=== PATIENT | female | born 1955 | race Caucasian/White ===

== ENCOUNTER → 2017-08-19 09:24 | Outpatient (CLI) | payer MEDICARE, MEDICAID, SELFPAY ==
--- NOTE | 2017-08-19 09:32 | MM_ITS ---
MM Dig screening mamm BI w/CAD CAD Screening COMPARISON: Digital mammograms 08/06/2016 and 08/01/2015 INDICATION: There is a history of breast cancer patient maternal grandmother diagnosed after menopause. TECHNIQUE: Standard CC and MLO images were obtained. R2 CAD reviewed. FINDINGS: Prominent heterogenic fibroglandular densities are seen in central portions and subareolar regions of both breast. Again noted is a small well-defined benign-appearing nodular density just beneath the surface of the skin outer quadrant left breast. There are few benign-appearing calcifications in each breast. There is a mole marker left breast. There is no suspicious lesion and there are no suspicious microcalcifications. IMPRESSION: Moderate heterogenic breast density with no suspicious lesion seen BI-RADS Category: 2 Benign Finding(s) RECOMMENDED FOLLOW-UP: 1YR - 1 YEAR FOLLOW-UP (A letter has been sent to the patient regarding results of the study.)
== END ==
PROVIDERS: Family Provider Family Medicine; PCP Nurse Practitioner Family; Visit Provider Nurse Practitioner Family
DX: Z12.31 Encounter for screening mammogram for malignant neoplasm of breast (principal)
CPT/HCPCS: 77067

== ENCOUNTER → 2017-11-24 12:41 | Outpatient (CLI) | payer MEDICARE, MEDICAID, SELFPAY ==
--- NOTE | 2017-11-24 12:44 | CA_ITS ---
PROCEDURE: 2-D M-mode and color Doppler study INDICATIONS FOR THE TEST: Chest pain COPDX Heart Murmur Tobacco SmokingX Palpitations Fatigue Syncope EdemaX HypertensionXDiabetes Mellitus Rheumatic Fever SOB ZHENG Obesity HyperlipidemiaX Family History HD Additional History PATIENT INFORMATION HEIGHT: 59 WEIGHT:160 GENDER: Female B/P:120/70 2-D/M-MODE INTERPRETATION: 2-D MEASUREMENTS OBSERVED VALUES IN CMS Right Ventricular Dimension (RVDd) 2.4 Interventricular Septum (Thickness)(IVsd) 1.0 Left Ventricular Internal Dimensions(LVIDd) 3.0 Left Ventricular Posterior Wall (Thickness)(LVPWd) .9 Aortic Root 2.9 Aortic Cusp Separation 1.9 Left Atrial Dimensions (LAD) 2.9 2D 1. Left atrium is mildly enlarged, left ventricle is normal size, left ventricle wall thickness is upper limit of normal, there is preserved left ventricular systolic function, visually estimated ejection fraction 55% with no obvious regional wall motion abnormality. 2. The right atrium and right ventricle are normal size and contractility. 3. The aortic valve is minimally thickened and fibrosed. 4. The mitral and tricuspid valve are grossly normal. 5. The pulmonic valve is poorly visualized. 6. No significant pericardial effusion noted. DOPPLER INTERROGATION: Doppler interrogation of the aortic, mitral and tricuspid valvular presence of mild mitral and tricuspid regurgitation, tricuspid and jet velocity insufficient for calculation of the right ventricular systolic pressure, grade 1 diastolic dysfunction seen without tissue Doppler evidence of raised left atrial pressure. CONCLUSION: 1. Mildly enlarged left atrium, normal left ventricular size, mild concentric left ventricular hypertrophy, visually estimated ejection fraction 55% with no obvious regional wall motion abnormality, grade 1 diastolic dysfunction seen without tissue Doppler evidence of raised left atrial pressure. 2. Mild mitral and tricuspid regurgitation 3. No significant pericardial effusion noted.
== END ==
PROVIDERS: Family Provider Family Medicine; PCP Nurse Practitioner Family; Visit Provider Nurse Practitioner Family
DX: R60.1 Generalized edema (principal); R06.02 Shortness of breath
CPT/HCPCS: 93306

== ENCOUNTER → 2018-02-02 11:36 | Outpatient (CLI) | payer MEDICARE, MEDICAID, SELFPAY ==
--- NOTE | 2018-02-02 11:42 | XR_ITS ---
XR hip RT 2-3V w/pelvis HISTORY: ITS.REASON: RT HIP PAIN ORDERING PHYSICIAN: Sol Peralta PATIENT AGE: 62 years COMPARISON: None FINDINGS: No fracture or dislocation is evident. No significant degenerative change. No lytic or blastic change. Unremarkable soft tissues IMPRESSION: Negative hip
== END ==
PROVIDERS: PCP Nurse Practitioner Family; Visit Provider Nurse Practitioner Family
DX: M25.551 Pain in right hip (principal)
CPT/HCPCS: 73502

== ENCOUNTER 2018-04-04 14:43 | Observation (INO) ==
--- NOTE | 2018-04-04 15:06 | Emergency Department Note ---
ED Disposition Clinical Impression: Acute gastroenteritis Disposition: Still a Patient Condition on Discharge: Fair - Critical Care Critical Care Time: No Attestation: On 04/04/18, the high probability of a clinically significant, sudden or life threatening deterioration of the following system(s) required my full and direct attention, intervention and personal management. The time I documented below is in addition to time spent performing reported procedures but includes the following listed in this critical care notation. Medical Decision Making - Omer Inquiry Pt receiving controlled substance: No Vital Signs: 04/04/18 14:54 04/04/18 15:14 04/04/18 16:00 Temperature 99.1 F Temperature Source Oral Pulse Rate [Left Radial] 88 87 91 H Respiratory Rate 16 16 18 Blood Pressure [Right Arm] 126/74 110/53 L 117/56 L Blood Pressure Mean [Right Arm] 91 72 76 Blood Pressure Source [Right Arm] Automatic Cuff Automatic Cuff Automatic Cuff Blood Pressure Position [Right Arm] Sitting Sitting Sitting 02 Sat by Pulse Oximetry 98 94 L 95 Oxygen Delivery Method Room Air Room Air Room Air 04/04/18 17:00 04/04/18 18:00 04/04/18 19:48 Temperature Temperature Source Pulse Rate [Left Radial] 82 82 65 Respiratory Rate 18 16 16 Blood Pressure [Right Arm] 115/67 99/51 L 119/71 Blood Pressure Mean [Right Arm] 83 67 87 Blood Pressure Source [Right Arm] Automatic Cuff Automatic Cuff Automatic Cuff Blood Pressure Position [Right Arm] Sitting Sitting Sitting 02 Sat by Pulse Oximetry 96 96 100 Oxygen Delivery Method Room Air Room Air Room Air - Lab Data Lab Results 04/04/18 14:50: Urine Color Yellow, Urine Appearance Clear, Urine pH 6.0, Ur Specific [place] 1.010, Urine Protein Negative, Urine Glucose (UA) Negative, Urine Ketones Negative, Urine Blood Negative, Urine Nitrate Negative, Urine Bilirubin Negative, Urine Urobilinogen 0.2, Ur Leukocyte Esterase Negative, Urine WBC 5-10, Ur Squamous Epith Cells 10-20, Urine Bacteria 4+, Hyaline Casts 5-10 04/04/18 15:35: WBC 14.4 H, RBC 4.99, Hgb 15.4, Hct 43.8, MCV 87.8, MCH 30.8, MCHC 35.1, RDW 13.5, Plt Count 343, MPV 7.9, Neut % (Auto) 80.1 H, Lymph % (Auto) 15.2, [place] % (Auto) 4.1, Eos % (Auto) 0.2, Baso % (Auto) 0.4, Neut # (Auto) 11.5 H, Lymph # (Auto) 2.2, [place] # (Auto) 0.6, Eos # (Auto) 0.0, Baso # (Auto) 0.1 04/04/18 15:35: Sodium 136, Potassium 2.6 L*, Chloride 94 L, Carbon Dioxide 34 H , Anion Gap 10.6, BUN 27 H, Creatinine 2.14 H, Estimated Creat Clear 30, Estimated GFR 23 L, Est GFR ( Amer) 28 L, Glucose 142 H, Calcium 9.2, Total Bilirubin 0.9, AST 17, ALT 25, Alkaline Phosphatase 88, Troponin I < 0.02, Total Protein 7.4, Albumin 3.7, Globulin 3.7 H, Albumin/Globulin Ratio 1.0 L 04/04/18 15:35: Lipase 85 Result diagrams: 04/04/18 15:35 04/04/18 15:35 Orders (Tests/Meds): ED MEDICATIONS Generic Name Dose Route Start Last Admin Trade Name Freq PRN Reason Stop Dose Admin Acetaminophen 650 mg 04/04/18 20:22 Acetaminophen 325mg Tab PO 05/04/18 20:21 Q4HP PRN As Needed for Fever or Pain Cyclobenzaprine HCl 10 mg 04/04/18 20:30 Flexeril 10mg Tablet PO 05/04/18 20:29 Q8H [facility] Duloxetine HCl 30 mg 04/04/18 21:00 Cymbalta 30mg Capsule PO 05/04/18 20:59 BID ALFRED Gabapentin 300 mg 04/04/18 20:30 Neurontin 300mg Capsule PO 05/04/18 20:29 Q8H ALFRED Potassium Chloride/Sodium Chloride 1,000 mls @ 100 mls/hr 04/04/18 20:30 Kcl 20 Meq In 0.45% Nacl 1000mls IV 05/04/18 20:29 .Q10H ALFRED Non-Formulary Medication 40 mg 04/04/18 21:00 Fluoxetine Hcl [Fluoxetine Hcl] PO 05/04/18 20:59 BID ALFRED Non-Formulary Medication 20 mg 04/04/18 20:30 Omeprazole [Omeprazole 20mg Capsule] PO 05/04/18 20:29 ONCE ALFRED Non-Formulary Medication 60 mg 04/04/18 20:30 Raloxifene Hcl [Raloxifene Hcl] PO 05/04/18 20:29 ONCE ALFRED Non-Formulary Medication 20 mg 04/04/18 20:30 Simvastatin [Simvastatin] PO 05/04/18 20:29 QAM ALFRED Ondansetron HCl 4 mg 04/04/18 20:22 Zofran 4mg/2ml Vial IV 05/04/18 20:21 Q8HP PRN Nausea Ropinirole HCl 0.25 mg 04/04/18 21:00 Requip 0.25mg Tablet PO 05/04/18 20:59 TID ALFRED Sodium Chloride 10 ml 04/04/18 20:22 Saline Flush 10ml Syringe IV 05/04/18 20:21 NEEDED PRN Maintain IV Site Discontinued Medications Generic Name Dose Route Start Last Admin Trade Name Freq PRN Reason Stop Dose Admin Potassium Chloride/Water 100 mls @ 50 mls/hr 04/04/18 17:21 04/04/18 17:55 Potassium Chloride 20meq/100ml Ivpb IV 04/04/18 19:20 50 mls/hr ONCE ONE Administration Potassium Chloride/Water 20 meq 04/04/18 16:14 Potassium Chloride 20meq/100ml Ivpb IV 04/04/18 16:15 ONCE ONE ORDERS Category Date Time Status Diarrhea Panel, PCR Stat Lab 04/04/18 14:59 Ordered Urine Culture Stat Micro 04/04/18 14:50 Received - Radiology Data #1 Image(s): Chest Image Reviewed: Yes I have reviewed radiologist's interpretation IMPRESSION:...... 1. Nothing definite acute. No acute cardiopulmonary disease. 2. the 11 mm nodular density at the posterior medial right lung base is less apparent on today's CXR than it was on 2017 CXR.-Likely due to technique differences. However it appears stable if not perhaps very slightly longer on today's CT abdomen vs [address] abdomen. would suggest CT follow-up chest within 6 months,, further evaluate & better confirm stability of this most likely benign feature, especially if there is a history of smoking Dictated By: Henry Woodard Signed By: <Electronically signed by Henry Woodard in [place]> 04/04/18 1824 - CT Data CT Scan: Abdomen, Pelvis Time Received: 18:[address] Reviewed: Yes: I have viewed the radiologist's interpretation Findings Narrative: ...... IMPRESSION....... 1. A few noncalcified Gallstones noted at dependent gallbladder.. No gallbladder inflammation. No wall thickening. No biliary ductal dilatation evident 2.No acute findings abdomen pelvis otherwise evident. Appendix is been removed. No urinary tract calculi nor obstruction. 3. Subtle minimal diffuse fatty changes in liver. 4.. Small sliding hiatal hernia again noted. 5. Elongated linear area of density towards the medial posterior RLL. Present November 2015 with only minor progression, if any..... Favor Most likely benign feature either granuloma or scarring but would encourage a follow-up CT chest with contrast in 4- 6 months to survey remainder of chest and confirm stability.. Dictated By: Henry Woodard Signed By: <Electronically signed by Henry Woodard in OV> 04/04/183 - ECG Data Tracing #1 EKG interpreted by Pranay Cevallos MD: Rhythm: sinus Rate: 89 [place]: normal Ectopy: none Conduction: normal ST Segment Changes: Nonspecific T Wave Changes: none Q Waves: none - Physician Consults Physician Consulted: Osiris Time: 19:22 Reason -: Admission Comment/Response: Agrees to admit the patient to the hospital. We discussed the patient's clinical information, including history, exam, laboratory and radiology results and ED course. Per hospital procedure, I will write temporary bridge inpatient orders on the patient. Specific orders requested by the admitting physician: Continue IV fluids, half-normal saline with 20 mEq potass ium per liter. Anti-emetics. General Adult HPI - General Chief complaint: Abdominal Pain Stated complaint: Vomiting,diarrhea Time Seen by Provider: 04/04/18 15:05 Mode of Arrival: Ambulatory Limitations: No Limitations Description of Symptoms (Recalled from ER Triage Doc. by RN): to ed per pvt car with c/o vomiting, diarrhea, lower abd pain starting thursday. - History of Present Illness HPI narrative: 3-day history of lower abdominal pain, vomiting, diarrhea. Feels feverish, temperature not taken. Has chest pain, she thinks from vomiting. No blood in emesis or diarrhea. No recent travel or antibiotics. No exposures. - Related Data Home Medications Medication Instructions Recorded Confirmed cyclobenzaprine 10 mg tablet 10 mg PO Q8H 09/10/17 04/04/18 duloxetine 30 mg capsule,delayed 30 mg PO BID 09/10/17 04/04/18 release fluoxetine 40 mg capsule 40 mg PO BID 09/10/17 04/04/18 gabapentin 300 mg capsule 300 mg PO Q8H 09/10/17 04/04/18 hydrochlorothiazide 25 mg tablet 25 mg PO QAM 09/10/17 04/04/18 naproxen 500 mg tablet 500 mg PO Q12H 09/10/17 04/04/18 omeprazole 20 mg capsule,delayed 20 mg PO ONCE 09/10/17 04/04/18 release ropinirole 0.25 mg tablet 0.25 mg PO TID 09/10/17 04/04/18 simvastatin 20 mg tablet 20 mg PO QAM 09/10/17 04/04/18 tramadol 50 mg tablet 50 mg PO ONCE 09/10/17 04/04/18 Raloxifene HCl 60 mg PO ONCE 02/14/18 04/04/18 Allergies Allergy/AdvReac Type Severity Reaction Status Date / Time Penicillins [PENICILLINS] Allergy Unknown I-HIVES Verified 04/04/18 17:15 [facility] History I have reviewed the patient's past medical history: Yes Comment: Heart disease. Hypertension. Hypercholesterolemia. Restless Leg Syndrome. Sleep Apnea Comment: D&E--1972. Appy (open)--2003. Colon polyps removed (benign)--2003. 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 Cataract removal on both eyes--2014. Carpal Tunnel Repair (bilateral)--2016. Dx HSC, Dx LSC, Expl. Laparotomy, P/W, JUWAN, BSO, Extensive Adhesiolysis--2016 - Social History Smoking Status: Current every day smoker Tobacco Type: cigarettes Alcohol Intake: never - Psychiatric History Expresses thoughts of harming self/others: None Suicide Plan Description: No Plan Family Hx:: Cancer, Coronary Artery Disease ROS Obtained: Yes All systems reviewed & no additional complaints - Constitutional Constitutional: Reports chills, Reports fever(s) (Subjective) - Cardiovascular Cardiovascular: Reports chest pain (Sternal area) - Respiratory Respiratory: No dyspnea - Gastrointestinal Gastrointestingal: Reports: abdominal pain, diarrhea, nausea, vomiting - Genitourinary Female Genitourinary: Denies dysuria Physical Exam - General General appearance: alert, in no apparent distress - Head Head exam: atraumatic, normocephalic - Eye Eye exam: Present: normal appearance, PERRL, EOMI - ENT ENT exam: Present: mucous membranes dry - Neck Neck exam: Present: normal inspection, trachea midline - Chest Chest inspection: Present: normal inspection, symmetric chest wall rise - Respiratory Respiratory exam: Present: normal lung sounds bilaterally. Absent: respiratory distress - Cardiovascular Cardiovascular exam: Present: regular rate, normal rhythm, normal heart sounds - Abdominal Exam Abdominal exam: Present: soft, tenderness. Absent: distention Abdominal tenderness: Present: RLQ, LLQ, suprapubic - Extremities Exam Extremities exam: Present: normal inspection - Neurological Exam Neurological exam: Present: alert, oriented X3 - Psychiatric Psychiatric exam: Present: normal affect, normal mood - Skin Skin exam: Present: warm, dry
[2018-04-04 15:20] LABS: Microscopic, Urine URINE MICROSCOPIC (MICROSCOPIC)
[2018-04-04 15:25] LABS: Appearance,Urine CLEAR (Clear); Bilirubin,Urine Negative (Negative); Blood, Urine Negative (Negative); Color,Urine YELLOW (Yellow); Glucose,Urine (UA) Negative (Negative); Ketones,Urine Negative (Negative); Leukocyte Esterase,Urine Negative (Negative); Protein,Urine Negative (Negative); Urobilinogen,Urine 0.2 EU/dl (0.2)
[2018-04-04 15:35] LABS: Bacteria,Urine 4+ /lpf
[2018-04-04 16:00] LABS: Basophils # 0.1 K/mm3 (0-0.2); Basophils % 0.4 % (0.1-2.0); Eosinophils % 0.2 % (0.1-12.0); Hematocrit 43.8 % (37.0-47.0); Hemoglobin 15.4 g/dL (12.2-16.2); Lymphocytes # 2.2 K/mm3 (0.7-4.5); Lymphocytes % 15.2 % (10-50); Mean Corpuscular HGB Conc 35.1 g/dL (31.8-35.4); Mean Corpuscular Hemoglobin 30.8 pg (27.0-31.2); Mean Corpuscular Volume 87.8 fl (81-99); Mean Platelet Volume 7.9 fl (7.4-10.4); Monocytes # 0.6 K/mm3 (0.1-1.0); Monocytes % 4.1 % (1.7-9.3); Neutrophils # 11.5 K/mm3 (1.8-7.8); Neutrophils % 80.1 % (37.0-80.0); Platelet Count 343 K/mm3 (142-424); Red Blood Count 4.99 M/mm3 (4.20-5.40); Red Cell Distribution Width 13.5 % (11.5-17.5); White Blood Count 14.4 K/mm3 (4.8-10.8)
[2018-04-04 16:10] LABS: Alanine Aminotransferase 25 U/L (12-78); Albumin Level 3.7 gm/dL (3.4-5.0); Alkaline Phosphatase 88 U/L (46-116); Anion Gap 10.6 mEq/L (5-15); Aspartate Amino Transferase 17 U/L (15-37); Bilirubin,Total 0.9 mg/dL (0.2-1.0); Blood Urea Nitrogen 27 mg/dL (7-18); Calcium 9.2 mg/dL (8.5-10.1); Carbon Dioxide 34 mmol/L (21.0-32.0); Chloride 94 mmol/L (98-107); Globulin 3.7 gm/dl (1.3-3.2); Glucose 142 mg/dL (74-106); Sodium 136 mmol/L (136-145); Total Protein,Serum 7.4 gm/dL (6.4-8.2)
[2018-04-04 16:12] LABS: Potassium 2.6 mmoL/L (3.5-5.1)
[2018-04-05 06:13] LABS: Basophils # 0.1 K/mm3 (0-0.2); Basophils % 0.8 % (0.1-2.0); Eosinophils # 0.2 K/mm3 (0.0-0.4); Eosinophils % 1.7 % (0.1-12.0); Hematocrit 42.6 % (37.0-47.0); Lymphocytes # 3.6 K/mm3 (0.7-4.5); Lymphocytes % 38.2 % (10-50); Mean Corpuscular HGB Conc 32.4 g/dL (31.8-35.4); Mean Corpuscular Hemoglobin 28.9 pg (27.0-31.2); Mean Corpuscular Volume 89.2 fl (81-99); Mean Platelet Volume 8.1 fl (7.4-10.4); Monocytes # 0.5 K/mm3 (0.1-1.0); Monocytes % 5.5 % (1.7-9.3); Neutrophils # 5.1 K/mm3 (1.8-7.8); Neutrophils % 53.8 % (37.0-80.0); Platelet Count 275 K/mm3 (142-424); Red Blood Count 4.78 M/mm3 (4.20-5.40); Red Cell Distribution Width 13.6 % (11.5-17.5); White Blood Count 9.5 K/mm3 (4.8-10.8)
[2018-04-05 06:19] LABS: Anion Gap 9.8 mEq/L (5-15); Calcium 8.5 mg/dL (8.5-10.1)
[2018-04-05 06:34] LABS: Potassium 2.8 mmoL/L (3.5-5.1)
[2018-04-05 07:06] LABS: Hemoglobin 13.8 g/dL (12.2-16.2)
--- NOTE | 2018-04-05 07:09 | History & Physical Report ---
*Admission Date: 04/04/18 *Chief complaint: Vomiting and diarrhea *History of present illness: 62-year-old female with hypertension presented to the emergency department on the afternoon of April 04 with a little over 48-hour history of vomiting and diarrhea. Patient tells me on the morning of April 02 she awoke with vomiting and later developed diarrhea. She estimates she vomited about 5 times with his many episodes of diarrhea on Thursday. Symptoms persisted on Thursday and she vomited "every time she smelled food". Diarrhea continued as well. On Thursday morning she had her last episode of both vomiting and diarrhea. She had some crampy abdominal pain. She felt weak. She believes she was having fevers because she felt hot. She denies chills. Despite vomiting and diarrhea having ceased she presented to the emergency department on the afternoon of the . She was evaluated and found to have a leukocytosis along with hypokalemia. Decision was made to admit the patient for IV fluids and potassium replacement. This morning the patient is feeling better and feels hungry. She denies nausea this morning. [facility] History I have reviewed the patient's past medical history: Yes 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: Reports:: Hyperlipidemia, Hypertension Denies:: Cancer, Diabetes Mellitus Type 1, Diabetes Mellitus Type 2, MRSA Other 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: Reports: Cataracts Laterality Cases: Bilateral: Cataract Other Surgeries: Yes: Appendectomy, Hysterectomy-Total, Other (CARPEL TUNNEL) Amputation: No Fractures: No - *Social History Educational Level: Attended High School Smoking Status: Current every day smoker Tobacco Type: cigarettes Alcohol Intake: never Occupational Status: disabled Household Members: spouse - Psychiatric History Expresses thoughts of harming self/others: None Suicide Plan Description: No Plan *Family Hx:: Cancer, Coronary Artery Disease Review of Systems - Review of Systems Review of systems:: pertinent systems reviewed and negative unless documented below - Constitutional Reports fever(s), Denies body ache(s), Denies chills, Denies headache(s) - *Cardiovascular Denies chest pain, Denies chest pain at rest - *Respiratory Denies change in phlegm color, Denies chest congestion, Denies cough - *Gastrointestinal Reports bloating, Reports change in bowel habits, Reports cramping, Reports loose stools, Reports heartburn, Reports nausea, Denies difficulty swallowing, Denies feeling full early Meds Home Medications Medication Instructions Recorded Confirmed Type cyclobenzaprine 10 mg tablet 10 mg PO TID 09/10/17 04/04/18 History duloxetine 30 mg capsule,delayed 30 mg PO BID 09/10/17 04/04/18 History release fluoxetine 40 mg capsule 40 mg PO BID 09/10/17 04/04/18 History gabapentin 300 mg capsule 300 mg PO TID 09/10/17 04/04/18 History hydrochlorothiazide 25 mg tablet 25 mg PO DAILY 09/10/17 04/04/18 History naproxen 500 mg tablet 500 mg PO BID 09/10/17 04/04/18 History omeprazole 20 mg capsule,delayed 20 mg PO DAILY 09/10/17 04/04/18 History release ropinirole 0.25 mg tablet 0.25 mg PO TID 09/10/17 04/04/18 History simvastatin 20 mg tablet 20 mg PO HS 09/10/17 04/04/18 History tramadol 50 mg tablet 50 mg PO HS 09/10/17 04/04/18 History Raloxifene HCl 60 mg PO DAILY 02/14/18 04/04/18 History Lisinopril [Lisinopril 20mg Tab] 20 mg PO DAILY 04/04/18 04/04/18 History Allergies Allergy/AdvReac Type Severity Reaction Status Date / Time Penicillins [PENICILLINS] Allergy Unknown I-HIVES Verified 04/04/18 17:15 Exam Vital signs and Labs for Last 24 Hours: Temp Pulse Resp BP Pulse Ox 97.6 F 67 18 146/80 H 95 04/05/18 04:00 04/05/18 04:00 04/05/18 04:00 04/05/18 04:00 04/05/18 04:00 Laboratory Results - last 24 hr 04/04/18 14:50: Urine Color Yellow, Urine Appearance Clear, Urine pH 6.0, Ur Specific [place] 1.010, Urine Protein Negative, Urine Glucose (UA) Negative, Urine Ketones Negative, Urine Blood Negative, Urine Nitrate Negative, Urine Bilirubin Negative, Urine Urobilinogen 0.2, Ur Leukocyte Esterase Negative, Urine WBC 5-10, Ur Squamous Epith Cells 10-20, Urine Bacteria 4+, Hyaline Casts 5-10 04/04/18 15:35: WBC 14.4 H, RBC 4.99, Hgb 15.4, Hct 43.8, MCV 87.8, MCH 30.8, MCHC 35.1, RDW 13.5, Plt Count 343, MPV 7.9, Neut % (Auto) 80.1 H, Lymph % (Auto) 15.2, [place] % (Auto) 4.1, Eos % (Auto) 0.2, Baso % (Auto) 0.4, Neut # (Auto) 11.5 H, Lymph # (Auto) 2.2, [place] # (Auto) 0.6, Eos # (Auto) 0.0, Baso # (Auto) 0.1 04/04/18 15:35: Sodium 136, Potassium 2.6 L*, Chloride 94 L, Carbon Dioxide 34 H , Anion Gap 10.6, BUN 27 H, Creatinine 2.14 H, Estimated Creat Clear 30, Estimated GFR 23 L, Est GFR ( Amer) 28 L, Glucose 142 H, Calcium 9.2, Total Bilirubin 0.9, AST 17, ALT 25, Alkaline Phosphatase 88, Troponin I < 0.02, Total Protein 7.4, Albumin 3.7, Globulin 3.7 H, Albumin/Globulin Ratio 1.0 L 04/04/18 15:35: Lipase 85 04/05/18 05:15: WBC 9.5 D, RBC 4.78, Hct 42.6, MCV 89.2, MCH 28.9, MCHC 32.4, RDW 13.6, Plt Count 275, MPV 8.1, Neut % (Auto) 53.8, Lymph % (Auto) 38.2, [place] % (Auto) 5.5, Eos % (Auto) 1.7, Baso % (Auto) 0.8, Neut # (Auto) 5.1, Lymph # (Auto) 3.6, [place] # (Auto) 0.5, Eos # (Auto) 0.2, Baso # (Auto) 0.1 04/05/18 05:15: Sodium 139, Potassium 2.8 L*, Chloride 97 L, Carbon Dioxide 35 H , Anion Gap 9.8, BUN 21 H, Creatinine 1.46 H D, Estimated Creat Clear 45, Estimated GFR 36 L, Est GFR ( Amer) 44 L D, Glucose 106 D, Calcium 8.5 I & O for Last 24 hours: Intake & Output 1104/03/18 04/04/18 04/05/18 11:59 11:59 11:59 11:59 Intake Total 630 / 630 Output Total 300 / 300 Balance 330 / 330 Weight 159 lb 12.8 oz Narrative: Patient is awake and alert in no distress. She is oriented to person place and time. ENT exam is significant for tacky mucous membranes. Neck is without lymphadenopathy or carotid bruits. Lungs are clear to auscultation. Heart has a regular rate and rhythm. Abdomen is obese, soft, nontender with active bowel sounds. Extremities are warm to the touch. There is no mottling of the skin. Patient has active range of motion in the arms and legs. Assessment and Plan (1) Hypokalemia Current visit: Yes Status: Acute Category: Medical Code(s): E87.6 - Hypokalemia (2) Acute gastroenteritis Current visit: Yes Status: Resolved Category: Medical Code(s): K52.9 - Noninfective gastroenteritis and colitis, unspecified - Assessment and plan all Dx Assessment and Plan for all problems:: 1. Patient will be given a fluid bolus this morning followed by runs of potassium. Diet has been advanced to a liquid diet. If she tolerates diet throughout the day she will be discharged home later this afternoon. Should vomiting recur she will need to be n.p.o.
--- NOTE | 2018-04-05 07:46 | Pharmacy Consult Notes ---
[facility] Pharmacy VTE Monitoring - Patient Demographics Admission date: 04/04/18 Report Date: 04/05/18 Time: 07:46 Allergies/Adverse Reactions: Patient Allergies Penicillins [PENICILLINS] Allergy (Unknown, Verified 04/04/18 17:15) I-HIVES Height: 1.5 m Weight: 72.484 kg Patient Problems: Current Active Problems Hypokalemia (Acute) - VTE Risk Labs: VTE Related Lab Results Hgb 13.8 g/dL (12.2-16.2) D 04/05/18 05:15 Hct 42.6 % (37.0-47.0) 04/05/18 05:15 Plt Count 275 K/mm3 (142-424) 04/05/18 05:15 BUN 21 mg/dL (7-18) H 04/05/18 05:15 Creatinine 1.46 mg/dL (0.55-1.02) H D 04/05/18 05:15 Estimated Creat Clear 45 mL/min (50-200) 04/05/18 05:15 Was VTE Risk Assessment Performed: Yes VTE Score: 5 VTE Risk Level: Low Risk - Prophylaxis VTE Prophylaxis Ordered?: Yes Types of VTE Prophylaxis: TEDS Knee High Location of Applied Device: Bilateral Lower Extremeties - VTE Diagnosis Confirmed Treatment or plan recommended: Continue Current Treatment
--- NOTE | 2018-04-05 16:22 | Discharge Summary ---
General - General Admission date:: 04/04/18 HPI HPI: 62-year-old female with hypertension presented to the emergency department on the afternoon of April 04 with a little over 48-hour history of vomiting and diarrhea. Patient tells me on the morning of April 02 she awoke with vomiting and later developed diarrhea. She estimates she vomited about 5 times with his many episodes of diarrhea on Thursday. Symptoms persisted on Thursday and she vomited "every time she smelled food". Diarrhea continued as well. On Thursday morning she had her last episode of both vomiting and diarrhea. She had some crampy abdominal pain. She felt weak. She believes she was having fevers because she felt hot. She denies chills. Despite vomiting and diarrhea having ceased she presented to the emergency department on the afternoon of the . She was evaluated and found to have a leukocytosis along with hypokalemia. Decision was made to admit the patient for IV fluids and potassium replacement. This morning the patient is feeling better and feels hungry. She denies nausea this morning. Hospital Course Hospital Course: Patient admitted yesterday, 04/04/18 for gastroenteritis of unknown source. Throughout stay she was hydrated with IVF and treated for hypokalemia with potassium replacement via IV piggyback and in maintenance fluids. Per patient and nursing staff patient has had no nausea or vomiting and tolerated clear li quids today. Two bouts of diarrhea noted. Patient is wanting to go home and verbalizes follow up with me, Marilu Szymanski APRN on Thursday, April 07 at 10am. She will be discharged on home medications with the addition of zofran 4 mg ODT Q8hr PRN and KCL 40meq daily, I will recheck BMP at follow up appointment. Objective Vital signs: Temp Pulse Resp BP Pulse Ox 98.1 F 74 20 114/59 L 98 04/05/18 15:45 04/05/18 15:45 04/05/18 15:45 04/05/18 15:45 04/05/18 15:45 Narrative: Patient seated in bed resting comfortably with at bedside. A&OX4, lung salas clear, heart tones RRR without murmur, abd soft and nontender with normoactive BS present, skin turgor elastic with <2 sec cap refill. Results Labs on day of discharge: Labs from last 24 hours 04/05/18 04/05/18 04/05/18 08:56 05:15 05:15 WBC 9.5 D RBC 4.78 Hgb 13.8 D Hct 42.6 MCV 89.2 MCH 28.9 MCHC 32.4 RDW 13.6 Plt Count 275 MPV 8.1 Neut % (Auto) 53.8 Lymph % (Auto) 38.2 [place] % (Auto) 5.5 Eos % (Auto) 1.7 Baso % (Auto) 0.8 Neut # (Auto) 5.1 Lymph # (Auto) 3.6 [place] # (Auto) 0.5 Eos # (Auto) 0.2 Baso # (Auto) 0.1 Sodium 139 Potassium 2.8 L* Chloride 97 L Carbon Dioxide 35 H Anion Gap 9.8 BUN 21 H Creatinine 1.46 H D Estimated Creat Clear 45 Estimated GFR 36 L Est GFR ( Amer) 44 L D Glucose 106 D Calcium 8.5 Stl Aeromonas (PCR) Not detected Stl C. cayetanensis PCR Not detected Stool Rotavirus (PCR) Not detected Stl Adenov F 40/41 PCR Not detected Stool Astrovirus (PCR) Not detected Stool Campylobacter PCR Not detected Stl C.difficile Tox PCR Not detected Stool Cryptosporidium PCR Not detected Stl E.coli Shiga Tox PCR Not detected Stool E coli O157 PCR Not detected Stl Enterotoxigenic E PCR Not detected Stool EPEC (PCR) Not detected Stool EAEC (PCR) Not detected Stl E. histolytica PCR Not detected Stool Giardia Lamblia PCR Not detected Stool Salmonella PCR Not detected Stool Sapovirus (PCR) Not detected Stl P. shigelloides PCR Not detected Stl Shigella/EIEC PCR Not detected St Y.enterocolitica PCR Not detected Stool Vibrio (PCR) Not detected Stl Vibrio cholerae PCR Not detected Stl Norovirus GI/GII PCR Not detected Preliminary micro results at discharge 04/04/18 14:50 Urine Culture - Preliminary Urine,Clean Catch NO GROWTH AFTER 24 HOURS DS: Diagnosis - Discharge Diagnosis (1) Hypokalemia Status: Acute (2) Acute gastroenteritis Status: Resolved Discharge Plan - Patient Discharge Instructions ACTIVITY: Continue current activity Additional Instructions: clear liquid until tomorrow then BRAT as we discussed, no greasy, spicy or fried foods Patient Instructions: DI for Viral Gastroenteritis -- Adult, Hypokalemia - Follow up Plan Follow up with: Marilu Szymanski APRN [Nurse Practitioner] - 04/07/18 10:00 am () Disposition: Home, Self-Detention Medications: Home Medications Medication Instructions Recorded Confirmed Type cyclobenzaprine 10 mg tablet 10 mg PO HSP PRN 09/10/17 04/05/18 History fluoxetine 40 mg capsule 40 mg PO BID 09/10/17 04/04/18 History gabapentin 300 mg capsule 300 mg PO BIDP PRN 09/10/17 04/05/18 History naproxen 500 mg tablet 500 mg PO BIDP PRN 09/10/17 04/05/18 History omeprazole 20 mg capsule,delayed 20 mg PO DAILY 09/10/17 04/04/18 History release ropinirole 0.25 mg tablet 0.25 mg PO HS 09/10/17 04/05/18 History simvastatin 20 mg tablet 20 mg PO HS 09/10/17 04/04/18 History tramadol 50 mg tablet 50 - 100 mg PO HSP PRN 09/10/17 04/05/18 History Raloxifene HCl 60 mg PO DAILY 02/14/18 04/04/18 History Aspirin [Aspirin 81mg chewable 81 mg PO DAILY 04/05/18 04/05/18 History tab] Furosemide [Furosemide 40MG tAB] 40 mg PO BID 04/05/18 04/05/18 History Lisinopril/Hydrochlorothiazide 1 tab PO DAILY 04/05/18 04/05/18 History [Lisinopril-Hctz 20-25 mg Tab] Triamterene/Hydrochlorothiazid 1 each PO DAILY 04/05/18 04/05/18 History [Maxzide 37.5 mg-25 mg Tablet] Prescriptions/Medication Reconciliation: New Ondansetron [Zofran 4mg ODT] 4 mg PO Q8H PRN #20 tab.rapdis PRN Reason: Nausea Potassium Chloride 40 meq PO DAILY #10 tablet.er Continue ropinirole 0.25 mg tablet 0.25 mg PO HS gabapentin 300 mg capsule 300 mg PO BIDP PRN PRN Reason: NEUROPATHY cyclobenzaprine 10 mg tablet 10 mg PO HSP PRN PRN Reason: Muscle Spasm omeprazole 20 mg capsule,delayed release 20 mg PO DAILY tramadol 50 mg tablet 50 - 100 mg PO HSP PRN PRN Reason: PAIN naproxen 500 mg tablet 500 mg PO BIDP PRN PRN Reason: PAIN simvastatin 20 mg tablet 20 mg PO HS fluoxetine 40 mg capsule 40 mg PO BID Lisinopril/Hydrochlorothiazide [Lisinopril-Hctz 20-25 mg Tab] 1 tab PO DAILY Aspirin [Aspirin 81mg chewable tab] 81 mg PO DAILY Raloxifene HCl 60 mg PO DAILY Triamterene/Hydrochlorothiazid [Maxzide 37.5 mg-25 mg Tablet] 1 each PO DAILY Furosemide [Furosemide 40MG tAB] 40 mg PO BID
== END 2018-04-05 16:46 | disposition home or self-care (01) ==
LOC: ER 14:43 → ICU 14:43
PROVIDERS: ADMIT Internal Medicine Adolescent Medicine; ATTEND Family Medicine
CPT/HCPCS: 36415; 71020; 71046; 74176; 80048; 80053; 81001; 83690; 84484; 85025; 87086; 87507; 93005; 96365; 99285; G0378

== ENCOUNTER → 2018-08-12 13:32 | Outpatient (CLI) | payer MEDICARE, MEDICAID, SELFPAY ==
--- NOTE | 2018-08-12 | CT_ITS ---
CT abdomen w con CLINICAL INDICATION: Right upper quadrant pain with nausea and vomiting ITS.REASON: ABD PAIN VOMITING ORDERING PHYSICIAN: Marilu Szymanski PATIENT AGE: 63 years COMPARISON: 04/04/2019. 04/12/2016 TECHNIQUE: Axial images obtained with sagittal and coronal reformats. All CT scans at the facility use one or more dose reduction, viz: automated exposure control, ma/kV adjustment per patient size (including targeted exams where dose is matched to indication, i.e. head), or iterative reconstruction technique. PROCEDURE: Oral Contrast: None IV Contrast: 75 mL of Optiray 350. FINDINGS: In the right lung base there is a lobular soft tissue density which measures up to 2 cm in AP dimension and 1 cm transverse. Not significant change from the previous exam but has slightly increased in size compared to 04/12/2016. Continued follow-up recommended. There is mild thickening of the distal esophagus which may be seen with esophagitis The liver, spleen, adrenal glands and pancreas have an unremarkable appearance. No renal or ureteral calculi or hydronephrosis. No renal mass. There is increased density along the posterior aspect of the gallbladder consistent with cholelithiasis. Ultrasound may confirm. There are some small periportal lymph nodes measuring up to 1.5 x 1.5 cm not significantly changed. No intestinal obstruction or free air is evident. The pelvis is not examined on this exam. There are degenerative changes in the lumbar spine. No evidence of aortic aneurysm. 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 IMPRESSION: 1. Suspected cholelithiasis. Ultrasound may confirm. 2. 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 Lobular 2 cm soft tissue density in the right lower lobe not significant changed from the most recent exam. Continued follow-up recommended . 4. Other nonacute findings as described above
[2018-08-12 13:51] LABS: Blood Urea Nitrogen 17 mg/dL (7-18); Creatinine,Serum 1.15 mg/dL (0.55-1.02); Estimated Glomerular Filt Rate 47 ml/min (>60); GFR (African American) 57 ML/MIN (>60)
== END ==
PROVIDERS: Visit Provider Nurse Practitioner Family
DX: R10.9 Unspecified abdominal pain (principal); R11.10 Vomiting, unspecified; D72.829 Elevated white blood cell count, unspecified
CPT/HCPCS: 36415; 74160; 82565; 84520; Q9967

== ENCOUNTER → 2018-08-20 10:08 | Outpatient (CLI) | payer MEDICARE, MEDICAID, SELFPAY ==
--- NOTE | 2018-08-20 10:21 | MM_ITS ---
MM Dig screening mamm BI w/CAD CAD Screening COMPARISON: Digital mammograms with CAD 08/19/2017 and 08/06/2016 INDICATION: There is a history of breast cancer patient maternal grandmother diagnosed after menopause TECHNIQUE: Standard CC and MLO images were obtained. R2 CAD reviewed. FINDINGS: Prominent somewhat heterogenic fibroglandular densities are seen in the central portions and upper outer quadrants of both breasts. There is a mole marker left breast. There is a stable nodular density outer quadrant left breast. There is no suspicious lesion and there are no suspicious microcalcifications. IMPRESSION: Moderate heterogenic breast density with no suspicious lesion seen BI-RADS Category: 2 Benign Finding(s) RECOMMENDED FOLLOW-UP: 1YR - 1 YEAR FOLLOW-UP (A letter has been sent to the patient regarding results of the study.)
== END ==
PROVIDERS: PCP Nurse Practitioner Family; Referring Provider Nurse Practitioner Family; Visit Provider Nurse Practitioner Family
DX: Z12.31 Encounter for screening mammogram for malignant neoplasm of breast (principal)
CPT/HCPCS: 77067

== ENCOUNTER → 2018-09-15 13:04 | Outpatient (CLI) | payer MEDICARE, MEDICAID, SELFPAY ==
--- NOTE | 2018-09-15 13:07 | XR_ITS ---
XR DEXA axial skeleton HISTORY: ITS.REASON: osteopenia ORDERING PHYSICIAN: Ibrahima Talavera MD PATIENT AGE: 63 years COMPARISON: 03/09/2017 FINDINGS: The BMD measured at the Right femoral neck is 0.717 g/cm squared with a T score of -2.3. This is considered Osteopenic according to the World Health Organization criteria. Fracture risk is Moderate. Treatment is advised. L1 L4 density has a T score 0.4 and has increased by 2.5%. The hip density has decreased by 0.5% IMPRESSION: Osteopenia with moderate risk. Treatment is advised. Suggest follow-up exam August 2020
== END ==
PROVIDERS: PCP Nurse Practitioner Family; Visit Provider Obstetrics & Gynecology
DX: M85.89 Other specified disorders of bone density and structure, multiple sites (principal)
CPT/HCPCS: 77080

== ENCOUNTER → 2018-09-17 06:37 | Outpatient (CLI) | payer MEDICARE, MEDICAID, SELFPAY ==
--- NOTE | 2018-09-17 06:39 | NM_ITS ---
CARDIOLITE SPECT MYOCARDIAL PERFUSION LEXISCAN, REST AND STRESS: History: Hypertension, hyperlipidemia, tobacco use, family history, chest pain, shortness of breath, palpitations and fatigue Procedure: Patient received a 0.4 mg of intravenous Lexiscan, resting heart rate was 63 bpm and blood pressure 140/73, with Lexiscan maximum heart rate achieved was 78 bpm which is less than 85% of the maximum predicted heart rate and a blood pressure was 131/62. With Lexiscan patient complained of shortness of breath Electrocardiogram: The resting electrocardiogram showed sinus rhythm, with Lexiscan there is less than 1.[address] segment depression noted from the baseline EKG. The EKG portion of the Lexiscan Myoview is nondiagnostic. Cardiac stress and resting SPECT images: Cardiac stress and resting SPECT images were obtained using technetium 99 Myoview 30.6 mCi at stress and 10.3 mCi at rest, gated SPECT further analysis of segmental wall motion and calculation of the ejection fraction also done. Cardiac stress and rest SPECT images show uniform myocardial activity without segmental perfusion abnormality, computer derived ejection fraction is over 65% with no regional wall motion abnormality, right ventricle is normal size and contractility. Conclusion: 1. The EKG portion of the Lexiscan Myoview is nondiagnostic. 2. No scintigraphic evidence of reversible ischemia seen, computer derived ejection fraction is over 65% with no regional wall motion abnormality, right ventricle is normal size and contractility. 3. Normal Lexiscan Myoview study.
--- NOTE | 2018-09-17 06:39 | CA_ITS ---
PROCEDURE: 2-D M-mode and color Doppler study INDICATIONS FOR THE TEST: Chest pain COPD Heart Murmur Tobacco Smoking Palpitations Fatigue Syncope Edema+ Hypertension+Diabetes Mellitus Rheumatic Fever SOB+ZHENG+Obesity+Hyperlipidemia+ Family History HD Additional History cad PATIENT INFORMATION HEIGHT: 59 WEIGHT:157 GENDER: Female B/P:130/71 2-D/M-MODE INTERPRETATION: 2-D MEASUREMENTS OBSERVED VALUES IN CMS Right Ventricular Dimension (RVDd) 2.3 Interventricular Septum (Thickness)(IVsd) 1.4 Left Ventricular Internal Dimensions(LVIDd) 4.1 Left Ventricular Posterior Wall (Thickness)(LVPWd) 0.8 Aortic Root 2.2 Aortic Cusp Separation 1.9 Left Atrial Dimensions (LAD) 3.9 2D 1. Left atrium is mildly enlarged, left ventricle is normal size, mild concentric left ventricular hypertrophy, visually estimated ejection fraction 55% with no regional wall motion abnormality. 2. The right atrium and right ventricle are normal size and contractility. 3. The aortic valve is minimally thickened and fibrosed. 4. The mitral and tricuspid valve are grossly normal. 5. The pulmonic valve is poorly visualized. 6. No significant pericardial effusion noted. DOPPLER INTERROGATION: Doppler interrogation of the aortic, mitral and tricuspid valvular presence of mild mitral and tricuspid regurgitation, tricuspid regurgitation jet velocity is inadequate for calculation of the right ventricular systolic pressure, grade 1 diastolic dysfunction seen with tissue Doppler evidence of raised left atrial pressure. CONCLUSION: 1. Mildly enlarged left atrium, normal left ventricular size, mild concentric left ventricular hypertrophy, visually estimated ejection fraction 55% with no regional wall motion abnormality, grade 1 diastolic dysfunction seen with tissue Doppler evidence of raised left atrial pressure. 2. Mild mitral and tricuspid regurgitation 3. No significant pericardial effusion noted.
--- NOTE | 2018-09-17 09:27 | HMH.ITSHM ---
Current Home Medications as stated by this patient Yolanda Lockett or transportation services representative. []BREO OMEPRAZOLE ASPIRIN GABAPENTIN SIMVASTATIN PROMETHAZINE LISINOPRIL HCTZ CYCLOBENZAR METOPROLOL RALOXIFINE FLUOXETINE DULOXETINE FUROSEMIDE TRIAMT/HCTZ HYDROXZINE NAPRXEN
== END ==
PROVIDERS: PCP Nurse Practitioner Family; Visit Provider Urology
DX: E66.9 Obesity, unspecified (principal); E78.5 Hyperlipidemia, unspecified; I10 Essential (primary) hypertension; I25.10 Atherosclerotic heart disease of native coronary artery without angina pectoris; R06.00 Dyspnea, unspecified; R60.0 Localized edema
CPT/HCPCS: 78452; 93017; 93306; A9502; J2785

== ENCOUNTER → 2018-09-23 11:17 | Outpatient (CLI) | payer MEDICARE, MEDICAID, SELFPAY ==
[2018-09-23 13:09] LABS: Free T4 (Free Thyroxine) 1.15 ng/dl (0.76-1.46); Thyroid Stimulating Hormone 0.22 uIU/ml (0.358-3.740)
[2018-09-24 14:42] LABS: Thyroid Peroxidase Antibodies 17 IU/mL (0-34)
[2018-09-27 13:08] LABS: Thyroid Stimulating Immunoglob <0.10 IU/L (0.00-0.55)
== END ==
PROVIDERS: Visit Provider Otolaryngology
DX: E01.0 Iodine-deficiency related diffuse (endemic) goiter (principal); R13.10 Dysphagia, unspecified
CPT/HCPCS: 36415; 84439; 84443; 84445; 86376

== ENCOUNTER → 2018-09-30 07:52 | Outpatient (CLI) | payer MEDICARE, MEDICAID, SELFPAY ==
--- NOTE | 2018-09-30 08:30 | US_ITS ---
US thyroid HISTORY: Follow-up thyroid nodules ITS.REASON: enlarged ORDERING PHYSICIAN: Roberto Larios MD PATIENT AGE: 63 years Comparison: 11/11/1716 FINDINGS: The right lobe is 3.4 x 1.5 x 1.3 cm. A 4 mm hypoechoic nodule is present in the mid polar region unchanged. Small cyst is present in the mid polar region at 3 mm. 6 mm hypoechoic nodule lower pole. Unchanged. 6 mm isoechoic nodule lower pole unchanged Left lobe is 3.9 x 2 x 1.7 cm. 10 x 6 mm isoechoic nodule noted superiorly unchanged. 10 mm hypoechoic nodule upper pole unchanged. 8 mm hypoechoic nodule mid polar region unchanged. 7 mm hypoechoic nodule lower pole unchanged. There is a 13 mm isoechoic nodule in the lower pole unchanged. 8 mm isoechoic nodule lower pole with central cystic area unchanged IMPRESSION: No change multinodular goiter
--- NOTE | 2018-09-30 09:00 | FL_ITS ---
EXAM: Barium swallow/esophagram. INDICATION: ITS.REASON: dysphagia ORDERING PHYSICIAN: Roberto Larios MD PATIENT AGE: 63 years COMPARISON: None TECHNIQUE: In the upright position the patient was observed to swallow barium in both the AP and lateral view. The cervical esophagus was examined under fluoroscopy with images obtained. The patient was then placed prone in the right anterior oblique position and was observed to swallow barium with Valsalva technique . FLUOROSCOPY TIME: 38 seconds FINDINGS: There was no evidence of aspiration. There was normal peristalsis. No filling defects or mucosal abnormalities. No masses or strictures. There was a small sliding hiatal hernia IMPRESSION: Small sliding hiatal hernia otherwise negative barium swallow
== END ==
PROVIDERS: PCP Nurse Practitioner Family; Visit Provider Otolaryngology
DX: E01.0 Iodine-deficiency related diffuse (endemic) goiter; R13.10 Dysphagia, unspecified
CPT/HCPCS: 74220; 76536

== ENCOUNTER → 2018-12-07 08:43 | Outpatient (POV) | payer MEDICARE, MEDICAID, SELFPAY | PROVIDERS: Visit Provider Dermatology | DX: Z00.00 Encounter for general adult medical examination without abnormal findings (principal) ==

== ENCOUNTER → 2019-01-25 11:36 | Outpatient (CLI) | payer MEDICARE, MEDICAID, SELFPAY ==
--- NOTE | 2019-01-25 11:59 | XR_ITS ---
PROCEDURE: XR CHEST 2V CLINICAL HISTORY: SOB,EDEMA OF LOWER EXTREMITY COMPARISON: CXR CHEST(2 VIEWS-NOT PORTABLE) from 08/28/[address] [facility] [address] CHEST W/ CONTRAST from 01/10/2016 CXR CHEST(2 VIEWS-NOT PORTABLE) from 12/09/2016 CXR2V XR chest 2V from 04/04/2018 FINDINGS: The cardiomediastinal silhouette and pulmonary vascularity are within normal limits. The lungs are clear without infiltrates, suspicious nodules, or pleural effusions. No acute bony abnormalities. IMPRESSION: No acute findings. Dictated by: Ben Guerrero MD 01/25/2019 12:21 Signed by: <Electronically signed by Ben Guerrero MD in [facility]> 01/25/2019 12:21
[2019-01-25 12:27] LABS: Basophils # 0.1 K/mm3 (0-0.2); Basophils % 0.8 % (0.1-2.0); Eosinophils # 0.2 K/mm3 (0.0-0.4); Lymphocytes # 2.2 K/mm3 (0.7-4.5); Lymphocytes % 23.7 % (10-50); Mean Corpuscular HGB Conc 31.8 g/dL (31.8-35.4); Mean Corpuscular Hemoglobin 28.4 pg (27.0-31.2); Mean Corpuscular Volume 89.2 fl (81-99); Mean Platelet Volume 8.5 fl (7.4-10.4); Monocytes # 0.5 K/mm3 (0.1-1.0); Monocytes % 5.5 % (1.7-9.3); Neutrophils # 6.2 K/mm3 (1.8-7.8); Platelet Count 265 K/mm3 (142-424); Red Blood Count 4.94 M/mm3 (4.20-5.40); Red Cell Distribution Width 14.2 % (11.5-17.5); White Blood Count 9.1 K/mm3 (4.8-10.8)
[2019-01-25 14:03] LABS: Alanine Aminotransferase 36 U/L (12-78); Albumin Level 3.9 gm/dL (3.4-5.0); Albumin/Globulin Ratio 1.5 (1.1-1.8); Alkaline Phosphatase 89 U/L (46-116); Anion Gap 12.2 mEq/L (5-15); Aspartate Amino Transferase 21 U/L (15-37); Bilirubin,Total 0.8 mg/dL (0.2-1.0); Blood Urea Nitrogen 18 mg/dL (7-18); Calcium 9.2 mg/dL (8.5-10.1); Carbon Dioxide 31 mmol/L (21.0-32.0); Chloride 105 mmol/L (98-107); Creatinine,Serum 1.09 mg/dL (0.55-1.02); Estimated Glomerular Filt Rate 50 ml/min (>60); GFR (African American) 61 ML/MIN (>60); Globulin 2.6 gm/dl (1.3-3.2); Glucose 81 mg/dL (74-106); Potassium 4.2 mmoL/L (3.5-5.1); Sodium 144 mmol/L (136-145); Total Protein,Serum 6.5 gm/dL (6.4-8.2)
[2019-01-25 15:35] LABS: D-Dimer 499 ng/mL (0-400)
== END ==
PROVIDERS: PCP Nurse Practitioner Family; Visit Provider Nurse Practitioner Family
DX: R06.02 Shortness of breath (principal)
CPT/HCPCS: 36415; 71046; 80053; 83880; 85025; 85378

== ENCOUNTER → 2019-01-31 14:04 | Outpatient (CLI) | payer MEDICARE, MEDICAID, SELFPAY ==
[2019-01-31 14:36] LABS: Basophils # 0.1 K/mm3 (0-0.2); Eosinophils # 0.5 K/mm3 (0.0-0.4); Eosinophils % 4.7 % (0.1-12.0); Hematocrit 55.1 % (37.0-47.0); Hemoglobin 17.7 g/dL (12.2-16.2); Lymphocytes # 2.9 K/mm3 (0.7-4.5); Lymphocytes % 28.9 % (10-50); Mean Corpuscular Volume 87.2 fl (81-99); Mean Platelet Volume 8.2 fl (7.4-10.4); Monocytes # 0.6 K/mm3 (0.1-1.0); Neutrophils % 59.3 % (37.0-80.0); Platelet Count 353 K/mm3 (142-424); Red Blood Count 6.32 M/mm3 (4.20-5.40); White Blood Count 10.1 K/mm3 (4.8-10.8)
--- NOTE | 2019-01-31 14:41 | CT_ITS ---
PROCEDURE: CT HEAD/BRAIN WO CON CLINICAL INDICATION: SYNCOPE,DIZZINESS,NONITRACTRIBLE HEADACHE Headache, pain, hit back of head with dizziness and headache COMPARISON: HD CT HEAD W/O CONTRAST from 06/07/2015 TECHNIQUE: Axial images obtained with sagittal and coronal reformats. All CT scans at the facility use one or more dose reduction, viz: automated exposure control, ma/kV adjustment per patient size (including targeted exams where dose is matched to indication, i.e. head), or iterative reconstruction technique. FINDINGS: No midline shift, mass effect, intracranial hemorrhage, hydrocephalus, or extra-axial fluid collection is evident. The calvarium has an unremarkable appearance. No mastoid effusion. No sinus air-fluid level. IMPRESSION: No acute intracranial finding Dictated by: Ben Guerrero MD 01/31/2019 16:16 Electronically signed by Ben Guerrero MD in [facility] 01/31/2019 16:16
[2019-01-31 16:10] LABS: Alanine Aminotransferase 28 U/L (12-78); Albumin Level 4.2 gm/dL (3.4-5.0); Albumin/Globulin Ratio 1.4 (1.1-1.8); Alkaline Phosphatase 124 U/L (46-116); Anion Gap 12.1 mEq/L (5-15); Aspartate Amino Transferase 12 U/L (15-37); Bilirubin,Total 0.8 mg/dL (0.2-1.0); Blood Urea Nitrogen 7 mg/dL (7-18); Calcium 9.8 mg/dL (8.5-10.1); Carbon Dioxide 35 mmol/L (21.0-32.0); Chloride 102 mmol/L (98-107); Creatinine,Serum 1.22 mg/dL (0.55-1.02); Estimated Glomerular Filt Rate 44 ml/min (>60); GFR (African American) 54 ML/MIN (>60); Glucose 103 mg/dL (74-106); Potassium 4.1 mmoL/L (3.5-5.1); Sodium 145 mmol/L (136-145); Thyroid Stimulating Hormone 1.05 uIU/ml (0.358-3.740); Total Protein,Serum 7.2 gm/dL (6.4-8.2)
== END ==
PROVIDERS: Visit Provider Nurse Practitioner Family
DX: R55 Syncope and collapse (principal); R42 Dizziness and giddiness; R51 Headache; Z79.899 Other long term (current) drug therapy
CPT/HCPCS: 36415; 70450; 80053; 83735; 84443; 85025

== ENCOUNTER → 2019-04-08 10:30 | Outpatient (CLI) | payer MEDICARE, MEDICAID, SELFPAY ==
--- NOTE | 2019-04-08 10:31 | US_ITS ---
PROCEDURE: US THYROID CLINICAL INDICATION: goiter Follow-up goiter/nodules COMPARISON: THY US thyroid from 09/30/2018 FINDINGS: Right lobe: 4.2 x 1.5 x 1.1 cm. No change multiple small hypoechoic nodules the largest in the lower pole at 6 mm. Small area of calcification noted in the mid aspect of the right lobe with the may be a small nodule at 3 mm this also could be due to posterior acoustical shadowing. Left lobe: 4.6 x 2.1 x 1.8 cm. 6 mm hypoechoic nodule upper pole unchanged, 8 minutes by 9 mm hypoechoic nodule upper pole posteriorly unchanged, 5 mm x 6 mm hypoechoic nodule upper pole unchanged. 7 mm spongiform nodule lower pole unchanged. 12 mm solid-appearing hypoechoic nodule lower pole unchanged. 16 x 9 mm solid-appearing hypoechoic nodule lower pole unchanged. Mixed cystic and solid nodule lower pole at 14 mm unchanged Isthmus: Additional findings: IMPRESSION: No change multinodular goiter Dictated by: Ben Guerrero MD 04/08/2019 17:58 Electronically signed by Ben Guerrero MD in [facility] 04/08/2019 17:58
== END ==
PROVIDERS: PCP Nurse Practitioner Family; Visit Provider Otolaryngology
DX: E04.9 Nontoxic goiter, unspecified (principal); K44.9 Diaphragmatic hernia without obstruction or gangrene
CPT/HCPCS: 76536

== ENCOUNTER → 2019-09-19 12:45 | Outpatient (CLI) | payer MEDICARE, MEDICAID, SELFPAY ==
--- NOTE | 2019-09-19 12:52 | MM_ITS ---
PROCEDURE: MM DIG SCREENING MAMM BI W/CAD Digital Breast Tomosynthesis Included CLINICAL INDICATION: SCREENING There is a history of breast cancer patient's maternal grandmother. The patient is on estrogen cream. COMPARISON: [facility] DIG MAMM-SCREEN YANDY W/CAD from 08/06/2016 [facility] MM Dig screening mamm BI w/CAD from 08/19/2017 [facility] MM Dig screening mamm BI w/CAD from 08/20/2018 TECHNIQUE: Standard CC and MLO images and 3D Tomosynthesis was obtained. R2 CAD reviewed. FINDINGS: Moderate fibroglandular densities are seen in the central portions of both breasts. There is a mole marker left breast. There is a stable tiny benign-appearing nodular density just deep to the skin lateral to the nipple left breast. This could be a small sebaceous cyst. There are several small nodes in both axilla. There is no suspicious lesion and no suspicious microcalcifications. IMPRESSION: Moderate breast density with no suspicious lesions seen BI-RAD Category: 2 Benign Finding(s) FOLLOW-UP: 1YR 1 Year Follow-up (A letter has been sent to the patient regarding results of the study.) Dictated by: Dr. Obie Morton MD 09/20/2019 16:[address] Obie Morton MD in [facility] 09/20/2019 16:52
== END ==
PROVIDERS: PCP Nurse Practitioner Family; Visit Provider Nurse Practitioner Family
DX: Z12.31 Encounter for screening mammogram for malignant neoplasm of breast (principal)
CPT/HCPCS: 77063; 77067

== ENCOUNTER → 2019-10-06 14:34 | Outpatient (CLI) | payer MEDICARE, MEDICAID, SELFPAY ==
--- NOTE | 2019-10-06 14:34 | US_ITS ---
PROCEDURE: US THYROID CLINICAL INDICATION: dominant left thyroid COMPARISON: US THYROID from 04/08/2019 FINDINGS: Right lobe: 3.5 x 1.5 x 1.6 cm. There is heterogeneous echogenicity. There is a stable 3 and 4 mm cyst in the upper pole. There is heterogeneous echogenicity in the mid polar region with an 8 x 6 mm slightly hypoechoic nodule the lower polar region not significantly changed Left lobe: 4.3 x 2.2 x 2.4 cm with heterogeneous echogenicity and multiple hypoechoic nodules. There is a stable 6 by 9 mm nodule in the upper pole hypoechoic. There is an additional 15 x 7 mm mixed nodule in the mid polar region probably unchanged given difference in scanning technique. In the lower pole there is a 17 x 9 mm hypoechoic nodule unchanged. There is an additional complex cystic nodule in the lower pole at 15 mm unchanged Isthmus: Additional findings: IMPRESSION: No change multinodular goiter Dictated by: Ben uGerrero MD 10/06/2019 16:27 Electronically signed by Ben Guerrero MD in [facility] 10/06/2019 16:27
== END ==
PROVIDERS: PCP Nurse Practitioner Family; Visit Provider Otolaryngology
DX: E01.0 Iodine-deficiency related diffuse (endemic) goiter (principal)
CPT/HCPCS: 76536

== ENCOUNTER → 2019-10-06 15:17 | Outpatient (CLI) | payer MEDICARE, MEDICAID, SELFPAY ==
[2019-10-06 17:04] LABS: Free T4 (Free Thyroxine) 1.17 ng/dl (0.78-2.19)
[2019-10-06 17:20] LABS: Thyroid Stimulating Hormone 0.25 uIU/mL (0.465-4.68)
== END ==
PROVIDERS: Visit Provider Otolaryngology
DX: E01.0 Iodine-deficiency related diffuse (endemic) goiter (principal)
CPT/HCPCS: 36415; 76536; 84439; 84443

== ENCOUNTER → 2019-11-22 08:46 | Outpatient (CLI) | payer MEDICARE, MEDICAID, SELFPAY ==
--- NOTE | 2019-11-22 09:00 | FL_ITS ---
PROCEDURE: FL BARIUM SWALLOW CLINICAL INDICATION: dysphagia COMPARISON: No exams were available for comparison TECHNIQUE: In the upright position the patient was observed to swallow barium in both the AP and lateral view. The cervical esophagus was examined under fluoroscopy with images obtained. The patient was then placed prone in the right anterior oblique position and was observed to swallow barium with Valsalva technique . FLUOROSCOPY TIME: 47 seconds FINDINGS: There was no evidence of aspiration. There was normal peristalsis. No filling defects or mucosal abnormalities. No masses or strictures. No evidence of esophageal displacement. No hiatal hernia IMPRESSION: Negative barium swallow. Dictated by: Ben Guerrero MD 11/22/2019 15:46 Electronically signed by Ben Guerrero MD in [facility] 11/22/2019 15:46
--- NOTE | 2019-11-22 09:02 | US_ITS ---
PROCEDURE: US FNA THYROID CLINICAL INDICATION: L NODULE Dominant left thyroid nodule COMPARISON: US THYROID from 10/06/2019 TECHNIQUE: Following obtaining informed consent, using aseptic technique and local anesthesia with buffered lidocaine, fine-needle aspiration was performed of the nodule of interest, the dominant solid appearing left lower lobe nodule, using sonographic guidance. 3 passes were made into the nodule with a 21-gauge needle. Specimen was given to cytology. FINDINGS: Multinodular goiter CYTOLOGY: Negative for malignant cells, benign follicular nodule IMPRESSION: Status post ultrasound-guided FNA left thyroid nodule showing benign findings. The patient tolerated the procedure well without evidence of immediate complications and left the ultrasound suite in stable condition. Dictated by: Ben Guerrero MD 12/12/2019 08:38 Electronically signed by Ben Guerrero MD in [facility] 12/12/2019 08:38
== END ==
PROVIDERS: PCP Nurse Practitioner Family; Visit Provider Otolaryngology
DX: R13.10 Dysphagia, unspecified (principal); E04.0 Nontoxic diffuse goiter
CPT/HCPCS: 10005; 74220; 76942; 88173

== ENCOUNTER → 2020-01-02 07:35 | Outpatient (CLI) | payer MEDICARE, MEDICAID, SELFPAY ==
--- NOTE | 2020-01-02 07:55 | ECG_ITS ---
APPROVED REPORT Exam: Resting ECG HR:74 bpm ECG Measurements Heart Rate 74 AXES NE 128 P 30 QRSd 70 QRS 53 QT 380 T 53 QTc 421 <Conclusion> Normal sinus rhythm Normal ECG Electronically signed by : Suresh Lambert, 01/02/2020 17:05:08
[2020-01-02 08:17] LABS: Basophils # 0.1 K/mm3 (0-0.2); Basophils % 0.8 % (0.1-2.0); Eosinophils # 0.2 K/mm3 (0.0-0.4); Eosinophils % 2.2 % (0.1-12.0); Hematocrit 44.3 % (37.0-47.0); Hemoglobin 14.6 g/dL (12.2-16.2); Lymphocytes # 2.5 K/mm3 (0.7-4.5); Lymphocytes % 25.4 % (10-50); Mean Corpuscular HGB Conc 32.9 g/dL (31.8-35.4); Mean Corpuscular Hemoglobin 29.5 pg (27.0-31.2); Mean Corpuscular Volume 89.6 fl (81-99); Mean Platelet Volume 8.5 fl (7.4-10.4); Monocytes # 0.3 K/mm3 (0.1-1.0); Monocytes % 3.3 % (1.7-9.3); Neutrophils # 6.7 K/mm3 (1.8-7.8); Neutrophils % 68.4 % (37.0-80.0); Platelet Count 248 K/mm3 (142-424); Red Blood Count 4.94 M/mm3 (4.20-5.40); Red Cell Distribution Width 14.3 % (11.5-17.5); White Blood Count 9.8 K/mm3 (4.8-10.8)
[2020-01-02 09:04] LABS: Alanine Aminotransferase 21 U/L (12-78); Albumin Level 3.6 g/dl (3.5-5.0); Albumin/Globulin Ratio 1.4 (1.1-1.8); Alkaline Phosphatase 84 U/L (38-126); Anion Gap 10.5 mEq/L (5-15); Aspartate Amino Transferase 22 U/L (14-36); Bilirubin,Total 0.5 mg/dl (0.2-1.3); Blood Urea Nitrogen 13 mg/dl (7-17); Calcium 9.1 mg/dl (8.4-10.2); Carbon Dioxide 36 mmol/L (22.0-30.0); Chloride 97 mmol/L (98-107); Estimated Glomerular Filt Rate 63 ml/min (>60); GFR (African American) 76 ML/MIN (>60); Globulin 2.5 g/dL (1.3-3.2); Glucose 125 mg/dl (74-100); Potassium 3.5 mmoL/L (3.5-5.1); Sodium 140 mmol/L (136-145); Total Protein,Serum 6.1 g/dl (6.3-8.2)
[2020-01-02 09:48] LABS: Coronavirus 19 IgM Antibody Negative (Negative)
[2020-01-02 09:51] LABS: Coronavirus 19 IgG Antibody Positive (Negative)
== END ==
PROVIDERS: Visit Provider Otolaryngology
DX: Z01.818 Encounter for other preprocedural examination (principal); D49.7 Neoplasm of unspecified behavior of endocrine glands and other parts of nervous system
CPT/HCPCS: 36415; 80053; 85025; 86328; 93005

== ENCOUNTER 2020-01-03 11:37 | Observation (INO) | payer MEDICARE, MEDICAID, SELFPAY ==
[2019-12-30 10:51] VITALS: BMI 29.7
[2020-01-03] VITALS (25 sets, daily range): BP systolic 123–192; BP diastolic 64–98; PULSE 77–93; RESP 12–20; TEMP 36.4–36.6; O2SAT 90–99; BMI 37.3
[2020-01-03 06:31] LABS: Adenovirus,PCR Not Detected (NotDetected); Bordetella Pertussis Not Detected (NotDetected); Chlamydophila Pneumoniae, PCR Not Detected (NotDetected); Coronavirus 19, PCR Not Detected (NotDetected); Coronavirus 229E Not Detected (NotDetected); Coronavirus NL63 Not Detected (NotDetected); Coronavirus OC43 Not Detected (NotDetected); Coronovirus HKU1,PCR Not Detected (NotDetected); Human Metapneumovirus Not Detected (NotDetected); Influenza A, PCR Not Detected (NotDetected); Influenza AH1, 2009 Not Detected (NotDetected); Influenza AH1, PCR Not Detected (NotDetected); Influenza AH3,PCR Not Detected (NotDetected); Influenza B, PCR Not Detected (NotDetected); Mycoplasma Pneumoniae, PCR Not Detected (NotDetected); Parainfluenza 1, PCR Not Detected (NotDetected); Parainfluenza 2, PCR Not Detected (NotDetected); Parainfluenza 3, PCR Not Detected (NotDetected); Parainfluenza 4, PCR Not Detected (NotDetected); Respiratory Syncytial Virus Not Detected (NotDetected); Rhinovirus/Enterovirus Not Detected (NotDetected)
--- NOTE | 2020-01-03 07:05 | HMH.ANESCL ---
[facility] Anesthesia Checklist - Patient Identification Patient Identification: Arm Band - Structural Data Admitted From: Home Planned Operative Procedure/s: Thyroidectomy Consent for Planned Operative Procedure(s) Verified: Yes Verified Documents: Surgical Consent, History and Physical - NPO Status Verified Time NPO: 00:00 - Additional verifications Anesthesia Reactions: No Hx Blood Transfusions: No Blood Transfusion Reaction: No - Airway Assessment C-Spine Mobility Assessed: Yes (mp2) TMJ Mobility Assessed: Yes Dentition: Edentulous - Neurological Assessment Level of Consciousness: Awake, Alert - Anesthesia Plan Anesthesia Risk discussed: Yes Anesthesia Plan: Verified ASA Class: III Anesthesia Type: General [facility] History I have reviewed the patient's past medical history: Yes 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: Reports:: Chronic Obstructive Pulmonary Disease (COPD), Coronary Artery Disease, Gastroesophageal Reflux Disease(GERD), Hyperlipidemia, Hypertension Denies:: Cancer, Diabetes Mellitus Type 1, Diabetes Mellitus Type 2, Internal Pacemaker, MRSA, Seizures *Have you ever received a pneumonia vaccine?: No *Have you received a flu vaccine this season?: Yes Other 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: Reports: Cataracts. Denies: Blood Transfusion Reaction Anesthesia experience/problems:: nac Laterality Cases: Bilateral: Carpal Tunnel Release Other Surgeries: Yes: Appendectomy, Cardiac Catheterization, Colonoscopy, Hysterectomy-Total, Other. No: Pacemaker Amputation: No Fractures: No - *Social History Smoking Status: Current some day smoker Tobacco Type: cigarettes # Packs/Day (cigarettes): 1 #Yrs smoked (if former smoker): 30 Alcohol Intake: never Alcohol Intake Frequency:: other Substance Use Type: denies use *Occupational Status:: disabled Housing: house Household Members: spouse *Travel in the last 8 weeks: None Family Hx:: Cancer, Coronary Artery Disease
--- NOTE | 2020-01-03 10:23 | P.OP_ITS ---
Date of procedure: 01/03/20 Pre-op Diagnosis:: 1. Left goiter with multinodular thyroid and tracheal pressure displacement to the right with left lobe extending substernally Post-op Diagnosis:: same Procedure performed:: 1. Total left thyroid lobectomy including substernal portion, cervical approach 2. Autotransplantation left superior parathyroid gland Surgeon:: Roberto Larios MD RESIDENT CARE MANAGER RN:: Nilay Paniagua Anesthesia: GETA Estimated blood loss (mL): 20 Operative findings:: same Operative note:: With the patient under general anesthesia having been given 900 mg of clindamycin and 12 mg Decadron the neck was prepped with Betadineand draped. The patient had a very short neck and required taping up of her jaw and taping d own of her breasts in order to access the neck properly. A thyroid incision was marked out and skin and subcutaneous tissue and platysma were incised. The sternomastoid muscles were identified in each side and retracted and the strap muscles were identified on each side and divided. There was a multinodular mass involving the left lobe of the thyroid with displacement of the trachea to the contralateral right side. The left middle thyroid vein was identified and divided. The left superior vascular pedicle was mobilized and doubly ligated. The gland was then mobilized on the left side and the left recurrent laryngeal nerve was identified and tracked through to where it entered the cricothyroid membrane of the larynx and tested positive with the nim probe on several occasions. The left superior parathyroid gland was sitting on top of the left recurrent nerve and accordingly it was harvested and reimplanted in the left sternomastoid muscle after it was divided into five 2 mm segments. The sternomastoid muscle was repaired with 4-0 Vicryl. The dissection was continued and the portion of the gland that was in the inlet was mobilized and brought up into the neck on the left side. The patient had a rather small trachea which was significantly deviated to the contralateral side but when the gland was fully mobilized on the left side the trachea came back into the central posi tion. The left lobe was fully mobilized and the isthmus was mobilized and carried with the left lobe. The gland was transected along the medial aspect of the right lobe and oversewn with 2-0 Vicryl and submitted. The pathologist was not present on time and accordingly no frozen section was done. The neck was thoroughly irrigated all bleeding was stopped the strap muscles were repaired on each side with 2-0 Vicryl. Surgicel snow was placed in the prevertebral area on the left side where the left lobe that extended into the prevertebral area as well as the superior mediastinum. A 10 mm Enrique-Frank drain was placed and hooked to suction. The skin subcutaneous layer platysma were all closed using 2-0 Vicryl. And a Dermabond dressing was applied along with a Telfa Tegaderm dressing. The patient tolerated the procedure well and was sent to recovery in good general condition. Condition: stable Disposition: PACU Complications:: none
--- NOTE | 2020-01-03 10:36 | HMH.ANESI ---
[facility] Anesthesia Record Part I Intake, IV Amount: 1,500 Estimated blood loss (mL): 20 Urine output (mL): 0 Blood Pressure: 124/68 SaO2: 92 Pulse Rate: 80 Respiratory Rate: 12 Temperature: 97.5 F Patient is:: Drowsy, Oral/Nasal airway, Stable Stable to PACU at:: 10:30
--- NOTE | 2020-01-03 11:39 | PC.NURSE ---
Pt arrived to the floor via stretcher at [id number]
--- NOTE | 2020-01-03 11:40 | PC.NURSE ---
Clarified admission orders with Dr. Park nurse, Jeanna Ndiaye. Pt to be admitted to Dr. Larios instead of PCP
--- NOTE | 2020-01-03 12:42 | P.CONPHA_ITS ---
[facility] Pharmacy VTE Monitoring - Patient Demographics Admission date: 01/03/20 Report Date: 01/03/20 Time: 12:42 Allergies/Adverse Reactions: Patient Allergies Penicillins [PENICILLINS] Allergy (Unknown, Verified 12/08/19 14:51) I-HIVES Height: 1.5 m Weight: 83.716 kg - VTE Risk Was VTE Risk Assessment Performed: Yes VTE Score: 4 VTE Risk Level: Low Risk - Prophylaxis VTE Prophylaxis Ordered?: Yes Types of VTE Prophylaxis: TEDS Knee High Location of Applied Device: Bilateral Lower Extremeties - VTE Diagnosis Confirmed Treatment or plan recommended: Continue Current Treatment
--- NOTE | 2020-01-03 14:01 | HMH.ANESII ---
[facility] Anesthesia Record Part II Discharge Time: 11:30 Destination: Medical Surgical Department PACU nurse assessment reviewed?: Yes Patient Condition:: Good Anesthesia Complications:: None Swallowing reflex intact?: Yes Cyanosis?: No Blood Pressure: 142/64 Pulse Rate: 85 Temperature: 97.6 F Mental Status: Alert & Oriented Pain level:: 0 Nausea and/or vomitting:: None Intake, IV Amount: 0
--- NOTE | 2020-01-03 18:55 | PC.NURSE ---
new admit this shift. Had total thyroid lobectomy with autotransplantation left superior parathyroid gland. Dressing to neck has minimal amount of blood. This has not changed since PACU. Right neck MICHELLE drain to med/high wall cont suction with aprox 25mL sangenous drainage out this shift. Pt is able to ambulate without assistance. Tolerating a soft diet well. Plan is for MICHELLE tube to be discontinued tomorrow morning per Dr. Larios.
[2020-01-04] VITALS: BP 116/56; PULSE 84; RESP 16; TEMP 37.3; O2SAT 98
[2020-01-04 04:00] VITALS: BP 127/63; PULSE 86; RESP 15; TEMP 36.9; O2SAT 96
[2020-01-04 05:00] VITALS: BMI 34.3; BMI 36.9
--- NOTE | 2020-01-04 06:00 | PC.NURSE ---
A&OX3. WAS ABLE TO WEAN TO RA FROM 3LNC THIS SHIFT, PT TOLERATED THIS WELL. LUNGS NOTED CLEAR T/O AUSCULTATION. DRESSING NOTED TO RIGHT PORTION OF NECK WITH MINIMAL BLOODY DRAINAGE, UNCHANGED FROM PREVIOUS SHIFT. 25ML OF BLOODY DRAINAGE NOTED IN SUCTION CANISTER THIS SHIFT, PT WAS MAINTAINED ON CONTINUOUS MEDIUM LOW WALL SUCTION. NO COMPLAINTS STATED THIS SHIFT. PULSES +2, CAP REFILL < 3SEC. ABDOMEN NOTED SOFT AND NONTENDER WITH ACTIVE BOWEL SOUNDS. INDEPENDENT WITH CARE THIS SHIFT. VSS. WILL CONTINUE TO MONITOR.
[2020-01-04 08:00] VITALS: BP 118/76; PULSE 87; RESP 18; TEMP 36.5; O2SAT 99
--- NOTE | 2020-01-04 09:55 | HMH.DCSUM ---
General - General Admission date:: 01/03/20 Discharge date: 01/04/20 HPI HPI: left goiter with multinodular thyroid causing tracheal pressure and displacement to right. Left lobe extended substernally. Hospital Course Hospital Course: Total left thyroid lobectomy performed on 01/03/20 with autotransplantation of left superior parathyroid gland Objective Vital signs: Temp Pulse Resp BP Pulse Ox 97.7 F 87 18 118/76 99 01/04/20 08:00 01/04/20 08:00 01/04/20 08:00 01/04/20 08:00 01/04/20 08:00 - *Routine HEENT Exam Eye: Present: PERRL ENT: Present: mucous membranes moist Comments: tracheal displacement to right prior to surgery DS: Diagnosis - Discharge Diagnosis (1) Nodule of left lobe of thyroid gland Status: Acute (2) Goiter Status: Acute Discharge Plan - Patient Discharge Instructions ACTIVITY: Continue current activity DIET: advance to your usual diet - Follow up Plan Follow up with: Roberto Larios MD [Staff Physician] - 01/09/20 12:45 pm Disposition: Home, Self-[facility] Medications: Home Medications Medication Instructions Recorded Confirmed Type cyclobenzaprine 10 mg tablet 10 mg PO HSP PRN 09/10/17 01/03/20 History fluoxetine 40 mg capsule 40 mg PO BID 09/10/17 01/03/20 History gabapentin 300 mg capsule 300 mg PO BIDP PRN 09/10/17 01/03/20 History ropinirole 0.25 mg tablet 0.25 mg PO HS 09/10/17 01/03/20 History simvastatin 20 mg tablet 20 mg PO HS 09/10/17 01/03/20 History Furosemide [Furosemide 40MG tAB] 40 mg PO BID 04/05/18 01/03/20 History Triamterene/Hydrochlorothiazid 1 each PO DAILY 04/05/18 01/03/20 History [Maxzide 37.5 mg-25 mg Tablet] fluticasone furoate 100 1 inh INHALATION DAILY 08/23/18 01/03/20 History mcg-vilanterol 25 mcg/dose inhalation powder hydroxyzine HCl 25 mg tablet 25 mg PO QID PRN 08/23/18 01/03/20 History tiotropium bromide 1.25 2 puff INHALATION DAILY 08/23/18 01/03/20 History mcg/actuation mist for inhalation clopidogrel 75 mg tablet 75 mg PO DAILY 01/03/19 01/03/20 History Potassium Chloride 40 meq PO DAILY 01/25/19 01/03/20 History lisinopril 20 1 tab PO DAILY tab 11/07/19 01/03/20 History mg-hydrochlorothiazide 25 mg tablet metoprolol tartrate 25 mg tablet 25 mg PO BID tab 11/07/19 01/03/20 History omeprazole 40 mg capsule,delayed 40 mg PO DAILY cap 11/07/19 01/03/20 History release aspirin 81 mg chewable tablet 81 mg PO DAILY 12/01/19 01/03/20 History budesonide-formoterol HFA 160 2 puff INHALATION BID 12/01/19 01/03/20 History mcg-4.5 mcg/actuation aerosol inhaler fluticasone furoate 100 1 inh INHALATION DAILY 12/01/19 01/03/20 History mcg-vilanterol 25 mcg/dose inhalation powder nitroglycerin 0.4 mg sublingual 0.4 mg SUBLINGUAL Q5M PRN 12/01/19 01/03/20 History tablet raloxifene 60 mg tablet 60 mg PO ONCE #30 tab 12/08/19 01/03/20 Rx Naproxen [Naproxen 500mg tab] 500 mg PO BIDP PRN 01/04/20 01/04/20 History Prescriptions/Medication Reconciliation: No Action ropinirole 0.25 mg tablet 0.25 mg PO HS gabapentin 300 mg capsule 300 mg PO BIDP PRN PRN Reason: NEUROPATHY cyclobenzaprine 10 mg tablet 10 mg PO HSP PRN PRN Reason: Muscle Spasm simvastatin 20 mg tablet 20 mg PO HS fluticasone furoate 100 mcg-vilanterol 25 mcg/dose inhalation powder 1 inh INHALATION DAILY tiotropium bromide 1.25 mcg/actuation mist for inhalation 2 puff INHALATION DAILY hydroxyzine HCl 25 mg tablet 25 mg PO QID PRN PRN Reason: Allergic Reaction lisinopril 20 mg-hydrochlorothiazide 25 mg tablet 1 tab PO DAILY tab budesonide-formoterol HFA 160 mcg-4.5 mcg/actuation aerosol inhaler 2 puff INHALATION BID fluticasone furoate 100 mcg-vilanterol 25 mcg/dose inhalation powder 1 inh INHALATION DAILY nitroglycerin 0.4 mg sublingual tablet 0.4 mg SUBLINGUAL Q5M PRN PRN Reason: Chest Pain raloxifene 60 mg tablet 60 mg PO ONCE #30 tab fluoxetine 40 mg ca
== END 2020-01-04 10:50 | disposition home or self-care (01) ==
LOC: 2ND 11:37
PROVIDERS: Admitting Provider Otolaryngology; PCP Nurse Practitioner Family; Visit Provider Otolaryngology
PROC: (CPT 60271; principal; 2020-01-03 07:30)
DX: D49.7 Neoplasm of unspecified behavior of endocrine glands and other parts of nervous system (principal); Z72.0 Tobacco use; Z88.0 Allergy status to penicillin; E78.5 Hyperlipidemia, unspecified; I10 Essential (primary) hypertension; I25.10 Atherosclerotic heart disease of native coronary artery without angina pectoris; J44.9 Chronic obstructive pulmonary disease, unspecified; Z79.52 Long term (current) use of systemic steroids; Z79.899 Other long term (current) drug therapy; Z79.82 Long term (current) use of aspirin; E04.2 Nontoxic multinodular goiter
CPT/HCPCS: 60271; 60512; 87581; 87633; 87798; 88305; 88307; 88331; 96374; G0378; J2405; J2704

== ENCOUNTER → 2020-01-17 10:56 | Outpatient (CLI) | payer MEDICARE, MEDICAID, SELFPAY ==
--- NOTE | 2020-01-17 11:03 | FL_ITS ---
PROCEDURE: FL BARIUM SWALLOW CLINICAL INDICATION: dysphagia, patient had recent thyroid surgery, sensation of fullness within oropharynx while swallowing COMPARISON: No exams were available for comparison TECHNIQUE: In the upright position the patient was observed to swallow barium in both the AP and lateral view. The cervical esophagus was examined under fluoroscopy with images obtained. The patient was then placed prone in the right anterior oblique position and was observed to swallow barium with Valsalva technique . FLUOROSCOPY TIME: 2 minutes 6 second FINDINGS: The swallowing function was normal. There is flash laryngeal penetration without aspiration. Esophageal motility was normal. There is a small sliding hiatal hernia but there is no GE reflux seen during the study. Mild degenerate spurring of the lower cervical spine is seen which could possibly be a cause for mild symptoms of dysphagia to solid foods while swallowing. IMPRESSION: Flash laryngeal penetration, small to moderate size sliding hiatal hernia, no other abnormality noted Dictated by: Dr. Obie Morton MD 01/17/2020 13:29 Dr. Obie Morton MD in [place] 01/17/2020 13:29
[2020-01-17 11:31] LABS: MANUAL DIFFERENTIAL MANUAL DIFFERENTIAL (MANUAL DIFF)
[2020-01-17 11:45] LABS: Basophils # 0.1 K/mm3 (0-0.2); Basophils % 0.6 % (0.1-2.0); Eosinophils # 0.2 K/mm3 (0.0-0.4); Eosinophils % 1.3 % (0.1-12.0); Hematocrit 51.3 % (37.0-47.0); Lymphocytes # 3.7 K/mm3 (0.7-4.5); Lymphocytes % 19.8 % (10-50); Mean Corpuscular HGB Conc 33.2 g/dL (31.8-35.4); Mean Corpuscular Hemoglobin 29.4 pg (27.0-31.2); Mean Corpuscular Volume 88.8 fl (81-99); Mean Platelet Volume 8.1 fl (7.4-10.4); Monocytes % 5.2 % (1.7-9.3); Neutrophils # 13.5 K/mm3 (1.8-7.8); Neutrophils % 73.1 % (37.0-80.0); Platelet Count 411 K/mm3 (142-424); Red Blood Count 5.78 M/mm3 (4.20-5.40); Red Cell Distribution Width 14.2 % (11.5-17.5); White Blood Count 18.5 K/mm3 (4.8-10.8)
[2020-01-17 12:02] LABS: Alanine Aminotransferase 25 U/L (12-78); Albumin Level 4.4 g/dl (3.5-5.0); Albumin/Globulin Ratio 1.7 (1.1-1.8); Alkaline Phosphatase 91 U/L (38-126); Aspartate Amino Transferase 25 U/L (14-36); Bilirubin,Total 0.8 mg/dl (0.2-1.3); Blood Urea Nitrogen 18 mg/dl (7-17); Carbon Dioxide 35 mmol/L (22.0-30.0); Chloride 87 mmol/L (98-107); Estimated Glomerular Filt Rate 45 ml/min (>60); GFR (African American) 54 ML/MIN (>60); Globulin 2.6 g/dL (1.3-3.2); Glucose 133 mg/dl (74-100); Sodium 134 mmol/L (136-145)
[2020-01-17 12:03] LABS: Eosinophils % 1 % (0-3); Lymphocytes % 21 % (10-50); Monocytes % 2 % (2-9); Neutrophils % 76 % (42-76); Platelet Estimate Normal; RBC Morphology Normal; Total Cells Counted 100
[2020-01-17 12:19] LABS: Free T4 (Free Thyroxine) 2.57 ng/dl (0.78-2.19)
[2020-01-17 12:33] LABS: Thyroid Stimulating Hormone 0.16 uIU/mL (0.465-4.68)
[2020-01-18 14:52] LABS: Covid-19 Nasal PCR Sendout Lex NOT DETECTED
== END ==
PROVIDERS: PCP Nurse Practitioner Family; Visit Provider Otolaryngology
DX: R13.10 Dysphagia, unspecified (principal); R43.2 Parageusia; Z98.890 Other specified postprocedural states; D49.7 Neoplasm of unspecified behavior of endocrine glands and other parts of nervous system; Z20.828 Contact with and (suspected) exposure to other viral communicable diseases
CPT/HCPCS: 36415; 74220; 80053; 84439; 84443; 85007; 85014; 85018; 85048; 85049; U0004

== ENCOUNTER → 2020-02-17 10:41 | Outpatient (CLI) | payer MEDICARE, MEDICAID, SELFPAY ==
--- NOTE | 2020-02-17 10:46 | XR_ITS ---
PROCEDURE: XR CERVICAL SPINE 5V CLINICAL INDICATION: CERVICALGIA COMPARISON: No exams were available for comparison FINDINGS: Normal alignment. Degenerative disc disease C4-C5 C5-C6 C6-C7. Right-sided foraminal narrowing C4-C5 C5-C6. Left-sided foraminal narrowing C3-C4. No fracture or dislocation. No lytic or blastic change. Other findings:None. IMPRESSION: Cervical spondylosis as detailed above. Dictated by: Ben Guerrero MD 02/17/2020 16:15 Ben Guerrero MD in [place] 02/17/2020 16:15
== END ==
PROVIDERS: PCP Nurse Practitioner Family; Visit Provider Nurse Practitioner Family
DX: M54.2 Cervicalgia (principal)
CPT/HCPCS: 72050

== ENCOUNTER → 2020-03-03 08:21 | Outpatient (CLI) | payer MEDICARE, MEDICAID, SELFPAY ==
--- NOTE | 2020-03-03 | MR_ITS ---
PROCEDURE: MR CERVICAL SPINE WO CON MR myelogram image set included Referring Doctor: Sol Peralta Patient Age:64Y CLINICAL INDICATION: NECK PAIN WITH NO KNOWN TRAUMA Neck pain with radiculopathy/right arm pain numbness COMPARISON: MR [facility] ADMINISTRATOR/O MRI-C-SPINE W/O from 06/01/2015 DX XR CERVICAL SPINE 5V from 02/17/2020 TECHNIQUE: Standard multiplanar multiecho sequences are performed without contrast. 3-D MIP and myelographic images are also rendered and reviewed FINDINGS: The cranial cervical and junction appears stable within normal limits with only scant 2-3 mm cerebral tonsillar ectopy of which falls within spectrum of normal Nonspecific straightening of the C-spine most likely patient position but can be seen with muscle spasm. C1/C2 level unremarkable on available views C2/C3 disc intact. Unremarkable C3-C4: Mild bulging disc. Multilevel cervical spondylosis and degenerative disc changes are most evident at C4/5-C5/6 and to less degree C6/7 as discussed below. A features at these levels are superimposed upon a fairly generous caliber underlying osseous spinal canal. The cervical cord remains of volume and normal signal throughout C4-C5: Degenerative disc disease with broad-based disc osteophyte complex. Bilateral uncovertebral joint hypertrophy most pronounced to the right and slightly indenting thecal sac in these paracentral region were spurring encroaches upon upon the lateral recesses on right more so than left. Mild bilateral foraminal encroachment. Findings at this level similar and basically unchanged since prior 2016 MR study. Borderline central canal stenosis with spinal canal measuring just less than 10 mm level C5-C6: Degenerative disc disease. Small central disc protrusion. Bilateral uncovertebral joint hypertrophy with most prominent uncovertebral joint spurring left paracentral but also with spurring at the right foramen. These features features abut the anterior left aspect of the cervical cord and slightly encroaches upon the left lateral recess more so than right. . (Axial image 37).. . The left paracentral spurring is more apparent today's studies than previous exam-however this may in part be due to motion artifact on the previous study partially obscuring this feature on axial images previously The previously noted spurring encroaching upon the right foramen of yields moderate right foraminal encroachment sagittal image 7 and mild left foraminal encroachment. And requires correlation with right-sided symptoms Also note borderline spinal stenosis spinal canal measuring 10 mm at this level C6/7: Progression of the left uncovertebral joint spurring. This is more prominent today as seen on axial image 9 in yields generous impingement upon the left corner of thecal sac and left lateral recess along with mild encroachment at entry of left foramen C7/T1, T1/T2 and T2/T3 disc intact unremarkable The 3D MRI myelogram image set shows: C4/5: Diffuse indentation upon thecal sac C4/5, slightly more evident to the right C5/6 with diffuse indentation of thecal sac at C5/6 slightly more evident to the left a Cc 6/7 less evident, mild indentation upon thecal of more evident than left. Only subtle there is only subtle motion artifact on some of our image sequences today. IMPRESSION: . 1. Multilevel degenerative disc disease and cervical spondylosis most evident C4/5, C5/6,, and-C6/7. Disc/osteophyte features/uncovertebral joint hypertrophy detailed at each level above, and briefly summarized below. (Overall right foraminal encroachment most notable at C5/6 followed by C4/5): C4/5: Disc/osteophyte complex yield diffuse indentation upon thecal sac C4/5, m
== END ==
PROVIDERS: PCP Nurse Practitioner Family; Visit Provider Nurse Practitioner Family
DX: M47.812 Spondylosis without myelopathy or radiculopathy, cervical region (principal); R13.13 Dysphagia, pharyngeal phase
CPT/HCPCS: 72141; 76376

== ENCOUNTER → 2020-03-12 12:47 | Outpatient (CLI) | payer MEDICARE, MEDICAID, SELFPAY ==
[2020-03-12 13:35] VITALS: PULSE 77; PULSE 80
--- NOTE | 2020-03-12 13:51 | CT_ITS ---
PROCEDURE: CT ABDOMEN PELVIS WO CON CLINICAL INDICATION: RT FLANK PAIN COMPARISON: CT ABDW CT abdomen w con from 08/12/2018 TECHNIQUE: Axial images obtained with sagittal and coronal reformats. All CT scans at the facility use one or more dose reduction, viz: automated exposure control, ma/kV adjustment per patient size (including targeted exams where dose is matched to indication, i.e. head), or iterative reconstruction technique. FINDINGS: Lower thorax: There is minimal postinflammatory scarring lingula, there is a partially calcified granuloma right lower lobe posterior basilar segment. There is no pleural fluid. ABDOMEN: Liver: No masses or biliary dilatation. Gallbladder: Normal in size and containing multiple small calcified gallstones layering along the dependent wall near the neck of the gallbladder. Pancreas: No masses or peripancreatic fluid collections. Spleen: There are few scattered calcified granulomata. Adrenals: unremarkable Kidneys/ureters: The kidneys are normal in size and no calculi and there is no obstructive uropathy of either kidney. ABDOMEN & PELVIS: Stomach bowel: There is a small to moderate-sized sliding hiatal hernia. The stomach otherwise appears normal. The small bowel is unremarkable. Patient is post appendectomy. There is a moderately large amount stool in the cecum ascending and transverse colon. The descending and sigmoid colon and rectum appear normal. Peritoneum: No abnormal fluid collections. No obvious inflammatory changes. No free air. Lymph nodes: No enlarged lymph nodes apparent. Vasculature: Minimal scattered arteriosclerotic calcification of the abdominal aorta and proximal iliac arteries but there is no aneurysm Bones: No acute fracture, there are mild multilevel degenerate changes lower thoracic and lower lumbar spine. PELVIS: Reproductive: Post hysterectomy Bladder: Nondistended. No obvious stones or masses. Appendix: Unremarkable. No distention or periappendiceal phlegmonous change. IMPRESSION: Cholelithiasis, no definite renal or ureteral calculi and there is no obstructive uropathy of either kidney Dictated by: Dr. Obie Morton MD 03/12/2020 14:35 Dr. Obie Morton MD in [place] 03/12/2020 14:35
== END ==
PROVIDERS: PCP Nurse Practitioner Family; Visit Provider Nurse Practitioner Family
DX: R06.02 Shortness of breath (principal); R10.9 Unspecified abdominal pain
CPT/HCPCS: 74176; 94060; 94640

== ENCOUNTER → 2020-04-09 12:41 | Outpatient (CLI) | payer MEDICARE, MEDICAID, SELFPAY ==
[2020-04-09 13:44] LABS: Basophils # 0.1 K/mm3 (0-0.2); Basophils % 0.9 % (0.1-2.0); Eosinophils # 0.2 K/mm3 (0.0-0.4); Eosinophils % 2.4 % (0.1-12.0); Hematocrit 48.5 % (37.0-47.0); Hemoglobin 15.8 g/dL (12.2-16.2); Lymphocytes # 2.8 K/mm3 (0.7-4.5); Mean Corpuscular HGB Conc 32.6 g/dL (31.8-35.4); Mean Corpuscular Hemoglobin 29.8 pg (27.0-31.2); Mean Corpuscular Volume 91.3 fl (81-99); Mean Platelet Volume 8.7 fl (7.4-10.4); Monocytes # 0.4 K/mm3 (0.1-1.0); Monocytes % 4.5 % (1.7-9.3); Neutrophils # 6.4 K/mm3 (1.8-7.8); Neutrophils % 64.2 % (37.0-80.0); Platelet Count 329 K/mm3 (142-424); Red Blood Count 5.31 M/mm3 (4.20-5.40); White Blood Count 9.9 K/mm3 (4.8-10.8)
[2020-04-09 13:52] LABS: Alanine Aminotransferase 22 U/L (12-78); Albumin/Globulin Ratio 1.5 (1.1-1.8); Alkaline Phosphatase 92 U/L (38-126); Anion Gap 9.6 mEq/L (5-15); Aspartate Amino Transferase 29 U/L (14-36); Bilirubin,Total 0.5 mg/dl (0.2-1.3); Blood Urea Nitrogen 13 mg/dl (7-17); Calcium 9.9 mg/dl (8.4-10.2); Carbon Dioxide 36 mmol/L (22.0-30.0); Chloride 98 mmol/L (98-107); Estimated Glomerular Filt Rate 63 ml/min (>60); GFR (African American) 76 ML/MIN (>60); Globulin 2.6 g/dL (1.3-3.2); Glucose 112 mg/dl (74-100); Potassium 3.6 mmoL/L (3.5-5.1); Sodium 140 mmol/L (136-145); Total Protein,Serum 6.6 g/dl (6.3-8.2)
[2020-04-09 14:08] LABS: Free T4 (Free Thyroxine) 1.59 ng/dl (0.78-2.19)
[2020-04-09 14:22] LABS: Thyroid Stimulating Hormone < 0.02 uIU/mL (0.465-4.68)
[2020-04-09 16:25] LABS: Coronavirus 19 IgG Antibody Negative (Negative); Coronavirus 19 IgM Antibody Negative (Negative)
== END ==
PROVIDERS: Otolaryngology; Visit Provider Surgery
DX: K80.20 Calculus of gallbladder without cholecystitis without obstruction (principal); R06.00 Dyspnea, unspecified; Z01.818 Encounter for other preprocedural examination; E03.9 Hypothyroidism, unspecified
CPT/HCPCS: 36415; 80053; 84439; 84443; 85025; 86328

== ENCOUNTER 2020-04-13 07:44 | Day surgery (SDC) | payer MEDICARE, MEDICAID, SELFPAY ==
[2020-04-10 10:53] VITALS: BMI 30.2
[2020-04-13] VITALS (13 sets, daily range): BP systolic 110–148; BP diastolic 50–85; PULSE 73–82; RESP 13–18; TEMP 36.2–43; O2SAT 88–100
--- NOTE | 2020-04-13 08:33 | HMH.ANESCL ---
[facility] Anesthesia Checklist - Patient Identification Patient Identification: Arm Band, Verbal (Name & ) - Structural Data Admitted From: Home Planned Operative Procedure/s: Laparoscopic cholecystectomy Consent for Planned Operative Procedure(s) Verified: Yes Verified Documents: Surgical Consent, History and Physical, Cardiac Clearance (Low cardiac risk) - NPO Status Verified Time NPO: 20:30 - Chart Verification Results Verified: CBC, BMP (Also obtained PFT. Reviewed), ECG - Additional verifications Anesthesia Reactions: No Hx Blood Transfusions: No Blood Transfusion Reaction: No - Airway Assessment C-Spine Mobility Assessed: Yes (MP 2, TMD 3) TMJ Mobility Assessed: Yes Dentition: Edentulous - Neurological Assessment Level of Consciousness: Awake, Alert, Appropriate, Follows Commands Hx Seizures: No Numbness or tingling in extremities: No - Anesthesia Plan Anesthesia Risk discussed: Yes Anesthesia Plan: Verified ASA Class: III Anesthesia Type: General [facility] History I have reviewed the patient's past medical history: Yes 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: Reports:: Congestive Heart Failure, Chronic Obstructive Pulmonary Disease (COPD), Coronary Artery Disease, Gastroesophageal Reflux Disease(GERD), Hyperlipidemia, Hypertension, Peripheral Artery Disease Denies:: Cancer, Diabetes Mellitus Type 1, Diabetes Mellitus Type 2, Internal Pacemaker, MRSA, Seizures *Have you ever received a pneumonia vaccine?: Yes *Have you received a flu vaccine this season?: Yes Other 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: Reports: Cataracts, Hypothyroidism, Thyroid Disease. Denies: Blood Transfusion Reaction Comment:: RLS, Obesity, SB Anesthesia experience/problems:: None Laterality Cases: Bilateral: Carpal Tunnel Release Other Surgeries: Yes: Appendectomy, Cardiac Catheterization, Colonoscopy, Hysterectomy-Total, Thyroidectomy, Other. No: Pacemaker Amputation: No Fractures: No - *Social History Smoking Status: Current every day smoker Tobacco Type: cigarettes # Packs/Day (cigarettes): 1 #Yrs smoked (if former smoker): 30 Alcohol Intake: never Alcohol Intake Frequency:: other Substance Use Type: denies use *Occupational Status:: disabled Housing: house Household Members: spouse *Travel in the last 8 weeks: None Family Hx:: No significant family history
--- NOTE | 2020-04-13 10:14 | HMH.OPNOTE ---
Date of procedure: 04/13/20 Pre-op Diagnosis:: Symptomatic cholelithiasis Post-op Diagnosis:: Chronic calculus cholecystitis Procedure performed:: Laparoscopic cholecystectomy Surgeon:: Regulo Dahl MD SOCIAL MEDIA CONTENT SPECIALIST:: Sylvester Yeboah Anesthesia: GETA Estimated blood loss (mL): 15 Operative findings:: Significant pericholecystic fat stranding Gallbladder distention Infundibular thickening Dome down approach utilized secondary to above Operative note:: After informed consent was obtained, the patient was taken to the operating room and placed in the supine position. General anesthesia was induced and the abdomen was prepped and draped in a sterile fashion. After infiltration with local anesthetic an infraumbilical incision was made. A Veress needle was placed in position. The abdomen was insufflated. A 5 mm optical trocar was placed in position. Under direct visualization, a 12 mm trocar was placed in the subxiphoid position and 2 additional 5 mm trocars were placed in the right upper quadrant. The gallbladder was elevated up and over the liver margin. Gallbladder was very distended. Significant pericholecystic fat stranding noted. Dissection and and around the infundibular region revealed increased thickening. The decision was made to proceed with a dome down approach. A window was made between the liver and gallbladder at the infundibular margin. Harmonic daniel were utilized to separate the gallbladder from the liver margin. Endoloops (x2) were then placed in position to control the infundibulum. Harmonic daniel were then used to transect the gallbladder. The gallbladder was placed in a retrieval bag and removed through the subxiphoid trocar site. The right upper quadrant was thoroughly irrigated. No active bleeding or bile leak was noted. Fascia at the subxiphoid trocar site was reapproximated utilizing the NeoClose device. The remaining trocars were removed. All wounds were irrigated and skin was closed with 4-0 Monocryl in a subcuticular fashion. Steri-Strips were applied. The patient's anesthetic agents were reversed and extubation was completed prior to transfer to recovery in stable condition. Condition: stable Disposition: PACU Specimens:: Gallbladder Complications:: No immediate
--- NOTE | 2020-04-13 10:27 | P.PN_ITS ---
[facility] [place] Anesthesia Record Part I Intake, IV Amount: 1,000 Estimated blood loss (mL): 10 Urine output (mL): 0 Blood Products used (#): none Blood Pressure: 118/50 SaO2: 92 Pulse Rate: 74 Respiratory Rate: 18 Temperature: 97.4 F Patient is:: Drowsy, Mask O2, Stable Stable to PACU at:: 10:25
--- NOTE | 2020-04-13 14:44 | P.PN_ITS ---
[facility] Anesthesia Record Part II Discharge Time: 10:55 Destination: Surgical Day Care (OP Surgery) PACU nurse assessment reviewed?: Yes Patient Condition:: Good Anesthesia Complications:: None Swallowing reflex intact?: Yes Cyanosis?: No Blood Pressure: 130/70 Pulse Rate: 73 Temperature: 97.8 F Mental Status: Alert & Oriented Pain level:: 4 Nausea and/or vomitting:: None Intake, IV Amount: 50
== END 2020-04-13 11:56 | disposition home or self-care (01) ==
LOC: OR 07:46
PROVIDERS: PCP Nurse Practitioner Family; Visit Provider Surgery
PROC: 0FT44ZZ Resection of Gallbladder, Percutaneous Endoscopic Approach (ICD-10-PCS; CPT 47562; principal; 2020-04-13 09:30)
DX: K80.10 Calculus of gallbladder with chronic cholecystitis without obstruction (principal); J44.9 Chronic obstructive pulmonary disease, unspecified; K21.9 Gastro-esophageal reflux disease without esophagitis; I25.10 Atherosclerotic heart disease of native coronary artery without angina pectoris; E78.5 Hyperlipidemia, unspecified; I73.9 Peripheral vascular disease, unspecified; I11.0 Hypertensive heart disease with heart failure; I50.9 Heart failure, unspecified; E89.0 Postprocedural hypothyroidism; Z90.49 Acquired absence of other specified parts of digestive tract; Z72.0 Tobacco use; Z88.0 Allergy status to penicillin
CPT/HCPCS: 47562; 88304; 96374; J2405; J2710

== ENCOUNTER → 2020-09-26 12:22 | Outpatient (CLI) | payer MEDICARE, MEDICAID, SELFPAY ==
--- NOTE | 2020-09-26 12:22 | XR_ITS ---
PROCEDURE: XR DEXA AXIAL SKELETON CLINICAL HISTORY: osteoporosis COMPARISON: CR DEXAAX XR DEXA axial skeleton from 09/15/2018 FINDINGS: The right hip BMD is 0.703 with a T-score of -1.3. The left hip BMD is 0.657 with a T-score of -1.7. The lumbar spine BMD is 1.056 with a T-score of 0.1. Previously the lowest bone density was in the right femoral neck with a T-score -2.3. IMPRESSION: This patient is considered osteopenic according to the World Health Organization criteria. Bone density is between 10 and 25 percent below young normal. Fracture risk is moderate. Treatment is advised. Based on these results a follow-up exam is recommended in 2 year. Dictated by: Ben Guerrero MD 09/27/2020 05:30 Ben Guerrero MD in [place] 09/27/2020 05:30
--- NOTE | 2020-09-26 12:25 | MM_ITS ---
PROCEDURE INFORMATION: Exam: MG Screening 3D Mammography Exam date and time: 09/26/2020 12:25 PM Age: 65 years old Clinical indication: screening mammogram TECHNIQUE: Imaging protocol: Screening tomosynthesis and 2D mammography including computer-aided detection (CAD) when performed. COMPARISON: 1. MG MM DIG SCREENING MAMM BI W/CAD 09/19/2019 1:09 PM 2. MG SCBI MM Dig screening mamm BI w/CAD 08/20/2018 10:37 AM 3. MG SCBI MM Dig screening mamm BI w/CAD 08/19/2017 9:40 AM 4. MG DMSB DIG MAMM-SCREEN YADNY W/CAD 08/06/2016 9:17 AM FINDINGS: MAMMOGRAPHY: Breast composition: The breast tissue is heterogeneously dense, which may obscure small masses. Mass: Stable benign-appearing subcentimeter nodules are present in the left breast. No new or morphologically suspicious nodule has developed to suggest malignancy. Architectural distortion: No new or suspicious architectural distortion. Calcifications: No new or suspicious calcifications are present Asymmetric density: No new or suspicious asymmetric density is present Skin thickening: None. Axillary adenopathy: None. IMPRESSION: No mammographic evidence of malignancy. Recommend annual screening mammography unless otherwise clinically indicated. ASSESSMENT: BI-RADS category 2: Benign
== END ==
PROVIDERS: PCP Nurse Practitioner Family; Visit Provider Nurse Practitioner Family
DX: M81.0 Age-related osteoporosis without current pathological fracture (principal); Z12.31 Encounter for screening mammogram for malignant neoplasm of breast
CPT/HCPCS: 77063; 77067; 77080

== ENCOUNTER → 2021-02-26 09:18 | Outpatient (CLI) | payer MEDICARE, MEDICAID, SELFPAY ==
--- NOTE | 2021-02-26 | US_ITS ---
PROCEDURE: US KIDNEY CLINICAL INDICATION: COMPARISON: CT CT ABDOMEN PELVIS WO CON from 03/12/2020 FINDINGS: The right kidney is 9 x 4 x 4 cm. The left kidney is 9 x 5 4 cm. No hydronephrosis or renal mass or perinephric fluid. Bilateral renal blood flow noted. No significant cortical thinning. IMPRESSION: Unremarkable bilateral renal ultrasound Dictated by: Ben Guerrero MD 02/26/2021 18:12 Ben Guerrero MD in [place] 02/26/2021 18:12
--- NOTE | 2021-02-26 09:22 | US_ITS ---
PROCEDURE: US URINARY BLADDER CLINICAL INDICATION: CONTINUOUS LEAKAGE OF URINE, URINARY FREQUENCY COMPARISON: No exams were available for comparison FINDINGS: Urinary bladder has an unremarkable appearance. The full bladder volume is estimated at 42 mL. Bilateral ureteral jets are present. Only minimal postvoid urine noted at 1-2 mm. IMPRESSION: Low bladder full volume at 42 mL with no significant postvoid residual urine Dictated by: Ben Guerrero MD 02/26/2021 18:30 Ben Guerrero MD in [place] 02/26/2021 18:30
== END ==
PROVIDERS: PCP Nurse Practitioner Family; Visit Provider Family Medicine
DX: R35.0 Frequency of micturition (principal); N39.45 Continuous leakage
CPT/HCPCS: 76770; 76857

== ENCOUNTER → 2021-05-30 12:19 | Outpatient (CLI) | payer MEDICARE, MEDICAID, SELFPAY ==
--- NOTE | 2021-05-30 12:20 | CA_ITS ---
FINAL REPORT CLINICAL HISTORY: numbness /tingling of extremities,smoker,htn,hld,cad FINDINGS: An ultrasound of the carotid arteries was performed. Duplex Doppler evaluation with spectral analysis was performed. The peak systolic velocity of the right common carotid artery is 80 cm/s. The peak systolic velocity of the right internal carotid artery is 92 cm/s and end diastolic velocity 29 cm/s. A small amount of plaque is present. The right external carotid artery is patent. The right vertebral artery is patent with antegrade flow. The peak systolic velocity of the left common carotid artery is 73 cm/s. The peak systolic velocity of the left internal carotid artery is 101 cm/s and end diastolic velocity 32 cm/s. A small amount of plaque is present. The left external carotid artery is patent. The left vertebral artery is patent with antegrade flow. The ICAs are tortuous bilaterally. IMPRESSION: Less than 50% bilateral carotid stenoses. Bilateral patent vertebral arteries with antegrade flow. Reviewed, Interpreted and Dictated by Oswald Cat MD Transcribed by Ming Hatch Authenticated by Oswald Cat MD on 05/30/2021 03:53:59 PM [facility]
--- NOTE | 2021-05-30 12:55 | CA_ITS ---
APPROVED REPORT EXAM: Comprehensive 2D, Doppler, and color-flow Echocardiogram Drawing Kiln Operator: OMARI Bright, RVS Ht: 4 ft 11 in Wt: 159lbs BSA: 1.67 BP: 146/74 mmHg Indications: CAD, PAD, COPD, CLaudication, SOB, Fatigue, Smoker 2D Dimensions IVSd 0.95 cm LVEF (Visual) 62.60 % PWd 0.90 cm LA Volume 49.00 mL LVDd 4.04 cm LA Volume Index 29.30 mL/m2 (M/F) 16-34 LVDs 2.69 cm Aortic Root 2.34 cm Left Atrium 2.90 cm LVOT 1.75 cm (M/F) 1.5-2.5 M-Mode Dimensions RVDd 2.05 cm (0.9-2.6) LA Diam 3.84 cm (1.9-4.0) LVDd 4.46 cm (3.5-5.7) Ao Diam 2.97 cm (2.0-3.7) LVDs 2.55 cm (3.5-5.7) IVSd 1.14 cm (0.6-1.1) PWd 0.80 cm (0.6-1.1) EF (Teich) 74.10% EPSs 0.50 cm FS 42.80% EDV (Teich) 90.50 mL TAPSE 1.91 (<1.7) ESV (Teich) 23.40 mL LV Diastology E Decel Time 183.00 (160-240 msec) E/A Ratio 1.11 MED E' 8.50 (< 7 cm/sec) MED A' 8.10 cm/s E'/MED E' Ratio 9.34 (>14) LAT E' 8.10 (<10 cm/sec) LAT A' 9.60 cm/s E/LAT E' Ratio 9.80 (>14) Aortic Valve LVOT Max 86.00 (70-110 cm/s) LVOT VTI 20.88 cm AoV Peak Edgard. 103.00 (50-130 cm/s) AO Peak GR. 4.20 mmHg AO Mean GR. 2.10 (<5 mmHg) AO VTI 20.55 (18-25 cm) TEJA (VTI) 2.44 (2.5-4.5 cm2) Mitral Valve MV A Velocity 72.00 (40-130 cm/s) E/A Ratio 1.11 MV Decel. Time 183.00 (160-240 ms) MV Mean Gr. 1.20 (<2mmHg) Pulmonary Valve PV Peak Velocity 79.00 (50-150 cm/s) Tricuspid Valve TR P. Velocity 144.00 cm/s RAP Estimate 10.00 mmHg RVSP 18.30 mmHg Left Ventricle Left atrium is mildly enlarged, left ventricle is normal size, mild concentric left ventricular hypertrophy, visually estimated ejection fraction 55% with no regional wall motion abnormality, grade 1 diastolic dysfunction seen without tissue Doppler evidence of raise left atrial pressure. Right Ventricle Right atrium and right ventricle are normal size and contractility. Aortic Valve Aortic valve is minimally thickened and fibrosed, there is no aortic stenosis or aortic insufficiency. Mitral Valve Mitral valve grossly normal, there is trace mitral regurgitation. Tricuspid Valve Tricuspid valve grossly normal, there is trace tricuspid regurgitation, tricuspid regurgitation jet velocity is inadequate for calculation of the right ventricular systolic pressure. Pulmonic Valve Pulmonic valve is poorly visualized. Great Vessels Aortic root is normal size. Inferior vena cava is poorly visualized. Pericardium No significant pericardial effusion noted. Conclusion 1. Mildly l enlarged left atrium, normal left ventricular size, mild concentric left ventricular hypertrophy, visually estimated ejection fraction 55% with no regional wall motion abnormality, grade 1 diastolic dysfunction seen without tissue Doppler evidence of raise left atrial pressure. 2. Trace mitral and tricuspid regurgitation. 3. No significant pericardial effusion noted. 4. Inferior vena cava is poorly visualized. Electronically signed by : Julius Hines MD 05/30/2021 16:16:11
--- NOTE | 2021-05-30 12:55 | US_ITS ---
FINAL REPORT CLINICAL HISTORY: numbness /tingling of extremities, CAD, Smoker FINDINGS: ANKLE-BRACHIAL PRESSURE INDICES HISTORY: Pain FINDINGS: Pressure indices are as follows: RIGHT LOWER EXTREMITY: Ankle-brachial pressure index: 1.04 Toe brachial pressure index: 0.69 Comments: Normal LEFT LOWER EXTREMITY: Ankle-brachial pressure index: 1.01 Toe brachial pressure index: 0.71 Comments: Normal IMPRESSION: No evidence of significant obstructive peripheral vascular disease of the lower extremities Reviewed, Interpreted and Dictated by Oswald Cat MD Transcribed by Belia Springer Authenticated by Oswald Cat MD on 05/30/2021 03:54:[address] [facility]
== END ==
PROVIDERS: PCP Nurse Practitioner Family; Visit Provider Urology
DX: I10 Essential (primary) hypertension (principal); I73.9 Peripheral vascular disease, unspecified; K55.1 Chronic vascular disorders of intestine; R20.0 Anesthesia of skin; R20.2 Paresthesia of skin; Z72.0 Tobacco use; R06.00 Dyspnea, unspecified
CPT/HCPCS: 93306; 93880; 93923

== ENCOUNTER → 2021-10-22 15:22 | Outpatient (CLI) | payer MEDICARE, MEDICAID, SELFPAY ==
--- NOTE | 2021-10-22 15:28 | XR_ITS ---
FINAL REPORT CLINICAL HISTORY: LUMP OF SKIN,SWELLING OF CHEST WALL, right side COMPARISON: 01/25/2019 FINDINGS: Two views of the chest were obtained. The heart size and pulmonary vascularity are within normal limits. The mediastinum is normal. No acute pulmonary abnormality is identified. There is no pneumothorax. The bony thorax is intact. IMPRESSION: No active cardiopulmonary disease. Reviewed, Interpreted and Dictated by Cesar Dorsey III, MD Transcribed by Virginia Conde Authenticated by Cesar Dorsey III, MD on 10/22/2021 04:23:05 PM [facility]
[2021-10-22 16:51] LABS: Basophils # 0.4 K/mm3 (0-0.2); Basophils % 4.5 % (0.1-2.0); Eosinophils # 0.3 K/mm3 (0.0-0.4); Eosinophils % 3.6 % (0.1-12.0); Hematocrit 47.1 % (37.0-47.0); Hemoglobin 15.6 g/dL (12.2-16.2); Lymphocytes # 3.2 K/mm3 (0.7-4.5); Lymphocytes % 36.9 % (10-50); Mean Corpuscular HGB Conc 33.1 g/dL (31.8-35.4); Mean Corpuscular Hemoglobin 29.7 pg (27.0-31.2); Mean Corpuscular Volume 89.6 fl (81-99); Mean Platelet Volume 8.9 fl (7.4-10.4); Monocytes # 0.5 K/mm3 (0.1-1.0); Monocytes % 5.9 % (1.7-9.3); Neutrophils # 4.6 K/mm3 (1.8-7.8); Neutrophils % 53.5 % (37.0-80.0); Platelet Count 315 K/mm3 (142-424); Red Blood Count 5.26 M/mm3 (4.20-5.40); Red Cell Distribution Width 14.3 % (11.5-17.5); White Blood Count 8.6 K/mm3 (4.8-10.8)
[2021-10-22 17:06] LABS: Chloride 99 mmol/L (98-107); Sodium 139 mmol/L (136-145)
[2021-10-22 17:07] LABS: Potassium 3.3 mmoL/L (3.5-5.1)
[2021-10-22 17:09] LABS: Alanine Aminotransferase 23 U/L (12-78); Alkaline Phosphatase 77 U/L (38-126); Aspartate Amino Transferase 30 U/L (14-36); Bilirubin,Total 0.5 mg/dl (0.2-1.3); Blood Urea Nitrogen 13 mg/dl (7-17); Estimated Glomerular Filt Rate 71 ml/min (>60); GFR (African American) 86 ML/MIN (>60)
[2021-10-22 17:10] LABS: Albumin Level 4.2 g/dl (3.5-5.0); Albumin/Globulin Ratio 1.6 (1.1-1.8); Anion Gap 10.3 mEq/L (5-15); Calcium 9.4 mg/dl (8.4-10.2); Carbon Dioxide 33 mmol/L (22.0-30.0); Globulin 2.7 g/dL (1.3-3.2); Glucose 115 mg/dl (74-100); Total Protein,Serum 6.9 g/dl (6.3-8.2)
[2021-10-22 17:41] LABS: Thyroid Stimulating Hormone 2.07 uIU/mL (0.465-4.68)
== END ==
PROVIDERS: PCP Nurse Practitioner Family; Visit Provider Nurse Practitioner Family
DX: R22.2 Localized swelling, mass and lump, trunk (principal); Z79.899 Other long term (current) drug therapy
CPT/HCPCS: 36415; 71046; 80053; 84443; 85025

== ENCOUNTER → 2021-11-11 13:36 | Outpatient (CLI) | payer MEDICARE, MEDICAID, SELFPAY ==
--- NOTE | 2021-11-11 13:38 | US_ITS ---
FINAL REPORT CLINICAL HISTORY: LUMP OF SKIN, LOCALIZED SWELLING OF CHEST WALL FINDINGS: US CHEST Limited sonographic images were obtained of the soft tissues of the right chest 5 cm inferior to the clavicle. At the area of the palpable abnormality is a hyperechoic 1.5 cm nodule with an anechoic center. This appears to be centered in the subcutaneous tissues. IMPRESSION: Subcutaneous nodule at the area of interest. This could represent a complex cyst or possibly a partially cystic neoplasm. Reviewed, Interpreted and Dictated by Cesar Dorsey III, MD Transcribed by Ming Hatch Authenticated and [facility]
== END ==
PROVIDERS: PCP Nurse Practitioner Family; Visit Provider Nurse Practitioner Family
DX: R22.2 Localized swelling, mass and lump, trunk (principal)
CPT/HCPCS: 76604

== ENCOUNTER → 2021-11-12 09:04 | Outpatient (CLI) | payer MEDICARE, MEDICAID, SELFPAY ==
--- NOTE | 2021-11-12 09:08 | XR_ITS ---
FINAL REPORT CLINICAL HISTORY: eloy wrist pain FINDINGS: LEFT WRIST Three views demonstrate no acute fracture or dislocation. There is severe degenerative change at the 1st carpometacarpal joint. There is mild degenerative change elsewhere in the wrist. The soft tissues are unremarkable. IMPRESSION: Degenerative changes as above with no acute bony abnormality. Reviewed, Interpreted and Dictated by Cesar Dorsey III, MD Transcribed by Leti Smith Authenticated and [facility]
--- NOTE | 2021-11-12 09:08 | XR_ITS ---
FINAL REPORT CLINICAL HISTORY: eloy wrist pain FINDINGS: RIGHT WRIST Three views demonstrate no acute fracture or dislocation. There is severe degenerative change at the 1st carpometacarpal joint. There is mild degenerative change elsewhere in the wrist. The soft tissues are unremarkable. There is a probable loose body at the radial aspect of the 1st carpometacarpal joint. IMPRESSION: Degenerative changes as above with no acute bony abnormality. Reviewed, Interpreted and Dictated by Cesar Dorsey III, MD Transcribed by Leti Smith Authenticated and [facility]
== END ==
PROVIDERS: PCP Nurse Practitioner Family; Visit Provider Orthopaedic Surgery
DX: M25.532 Pain in left wrist (principal); M25.531 Pain in right wrist
CPT/HCPCS: 73110

== ENCOUNTER → 2021-11-18 09:16 | Outpatient (CLI) | payer MEDICARE, MEDICAID, SELFPAY ==
--- NOTE | 2021-11-18 09:20 | XR_ITS ---
FINAL REPORT CLINICAL HISTORY: pre op, copd COMPARISON: 10/22/2021 FINDINGS: 2 views of the chest were obtained . The heart is normal in size. The mediastinum is within normal limits. The lungs are clear. There is no pneumothorax. Osseous structures are unremarkable. IMPRESSION: No acute cardiopulmonary process. Reviewed, Interpreted and Dictated by Cesar Dorsey III, MD Transcribed by Suri Monreal Authenticated and [facility]
--- NOTE | 2021-11-18 09:51 | ECG_ITS ---
APPROVED REPORT Exam: Resting ECG HR:74 bpm ECG Measurements Heart Rate 74 AXES [place] 149 P 22 QRSd 81 QRS 44 QT 362 T 49 QTc 390 Conclusion SINUS RHYTHM NORMAL ECG UNCONFIRMED REPORT Electronically signed by : Sylvester Newell MD 11/18/2021 21:43:19
[2021-11-18 10:54] LABS: Basophils # 0.2 K/mm3 (0-0.2); Basophils % 2.3 % (0.1-2.0); Eosinophils # 0.3 K/mm3 (0.0-0.4); Eosinophils % 2.9 % (0.1-12.0); Hematocrit 48.1 % (37.0-47.0); Lymphocytes # 2.3 K/mm3 (0.7-4.5); Lymphocytes % 23.3 % (10-50); Mean Corpuscular HGB Conc 31.1 g/dL (31.8-35.4); Mean Corpuscular Hemoglobin 29.2 pg (27.0-31.2); Mean Corpuscular Volume 93.9 fl (81-99); Mean Platelet Volume 9.2 fl (7.4-10.4); Monocytes # 0.6 K/mm3 (0.1-1.0); Monocytes % 5.9 % (1.7-9.3); Neutrophils # 6.6 K/mm3 (1.8-7.8); Neutrophils % 65.6 % (37.0-80.0); Platelet Count 341 K/mm3 (142-424); Red Blood Count 5.12 M/mm3 (4.20-5.40); Red Cell Distribution Width 14.3 % (11.5-17.5); White Blood Count 10.1 K/mm3 (4.8-10.8)
[2021-11-18 11:24] LABS: Chloride 99 mmol/L (98-107)
[2021-11-18 11:25] LABS: Sodium 139 mmol/L (136-145)
[2021-11-18 11:27] LABS: Alanine Aminotransferase 23 U/L (12-78); Alkaline Phosphatase 82 U/L (38-126); Aspartate Amino Transferase 28 U/L (14-36); Bilirubin,Total 0.5 mg/dl (0.2-1.3); Blood Urea Nitrogen 17 mg/dl (7-17); Estimated Glomerular Filt Rate 71 ml/min (>60); GFR (African American) 86 ML/MIN (>60)
[2021-11-18 11:28] LABS: Albumin/Globulin Ratio 1.7 (1.1-1.8); Calcium 9.9 mg/dl (8.4-10.2); Carbon Dioxide 33 mmol/L (22.0-30.0); Globulin 2.4 g/dL (1.3-3.2); Glucose 85 mg/dl (74-100); Total Protein,Serum 6.4 g/dl (6.3-8.2)
== END ==
PROVIDERS: PCP Orthopaedic Surgery; Visit Provider Nurse Practitioner Family
DX: G56.03 Carpal tunnel syndrome, bilateral upper limbs (principal); R20.2 Paresthesia of skin
CPT/HCPCS: 36415; 71046; 80053; 85025; 93005

== ENCOUNTER → 2021-11-20 13:19 | Outpatient (CLI) | payer MEDICARE, MEDICAID, SELFPAY | PROVIDERS: PCP Nurse Practitioner Family; Visit Provider Orthopaedic Surgery | DX: G56.03 Carpal tunnel syndrome, bilateral upper limbs (principal); Z01.812 Encounter for preprocedural laboratory examination; Z20.822 Contact with and (suspected) exposure to COVID-19 | CPT/HCPCS: C9803; U0003; U0005 ==

== ENCOUNTER 2021-11-22 08:41 | Day surgery (SDC) | payer MEDICARE, MEDICAID, SELFPAY ==
[2021-11-18 13:41] VITALS: BMI 32.3
[2021-11-22 10:29] VITALS: BP 160/44; PULSE 44; RESP 18; TEMP 36.9; O2SAT 99
[2021-11-22 13:12] VITALS: BP 101/53; PULSE 39; RESP 16; TEMP 36.2; O2SAT 95
--- NOTE | 2021-11-22 13:12 | PC.NURSE ---
anesthesia aware of BP
[2021-11-22 13:27] VITALS: BP 109/60; PULSE 38; RESP 16; O2SAT 96
[2021-11-22 13:42] VITALS: BP 132/61; PULSE 73; RESP 16; O2SAT 96
[2021-11-22 13:52] VITALS: BP 123/48; PULSE 61; RESP 16; O2SAT 95
--- NOTE | 2021-11-22 15:47 | HMH.OPNOTE ---
Date of procedure: 11/22/21 Pre-op Diagnosis:: Recurrent carpal tunnel syndrome, right wrist Post-op Diagnosis:: Same Procedure performed:: Revision open carpal tunnel release, right wrist Surgeon:: Mike Chou MD DEVELOPMENT CHEMIST:: Other (Shahbaz Aldana) Anesthesia: MAC, regional (Supraclavicular nerve block) Estimated blood loss (mL): 2 Clinical Note:: Patient is a 66-year-old female with recurrent right carpal tunnel syndrome with long-standing symptoms. EMG/NCV results confirmed moderate right carpal tunnel syndrome with chronic neuropathic changes. She previously had bilateral carpal tunnel release surgery at an outside facility in 2016. Her symptoms on the right side are gradually worsening, and patient failed to respond adequately to conservative management. Therefore, the revision carpal tunnel release surgery on the right side is necessary to relieve symptoms, preserve the remaining fibers of the median nerve, improve function, and decrease the pain, paresthesias and weakness and to prevent permanent nerve damage. Please refer to my office note for full details. Operative findings:: The intraoperative findings showed a lot of scarring from the previous surgery. The median nerve was seen to be very tightly compressed and hyperemic over the proximal carpal tunnel. Some adhesions and synovitis noted in the carpal tunnel. The flexor retinaculum was noted to be thick and tight proximally. There were no space-occupying lesions within the carpal tunnel. Operative note:: On the day of the surgery the patient was met in the preoperative area. Patient was positively identified, and the operative site was marked and initialed by me. A physical examination was performed, and the chart was updated. I again discussed the procedure, risks and benefits and alternatives with the patient. The complications discussed include but are not limited to- bleeding, injury to nerves, blood vessels and tendons, infection, wound dehiscence, incomplete relief/continued pain, persistent numbness, palmar hypersensitivity, pillar pain, DVT/PE, complex regional pain syndrome (CRPS), worsening of nerve damage, failure of the condition to improve, incomplete return of function, bowstringing of tendons, weakness of general maintenance mechanic strength, recurrence, failure of the surgery to accomplish the desired goals, decreased use of the hand, loss of use of the arm, loss of the hand or arm, loss of life. Likely need for further surgery in the future has been discussed. I have told her that I will be making a separate and longer incision crossing the wrist crease at an angle and have indicated to the patient where the proposed incision would be made and discussed the possibility of extending the incision if needed to accomplish an effective release. We have discussed how the goal of surgery is to protect the fibers which have remained healthy and hopefully reverse the symptoms of the fibers which are compromised but still recoverable. We have explained that fibers that are permanently damaged will not recover. Patient asked appropriate questions, and all have been answered by me. Patient understood the risks, agreed to proceed with surgery, and no guarantees or assurances were given or implied. The patient was then brought to the operating room and placed supine on the operating table. The right upper extremity was placed over a side table. All the bony prominences were well-padded. The patient had a MAC anesthesia and supraclavicular nerve block administered by the still operator batch or continuous. A well-padded tourniquet cuff was placed over the upper arm. The right upper extremity was prepped and draped in the usual sterile fashion. A preprocedure timeout was performed as per hospital policy. The Peters's landmarks and previous skin incision was marked on the skin with a marker pen. I then marked the proposed new incision more ulnar to the previous scar and extending into the forearm crossing the distal wrist crease at an angle. The
== END 2021-11-22 13:52 | disposition home or self-care (01) ==
LOC: OR 08:42
PROVIDERS: PCP Nurse Practitioner Family; Visit Provider Orthopaedic Surgery
PROC: (CPT 64721; principal; 2021-11-22 10:30)
DX: G56.01 Carpal tunnel syndrome, right upper limb (principal); Z79.899 Other long term (current) drug therapy
CPT/HCPCS: 64721; 96374; J2405

== ENCOUNTER → 2021-12-25 11:28 | Outpatient (CLI) | payer MEDICARE, MEDICAID, SELFPAY ==
--- NOTE | 2021-12-25 11:34 | XR_ITS ---
FINAL REPORT CLINICAL HISTORY: SOB; copd COMPARISON: November 18, 2021 FINDINGS: Two views of the chest were obtained. The heart size and pulmonary vascularity are within normal limits. The mediastinum is normal. Worsening interstitial opacities may represent interstitial edema. There is no pneumothorax. The bony thorax is intact. IMPRESSION: Worsening interstitial opacities may represent interstitial edema. Reviewed, Interpreted and Dictated by Cesar Dorsey III, MD Transcribed by Ming Hatch Authenticated and [facility]
[2021-12-25 11:54] LABS: Basophils # 0.2 K/mm3 (0-0.2); Basophils % 1.9 % (0.1-2.0); Eosinophils # 0.3 K/mm3 (0.0-0.4); Eosinophils % 2.7 % (0.1-12.0); Hematocrit 41.1 % (37.0-47.0); Hemoglobin 13.2 g/dL (12.2-16.2); Lymphocytes # 2.5 K/mm3 (0.7-4.5); Lymphocytes % 21.5 % (10-50); Mean Corpuscular HGB Conc 32.2 g/dL (31.8-35.4); Mean Corpuscular Hemoglobin 29.7 pg (27.0-31.2); Mean Corpuscular Volume 92.2 fl (81-99); Mean Platelet Volume 9.7 fl (7.4-10.4); Monocytes # 0.8 K/mm3 (0.1-1.0); Neutrophils # 7.8 K/mm3 (1.8-7.8); Neutrophils % 66.9 % (37.0-80.0); Platelet Count 281 K/mm3 (142-424); Red Blood Count 4.46 M/mm3 (4.20-5.40); Red Cell Distribution Width 14.6 % (11.5-17.5); White Blood Count 11.6 K/mm3 (4.8-10.8)
[2021-12-25 12:50] LABS: Chloride 102 mmol/L (98-107); Potassium 4.1 mmoL/L (3.5-5.1); Sodium 141 mmol/L (136-145)
[2021-12-25 12:52] LABS: Blood Urea Nitrogen 14 mg/dl (7-17); Estimated Glomerular Filt Rate 62 ml/min (>60); GFR (African American) 75 ML/MIN (>60)
[2021-12-25 12:53] LABS: Alanine Aminotransferase 56 U/L (12-78); Albumin Level 4.1 g/dl (3.5-5.0); Albumin/Globulin Ratio 1.6 (1.1-1.8); Alkaline Phosphatase 111 U/L (38-126); Anion Gap 12.1 mEq/L (5-15); Aspartate Amino Transferase 38 U/L (14-36); Bilirubin,Total 1.4 mg/dl (0.2-1.3); Calcium 9.6 mg/dl (8.4-10.2); Carbon Dioxide 31 mmol/L (22.0-30.0); Globulin 2.5 g/dL (1.3-3.2); Glucose 91 mg/dl (74-100); Total Protein,Serum 6.6 g/dl (6.3-8.2)
[2021-12-25 13:02] LABS: NT Pro Brain Natriuretic Pep. 952 pg/mL (0-125)
== END ==
PROVIDERS: PCP Nurse Practitioner Family; Visit Provider Nurse Practitioner Family
DX: R06.02 Shortness of breath (principal); R60.0 Localized edema
CPT/HCPCS: 36415; 71046; 80053; 83880; 85025

== ENCOUNTER → 2022-01-02 09:37 | Outpatient (CLI) | payer MEDICARE, SELFPAY ==
[2022-01-02 11:24] LABS: Chloride 100 mmol/L (98-107)
[2022-01-02 11:25] LABS: Potassium 4.2 mmoL/L (3.5-5.1); Sodium 138 mmol/L (136-145)
[2022-01-02 11:28] LABS: Anion Gap 7.2 mEq/L (5-15); Blood Urea Nitrogen 16 mg/dl (7-17); Calcium 9.6 mg/dl (8.4-10.2); Carbon Dioxide 35 mmol/L (22.0-30.0); Estimated Glomerular Filt Rate 62 ml/min (>60); GFR (African American) 75 ML/MIN (>60); Glucose 137 mg/dl (74-100)
== END ==
PROVIDERS: PCP Nurse Practitioner Family; Visit Provider Nurse Practitioner Family
DX: I10 Essential (primary) hypertension (principal); I50.33 Acute on chronic diastolic (congestive) heart failure; I73.9 Peripheral vascular disease, unspecified; K55.1 Chronic vascular disorders of intestine; R06.00 Dyspnea, unspecified; R07.9 Chest pain, unspecified; R20.0 Anesthesia of skin; R20.2 Paresthesia of skin; R60.0 Localized edema; Z72.0 Tobacco use; E66.9 Obesity, unspecified; E78.2 Mixed hyperlipidemia; R06.02 Shortness of breath; Z01.818 Encounter for other preprocedural examination
CPT/HCPCS: 36415; 80048; C9803; U0003; U0005

== ENCOUNTER 2022-01-03 14:12 | Inpatient (IN) | payer MEDICARE, SELFPAY ==
[2022-01-03] VITALS (20 sets, daily range): BP systolic 114–180; BP diastolic 49–102; PULSE 43–95; RESP 16–18; TEMP 36.5–36.8; O2SAT 90–100; BMI 32.7; BMI 32.6
--- NOTE | 2022-01-03 07:19 | IR_ITS ---
APPROVED REPORT Patient Location: Outpatient Experimental Machinist: SHEILA [place] RT (R) PROCEDURES Right heart catheterization Left heart catheterization Left ventriculogram Selective coronary angiogram Drug-eluting stent deployment to the ostial proximal mid and distal dominant right coronary contiguous manner INDICATION New onset congestive heart failure, Pulmonary hypertension, Coronary artery disease Informed consent was obtained prior to the procedure. COMPLICATIONS None Estimated Blood Loss: Less than 10 mls TECHNIQUE One percent lidocaine was used to anesthetize the right anterior aspect of the right wrist. The right radial artery was accessed via the Seldinger technique and a 6 Syriac hydrophilic sheath was placed in the right radial artery. Following this one percent lidocaine was used to anesthetize the right anterior aspect of the right neck. The right internal jugular vein was accessed via the Seldinger technique and a 7 Syriac sheath was placed in the right internal jugular vein. Following this an arterial cocktail was administered using 5000U heparin, 2.5 mg verapamil, 1mg Lidocaine and 800mcg nitroglycerin into the right radial sheath. A papa catheter was used to perform left heart catheterization left ventriculogram and selective coronary angiography while a [place] catheter was used to perform right heart catheterization. Saturations were obtained in the pulmonary artery and right atrium. At the end of the diagnostic angiogram therapeutic heparin was administered giving a therapeutic ACT and the guide catheter was placed in the right coronary artery followed by a Choice PT extra-support wire. 3.5 x 38 mm resolute Otoniel stent was deployed in the distal portion extending back to the midportion at 24 bonnie. An additional 3.5 x 26 mm resolute Hensley stent was placed proximal to this extending back into the ostium but still overlapping the first stent deployed at 24 bonnie. Excellent angiograph results were obtained with WILLIAM-3 flow being present before and after the procedure. At the end the procedure the apparatus was removed the sheath was removed and hemostasis was achieved and TR banding patient was transferred to the postop already in stable condition for IJ sheath removal ANGIOGRAPHIC RESULTS The left main artery Normal The left anterior descending artery Is proximally normal and then has a mid vessel 30% concentric stenosis. This gives rise to a large ramus intermedius which is widely patent with minimal atheromatous plaque nothing greater than 10%. The circumflex artery Circumflex artery is nondominant with mild 10% luminal irregularities The right coronary artery Large dominant vessel with proximal to mid vessel 30 to 40% stenosis mid vessel 30% stenosis with a concentric 70% stenosis. The HYMAN ventriculogram reveals Hyperdynamic 75% The left ventricular end-diastolic pressure 50 mmHg Right atrial pressure 40 mmHg Pulmonary artery pressure 80/50 mmHg Pulmonary occlusion pressure 45 mmHg Right atrial saturation 64% Pulmonary saturation 68% Aortic saturation 96% Hemoglobin Cardiac output 4.2 L/min IMPRESSION Severe single-vessel coronary disease with successful stenting reducing the stenosis to 0% Severe pulmonary hypertension likely stemming from hypertensive heart disease and severe diastolic dysfunction based on equalization of pressures and severely elevated LVEDP Hyperdynamic ventricle PLAN 1. Dual antiplatelet therapy 2. LDL less than 55 to be achieved with high intensity statin 3. I suspect most of patient's symptoms stem from the severe pulmonary hypertension with severe diastolic dysfunction. Diuresis and better contr
[2022-01-03 10:42] LABS: CATHL Activated Clotting Time 393 SEC (74-125); CATHL Arterial O2 SAT 68.3 % (90-100)
[2022-01-03 10:43] LABS: CATHL Venous O2 SAT 64.5 % (75-80)
--- NOTE | 2022-01-03 13:39 | HMH.PHACLD ---
Yolanda Fatimatit has received discharge medication counseling on the following medications: ASPIRIN PLAVIX SIMVASTATIN LISINOPRIL METOPROLOL PATIENT IS ALREADY TAKING ALL NECESSARY MEDICATIONS. HAD NO QUESTIONS AT THIS TIME. -NATALIE HAYWOOD, ANNID
[2022-01-03 14:08] LABS: Microscopic, Urine URINE MICROSCOPIC (MICROSCOPIC)
[2022-01-03 14:13] LABS: Appearance,Urine CLEAR (Clear); Basophils # 0.1 K/mm3 (0-0.2); Basophils % 1.5 % (0.1-2.0); Bilirubin,Urine Negative (Negative); Blood, Urine Negative (Negative); Color,Urine YELLOW (Yellow); Eosinophils # 0.3 K/mm3 (0.0-0.4); Eosinophils % 3.5 % (0.1-12.0); Glucose,Urine (UA) Negative (Negative); Hemoglobin 12.7 g/dL (12.2-16.2); Ketones,Urine Negative (Negative); Leukocyte Esterase,Urine Negative (Negative); Lymphocytes # 3.1 K/mm3 (0.7-4.5); Lymphocytes % 34.6 % (10-50); Mean Corpuscular Hemoglobin 28.9 pg (27.0-31.2); Mean Corpuscular Volume 93.3 fl (81-99); Monocytes # 0.5 K/mm3 (0.1-1.0); Monocytes % 6.1 % (1.7-9.3); Neutrophils # 4.9 K/mm3 (1.8-7.8); Neutrophils % 54.3 % (37.0-80.0); Nitrate,Urine Negative (Negative); Platelet Count 265 K/mm3 (142-424); Protein,Urine Negative (Negative); Red Cell Distribution Width 14.6 % (11.5-17.5); Specific Gravity, Urine <= 1.005 (1.005-1.030); Urobilinogen,Urine 0.2 EU/dl (0.2)
[2022-01-03 14:18] LABS: Chloride 102 mmol/L (98-107); Potassium 3.7 mmoL/L (3.5-5.1); Sodium 138 mmol/L (136-145)
[2022-01-03 14:20] LABS: Alanine Aminotransferase 26 U/L (12-78); Anion Gap 5.7 mEq/L (5-15); Aspartate Amino Transferase 23 U/L (14-36); Blood Urea Nitrogen 14 mg/dl (7-17); Carbon Dioxide 34 mmol/L (22.0-30.0); Creatinine Clearance Estimated 62 mL/min (50-200); Estimated Glomerular Filt Rate 62 ml/min (>60); GFR (African American) 75 ML/MIN (>60)
--- NOTE | 2022-01-03 14:20 | P.CONPHA_ITS ---
[facility] VTE Monitoring - Patient Demographics Admission date: 01/03/22 Report Date: 01/03/22 Time: 14:20 Allergies/Adverse Reactions: Patient Allergies Penicillins [PENICILLINS] Allergy (Unknown, Verified 01/01/22 14:23) I-HIVES Height: 1.5 m Weight: 73.482 kg - VTE Risk Labs: VTE Related Lab Results Hgb 12.7 g/dL (12.2-16.2) 01/03/22 13:55 Hct 41.0 % (37.0-47.0) 01/03/22 13:55 Plt Count 265 K/mm3 (142-424) 01/03/22 13:55 - Prophylaxis VTE Prophylaxis Ordered?: Yes Types of VTE Prophylaxis: TEDS Knee High Location of Applied Device: Bilateral Lower Extremeties
[2022-01-03 14:21] LABS: Albumin Level 3.9 g/dl (3.5-5.0); Albumin/Globulin Ratio 1.6 (1.1-1.8); Alkaline Phosphatase 107 U/L (38-126); Bilirubin,Total 1.3 mg/dl (0.2-1.3); Calcium 8.9 mg/dl (8.4-10.2); Globulin 2.5 g/dL (1.3-3.2); Glucose 121 mg/dl (74-100); Total Protein,Serum 6.4 g/dl (6.3-8.2)
--- NOTE | 2022-01-03 14:31 | HMH.PHAINT ---
MEDICATION RECONCILIATION COMPLETED ON PATIENT USING EXTERNAL FILL HISTORY FROM PHARMACY AND LIST FROM CARDIOLOGY OFFICE. -ANNI FERNANDOD
[2022-01-03 15:10] LABS: WBC,Urine Occasional #/hpf (0-3)
[2022-01-03 15:11] LABS: Bacteria,Urine Trace /lpf
--- NOTE | 2022-01-03 18:30 | HMH.HP ---
*Admission Date: 01/03/22 *Chief complaint: pulmonary HTN, s/p heart cath, CAD *History of present illness: Ms. Lockett is a 66-year-old patient with significant past medical history of tobacco use, hypertension, peripheral artery disease, hyperlipidemia, COPD, and angina pectoris. Has been having chest discomfort with exertion. Saw cardiology earlier this week. Scheduled for heart cath today. Taken to the Imaging Science Professor where clinically significant stenosis in the RCA was treated with 1 RICHA. During cath, significant concern for pulmonary hypertension and volume overload were noted. Cardiology consulted medicine for admission to [facility] overnight and monitor closely after heart cath. Patient was seen after clinic today. She is hemodynamically stable. Diuresing well with good response to Lasix. Has put out over 2-1/2 L of urine since her heart cath. Stable on room air with saturations in the mid to high 90s. No significant chest pain at this time. Cath findings today: ANGIOGRAPHIC RESULTS The left main artery Normal The left anterior descending artery Is proximally normal and then has a mid vessel 30% concentric stenosis. This gives rise to a large ramus intermedius which is widely patent with minimal atheromatous plaque nothing greater than 10%. The circumflex artery Circumflex artery is nondominant with mild 10% luminal irregularities The right coronary artery Large dominant vessel with proximal to mid vessel 30 to 40% stenosis mid vessel 30% stenosis with a concentric 70% stenosis. The HYMAN ventriculogram reveals Hyperdynamic 75% The left ventricular end-diastolic pressure 50 mmHg Right atrial pressure 40 mmHg Pulmonary artery pressure 80/50 mmHg Pulmonary occlusion pressure 45 mmHg Right atrial saturation 64% Pulmonary saturation 68% Aortic saturation 96% Hemoglobin Cardiac output 4.2 L/min IMPRESSION Severe single-vessel coronary disease with successful stenting reducing the stenosis to 0% Severe pulmonary hypertension likely stemming from hypertensive heart disease and severe diastolic dysfunction based on equalization of pressures and severely elevated LVEDP Hyperdynamic ventricle. [facility] History I have reviewed the patient's past medical history: Yes 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: Reports:: Congestive Heart Failure, Chronic Obstructive Pulmonary Disease (COPD), Coronary Artery Disease, Gastroesophageal Reflux Disease(GERD), Hyperlipidemia, Hypertension, Peripheral Artery Disease Denies:: Cancer, Diabetes Mellitus Type 1, Diabetes Mellitus Type 2, Internal Pacemaker, MRSA, Seizures *Have you ever received a pneumonia vaccine?: Yes *Have you received a flu vaccine this season?: Yes Other 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: Reports: Arthritis, Cataracts, Hypothyroidism, Thyroid Disease. Denies: Blood Transfusion Reaction Laterality Cases: Bilateral: Carpal Tunnel Release Other Surgeries: Yes: No Previous Surgery, Appendectomy, Cardiac Catheterization, Cholecystectomy, Colonoscopy, Hysterectomy-Total, Thyroidectomy, Other. No: Pacemaker Amputation: No Fractures: No - *Social History Last grade of school completed: 11th or 12th Smoking Status: Light tobacco smoker Tobacco Type: cigarettes # Packs/Day (cigarettes): 1 #Yrs smoked (if former smoker): 30 Alcohol Intake: never Alcohol Intake Frequency:: other Substance Use Type: denies use *Occupational Status:: retired Housing: house Household Members: spouse, children *Travel in the last 8 weeks: None Family Hx:: Cancer Review of Systems - Review of Systems Review of systems:: pertinent systems reviewed and negative unless documented below (14 point review of systems performed, pertinent positives and negatives as per HPI) Meds Home Medications Medication Instructions Recorded Confirmed Type cyclobenzaprine 10 mg tablet 10 mg PO HSP PRN 09/10/17 01/03/22 History fluoxetine 40 mg capsule 40 mg PO DAILY 09/10/17 01/03/22 History simvastatin 20 mg tablet 20 mg PO HS 09/10/17 01/03/22 History tiotropium bromide 1.25
--- NOTE | 2022-01-03 19:36 | PC.NURSE ---
SINCE PT CAME TO FLOOR, VSS, PT HAS BEEN PLEASANT AND RESTING, ADEQUATE CLEAR YELLOW UO. DSG TO R WRIST CDI, DSG TO R JI WITH SOME DRAINAGE. ALEXANDR ROUNDED ON PT AND ORDERED A BMP AT 2200. PT HAS NO QUESTIONS OR CONCERNS AT THIS TIME. CP PERSONAL ITEMS W/I REACH.
[2022-01-03 22:26] LABS: Blood Urea Nitrogen 17 mg/dl (7-17); Chloride 94 mmol/L (98-107); Creatinine Clearance Estimated 62 mL/min (50-200); Estimated Glomerular Filt Rate 55 ml/min (>60); GFR (African American) 67 ML/MIN (>60); Glucose 129 mg/dl (74-100); Potassium 3.7 mmoL/L (3.5-5.1); Sodium 140 mmol/L (136-145)
[2022-01-03 22:33] LABS: Anion Gap 11.7 mEq/L (5-15); Carbon Dioxide 38 mmol/L (22.0-30.0)
[2022-01-04] VITALS (13 sets, daily range): BP systolic 122–173; BP diastolic 50–107; PULSE 37–140; RESP 17–21; TEMP 36.7–37.1; O2SAT 92–96; BMI 31.1
--- NOTE | 2022-01-04 04:02 | ECG_ITS ---
APPROVED REPORT Exam: Resting ECG HR:134 bpm ECG Measurements Heart Rate 134 AXES QRSd 94 QRS 57 QT 252 T 0 QTc 331 Conclusion ATRIAL FIBRILLATION WITH RAPID VENTRICULAR RESPONSE NONSPECIFIC ST & T-WAVE ABNORMALITY ABNORMAL RHYTHM ECG UNCONFIRMED REPORT Electronically signed by : Sylvester Newell MD 01/04/2022 08:11:54
--- NOTE | 2022-01-04 04:25 | PC.NURSE ---
GLOVE TURNER CALLED RN AT 0350 AND STATED THAT PT'S HEART RATE WAS IN THE 120-130'S. THIS RN CHECKED ON PATIENT AT THAT TIME. PT DID NOT C/O CHEST PAIN OR SHORTNESS OF AIR. PT WAS NOT SYMPTOMATIC AT THAT TIME VITALS WERE BP 144/89, HR 135, O2 SAT 95% ON ROOM AIR. RT OBTAINED A STAT EKG WHICH RESULTED A-FIB WITH RVR. MD. SIDHU WAS NOTIFIED AT 0404 OF PATIENT'S VITAL SIGNS, HR, AND EKG READING, NEW ORDER TO START DILTIAZEM 10mg RECEIVED AT THIS TIME, REPEATED AND VERIFIED, MD ALSO MADE AWARE PT ONLY ON PLAVIX AND ASPIRIN, AND NO HISTORY OF ATRIAL FIB NOTED IN CHART. PT MOVED TO STEP DOWN IN ROOM 218, REPORT WAS GIVEN TO DASHA LYNCH IN WHICH DILT DRIP WAS STARTED AT THIS TIME.
--- NOTE | 2022-01-04 04:38 | PC.NURSE ---
admitted pt to step down room 218 (from room 207) for afib with rvr, HR 130-140's; dilt drip started at 10mg/hr per order by MD Mccord
--- NOTE | 2022-01-04 04:43 | PC.NURSE ---
upon reviewing pt's chart noticed pt is on asa and plavix but nothing for vte prophylaxis, will place TEDs on pt at this time and alert day rn to follow up with team to see if any additional medications need to be ordered for vte
--- NOTE | 2022-01-04 05:30 | PC.NURSE ---
increased pt's dilt drip to 15mg/hr as HR has stayed 130's since start of drip
[2022-01-04 07:20] LABS: Chloride 97 mmol/L (98-107); Potassium 3.1 mmoL/L (3.5-5.1); Sodium 139 mmol/L (136-145)
[2022-01-04 07:22] LABS: Alanine Aminotransferase 28 U/L (12-78); Aspartate Amino Transferase 31 U/L (14-36); Blood Urea Nitrogen 17 mg/dl (7-17); Creatinine Clearance Estimated 60 mL/min (50-200); Estimated Glomerular Filt Rate 55 ml/min (>60); GFR (African American) 67 ML/MIN (>60)
[2022-01-04 07:23] LABS: Albumin Level 4.6 g/dl (3.5-5.0); Albumin/Globulin Ratio 1.4 (1.1-1.8); Alkaline Phosphatase 146 U/L (38-126); Anion Gap 9.1 mEq/L (5-15); Calcium 9.8 mg/dl (8.4-10.2); Carbon Dioxide 36 mmol/L (22.0-30.0); Globulin 3.3 g/dL (1.3-3.2); Glucose 141 mg/dl (74-100); Total Protein,Serum 7.9 g/dl (6.3-8.2)
[2022-01-04 07:31] LABS: Basophils # 0.2 K/mm3 (0-0.2); Basophils % 1.8 % (0.1-2.0); Eosinophils # 0.4 K/mm3 (0.0-0.4); Eosinophils % 2.9 % (0.1-12.0); Hematocrit 52.9 % (37.0-47.0); Lymphocytes % 16.3 % (10-50); Mean Corpuscular HGB Conc 31.5 g/dL (31.8-35.4); Mean Corpuscular Hemoglobin 28.9 pg (27.0-31.2); Mean Corpuscular Volume 91.7 fl (81-99); Mean Platelet Volume 9.1 fl (7.4-10.4); Monocytes # 0.8 K/mm3 (0.1-1.0); Monocytes % 6.8 % (1.7-9.3); Neutrophils # 8.9 K/mm3 (1.8-7.8); Neutrophils % 72.3 % (37.0-80.0); Platelet Count 344 K/mm3 (142-424); Red Blood Count 5.77 M/mm3 (4.20-5.40); Red Cell Distribution Width 14.7 % (11.5-17.5); White Blood Count 12.4 K/mm3 (4.8-10.8)
--- NOTE | 2022-01-04 08:26 | HMH.ACPN2 ---
Internal Medicine - PN: Subj *Date: 01/04/22 *Time: 08:26 Interval history: Ms. Lockett developed atrial fibrillation overnight. Cardiology was contacted and patient was started on a diltiazem drip. Heart rate on rounds this morning between 90 and 110. Has no complaints. Denies any chest discomfort, tightness, pain. No shortness of breath. Has had significant response to diuresis and is -4 L yesterday and -2 L already today. Labs reviewed showing stable kidney function. Patient has no complaints. Of note, did not get her metoprolol dose last night, this may have led to development of A. fib. She however reports that she is not aware of a history of A. fib with her. Exam Vital signs and Labs for Last 24 Hours: Temp Pulse Resp BP Pulse Ox 98.0 F 104 H 20 173/78 H 92 L 01/04/22 08:00 01/04/22 08:00 01/04/22 08:00 01/04/22 08:00 01/04/22 08:00 Laboratory Results - last 24 hr 01/03/22 10:09: Activated Clotting Time 393 H*, ABG O2 Sat (Measured) 68.3 L, POC VBG O2 Sat (Jhony) 64.5 L 01/03/22 13:55: Urine Color Yellow, Urine Appearance Clear, Urine pH 7.0, Ur Specific Claxton <= 1.005, Urine Protein Negative, Urine Glucose (UA) Negative, Urine Ketones Negative, Urine Blood Negative, Urine Nitrate Negative, Urine Bilirubin Negative, Urine Urobilinogen 0.2, Ur Leukocyte Esterase Negative, Urine RBC None, Urine WBC Occasional, Ur Squamous Epith Cells 5-10, Urine Bacteria Trace 01/03/22 13:55: WBC 9.0, RBC 4.40, Hgb 12.7, Hct 41.0, MCV 93.3, MCH 28.9, MCHC 31.0 L, RDW 14.6, Plt Count 265, MPV 9.0, Neut % (Auto) 54.3, Lymph % (Auto) 34.6, Bibb % (Auto) 6.1, Eos % (Auto) 3.5, Baso % (Auto) 1.5, Neut # (Auto) 4.9, Lymph # (Auto) 3.1, Bibb # (Auto) 0.5, Eos # (Auto) 0.3, Baso # (Auto) 0.1 01/03/22 13:55: Sodium 138, Potassium 3.7, Chloride 102, Carbon Dioxide 34 H, Anion Gap 5.7, BUN 14, Creatinine 0.90, Estimated Creat Clear 62, Estimated GFR 62, Est GFR ( Amer) 75, Glucose 121 H, Calcium 8.9, Total Bilirubin 1.3, AST 23, ALT 26, Alkaline Phosphatase 107, Total Protein 6.4, Albumin 3.9, Globulin 2.5, Albumin/Globulin Ratio 1.6 01/03/22 22:06: Sodium 140, Potassium 3.7, Chloride 94 L, Carbon Dioxide 38 H, Anion Gap 11.7, BUN 17, Creatinine 1.00, Estimated Creat Clear 62, Estimated GFR 55 L, Est GFR ( Amer) 67, Glucose 129 H, Calcium 9.0 01/04/22 06:10: WBC 12.4 H D, RBC 5.77 H D, Hct 52.9 H, MCV 91.7, MCH 28.9, MCHC 31.5 L, RDW 14.7, Plt Count 344 D, MPV 9.1, Neut % (Auto) 72.3, Lymph % (Auto) 16.3, Bibb % (Auto) 6.8, Eos % (Auto) 2.9, Baso % (Auto) 1.8, Neut # (Auto) 8.9 H, Lymph # (Auto) 2.0, Bibb # (Auto) 0.8, Eos # (Auto) 0.4, Baso # (Auto) 0.2 01/04/22 06:10: Sodium 139, Potassium 3.1 L, Chloride 97 L, Carbon Dioxide 36 H, Anion Gap 9.1, BUN 17, Creatinine 1.00, Estimated Creat Clear 60, Estimated GFR 55 L, Est GFR ( Amer) 67, Glucose 141 H, Calcium 9.8, Total Bilirubin 1.0, AST 31 D, ALT 28, Alkaline Phosphatase 146 H, Total Protein 7.9, Albumin 4.6 D, Globulin 3.3 H, Albumin/Globulin Ratio 1.4 I & O for Last 24 hours: Intake & Output 01/01/22 01/02/22 01/03/22 01/04/22 23:59 23:59 23:59 23:59 Intake Total 740 / 740 360 / 360 Output Total 5000 / 5000 1800 / 1800 Balance -4260 / -4260 -1440 / -1440 Weight 73.482 kg 70.08 kg Narrative: - Constitutional no acute distress, chronically ill appearing, disheveled - *Routine HEENT Exam Head: Present: normocephalic Eye: Present: EOMI, PERRL ENT: Present: mucous membranes moist - *Routine Neck Exam Present: supple. Absent: lymphadenopathy; Bandage overlying right IJ clean dry intact - *Routine Respiratory Exam Present: CTA bilaterally - *Routine Cardiovascular Exam Present: Irregularly irregular - *Routine Abdominal Exam Present: soft, normoactive bowel sounds. Absent: tenderness - *Routine Genitalia Exam Dobbs catheter in place - *Routine Extremities Exam Absent: cyanosis, clubbing, edema - *Routine Skin Exam Present: warm. Abs
[2022-01-04 09:20] LABS: Hemoglobin 16.7 g/dL (12.2-16.2)
--- NOTE | 2022-01-04 10:47 | PC.NURSE ---
This RN asked Dr. Mace if he wanted any additional vte for pt and he stated not at this time.
--- NOTE | 2022-01-04 10:53 | PC.NURSE ---
Cardizem gtt currently turned down to 10 ml/hr.
--- NOTE | 2022-01-04 11:26 | ECG_ITS ---
APPROVED REPORT Exam: Resting ECG HR:48 bpm ECG Measurements Heart Rate 48 AXES QRSd 106 QRS 22 QT 444 T 61 QTc 410 Conclusion SUPRAVENTRICULAR BRADYCARDIA ABNORMAL RHYTHM ECG INTERPRETATION BASED ON A DEFAULT AGE OF 40 YEARS UNCONFIRMED REPORT Electronically signed by : Sylvester Newell MD 01/06/2022 14:31:04
[2022-01-04 16:30] LABS: Anion Gap 12.2 mEq/L (5-15); Blood Urea Nitrogen 25 mg/dl (7-17); Calcium 10.3 mg/dl (8.4-10.2); Carbon Dioxide 34 mmol/L (22.0-30.0); Chloride 95 mmol/L (98-107); Creatinine Clearance Estimated 37 mL/min (50-200); Estimated Glomerular Filt Rate 32 ml/min (>60); GFR (African American) 39 ML/MIN (>60); Glucose 148 mg/dl (74-100); Potassium 4.2 mmoL/L (3.5-5.1); Sodium 137 mmol/L (136-145)
--- NOTE | 2022-01-04 18:58 | PC.NURSE ---
Dr. Mace aware of hr in high 30's low 40's and is ok with hr if pt is asymptomatic at this time, in which she is.
--- NOTE | 2022-01-04 21:00 | PC.NURSE ---
spoke with MD Mace, pt's HR still in 40's instructed to hold ordered metoprolol for now, if pt's HR jumps back up through the night as did last awake overnight monitor instructed RN to give 5mg IV metoprolol first and then if HR doesn't come down with that give the 25mg night dose of metoprolol holding at this time
[2022-01-05] VITALS (7 sets, daily range): BP systolic 135–162; BP diastolic 74–86; PULSE 50–56; RESP 13–18; TEMP 36.5–36.9; O2SAT 90–98; BMI 31.1
[2022-01-05 07:24] LABS: Basophils # 0.2 K/mm3 (0-0.2); Basophils % 1.5 % (0.1-2.0); Eosinophils # 0.4 K/mm3 (0.0-0.4); Hematocrit 50.3 % (37.0-47.0); Lymphocytes # 2.5 K/mm3 (0.7-4.5); Lymphocytes % 18.6 % (10-50); Mean Corpuscular HGB Conc 31.8 g/dL (31.8-35.4); Mean Corpuscular Hemoglobin 29.2 pg (27.0-31.2); Mean Corpuscular Volume 91.6 fl (81-99); Mean Platelet Volume 8.5 fl (7.4-10.4); Monocytes # 0.9 K/mm3 (0.1-1.0); Monocytes % 6.7 % (1.7-9.3); Neutrophils # 9.5 K/mm3 (1.8-7.8); Neutrophils % 70.2 % (37.0-80.0); Platelet Count 350 K/mm3 (142-424); Red Blood Count 5.49 M/mm3 (4.20-5.40); White Blood Count 13.5 K/mm3 (4.8-10.8)
[2022-01-05 07:26] LABS: Chloride 96 mmol/L (98-107); Potassium 4.4 mmoL/L (3.5-5.1); Sodium 136 mmol/L (136-145)
[2022-01-05 07:29] LABS: Alanine Aminotransferase 21 U/L (12-78); Albumin Level 4.2 g/dl (3.5-5.0); Albumin/Globulin Ratio 1.4 (1.1-1.8); Alkaline Phosphatase 118 U/L (38-126); Anion Gap 9.4 mEq/L (5-15); Aspartate Amino Transferase 25 U/L (14-36); Bilirubin,Total 1.1 mg/dl (0.2-1.3); Blood Urea Nitrogen 34 mg/dl (7-17); Calcium 10.8 mg/dl (8.4-10.2); Carbon Dioxide 35 mmol/L (22.0-30.0); Creatinine Clearance Estimated 43 mL/min (50-200); Estimated Glomerular Filt Rate 37 ml/min (>60); GFR (African American) 45 ML/MIN (>60); Glucose 141 mg/dl (74-100); Magnesium 1.9 mg/dl (1.6-2.3); Total Protein,Serum 7.2 g/dl (6.3-8.2)
--- NOTE | 2022-01-05 09:12 | ECG_ITS ---
APPROVED REPORT Exam: Resting ECG HR:58 bpm ECG Measurements Heart Rate 58 AXES NH 168 P 49 QRSd 82 QRS 55 QT 436 T 50 QTc 433 Conclusion SINUS BRADYCARDIA BORDERLINE ECG UNCONFIRMED REPORT Electronically signed by : Sylvester Newell MD 01/06/2022 14:31:11
--- NOTE | 2022-01-05 09:54 | HMH.DCSUM ---
General - General Admission date:: 01/03/22 Discharge date: 01/05/22 HPI HPI: Ms. Lockett is a 66-year-old patient with significant past medical history of tobacco use, hypertension, peripheral artery disease, hyperlipidemia, COPD, and angina pectoris. Has been having chest discomfort with exertion. Saw cardiology earlier this week. Scheduled for heart cath today. Taken to the Facility Supervisor where clinically significant stenosis in the RCA was treated with 1 RICHA. During cath, significant concern for pulmonary hypertension and volume overload were noted. Cardiology consulted medicine for admission to [facility] overnight and monitor closely after heart cath. Patient was seen after clinic today. She is hemodynamically stable. Diuresing well with good response to Lasix. Has put out over 2-1/2 L of urine since her heart cath. Stable on room air with saturations in the mid to high 90s. No significant chest pain at this time. Cath findings today: ANGIOGRAPHIC RESULTS The left main artery Normal The left anterior descending artery Is proximally normal and then has a mid vessel 30% concentric stenosis. This gives rise to a large ramus intermedius which is widely patent with minimal atheromatous plaque nothing greater than 10%. The circumflex artery Circumflex artery is nondominant with mild 10% luminal irregularities The right coronary artery Large dominant vessel with proximal to mid vessel 30 to 40% stenosis mid vessel 30% stenosis with a concentric 70% stenosis. The HYMAN ventriculogram reveals Hyperdynamic 75% The left ventricular end-diastolic pressure 50 mmHg Right atrial pressure 40 mmHg Pulmonary artery pressure 80/50 mmHg Pulmonary occlusion pressure 45 mmHg Right atrial saturation 64% Pulmonary saturation 68% Aortic saturation 96% Hemoglobin Cardiac output 4.2 L/min IMPRESSION Severe single-vessel coronary disease with successful stenting reducing the stenosis to 0% Severe pulmonary hypertension likely stemming from hypertensive heart disease and severe diastolic dysfunction based on equalization of pressures and severely elevated LVEDP Hyperdynamic ventricle. Hospital Course Hospital Course: 66-year-old female, status post heart cath, 1 drug-eluting stent placed in the RCA. Elevated right ventricular pressures noted on right heart cath for pulmonary hypertension. Patient significantly volume overloaded. Admitted for diuresis. Responded well, with significant urine output. Stable breathing no chest discomfort during hospitalization. Unfortunately developed some A. fib with RVR necessitating a diltiazem drip. Resumed her home metoprolol which led to asymptomatic sinus bradycardia. Dose was adjusted and patient is remained hemodynamically stable for the past 24 to 36 hours. Heart rate this morning in the low 60s on rounds. Discussed adjustments to medications with patient. She remains stable, is on room air, tolerating p.o. intake, asymptomatic from a cardiac standpoint, she is medically stable for discharge home with close follow-up with cardiology. Problems addressed as follows during hospitalization: CAD Pulmonary hypertension A. fib -Resumed home metoprolol. Given response with bradycardia, decrease dose to 12 and half milligrams. We will continue this in the outpatient setting and make further adjustments as she follows up. Counseled that if she feels any tachycardia, to take an extra dose of the 12-1/2 mg metoprolol. - Continue goal-directed therapy with DAPT, statin, beta-dajuan, and JOHN inhibitor. - holding on NOAC in setting of no further a. fib and concern of needing triple therapy. Re-evaluate as outpatient. -Cardiology consulted, appreciate their recommendations -- Cardiology cath report: suspect most of patient's symptoms stem from the severe pulmonary hypertension with severe diastolic dysfunction. Diuresis and better control of hypertension is required. Recommend seeing patient once weekly for the next severa
--- NOTE | 2022-01-06 15:07 | CARE MANAGER ---
Left message for post-discharge phone interview, awaiting return call.
== END 2022-01-05 10:37 | disposition home or self-care (01) | DRG 246 ==
LOC: 2ND 14:13
PROVIDERS: Admitting Provider Internal Medicine; PCP Nurse Practitioner Family; Visit Provider Internal Medicine Adolescent Medicine
DX: I50.33 Acute on chronic diastolic (congestive) heart failure; I25.119 Atherosclerotic heart disease of native coronary artery with unspecified angina pectoris; I73.9 Peripheral vascular disease, unspecified; M19.90 Unspecified osteoarthritis, unspecified site; E03.9 Hypothyroidism, unspecified; F17.210 Nicotine dependence, cigarettes, uncomplicated; I27.20 Pulmonary hypertension, unspecified; I48.91 Unspecified atrial fibrillation; Z71.6 Tobacco abuse counseling; I11.0 Hypertensive heart disease with heart failure; E87.6 Hypokalemia; G62.9 Polyneuropathy, unspecified; R00.1 Bradycardia, unspecified; E66.9 Obesity, unspecified; Z68.31 Body mass index [BMI] 31.0-31.9, adult; E78.2 Mixed hyperlipidemia; G47.33 Obstructive sleep apnea (adult) (pediatric); J44.9 Chronic obstructive pulmonary disease, unspecified
CPT/HCPCS: 93460; C9600; 36415; 80048; 80053; 81001; 82810; 83735; 85025; 85347; 92928; 93005; 94640; 99152; 99153; C1725; C1769; C1876; C1894; C9803; J1644; Q9967; U0003; U0005

== ENCOUNTER 2022-01-14 09:19 | Outpatient (RCR) | payer MEDICARE, MEDICAID, SELFPAY | END 2022-03-21 10:00 | disposition home or self-care (01) | LOC: PT 09:19 | PROVIDERS: Visit Provider Internal Medicine | DX: I25.10 Atherosclerotic heart disease of native coronary artery without angina pectoris (principal); Z95.5 Presence of coronary angioplasty implant and graft | CPT/HCPCS: 93798 ==

== ENCOUNTER → 2022-01-16 10:41 | Outpatient (CLI) | payer MEDICARE, SELFPAY ==
[2022-01-16 10:49] LABS: Microscopic, Urine URINE MICROSCOPIC (MICROSCOPIC)
[2022-01-16 11:22] LABS: Appearance,Urine TURBID (Clear); Basophils # 0.2 K/mm3 (0-0.2); Basophils % 1.9 % (0.1-2.0); Bilirubin,Urine Negative (Negative); Blood, Urine TRACE-I (Negative); Color,Urine YELLOW (Yellow); Eosinophils # 0.3 K/mm3 (0.0-0.4); Eosinophils % 2.5 % (0.1-12.0); Glucose,Urine (UA) Negative (Negative); Hemoglobin 15.5 g/dL (12.2-16.2); Ketones,Urine Negative (Negative); Leukocyte Esterase,Urine 2+ (Negative); Lymphocytes # 2.5 K/mm3 (0.7-4.5); Lymphocytes % 25.5 % (10-50); Mean Corpuscular HGB Conc 30.4 g/dL (31.8-35.4); Mean Corpuscular Hemoglobin 28.5 pg (27.0-31.2); Mean Corpuscular Volume 93.7 fl (81-99); Mean Platelet Volume 8.8 fl (7.4-10.4); Monocytes # 0.5 K/mm3 (0.1-1.0); Monocytes % 5.1 % (1.7-9.3); Neutrophils # 6.4 K/mm3 (1.8-7.8); Nitrate,Urine POSITIVE (Negative); Platelet Count 337 K/mm3 (142-424); Protein,Urine Negative (Negative); Red Blood Count 5.44 M/mm3 (4.20-5.40); Red Cell Distribution Width 14.3 % (11.5-17.5); Specific Gravity, Urine 1.015 (1.005-1.030); White Blood Count 9.8 K/mm3 (4.8-10.8)
[2022-01-16 11:34] LABS: Alanine Aminotransferase 28 U/L (12-78); Albumin/Globulin Ratio 1.5 (1.1-1.8); Alkaline Phosphatase 107 U/L (38-126); Aspartate Amino Transferase 30 U/L (14-36); Bilirubin,Total 0.6 mg/dl (0.2-1.3); Blood Urea Nitrogen 20 mg/dl (7-17); Calcium 9.8 mg/dl (8.4-10.2); Carbon Dioxide 33 mmol/L (22.0-30.0); Chloride 97 mmol/L (98-107); Estimated Glomerular Filt Rate 45 ml/min (>60); GFR (African American) 54 ML/MIN (>60); Globulin 2.6 g/dL (1.3-3.2); Glucose 211 mg/dl (74-100); Sodium 136 mmol/L (136-145); Total Protein,Serum 6.6 g/dl (6.3-8.2)
[2022-01-16 11:36] LABS: Bacteria,Urine 4+ /lpf
[2022-01-16 11:37] LABS: Mucus,Urine 1+ /lpf; WBC,Urine TNTC #/hpf (0-3)
[2022-01-16 11:38] LABS: White Blood Cell Casts,Urine Occasional #/lpf (0)
[2022-01-16 12:26] LABS: Erythrocyte Sedimentation Rate 8 mm/hr (0-30)
== END ==
PROVIDERS: PCP Nurse Practitioner Family; Visit Provider Orthopaedic Surgery
DX: Z01.818 Encounter for other preprocedural examination (principal); G56.01 Carpal tunnel syndrome, right upper limb; W19.XXXA Unspecified fall, initial encounter; R82.90 Unspecified abnormal findings in urine
CPT/HCPCS: 36415; 80053; 81001; 85025; 85651; 87086; 87088; 87186

== ENCOUNTER → 2022-01-17 12:12 | Outpatient (CLI) | payer MEDICARE, SELFPAY ==
--- NOTE | 2022-01-17 12:24 | ECG_ITS ---
APPROVED REPORT Exam: Resting ECG HR:53 bpm ECG Measurements Heart Rate 53 AXES MT 160 P 57 QRSd 81 QRS 63 QT 408 T 35 QTc 392 Conclusion SINUS BRADYCARDIA LOW QRS VOLTAGE IN PRECORDIAL LEADS [QRS DEFLECTION < 1.0 mV IN CHEST LEADS] BORDERLINE ECG UNCONFIRMED REPORT Electronically signed by : Sylvester Newell MD 01/18/2022 08:00:12
--- NOTE | 2022-01-17 12:29 | XR_ITS ---
FINAL REPORT TECHNIQUE: Chest PA & Lateral CLINICAL HISTORY: pre op, HTN, SMOKER COMPARISON: December 25, 2021 FINDINGS: Two views of the chest were performed. The heart size is normal. The mediastinum is within normal limits. There is no acute cardiopulmonary process. There are no pleural effusions. There is no pneumothorax. The bony thorax appears intact. IMPRESSION: No acute cardiopulmonary process. Reviewed, Interpreted and Dictated by Oswald Cat MD Transcribed by Uzma Darling Authenticated and [facility]
== END ==
PROVIDERS: PCP Nurse Practitioner Family; Visit Provider Orthopaedic Surgery
DX: Z01.818 Encounter for other preprocedural examination (principal); Z20.822 Contact with and (suspected) exposure to COVID-19; G56.02 Carpal tunnel syndrome, left upper limb
CPT/HCPCS: 71046; 93005; C9803; U0003; U0005

== ENCOUNTER 2022-01-20 09:15 | Day surgery (SDC) | payer MEDICARE, MEDICAID, SELFPAY ==
[2022-01-16 12:54] VITALS: BMI 32.1
[2022-01-20 09:47] VITALS: BP 106/52; PULSE 54; RESP 18; TEMP 36.6; O2SAT 93
--- NOTE | 2022-01-20 12:17 | P.PN_ITS ---
PFSH PFS 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 (Updated 01/16/22 @ 13:07 by Lurdes Ndiaye, RN) Arthritis CAD (coronary artery disease) Carpal tunnel syndrome Cataracts, bilateral Cholecystectomy planned COPD (chronic obstructive pulmonary disease) History of gastroesophageal reflux (GERD) Hyperlipidemia Hypertension Hypothyroid Kidney stone Mesenteric artery stenosis PAD (peripheral artery disease) Pre-op evaluation Sleep apnea Tobacco abuse Urinary tract infection 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 (Updated 01/16/22 @ 13:05 by Lurdes Ndiaye, RN) H/O right heart catheterization H/O thyroidectomy History of appendectomy History of esophagogastroduodenoscopy (EGD) History of hysterectomy Family History (Updated 01/16/22 @ 13:08 by Lurdes Ndiaye, RN) Other Family history of acute congestive heart failure Family history of cancer Family history of hypertension Family history of myocardial infarction Social History (Updated 01/16/22 @ 13:09 by Lurdes Ndiaye, DASHA) Smoking Status: Former smoker pack-years: 30 second hand exposure: Yes alcohol intake: never substance use type: denies use current occupational status: retired household members: spouse and children housing: house current occupational exposures/hazards: No caffeine: Yes [facility] Anesthesia Checklist Patient Identification Patient Identification: Arm Band and Verbal (Name & ) Structural Data Admitted From: Home Planned Operative Procedure/s: Left Carpal Tunnel Repair NPO Status Verified Time NPO: 00:00 Additional verifications Anesthesia Reactions: No Hx Blood Transfusions: No Blood Transfusion Reaction: No Cephalosporin Allergy: No Airway Assessment C-Spine Mobility Assessed: Yes TMJ Mobility Assessed: Yes Dentition: Edentulous Neurological Assessment Level of Consciousness: Awake, Alert and Appropriate Anesthesia Plan Anesthesia Type: MAC
[2022-01-20 13:20] VITALS: BP 95/58; PULSE 60; RESP 18; TEMP 36.2; O2SAT 91
[2022-01-20 13:30] VITALS: BP 95/70; PULSE 62; RESP 18; O2SAT 95
[2022-01-20 13:40] VITALS: BP 100/72; PULSE 61; RESP 18; O2SAT 90
--- NOTE | 2022-01-20 13:44 | EXP.OP.NOTE ---
Date of procedure: 01/20/22 Pre-op Diagnosis:: Recurrent carpal tunnel syndrome, left wrist Post-op Diagnosis:: Same Procedure performed:: Revision carpal tunnel release, left wrist Surgeon:: Mike Chou MD Fishing Lure Assembler(s):: Arcelia Avila PA-C EXECUTIVE VP:: Other (Shahbaz Aldana) Anesthesia: MAC and local (15 cc of 0.2% Marcaine with epinephrine used) Estimated blood loss (mL): 2 Clinical Note:: Patient is a 66-year-old female with recurrent left carpal tunnel syndrome with long-standing symptoms. She previously had bilateral carpal tunnel release surgery at an outside facility in 2016. Her recent EMG/NCV results confirmed moderate bilateral carpal tunnel syndrome. Patient had successful revision carpal tunnel release on the right side about 8 weeks ago. Her symptoms on the left side are gradually worsening, and patient failed to respond adequately to conservative management. Therefore, the revision carpal tunnel release surgery on the left side is necessary to relieve symptoms, preserve the remaining fibers of the median nerve, improve function, and decrease the pain, paresthesias and weakness and to prevent permanent nerve damage.? Please refer to my office note for full details. Operative findings:: The intraoperative findings showed a lot of scarring from the previous surgery.? The median nerve was seen to be very tightly compressed and hyperemic over the proximal carpal tunnel.? Some adhesions and synovitis noted in the carpal tunnel.? The flexor retinaculum was noted to be thick and tight proximally as well as distally. There were no space-occupying lesions within the carpal tunnel. Operative note:: On the day of the surgery the patient and her son were met in the preoperative area. Patient was positively identified, and the operative site was marked and initialed by me. A physical examination was performed, and the chart was updated. I have again discussed the procedure, risks and benefits and alternatives with the patient. The complications discussed include but are not limited to- bleeding, injury to nerves, blood vessels and tendons, infection, wound dehiscence, incomplete relief/continued pain, persistent numbness, palmar hypersensitivity, pillar pain, DVT/PE, complex regional pain syndrome (CRPS), worsening of nerve damage, failure of the condition to improve, incomplete return of function, bowstringing of tendons, weakness of charge hand strength, recurrence, failure of the surgery to accomplish the desired goals, decreased use of the hand, loss of use of the arm, loss of the hand or arm, loss of life. Likely need for further surgery in the future has been discussed. I have told her that I will be making a separate and longer incision crossing the wrist crease at an angle and have indicated to the patient where the proposed incision would be made and discussed the possibility of extending the incision if needed to accomplish an effective release. We have discussed how the goal of surgery is to protect the fibers which have remained healthy and hopefully reverse the symptoms of the fibers which are compromised but still recoverable. I have explained that fibers that are permanently damaged will not recover. Having had similar surgery on the right side few weeks ago she is aware of the surgery and expected postoperative course and recovery. Patient asked appropriate questions, and all have been answered by me. Patient understood the risks, agreed to proceed with surgery, and no guarantees or assurances were given or implied. The patient was then brought to the operating room and placed supine on the operating table. The left upper extremity was placed over a side table. All the bony prominences were well-padded.? The patient had a MAC anesthesia administered by the principal automation engineer.? The left upper extremity was prepped and draped in the usual sterile fashion. A preprocedure timeout was performed as per hospital policy. The Peters's landmarks and previous skin incision
[2022-01-20 13:50] VITALS: BP 124/66; PULSE 62; RESP 18; O2SAT 91
[2022-01-20 14:10] VITALS: BP 109/60; PULSE 61; RESP 18; TEMP 36.2; O2SAT 95
== END 2022-01-20 14:10 | disposition home or self-care (01) ==
PROVIDERS: PCP Nurse Practitioner Family; Visit Provider Orthopaedic Surgery
PROC: (CPT 64721; principal; 2022-01-20 14:00)
DX: G56.02 Carpal tunnel syndrome, left upper limb (principal); Z79.899 Other long term (current) drug therapy
CPT/HCPCS: 64721; 96374; J2405

== ENCOUNTER 2022-03-01 19:03 | Emergency (ER) | payer MEDICARE, MEDICAID, SELFPAY ==
[2022-03-01] VITALS (7 sets, daily range): BP systolic 99–138; BP diastolic 50–81; PULSE 68–76; RESP 17–18; TEMP 36.5–36.6; O2SAT 94–99; BMI 28.8
--- NOTE | 2022-03-01 20:47 | HMH.EDGENADL ---
Discharge Plan Disposition Patient Disposition: Home, Self-Care Condition: Good Prescriptions Prescriptions: New ondansetron HCl 4 mg tablet 4 mg PO Q8H PRN (Reason: nausea and vomiting) 3 Days Qty: 12 0RF No Action cyclobenzaprine 10 mg tablet 10 mg PO HSP PRN (Reason: Muscle Spasm) fluoxetine 40 mg capsule 40 mg PO DAILY Spiriva Respimat 1.25 mcg/actuation mist 2 puff IH DAILY duloxetine 30 mg capsule,delayed release(DR/EC) 30 mg PO DAILY clopidogrel 75 mg tablet 75 mg PO DAILY aspirin [Jordin Chewable Aspirin] 81 mg tablet,chewable 81 mg PO DAILY nitroglycerin 0.4 mg tablet, sublingual 0.4 mg SL Q5MINP PRN (Reason: Chest Pain) Rx Instructions: do not exceed 3 doses per episode potassium chloride 10 mEq tablet,ER particles/crystals 10 meq PO DAILY levothyroxine 100 MCG tablet 100 mcg PO DAILY calcium carbonate-vitamin D3 500 MG tablet 500 mg PO BID amlodipine 5 MG tablet 5 mg PO DAILY Hold Instructions: pending outpatient follow-up oxybutynin chloride 10 MG tablet extended release 24 hr 10 mg PO DAILY omeprazole 40 MG capsule,delayed release(DR/EC) 40 mg PO DAILY ropinirole 0.25 MG tablet 0.25 mg PO HS gabapentin 300 MG capsule 300 mg PO BID furosemide 40 mg tablet 40 mg PO DAILY atorvastatin 40 MG tablet 40 mg PO HS lisinopril 20 MG tablet 40 mg PO DAILY spironolactone 25 MG tablet 50 mg PO BID metoprolol tartrate 25 MG tablet 12.5 mg PO BID hydrocodone-acetaminophen 5-325 mg Tablet 1 tab PO Q6 PRN (Reason: moderate to severe pain) Qty: 12 0RF Referrals Follow up/Referrals: Sol Peralta APRN [Primary Care Provider] - See instructions Clinical Impressions Clinical Impression: Mild nausea and vomiting, Abdominal cramping Instructions Patient Instructions: Acute Abdominal Pain Discharge ED Provider: Rebeka England General Adult HPI General Chief complaint: Weakness Stated complaint: weak, dizzy, vomitting Time Seen by Provider: 03/01/22 20:48 Mode of Arrival: Ambulatory Source of Information: Patient Limitations: No Limitations Description of Symptoms (Recalled from ER Triage Doc. by RN): Vomiting for 2 weeks. Reports that she last vomited a couple hours ago. She denies taking any medication other than finishing an antibiotic last week for a staph infection in her hand. She is afebrile. Denies any fevers at home but states, I feel warm. Also reports having diarrhea intermittently for a week or more. History of Present Illness HPI narrative: 67yo F w/cc of vomiting for two weeks a/w abdominal cramping, intermittent nonbloody diarrhea that has now resolved, generalized weakness, lightheadedness and malaise. No fever at home, denies chest pain, dyspnea, hemoptysis, productive cough, blood in stool, dysuria, hematuria, back pain, fall/injury. Has recently had a course of abx for carpal tunnel surgical site infection. Onset (ago): week(s) Radiation: abdomen and periumbilical Quality: other (Cramping) Consistency: intermittent Associated symptoms: nausea/vomiting Related Data Home Medications Medication Instructions Recorded Confirmed cyclobenzaprine 10 mg tablet 10 mg PO HSP PRN Muscle Spasm 09/10/17 02/19/22 fluoxetine 40 mg capsule 40 mg PO DAILY MOOD 09/10/17 02/19/22 tiotropium bromide 1.25 2 puff inhalation DAILY Breathing 08/23/18 02/19/22 mcg/actuation mist for inhalation problems (Spiriva Respimat) clopidogrel 75 mg tablet 75 mg PO DAILY PLATELET INHIBITOR 01/03/19 02/19/22 aspirin 81 mg chewable tablet 81 mg PO DAILY Heart disease 12/01/19 02/19/22 (Jordin Chewable Low Dose Aspirin) nitroglycerin 0.4 mg sublingual 0.4 mg sublingual Q5MINP PRN Chest 12/01/19 02/19/22 tablet Pain duloxetine 30 mg capsule,delayed 30 mg PO DAILY mood 01/17/20 02/19/22 release calcium carbonate 500 mg-vitamin 500 mg PO BID Supplement
--- NOTE | 2022-03-01 20:56 | ECG_ITS ---
APPROVED REPORT Exam: Resting ECG HR:75 bpm ECG Measurements Heart Rate 75 AXES PA 163 P 74 QRSd 78 QRS 60 QT 371 T 65 QTc 400 Conclusion SINUS RHYTHM NORMAL ECG UNCONFIRMED REPORT Electronically signed by : Sylvester Newell MD 03/03/2022 18:01:49
[2022-03-01 21:05] LABS: Microscopic, Urine URINE MICROSCOPIC (MICROSCOPIC)
[2022-03-01 21:10] LABS: Appearance,Urine CLEAR (Clear); Bilirubin,Urine Negative (Negative); Blood, Urine Negative (Negative); Color,Urine YELLOW (Yellow); Glucose,Urine (UA) Negative (Negative); Ketones,Urine TRACE (Negative); Leukocyte Esterase,Urine Negative (Negative); Nitrate,Urine Negative (Negative); Protein,Urine Negative (Negative); Specific Gravity, Urine 1.015 (1.005-1.030); Urobilinogen,Urine 0.2 EU/dl (0.2)
[2022-03-01 21:14] LABS: WBC,Urine Occasional #/hpf (0-3)
[2022-03-01 21:16] LABS: Basophils # 0.1 K/mm3 (0-0.2); Basophils % 0.8 % (0.1-2.0); Eosinophils % 0.3 % (0.1-12.0); Hematocrit 47.4 % (37.0-47.0); Hemoglobin 15.5 g/dL (12.2-16.2); Lymphocytes # 1.2 K/mm3 (0.7-4.5); Lymphocytes % 8.3 % (10-50); Mean Corpuscular HGB Conc 32.7 g/dL (31.8-35.4); Mean Corpuscular Volume 88.7 fl (81-99); Mean Platelet Volume 8.9 fl (7.4-10.4); Monocytes # 0.5 K/mm3 (0.1-1.0); Monocytes % 3.4 % (1.7-9.3); Neutrophils # 12.6 K/mm3 (1.8-7.8); Neutrophils % 87.2 % (37.0-80.0); Platelet Count 364 K/mm3 (142-424); Red Blood Count 5.34 M/mm3 (4.20-5.40); Red Cell Distribution Width 14.5 % (11.5-17.5); White Blood Count 14.5 K/mm3 (4.8-10.8)
[2022-03-01 21:23] LABS: Alanine Aminotransferase 33 U/L (12-78); Albumin Level 4.2 g/dl (3.5-5.0); Albumin/Globulin Ratio 1.5 (1.1-1.8); Alkaline Phosphatase 111 U/L (38-126); Anion Gap 15.1 mEq/L (5-15); Aspartate Amino Transferase 36 U/L (14-36); Bilirubin,Total 0.7 mg/dl (0.2-1.3); Blood Urea Nitrogen 26 mg/dl (7-17); Calcium 9.5 mg/dl (8.4-10.2); Carbon Dioxide 32 mmol/L (22.0-30.0); Chloride 94 mmol/L (98-107); Creatinine Clearance Estimated 37 mL/min (50-200); Estimated Glomerular Filt Rate 35 ml/min (>60); GFR (African American) 42 ML/MIN (>60); Globulin 2.8 g/dL (1.3-3.2); Glucose 156 mg/dl (74-100); Lactic Acid 1.3 mmol/L (0.7-2.1); Lipase 16 U/L (23-300); MANUAL DIFFERENTIAL MANUAL DIFFERENTIAL (MANUAL DIFF); Potassium 5.1 mmoL/L (3.5-5.1); Sodium 136 mmol/L (136-145)
[2022-03-01 21:35] LABS: Troponin I < 0.01 ng/ml (0.00-0.034)
[2022-03-01 21:49] LABS: Lymphocytes % 13 % (10-50); Monocytes % 3 % (2-9); Neutrophils % 84 % (42-76); Total Cells Counted 100
[2022-03-01 21:50] LABS: Platelet Estimate Normal; RBC Morphology Normal
[2022-03-01 23:21] LABS: Coronavirus 19, PCR Not Detected (NotDetected); Influenza A, PCR Not Detected (NotDetected); Influenza B, PCR Not Detected (NotDetected)
[2022-03-02 00:25] LABS: Troponin I < 0.01 ng/ml (0.00-0.034)
== END 2022-03-01 23:28 | disposition home or self-care (01) ==
PROVIDERS: Emergency Provider Emergency Medicine; PCP Nurse Practitioner Family
DX: N39.0 Urinary tract infection, site not specified (principal); K52.9 Noninfective gastroenteritis and colitis, unspecified; R07.9 Chest pain, unspecified; M62.838 Other muscle spasm; D72.829 Elevated white blood cell count, unspecified; R53.81 Other malaise; Z20.822 Contact with and (suspected) exposure to COVID-19; I10 Essential (primary) hypertension; I25.10 Atherosclerotic heart disease of native coronary artery without angina pectoris; I77.1 Stricture of artery; I73.9 Peripheral vascular disease, unspecified; K21.9 Gastro-esophageal reflux disease without esophagitis; E78.5 Hyperlipidemia, unspecified; E89.0 Postprocedural hypothyroidism; G47.30 Sleep apnea, unspecified; K86.1 Other chronic pancreatitis; H26.9 Unspecified cataract; J44.9 Chronic obstructive pulmonary disease, unspecified; F17.210 Nicotine dependence, cigarettes, uncomplicated; Z79.02 Long term (current) use of antithrombotics/antiplatelets; Z79.82 Long term (current) use of aspirin; Z79.899 Other long term (current) drug therapy; Z88.0 Allergy status to penicillin; Z82.49 Family history of ischemic heart disease and other diseases of the circulatory system; Z80.9 Family history of malignant neoplasm, unspecified
CPT/HCPCS: 80053; 81001; 83605; 83690; 84484; 85007; 85025; 93005; 99284; C9803; U0003; U0005

== ENCOUNTER 2022-04-29 14:32 | Emergency (ER) | payer MEDICARE, MEDICAID, SELFPAY ==
[2022-04-29] VITALS (7 sets, daily range): BP systolic 102–146; BP diastolic 50–78; PULSE 52–62; RESP 18–20; TEMP 36.8–37; O2SAT 96–99; BMI 31.1
--- NOTE | 2022-04-29 14:32 | ECG_ITS ---
APPROVED REPORT Exam: Resting ECG HR:53 bpm ECG Measurements Heart Rate 53 AXES CA 166 P 69 QRSd 80 QRS 65 QT 433 T 58 QTc 416 Conclusion SINUS BRADYCARDIA LOW QRS VOLTAGE IN PRECORDIAL LEADS [QRS DEFLECTION < 1.0 mV IN CHEST LEADS] BORDERLINE ECG UNCONFIRMED REPORT Electronically signed by : Sylvester Newell MD 04/30/2022 21:55:00
--- NOTE | 2022-04-29 14:47 | XR_ITS ---
FINAL REPORT CLINICAL HISTORY: chest pain COMPARISON: 01/17/2022 FINDINGS: SINGLE-VIEW CHEST The heart size is normal. The mediastinum is normal. The lungs are clear. There is no pneumothorax. IMPRESSION: No acute cardiopulmonary process. Reviewed, Interpreted and Dictated by Cesar Dorsey III, MD Transcribed by Virginia Conde Authenticated and [facility]
[2022-04-29 14:58] LABS: Chloride 100 mmol/L (98-107); Sodium 135 mmol/L (136-145)
[2022-04-29 14:59] LABS: Basophils # 0.2 K/mm3 (0-0.2); Eosinophils # 0.4 K/mm3 (0.0-0.4); Eosinophils % 4.3 % (0.1-12.0); Hematocrit 47.5 % (37.0-47.0); Hemoglobin 15.5 g/dL (12.2-16.2); Lymphocytes % 31.5 % (10-50); Mean Corpuscular HGB Conc 32.7 g/dL (31.8-35.4); Mean Corpuscular Hemoglobin 29.6 pg (27.0-31.2); Mean Corpuscular Volume 90.7 fl (81-99); Mean Platelet Volume 9.1 fl (7.4-10.4); Monocytes # 0.6 K/mm3 (0.1-1.0); Monocytes % 6.1 % (1.7-9.3); Neutrophils # 5.3 K/mm3 (1.8-7.8); Neutrophils % 56.2 % (37.0-80.0); Platelet Count 346 K/mm3 (142-424); Potassium 4.1 mmoL/L (3.5-5.1); Red Blood Count 5.23 M/mm3 (4.20-5.40); Red Cell Distribution Width 14.9 % (11.5-17.5); White Blood Count 9.4 K/mm3 (4.8-10.8)
[2022-04-29 15:01] LABS: Alanine Aminotransferase 23 U/L (12-78); Albumin Level 4.2 g/dl (3.5-5.0); Albumin/Globulin Ratio 1.6 (1.1-1.8); Alkaline Phosphatase 117 U/L (38-126); Anion Gap 7.1 mEq/L (5-15); Aspartate Amino Transferase 27 U/L (14-36); Bilirubin,Total 0.7 mg/dl (0.2-1.3); Blood Urea Nitrogen 20 mg/dl (7-17); Carbon Dioxide 32 mmol/L (22.0-30.0); Creatinine Clearance Estimated 49 mL/min (50-200); Estimated Glomerular Filt Rate 45 ml/min (>60); GFR (African American) 54 ML/MIN (>60); Globulin 2.7 g/dL (1.3-3.2); Total Protein,Serum 6.9 g/dl (6.3-8.2)
[2022-04-29 15:02] LABS: Calcium 9.4 mg/dl (8.4-10.2); Glucose 122 mg/dl (74-100)
[2022-04-29 15:16] LABS: Troponin I < 0.01 ng/ml (0.00-0.034)
--- NOTE | 2022-04-29 15:53 | HMH.EDGENADL ---
Discharge Plan Disposition Patient Disposition: Home, Self-Care Condition: Good Prescriptions Prescriptions: No Action cyclobenzaprine 10 mg tablet 10 mg PO HSP PRN (Reason: Muscle Spasm) fluoxetine 40 mg capsule 40 mg PO DAILY Spiriva Respimat 1.25 mcg/actuation mist 2 puff IH DAILY duloxetine 30 mg capsule,delayed release(DR/EC) 30 mg PO DAILY clopidogrel 75 mg tablet 75 mg PO DAILY aspirin [Jordin Chewable Aspirin] 81 mg tablet,chewable 81 mg PO DAILY nitroglycerin 0.4 mg tablet, sublingual 0.4 mg SL Q5MINP PRN (Reason: Chest Pain) Rx Instructions: do not exceed 3 doses per episode potassium chloride 10 mEq tablet,ER particles/crystals 10 meq PO DAILY levothyroxine 100 MCG tablet 100 mcg PO DAILY calcium carbonate-vitamin D3 500 MG tablet 500 mg PO BID amlodipine 5 MG tablet 5 mg PO DAILY Hold Instructions: pending outpatient follow-up oxybutynin chloride 10 MG tablet extended release 24 hr 10 mg PO DAILY omeprazole 40 MG capsule,delayed release(DR/EC) 40 mg PO DAILY ropinirole 0.25 MG tablet 0.25 mg PO HS gabapentin 300 MG capsule 300 mg PO BID furosemide 40 mg tablet 40 mg PO DAILY atorvastatin 40 MG tablet 40 mg PO HS lisinopril 20 MG tablet 40 mg PO DAILY spironolactone 25 MG tablet 50 mg PO BID metoprolol tartrate 25 MG tablet 12.5 mg PO BID hydrocodone-acetaminophen 5-325 mg Tablet 1 tab PO Q6 PRN (Reason: moderate to severe pain) Qty: 12 0RF ondansetron HCl 4 mg tablet 4 mg PO Q8H PRN (Reason: nausea and vomiting) 3 Days Qty: 12 0RF Referrals Follow up/Referrals: Sol Peralta APRN [Primary Care Provider] - See instructions Activity Restrictions/Add. Instructions Additional Instructions/Restrictions: Please follow-up with your primary care physician within the next 1 to 2 days. Please continue to take your PPI as prescribed to help with your acid reflux. Please take Mylanta or Maalox for any acute flares and return to the emergency department if symptoms do not improve. Please practice good food hygiene including eating 3 hours before bedtime, no snacking in bed, avoiding any known triggers such as spicy foods or dairy or any other known triggers. Clinical Impressions Clinical Impression: Peptic ulcer disease Instructions Patient Instructions: HASEEB for Peptic Ulcer Print Language Print Language: Yi Discharge ED Provider: Kassidy Mansfield General Adult HPI General Chief complaint: Chest Pain Stated complaint: chest pain Time Seen by Provider: 04/29/22 14:40 Mode of Arrival: Ambulatory Source of Information: Patient Limitations: No Limitations Description of Symptoms (Recalled from ER Triage Doc. by RN): pt to ed c/o mis sternal chest pain that is stationary. pt reports she strated having pain x3 days ago. pt denies soa. History of Present Illness HPI narrative: Miss Lockett is a 67 yo female w/ PMH for CAD, HTN, HLD, PAD, toabacco abuse and GERD presenting to the ED for mid sternal chest pain, non radiating. Not associated w/ N/V or diaphoresis. Patient reports symptom onset 3d prior. She denies any cough, dyspnea, fevers or other infectious sx. No recent trauam to chest. Reports hx of GERD but is on PPI. Reports symptoms exacerbated by food intake and lying down. MD complaint: Mid sternal chest pain Onset (ago): day(s) Location: chest Radiation: non-radiation Severity: mild Severity scale (1-10): 5 Quality: burning Consistency: intermittent Relieving factors: none Exacerbating factors: eating Associated symptoms: denies other symptoms Treatments prior to arrival: none Related Data Home Medications Medication Instructions Recorded Confirmed cyclobenzaprine 10 mg tablet 10 mg PO HSP PRN Muscle Spasm 09/10/17 02/19/22 fluoxetine 40 mg capsule 40 mg PO DAILY MOOD 09/10/17 02/19/22 tiotropium bromide 1.25 2 puff inhalation DAILY B
== END 2022-04-29 16:55 | disposition home or self-care (01) ==
PROVIDERS: Emergency Provider Student in an Organized Health Care Education/Training Program; PCP Nurse Practitioner Family
DX: R07.2 Precordial pain (principal); R11.2 Nausea with vomiting, unspecified; M62.838 Other muscle spasm; I10 Essential (primary) hypertension; I25.10 Atherosclerotic heart disease of native coronary artery without angina pectoris; I73.9 Peripheral vascular disease, unspecified; K21.9 Gastro-esophageal reflux disease without esophagitis; E78.5 Hyperlipidemia, unspecified; E03.9 Hypothyroidism, unspecified; K55.059 Acute (reversible) ischemia of intestine, part and extent unspecified; G47.30 Sleep apnea, unspecified; M19.90 Unspecified osteoarthritis, unspecified site; H26.9 Unspecified cataract; J44.9 Chronic obstructive pulmonary disease, unspecified; F17.200 Nicotine dependence, unspecified, uncomplicated; Z79.02 Long term (current) use of antithrombotics/antiplatelets; Z79.82 Long term (current) use of aspirin; Z79.899 Other long term (current) drug therapy; Z88.0 Allergy status to penicillin; Z82.49 Family history of ischemic heart disease and other diseases of the circulatory system; Z80.9 Family history of malignant neoplasm, unspecified; Z87.440 Personal history of urinary (tract) infections; Z87.442 Personal history of urinary calculi
CPT/HCPCS: 71045; 80053; 84484; 85025; 93005; 99284

== ENCOUNTER → 2022-05-12 08:51 | Outpatient (CLI) | payer MEDICARE, MEDICAID, SELFPAY ==
--- NOTE | 2022-05-12 08:53 | MM_ITS ---
PROCEDURE INFORMATION: Exam: MG Bilateral Screening 3D Mammography Exam date and time: 05/12/2022 9:05 AM Age: 67 years old Clinical indication: Screening examination. Her maternal grandmother had breast cancer. TECHNIQUE: Imaging protocol: Bilateral Screening tomosynthesis and 2D mammography including computer-aided detection (CAD) when performed. COMPARISON: 1. MG MM DIG SCREENING MAMM BI W/CAD 09/26/2020 12:58 PM 2. MG MM DIG SCREENING MAMM BI W/CAD 09/19/2019 1:09 PM 3. MG SCBI MM Dig screening mamm BI w/CAD 08/20/2018 10:37 AM 4. MG SCBI MM Dig screening mamm BI w/CAD 08/19/2017 9:40 AM FINDINGS: MAMMOGRAPHY: Breast composition: The breasts are heterogeneously dense, which may obscure small masses. Mass: No suspicious mass. Architectural distortion: None. Calcifications: No suspicious calcifications. Asymmetric density: No developing asymmetry. Skin thickening: None. Axillary adenopathy: None. IMPRESSION: No mammographic evidence of malignancy. Annual screening is recommended unless otherwise clinically indicated. ASSESSMENT: BI-RADS Category 1: Negative
--- NOTE | 2022-05-12 08:54 | XR_ITS ---
FINAL REPORT TECHNIQUE: Bone densitometry calculations of the lumbar spine and hip were obtained. CLINICAL HISTORY: . post menopausal COMPARISON: September 26, 2020 FINDINGS: DEXA BONE DENSITY AXIAL SKELETON Using L1-4, the bone mineral density of the spine is 1.100 g/cm2, corresponding to T-score of 0.5. Previously measured 1.056 g/cm2, corresponding to T-score of 0.1. In of these values are likely falsely elevated secondary to hypertrophic change. Using the left hip, the bone mineral density of the femoral neck is 0.654 g/cm2, corresponding to a T-score of -1.8. Previously measured 0.657 g/cm2, corresponding to T-score of -1.7. NOTE: T-score: Standard deviation compared with peak bone mass of young adult mean. *Following the recommendations of the International Society of Bone densitometry, classification of hip BMD is based on the lower of two T-scores; total hip or femoral neck. IMPRESSION: Diminished bone mineral density of the lumbar spine and left hip consistent with osteopenia, similar to the prior. FRAX is not reported because: Treated for osteoporosis. Reviewed, Interpreted and Dictated by Cesar Dorsey III, MD Transcribed by Deisy Bray Authenticated and [facility]
== END ==
PROVIDERS: PCP Nurse Practitioner Family; Visit Provider Nurse Practitioner Family
DX: Z12.31 Encounter for screening mammogram for malignant neoplasm of breast (principal); Z78.0 Asymptomatic menopausal state
CPT/HCPCS: 77063; 77067; 77080

== ENCOUNTER → 2022-06-11 12:22 | Outpatient (CLI) | payer MEDICARE, MEDICAID, SELFPAY ==
[2022-06-11 12:35] LABS: Adenovirus F 40/41, stool Not Detected (NotDetected); Astrovirus Not Detected (NotDetected); Campylobacter Not Detected (NotDetected); Clostridium Difficile A/B, PCR Not Detected (NotDetected); Cryptosporidium Not Detected (NotDetected); Cyclospora Cayetanesis Not Detected (NotDetected); Entamoeba histolytica Not Detected (NotDetected); Enteroaggregative E coli Not Detected (NotDetected); Enteropathogenic E coli Not Detected (NotDetected); Enterotoxigenic E coli Not Detected (NotDetected); Giardia lamblia Not Detected (NotDetected); Norovirus Not Detected (NotDetected); Plesimonas Shigalloides, PCR Not Detected (NotDetected); Rotavirus A Not Detected (NotDetected); Salmonella, PCR Not Detected (NotDetected); Sapovirus Not Detected (NotDetected); Shiga-like toxin E coli Not Detected (NotDetected); Shigella Enterovasive E coli Not Detected (NotDetected); Vibrio Cholerae Not Detected (NotDetected); Vibrio, PCR Not Detected (NotDetected); Yersinia Entercolitica, PCR Not Detected (NotDetected)
[2022-06-11 12:49] LABS: Basophils # 0.2 K/mm3 (0-0.2); Basophils % 1.6 % (0.1-2.0); Eosinophils # 0.4 K/mm3 (0.0-0.4); Eosinophils % 3.9 % (0.1-12.0); Hematocrit 48.3 % (37.0-47.0); Hemoglobin 15.6 g/dL (12.2-16.2); Lymphocytes % 28.7 % (10-50); Mean Corpuscular HGB Conc 32.2 g/dL (31.8-35.4); Mean Corpuscular Hemoglobin 29.4 pg (27.0-31.2); Mean Corpuscular Volume 91.2 fl (81-99); Mean Platelet Volume 9.1 fl (7.4-10.4); Monocytes # 0.6 K/mm3 (0.1-1.0); Monocytes % 5.7 % (1.7-9.3); Neutrophils # 6.3 K/mm3 (1.8-7.8); Neutrophils % 60.1 % (37.0-80.0); Platelet Count 327 K/mm3 (142-424); Red Blood Count 5.29 M/mm3 (4.20-5.40); Red Cell Distribution Width 13.6 % (11.5-17.5); White Blood Count 10.4 K/mm3 (4.8-10.8)
[2022-06-11 14:14] LABS: Alanine Aminotransferase 29 U/L (12-78); Albumin Level 4.4 g/dl (3.5-5.0); Albumin/Globulin Ratio 1.8 (1.1-1.8); Alkaline Phosphatase 102 U/L (38-126); Amylase 31 U/L (30-110); Anion Gap 11.3 mEq/L (5-15); Aspartate Amino Transferase 31 U/L (14-36); Bilirubin,Total 0.7 mg/dl (0.2-1.3); Blood Urea Nitrogen 29 mg/dl (7-17); Calcium 9.2 mg/dl (8.4-10.2); Carbon Dioxide 31 mmol/L (22.0-30.0); Chloride 99 mmol/L (98-107); Estimated Glomerular Filt Rate 41 ml/min (>60); GFR (African American) 49 ML/MIN (>60); Globulin 2.5 g/dL (1.3-3.2); Glucose 78 mg/dl (74-100); Lipase 36 U/L (23-300); Potassium 5.3 mmoL/L (3.5-5.1); Sodium 136 mmol/L (136-145); Total Protein,Serum 6.9 g/dl (6.3-8.2)
== END ==
PROVIDERS: PCP Nurse Practitioner Family; Visit Provider Nurse Practitioner Family
DX: R10.30 Lower abdominal pain, unspecified (principal); R19.7 Diarrhea, unspecified
CPT/HCPCS: 36415; 80053; 82150; 83690; 85025; 87506

== ENCOUNTER → 2022-06-20 09:01 | Outpatient (CLI) | payer MEDICARE, MEDICAID, SELFPAY ==
--- NOTE | 2022-06-20 09:05 | CT_ITS ---
FINAL REPORT TECHNIQUE: Axial CT images of the abdomen and pelvis were obtained after the administration of intravenous and oral contrast. Coronal reformatted images were also obtained.This study was performed with techniques to keep radiation doses as low as reasonably achievable (ALARA). Individualized dose reduction techniques using automated exposure control or adjustment of mA and/or kV according to the patient's size were employed. CLINICAL HISTORY: LOWER ABD PAIN,DIARRHEA COMPARISON: 03/12/2020 FINDINGS: Abdomen: There is a nodular density in the right lower lobe which is similar since 2020 and is probably associated with a dilated obstructed bronchus. There is a small hiatal hernia. There is a subtle enhancing lesion of the anterolateral liver dome on image 20 measuring 10 mm and is nonspecific. There are postoperative changes from cholecystectomy. Remaining solid abdominal organs are unremarkable. No bowel obstruction is present. There is no free air. No fluid collection is seen. There is no adenopathy. Pelvis: Pelvic bowel loops are unremarkable. The patient is status post hysterectomy. There is a mildly distended bladder. There is no free fluid. No pelvic mass is seen. IMPRESSION: 1. No acute findings. 2. Stable right lower lobe nodule. 3. Small nonspecific enhancing lesion of the liver dome. Consider CT follow-up in 6 months with contrast. Reviewed, Interpreted and Dictated by Hunter Samson MD Transcribed by Deisy Bray Authenticated and [facility]
== END ==
LOC: RAD 09:01
PROVIDERS: PCP Nurse Practitioner Family; Visit Provider Nurse Practitioner Family
DX: R10.30 Lower abdominal pain, unspecified (principal); R19.7 Diarrhea, unspecified
CPT/HCPCS: 74177; Q9967

== ENCOUNTER 2022-06-21 16:57 | Emergency (ER) | payer MEDICARE, MEDICAID, SELFPAY ==
[2022-06-21 16:58] VITALS: BP 144/73; PULSE 71; RESP 18; TEMP 36.6; O2SAT 98; BMI 30.4
[2022-06-21 17:31] LABS: Chloride 97 mmol/L (98-107); Potassium 5.5 mmoL/L (3.5-5.1); Sodium 138 mmol/L (136-145)
[2022-06-21 17:34] LABS: Alanine Aminotransferase 43 U/L (12-78); Albumin Level 4.8 g/dl (3.5-5.0); Albumin/Globulin Ratio 1.5 (1.1-1.8); Alkaline Phosphatase 111 U/L (38-126); Aspartate Amino Transferase 42 U/L (14-36); Bilirubin,Total 0.9 mg/dl (0.2-1.3); Blood Urea Nitrogen 25 mg/dl (7-17); Calcium 9.2 mg/dl (8.4-10.2); Carbon Dioxide 32 mmol/L (22.0-30.0); Creatinine Clearance Estimated 41 mL/min (50-200); Estimated Glomerular Filt Rate 37 ml/min (>60); GFR (African American) 45 ML/MIN (>60); Globulin 3.2 g/dL (1.3-3.2); Glucose 143 mg/dl (74-100)
[2022-06-21 17:36] LABS: Basophils # 0.2 K/mm3 (0-0.2); Basophils % 0.9 % (0.1-2.0); Eosinophils # 0.4 K/mm3 (0.0-0.4); Eosinophils % 2.6 % (0.1-12.0); Hematocrit 51.2 % (37.0-47.0); Hemoglobin 16.9 g/dL (12.2-16.2); Lymphocytes # 1.7 K/mm3 (0.7-4.5); Lymphocytes % 9.9 % (10-50); Mean Corpuscular HGB Conc 32.9 g/dL (31.8-35.4); Mean Corpuscular Hemoglobin 29.5 pg (27.0-31.2); Mean Corpuscular Volume 89.7 fl (81-99); Monocytes # 0.5 K/mm3 (0.1-1.0); Monocytes % 3.1 % (1.7-9.3); Neutrophils # 14.2 K/mm3 (1.8-7.8); Neutrophils % 83.5 % (37.0-80.0); Platelet Count 353 K/mm3 (142-424); Red Blood Count 5.71 M/mm3 (4.20-5.40); Red Cell Distribution Width 13.5 % (11.5-17.5)
[2022-06-21 17:37] LABS: Anion Gap 14.5 mEq/L (5-15)
[2022-06-21 17:39] LABS: MANUAL DIFFERENTIAL MANUAL DIFFERENTIAL (MANUAL DIFF)
[2022-06-21 18:00] VITALS: BP 127/70; PULSE 74; RESP 20; O2SAT 95
[2022-06-21 18:10] LABS: Eosinophils % 1 % (0-3); Lymphocytes % 11 % (10-50); Neutrophils % 88 % (42-76); Total Cells Counted 100
[2022-06-21 18:13] LABS: Platelet Estimate Normal; Stomatocytes 1+
--- NOTE | 2022-06-21 18:27 | PC.NURSE ---
DR BIRD AT BEDSIDE
--- NOTE | 2022-06-21 18:27 | HMH.EDNVD ---
Discharge Plan Disposition Patient Disposition: Home, Self-Care Condition: Fair Prescriptions Prescriptions: New ondansetron 8 mg Tablet,Disintegrating 8 mg PO QID PRN (Reason: Nausea And Vomiting) Qty: 16 0RF No Action cyclobenzaprine 10 mg tablet 10 mg PO HSP PRN (Reason: Muscle Spasm) fluoxetine 40 mg capsule 40 mg PO DAILY Spiriva Respimat 1.25 mcg/actuation mist 2 puff IH DAILY duloxetine 30 mg capsule,delayed release(DR/EC) 30 mg PO DAILY clopidogrel 75 mg tablet 75 mg PO DAILY aspirin [Jordin Chewable Aspirin] 81 mg tablet,chewable 81 mg PO DAILY nitroglycerin 0.4 mg tablet, sublingual 0.4 mg SL Q5MINP PRN (Reason: Chest Pain) Rx Instructions: do not exceed 3 doses per episode potassium chloride 10 mEq tablet,ER particles/crystals 10 meq PO DAILY levothyroxine 100 MCG tablet 100 mcg PO DAILY calcium carbonate-vitamin D3 500 MG tablet 500 mg PO BID amlodipine 5 MG tablet 5 mg PO DAILY Hold Instructions: pending outpatient follow-up oxybutynin chloride 10 MG tablet extended release 24 hr 10 mg PO DAILY omeprazole 40 MG capsule,delayed release(DR/EC) 40 mg PO DAILY ropinirole 0.25 MG tablet 0.25 mg PO HS gabapentin 300 MG capsule 300 mg PO BID furosemide 40 mg tablet 40 mg PO DAILY atorvastatin 40 MG tablet 40 mg PO HS lisinopril 20 MG tablet 40 mg PO DAILY spironolactone 25 MG tablet 50 mg PO BID metoprolol tartrate 25 MG tablet 12.5 mg PO BID hydrocodone-acetaminophen 5-325 mg Tablet 1 tab PO Q6 PRN (Reason: moderate to severe pain) Qty: 12 0RF ondansetron HCl 4 mg tablet 4 mg PO Q8H PRN (Reason: nausea and vomiting) 3 Days Qty: 12 0RF Referrals Follow up/Referrals: Sol Peralta APRN [Primary Care Provider] - See instructions Activity Restrictions/Add. Instructions Additional Instructions/Restrictions: Stick with a clear liquid diet for the first day or 2. Slowly advance your diet when you are tolerating liquids well. Return to the emergency department immediately if you feel worse in any way. Follow-up with your primary care doctor if you are not better in about 3 days. Clinical Impressions Clinical Impression: Gastroenteritis Instructions Patient Instructions: DI for Diarrhea and Traveler's Diarrhea -- Adult, Nausea and Vomiting-Adult Discharge ED Provider: Jaylen Marin Nausea/Vomiting/Diarrhea HPI General Chief complaint: Nausea/Vomiting/Diarrhea Stated complaint: V&D back pain Time Seen by Provider: 06/21/22 18:27 Mode of Arrival: Ambulatory Limitations: No Limitations Description of Symptoms (Recalled from ER Triage Doc. by RN): PT REPORTS VOMITING AND DIARRHEA SINCE LAST WEEK. REPORTS BROWN EMESIS. DENIES BLOOD IN STOOL. History of Present Illness HPI Narrative: The patient presents to the emergency department complaining of approximately a 1 week history of nausea vomiting and diarrhea. She denies any blood in the vomit or stools. She was seen in this emergency department recently and had a CT of the abdomen performed for the same symptoms. The CT did not show any acute abnormalities. MD complaint: nausea and vomiting Related Data Home Medications Medication Instructions Recorded Confirmed cyclobenzaprine 10 mg tablet 10 mg PO HSP PRN Muscle Spasm 09/10/17 02/19/22 fluoxetine 40 mg capsule 40 mg PO DAILY MOOD 09/10/17 02/19/22 tiotropium bromide 1.25 2 puff inhalation DAILY Breathing 08/23/18 02/19/22 mcg/actuation mist for inhalation problems (Spiriva Respimat) clopidogrel 75 mg tablet 75 mg PO DAILY PLATELET INHIBITOR 01/03/19 02/19/22 aspirin 81 mg chewable tablet 81 mg PO DAILY Heart disease 12/01/19 02/19/22 (Jordin Chewable Low Dose Aspirin) nitroglycerin 0.4 mg sublingual 0.4 mg sublingual Q5MINP PRN Chest 12/01/19 02/19/22 tablet Pain duloxetine 30 mg capsule,delayed 30 mg PO DAILY mood
[2022-06-21 19:21] VITALS: BP 130/72; PULSE 74; RESP 18; TEMP 36.6; O2SAT 99
== END 2022-06-21 19:23 | disposition home or self-care (01) ==
PROVIDERS: Emergency Provider Emergency Medicine; PCP Nurse Practitioner Family
DX: K52.9 Noninfective gastroenteritis and colitis, unspecified (principal); M19.90 Unspecified osteoarthritis, unspecified site; I25.10 Atherosclerotic heart disease of native coronary artery without angina pectoris; J44.9 Chronic obstructive pulmonary disease, unspecified; I10 Essential (primary) hypertension; E78.5 Hyperlipidemia, unspecified; E03.9 Hypothyroidism, unspecified; Z87.442 Personal history of urinary calculi; Z87.440 Personal history of urinary (tract) infections; I73.9 Peripheral vascular disease, unspecified; Z87.891 Personal history of nicotine dependence; Z98.61 Coronary angioplasty status; Z90.710 Acquired absence of both cervix and uterus; Z90.49 Acquired absence of other specified parts of digestive tract; Z82.49 Family history of ischemic heart disease and other diseases of the circulatory system; Z83.3 Family history of diabetes mellitus
CPT/HCPCS: 80053; 85007; 85025; 96361; 96374; 99284; 99285; J2405

== ENCOUNTER 2022-09-20 11:39 | Observation (INO) | payer MEDICARE, MEDICAID, SELFPAY ==
[2022-09-20] VITALS (22 sets, daily range): BP systolic 75–138; BP diastolic 41–79; PULSE 45–82; RESP 13–18; TEMP 36.6–36.7; O2SAT 93–99; BMI 30.2; BMI 31.1
--- NOTE | 2022-09-20 11:39 | ECG_ITS ---
APPROVED REPORT Exam: Resting ECG HR:51 bpm ECG Measurements Heart Rate 51 AXES AZ 138 P 33 QRSd 91 QRS 61 QT 424 T 66 QTc 401 Conclusion SINUS BRADYCARDIA BORDERLINE ECG UNCONFIRMED REPORT Electronically signed by : Sylvester Newell MD 09/22/2022 20:16:17
--- NOTE | 2022-09-20 11:40 | XR_ITS ---
PROCEDURE INFORMATION: Exam: XR Chest Exam date and time: 09/20/2022 12:18 PM Age: 67 years old Clinical indication: Pain; Chest pressure; Additional info: Chest pain TECHNIQUE: Imaging protocol: Radiologic exam of the chest. Views: 1 view. COMPARISON: CR XR CHEST PORTABLE 04/29/2022 3:05 PM FINDINGS: Lungs: Unremarkable. No consolidation. Pleural spaces: Unremarkable. No pleural effusion. No pneumothorax. Heart/Mediastinum: Unremarkable. No cardiomegaly. Bones/joints: Unremarkable. IMPRESSION: No acute findings.
[2022-09-20 11:51] LABS: Basophils # 0.1 K/mm3 (0-0.2); Basophils % 0.8 % (0.1-2.0); Eosinophils # 0.5 K/mm3 (0.0-0.4); Eosinophils % 4.7 % (0.1-12.0); Hematocrit 46.7 % (37.0-47.0); Hemoglobin 14.9 g/dL (12.2-16.2); Lymphocytes # 2.4 K/mm3 (0.7-4.5); Lymphocytes % 22.8 % (10-50); Mean Corpuscular HGB Conc 31.8 g/dL (31.8-35.4); Mean Corpuscular Hemoglobin 29.6 pg (27.0-31.2); Mean Corpuscular Volume 93.1 fl (81-99); Mean Platelet Volume 8.8 fl (7.4-10.4); Monocytes # 0.7 K/mm3 (0.1-1.0); Monocytes % 6.2 % (1.7-9.3); Neutrophils % 65.4 % (37.0-80.0); Platelet Count 310 K/mm3 (142-424); Red Blood Count 5.02 M/mm3 (4.20-5.40); Red Cell Distribution Width 14.8 % (11.5-17.5); White Blood Count 10.7 K/mm3 (4.8-10.8)
[2022-09-20 11:55] LABS: Chloride 94 mmol/L (98-107); Potassium 4.7 mmoL/L (3.5-5.1); Sodium 136 mmol/L (136-145)
[2022-09-20 11:59] LABS: Anion Gap 19.7 mEq/L (5-15); Blood Urea Nitrogen 33 mg/dl (7-17); Calcium 9.2 mg/dl (8.4-10.2); Carbon Dioxide 27 mmol/L (22.0-30.0); Creatinine Clearance Estimated 34 mL/min (50-200); Estimated Glomerular Filt Rate 30 ml/min (>60); GFR (African American) 36 ML/MIN (>60); Glucose 197 mg/dl (74-100)
--- NOTE | 2022-09-20 12:03 | PC.NURSE ---
rounded on pt
--- NOTE | 2022-09-20 12:09 | HMH.EDGENADL ---
Discharge Plan Disposition Patient Disposition: Admitted As Inpatient Condition: Serious Chief Complaint: Chest Pain Clinical Impressions Clinical Impression: Chest pain with high risk for cardiac etiology Discharge ED Provider: Delgado Sears General Adult HPI General Chief complaint: Chest Pain Stated complaint: chest pain Time Seen by Provider: 09/20/22 12:00 Mode of Arrival: Ambulatory Source of Information: Patient Limitations: No Limitations Description of Symptoms (Recalled from ER Triage Doc. by RN): pt c/o chest pain ongoing for a couple of weeks. pt reports that since this morning the pain has gotten worse. pain located in middle of chest and does not radiate. pt did take 1 nitro pill before arrival with some relief. History of Present Illness HPI narrative: Patient has a past medical history of coronary artery disease status post stenting, COPD, multiple other comorbidities who presents to the emergency department for evaluation of chest pain. Patient has had waxing and waning chest pain over the last 3 months, recent episode was acute, occurring earlier this morning, substernal, nonmodifiable, does not radiate, moderate to severe in intensity. There is no associated cough, no abdominal pain, no worse shortness of breath than normal. Patient continues to smoke cigarettes daily. Related Data Home Medications Medication Instructions Recorded Confirmed cyclobenzaprine 10 mg tablet 10 mg PO HSP PRN Muscle Spasm 09/10/17 09/20/22 fluoxetine 40 mg capsule 40 mg PO DAILY MOOD 09/10/17 09/20/22 tiotropium bromide 1.25 2 puff inhalation DAILY COPD 08/23/18 09/20/22 mcg/actuation mist for inhalation (Spiriva Respimat) clopidogrel 75 mg tablet 75 mg PO DAILY CAD 01/03/19 09/20/22 aspirin 81 mg chewable tablet 81 mg PO DAILY Heart disease 12/01/19 09/20/22 (Jordin Chewable Low Dose Aspirin) nitroglycerin 0.4 mg sublingual 0.4 mg sublingual Q5MINP PRN Chest 12/01/19 09/20/22 tablet Pain duloxetine 30 mg capsule,delayed 30 mg PO DAILY mood 01/17/20 09/20/22 release calcium carbonate 500 mg-vitamin 500 mg PO BID Supplement 04/10/20 09/20/22 D3 5 mcg (200 unit) tablet levothyroxine 100 mcg tablet 100 mcg PO DAILYDM HYPOTHYROIDISM 04/10/20 09/20/22 potassium chloride 10 mEq 10 meq PO DAILY Supplement 11/12/21 09/20/22 tablet,extended release(part/cryst) gabapentin 300 mg capsule 300 mg PO BIDP PRN NERVE PAIN 01/03/22 09/20/22 omeprazole 40 mg capsule,delayed 40 mg PO DAILY Reflux/Acid reflux 01/03/22 09/20/22 release oxybutynin chloride 10 mg 10 mg PO DAILY OVERACTIVE BLADDER 01/03/22 09/20/22 tablet,extended release 24 hr ropinirole 0.25 mg tablet 0.25 mg PO HS Restless leg 01/03/22 09/20/22 atorvastatin 40 mg tablet 40 mg PO HS Cholesterol 01/16/22 09/20/22 furosemide 40 mg tablet 40 mg PO DAILY Fluid 01/16/22 09/20/22 metoprolol tartrate 25 mg tablet 12.5 mg PO BID High blood pressure 01/16/22 09/20/22 spironolactone 25 mg tablet 50 mg PO BID Fluid 01/16/22 09/20/22 amlodipine 5 mg tablet 5 mg PO DAILY High blood pressure 09/20/22 09/20/22 lisinopril 40 mg tablet 40 mg PO DAILY High blood pressure 09/20/22 09/20/22 Allergies Allergy/AdvReac Type Severity Reaction Status Date / Time Penicillins [PENICILLINS] Allergy Unknown I-HIVES Verified 08/27/22 10:24 [facility] Disclaimer: The information contained in this section may have been updated after the patient was seen, as this information can be updated by other users. 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 Arthritis CAD (coronary artery disease) Carpal tunnel syndrome Cataracts, bilateral Cholecystectomy planned COPD (chronic obstructive pulmonary disease) History of gastroesophageal reflux (GERD) Hyperlipidemia Hyperlipidemia Hypertension Hypertension Hypothyroid Kidney stone Mesenteric artery stenosis PAD (peripheral artery disease) Pre-op evaluation Sleep apnea Tobacco abuse Urinary tract infe
[2022-09-20 12:20] LABS: Troponin I < 0.01 ng/ml (0.00-0.034)
--- NOTE | 2022-09-20 12:50 | PC.NURSE ---
rounded on pt no complaints at this time, so at [facility]
--- NOTE | 2022-09-20 13:37 | PC.NURSE ---
covid swab sent to lab
[2022-09-20 13:46] LABS: Activated Partial Thrombo Time 28.9 seconds (22.8-30.6); INR 0.99 (0.9-1.1); Prothrombin Time 10.7 seconds (10.1-12.5)
--- NOTE | 2022-09-20 13:47 | PC.NURSE ---
rounded on pt no complaints at this time, Did cut off identification bracelet due to pt saying it was to tight pt is being admitted and will have new bracelet replaced once arriving to her room on jude siegel @ [facility]
[2022-09-20 13:53] LABS: Coronavirus 19, PCR Not Detected (NotDetected); Influenza A, PCR Not Detected (NotDetected); Influenza B, PCR Not Detected (NotDetected)
--- NOTE | 2022-09-20 13:54 | P.CONPHA_ITS ---
[facility] Heparin Dosing Demographic Data Admission date:: 09/20/22 Date: 09/20/22 Time: 13:54 Allergies Allergy/AdvReac Type Severity Reaction Status Date / Time Penicillins [PENICILLINS] Allergy Unknown I-HIVES Verified 08/27/22 10:24 Height: 1.5 m Weight: 68.039 kg Indication Medication therapy:: Heparin Current Indications:: ACS (LOW DOSE PROTOCOL) Current Active Problems (Updated 09/20/22 @ 16:54 by Patrick Mace MD) Hypothyroid (Chronic) Chest pain with high risk for cardiac etiology (Acute) Tobacco abuse (Chronic) Obesity (BMI 30.0-34.9) (Chronic) HLD (hyperlipidemia) (Chronic) CAD (coronary artery disease) (Chronic) Tobacco abuse (Chronic) Hypertension (Chronic) CVA?: No Bleeding problem?: No Kidney disease?: No NE?: Yes Additional History:: HYPERLIPIDEMIA, CAD, PAD, HYPERTENSION, TOBACCO ABUSE Desired PTT range:: 50-75 seconds Labs Anticoagulation Lab Results:: 09/20/22 11:42 Hgb 14.9 Hct 46.7 Plt Count 310 Monitoring Dose Monitor 1: Date: 09/20/22 Time: 11:42 PTT Result:: 28.9 SECONDS Infusion Rate:: START HEPARIN DRIP RATE AT 800 UNITS/HOUR = 16 ML/HOUR AND BOLUS IV HEPARIN 4000 UNITS ONCE. Dose Monitor 2: Date: 09/20/22 Time: 20:00 PTT Result:: 65.8 SECONDS Infusion Rate:: CONTINUE CURRENT HEPARIN DRIP RATE OF 800 UNITS/HOUR = 16 ML/HOUR Dose Monitor 3: Date: 09/21/22 Time: 02:00 PTT Result:: 53.7 SECONDS Infusion Rate:: CONTINUE CURRENT HEPARIN DRIP RATE OF 800 UNITS/HOUR = 16 ML/HOUR Dose Monitor 4: Date: 09/21/22 Time: 08:00 PTT Result:: 56.7 SECONDS Infusion Rate:: CONTINUE CURRENT HEPARIN DRIP RATE OF 800 UNITS/HOUR = 16 ML/HOUR Core Measures Is INR > or = 2 at discharge?: No Most Recent Labs:: Laboratory Results - last 24 hr 09/20/22 11:42: WBC 10.7, RBC 5.02, Hgb 14.9, Hct 46.7, MCV 93.1, MCH 29.6, MCHC 31.8, RDW 14.8, Plt Count 310, MPV 8.8, Neut % (Auto) 65.4, Lymph % (Auto) 22.8, [place] % (Auto) 6.2, Eos % (Auto) 4.7, Baso % (Auto) 0.8, Neut # (Auto) 7.0, Lymph # (Auto) 2.4, [place] # (Auto) 0.7, Eos # (Auto) 0.5 H, Baso # (Auto) 0.1 09/20/22 11:42: Sodium 136, Potassium 4.7, Chloride 94 L, Carbon Dioxide 27, Anion Gap 19.7 H, BUN 33 H, Creatinine 1.70 H, Estimated Creat Clear 34, Estimated GFR 30 L, Est GFR ( Amer) 36 L, Glucose 197 H, Calcium 9.2, Troponin I < 0.01 09/20/22 11:42: PT 10.7, INR 0.99, APTT 28.9 If INR was < than 2.0 why was therapy stopped?: PATIENT WENT TO [facility], WAS STENTED, ON BRILINTA NOW. Were Heparin and Warfarin started on the same day?: No If not, why?: PATIENT WENT TO [facility], WAS STENTED, ON BRILINTA NOW.
--- NOTE | 2022-09-20 14:03 | PC.NURSE ---
Renu Lentz speaking to hospitalist for admission
--- NOTE | 2022-09-20 15:16 | PC.NURSE ---
report called to Adalberto on second floor
[2022-09-20 15:19] LABS: Troponin I < 0.01 ng/ml (0.00-0.034)
--- NOTE | 2022-09-20 15:37 | PC.NURSE ---
patient arrived by stretcher from ED
--- NOTE | 2022-09-20 16:28 | EXP.HP ---
History of Present Illness *Admission Date: 09/20/22 *Reason for visit:: chest pain *History of present illness: Ms. Lockett is a 67-year-old female who presented to the ER because of ongoing chest pain for the past few weeks. She reports that it would come on with exertion and get better with rest. She came to the ER today however because of worsening pain since this morning. Located in the middle of her chest, no radiation. Took 1 nitro pill before coming to the ER with some relief. She has a history significant for CAD status post stenting x1 to RCA last year, COPD, obesity, hypertension, hypothyroidism. Given the substernal nature of her pain with no radiation and worse with exertion, work-up was performed in the ER. Labs positive for ALEXA with elevation of creatinine 1.7. Initial troponin less than 0.01. EKG obtained with no ischemic changes or ST elevations. Patient bradycardic since arrival. Blood pressures remain soft. ER discussed case with cardiology, they recommended admission for observation and ACS rule out given risk factors and character of pain. Medicine consulted for admission On arrival to the floor, patient is feeling somewhat better. Currently on a heparin drip. Blood pressure improving, has not been started on nitro drip yet however. On room air. No nausea or vomiting. [facility] Disclaimer: The information contained in this section may have been updated after the patient was seen, as this information can be updated by other users. 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 (Updated 09/20/22 @ 16:54 by Patrick Mace MD) Arthritis CAD (coronary artery disease) Carpal tunnel syndrome Cataracts, bilateral Cholecystectomy planned COPD (chronic obstructive pulmonary disease) History of gastroesophageal reflux (GERD) Hyperlipidemia Hyperlipidemia Hypertension Hypertension Hypothyroid Kidney stone Mesenteric artery stenosis PAD (peripheral artery disease) Pre-op evaluation Sleep apnea Tobacco abuse Urinary tract infection 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 H/O right heart catheterization H/O thyroidectomy History of appendectomy History of esophagogastroduodenoscopy (EGD) History of hysterectomy Family History Family history of acute congestive heart failure Family history of cancer Family history of hypertension Family history of myocardial infarction Social History Smoking Status: Current every day smoker tobacco type: cigarettes packs per day: 1 second hand exposure: Yes alcohol intake: never substance use type: denies use current occupational status: retired Travel in the last 8 weeks: None household members: spouse and children housing: house current occupational exposures/hazards: No caffeine: Yes Review of Systems Review of Systems Review of systems (narrative): 14 point review of systems performed, pertinent positives and negatives as per HPI Meds Home Medications and Allergies Home Medications Medication Instructions Recorded Confirmed Type cyclobenzaprine 10 mg tablet 10 mg PO HSP PRN Muscle Spasm 09/10/17 09/20/22 History fluoxetine 40 mg capsule 40 mg PO DAILY MOOD 09/10/17 09/20/22 History tiotropium bromide 1.25 2 puff inhalation DAILY COPD 08/23/18 09/20/22 History mcg/actuation mist for inhalation (Spiriva Respimat) clopidogrel 75 mg tablet 75 mg PO DAILY CAD 01/03/19 09/20/22 History aspirin 81 mg chewable tablet 81 mg PO DAILY Heart disease 12/01/19 09/20/22 History (Jordin Chewable Low Dose Aspirin) nitroglycerin 0.4 mg sublingual 0.4 mg sublingual Q5MINP PRN Chest 12/01/19 09/20/22 History tablet Pain duloxetine 30 mg capsule,delayed 30 mg PO DAILY mood 01/17/20 09/20/22 History release calcium carbonate 500 mg-vitamin 500 mg PO BID Supplement 04/10/20 09/20/22 History D3 5 mcg (200 unit) tablet levothyroxine 100 mcg tab
[2022-09-20 18:51] LABS: Troponin I < 0.01 ng/ml (0.00-0.034)
[2022-09-20 20:32] LABS: Anion Gap 15.3 mEq/L (5-15); Blood Urea Nitrogen 30 mg/dl (7-17); Calcium 8.5 mg/dl (8.4-10.2); Carbon Dioxide 27 mmol/L (22.0-30.0); Chloride 98 mmol/L (98-107); Creatinine Clearance Estimated 37 mL/min (50-200); Estimated Glomerular Filt Rate 32 ml/min (>60); GFR (African American) 39 ML/MIN (>60); Glucose 103 mg/dl (74-100); Potassium 4.3 mmoL/L (3.5-5.1); Sodium 136 mmol/L (136-145)
[2022-09-20 20:34] LABS: PTT Heparin (inpatient only) 65.8 Seconds (23.6-34.0)
--- NOTE | 2022-09-20 21:00 | PC.NURSE ---
SPOKE WITH FLORESITA FROM [facility] FOR PT'S APPT RESULT. NO CHANGE TO HEPARIN GTT RATE AT THIS TIME.
[2022-09-21] VITALS (25 sets, daily range): BP systolic 86–181; BP diastolic 41–84; PULSE 50–97; RESP 13–22; TEMP 36.2–36.8; O2SAT 93–99; BMI 30.8
[2022-09-21 02:33] LABS: PTT Heparin (inpatient only) 53.7 Seconds (23.6-34.0)
--- NOTE | 2022-09-21 02:48 | PC.NURSE ---
SPOKE WITH FLORESITA FROM [facility]. STATED KEEP HEPARIN GTT AT SAME RATE NEXT APTT @ 0800.
--- NOTE | 2022-09-21 04:34 | PC.NURSE ---
NO ACUTE CHANGES THIS SHIFT. PT HAS RESTED WELL. LUNG SOUNDS CLEAR. NO C/O CHEST PAIN OR SOB THIS SHIFT. AMBULATING WITH STANDBY ASSIST TO THE BATHROOM. VSS. HEPARIN GTT REMAINS IN PLACE AND IS INFUSING AT 800 UNITS/HR. NEXT APTT IS AT 0800.
[2022-09-21 08:56] LABS: Chloride 100 mmol/L (98-107); Potassium 4.4 mmoL/L (3.5-5.1); Sodium 134 mmol/L (136-145)
[2022-09-21 08:58] LABS: Blood Urea Nitrogen 25 mg/dl (7-17); Creatinine Clearance Estimated 39 mL/min (50-200); Estimated Glomerular Filt Rate 34 ml/min (>60); GFR (African American) 42 ML/MIN (>60)
[2022-09-21 08:59] LABS: Alanine Aminotransferase 37 U/L (12-78); Albumin Level 3.9 g/dl (3.5-5.0); Albumin/Globulin Ratio 1.4 (1.1-1.8); Alkaline Phosphatase 106 U/L (38-126); Anion Gap 8.4 mEq/L (5-15); Aspartate Amino Transferase 37 U/L (14-36); Bilirubin,Total 1.1 mg/dl (0.2-1.3); Carbon Dioxide 30 mmol/L (22.0-30.0); Cholesterol 99 mg/dl (140-200); Globulin 2.7 g/dL (1.3-3.2); Glucose 123 mg/dl (74-100); Magnesium 1.9 mg/dl (1.6-2.3); Total Protein,Serum 6.6 g/dl (6.3-8.2); Triglycerides 122 mg/dl (30-150); VLDL Cholesterol 24 mg/dL (0-40)
[2022-09-21 09:00] LABS: Chol/HDL Ratio 2.2 (1-3.5); HDL Cholesterol 45 mg/dl (40-60)
[2022-09-21 09:05] LABS: Basophils # 0.1 K/mm3 (0-0.2); Basophils % 0.7 % (0.1-2.0); Eosinophils # 0.4 K/mm3 (0.0-0.4); Eosinophils % 5.1 % (0.1-12.0); Hematocrit 44.4 % (37.0-47.0); Hemoglobin 14.5 g/dL (12.2-16.2); Lymphocytes # 1.8 K/mm3 (0.7-4.5); Mean Corpuscular HGB Conc 32.6 g/dL (31.8-35.4); Mean Corpuscular Hemoglobin 29.4 pg (27.0-31.2); Mean Corpuscular Volume 90.2 fl (81-99); Mean Platelet Volume 10.2 fl (7.4-10.4); Monocytes # 0.5 K/mm3 (0.1-1.0); Neutrophils # 5.5 K/mm3 (1.8-7.8); Neutrophils % 66.2 % (37.0-80.0); Platelet Count 276 K/mm3 (142-424); Red Blood Count 4.92 M/mm3 (4.20-5.40); Red Cell Distribution Width 14.8 % (11.5-17.5); White Blood Count 8.4 K/mm3 (4.8-10.8)
[2022-09-21 09:11] LABS: Direct LDL Cholesterol 33.94 mg/dL (100-129)
[2022-09-21 09:23] LABS: PTT Heparin (inpatient only) 56.7 Seconds (23.6-34.0)
[2022-09-21 09:30] LABS: Thyroid Stimulating Hormone 2.78 uIU/mL (0.465-4.68)
--- NOTE | 2022-09-21 09:33 | PC.NURSE ---
[address] Hernandez, [facility] team paged and notified about heart cath to be completed at 1300 [id number] Mitchell Thomas returned call 09 Ekaterina Swanson returned call 09 Edil Goncalves returned call
--- NOTE | 2022-09-21 10:25 | HMH.PHAINT1 ---
Pharmacy Intervention Comments: MEDICATION RECONCILIATION COMPLETE USING LIST FROM MOST RECENT CARDIOLOGY OFFICE VISIT AND EXTERNAL PHARMACY FILL HISTORY.
--- NOTE | 2022-09-21 12:46 | IR_ITS ---
APPROVED REPORT Patient Location: Inpatient Printing Screen Assembler: SHEILA Salas RT (R) PROCEDURES Left heart catheterization with left ventricular pressure assessment Status post occipital PCI to ostial RCA in-stent restenosis with 3.5 x 15 mm stent insertion, postdilated to 3.7 mm Right radial artery cannulation Conscious sedation INDICATION Unstable angina, History of coronary disease, History of 2 drug-eluting stent insertion in the right coronary artery, Informed consent was obtained prior to the procedure. COMPLICATIONS None Estimated Blood Loss: Less than 10 ML TECHNIQUE One percent lidocaine used to anesthetize the right anterior aspect of the wrist. The right radial artery was accessed via the Seldinger technique. A 6 Palestinian sheath was placed in the right radial artery. 150 mg magnesium sulfate, 200 mcg of nitroglycerin, 1mg Lidocaine and 3000 U Heparin were given through the arterial sheath. The papa catheter was also used to perform left heart catheterization, left ventricular pressure assessment and selective coronary angiogram. Patient was found to have significant in-stent restenosis of still proximal right coronary artery. 70% in-stent stenosis. Heparin was given as per standard protocol. Run-through wire was advanced 84 the wire was in distal PDA. In-stent restenosis was treated with 3.5 x 12 mm noncompliant balloon angioplasty. 3.5 x 15 mm drug-eluting stent was advanced and positioned into the lesion and deployed with nominal pressure. It was postdilated with 3.5 x 12 mm noncompliant balloon angioplasty with 3.7 mm. Angiogram reviewed showed well-expanded stent. There was no dissection or perforation. WILLIAM-3 flow in distal vessel. At the end of the procedure the sheath was removed good hemostasis was achieved using Traclet band, patient was transferred to the postop holding area in stable condition. ANGIOGRAPHIC RESULTS The left main artery Patent The left anterior descending artery Mild luminal irregularity The circumflex artery Mild luminal irregularity. The right coronary artery Patient has stent to ostium of RCA to mid RCA. Mid RCA stent is mild in-stent restenosis ostial RCA stent has 70% in-stent restenosis. The left ventricular end-diastolic pressure 13 mmHg IMPRESSION 70% in-stent restenosis of the ostial RCA stent. Status post occipital PCI to ostial RCA in-stent restenosis with 3.5 x 15 mm stent insertion, postdilated to 3.7 mm Other vessels are patent. PLAN 1. Routine post cath care 2. Aspirin, Brilinta, statin and beta-dajuan. 3. Advised to quit smoking. 4. Cardiac rehab. 5. Strict sugar, cholesterol and blood pressure control 6. Recommend lifestyle and diet modification Electronically signed by : Asia Hernandez, 09/21/2022 14:21:10
--- NOTE | 2022-09-21 13:00 | PC.NURSE ---
pt to hemodialysis lab technician
[2022-09-21 14:37] LABS: CATHL Activated Clotting Time 318 SEC (74-125)
--- NOTE | 2022-09-21 14:51 | EXP.ACUTE.PN ---
Subjective *Date: 09/21/22 *Time: 13:42 Interval history: Patient is chest pain-free this morning. Blood pressure controlled. No nausea or vomiting. No shortness of breath. N.p.o. awaiting cardiology eval Medical Exam Vital signs and Labs for Last 24 Hours: Vital Signs Temp Pulse Pulse Resp BP BP Pulse Ox 09/21/22 14:21 65 20 132/70 96 09/21/22 14:15 65 20 128/67 97 09/21/22 14:15 66 20 126/83 96 09/21/22 12:00 60 09/21/22 12:00 58 L 16 98/51 L 97 09/21/22 10:00 62 16 126/52 L 98 09/21/22 08:00 58 L 16 115/41 L 98 09/21/22 12:00 98.3 F 09/21/22 08:00 59 L 09/21/22 07:58 98.3 F 09/21/22 06:00 57 L 16 112/41 L 96 09/21/22 04:00 50 L 09/21/22 04:00 98.0 F 50 L 16 86/60 L 93 L 09/21/22 03:09 96 09/21/22 02:00 50 L 16 140/69 99 09/21/22 00:00 50 L 09/21/22 00:00 97.8 F 52 L 16 106/54 L 97 09/20/22 20:00 50 L 09/20/22 22:06 82 16 106/54 L 97 09/20/22 20:00 99 09/20/22 20:00 97.8 F 51 L 16 138/54 L 99 09/20/22 16:00 51 L 18 103/54 L 98 09/20/22 16:00 52 L 09/20/22 15:42 98.0 F 51 L 16 114/45 L Intake and Output 09/20/22 09/21/22 09/21/22 23:59 07:59 15:59 Intake Total 273.4 / 273.4 Output Total 0 / 0 0 / 0 Balance 273.4 / 273.4 0 / 0 Intake: Intake, Oral Amount 240 / 240 Infusion Intake 33.4 / 33.4 Heparin Sodium,Porcine/D5w 500 33.4 / 33.4 ml @ 800 UNITS/HR 16 mls/hr IV .Q25H [facility] Rx#:[id number] Output: Output, Urine Amount 0 / 0 0 / 0 Other: Number of Unmeasured Voids 1 1 Number of Bowel Movements 1 1 Weight 69.4 kg Patient Weight 09/21/22 23:59 Weight 69.4 kg Laboratory Results - last 24 hr 09/20/22 14:41: Troponin I < 0.01 09/20/22 17:50: Troponin I < 0.01 09/20/22 20:10: APTT 65.8 H* 09/20/22 20:10: Sodium 136, Potassium 4.3, Chloride 98, Carbon Dioxide 27, Anion Gap 15.3 H, BUN 30 H, Creatinine 1.60 H, Estimated Creat Clear 37, Estimated GFR 32 L, Est GFR ( Amer) 39 L, Glucose 103 H D, Calcium 8.5 09/21/22 02:08: APTT 53.7 H* 09/21/22 07:25: WBC 8.4, RBC 4.92, Hgb 14.5, Hct 44.4, MCV 90.2, MCH 29.4, MCHC 32.6, RDW 14.8, Plt Count 276, MPV 10.2, Neut % (Auto) 66.2, Lymph % (Auto) 22.0, [place] % (Auto) 6.0, Eos % (Auto) 5.1, Baso % (Auto) 0.7, Neut # (Auto) 5.5, Lymph # (Auto) 1.8, [place] # (Auto) 0.5, Eos # (Auto) 0.4, Baso # (Auto) 0.1 09/21/22 07:25: Sodium 134 L, Potassium 4.4, Chloride 100, Carbon Dioxide 30, Anion Gap 8.4, BUN 25 H, Creatinine 1.50 H, Estimated Creat Clear 39, Estimated GFR 34 L, Est GFR ( Amer) 42 L, Glucose 123 H, Calcium 9.0, Magnesium 1.9, Total Bilirubin 1.1, AST 37 H, ALT 37, Alkaline Phosphatase 106, Total Protein 6.6, Albumin 3.9, Globulin 2.7, Albumin/Globulin Ratio 1.4, Triglycerides 122, Cholesterol 99 L, LDL Cholesterol Direct 33.94 L, VLDL Cholesterol 24, HDL Cholesterol 45, Cholesterol/HDL Ratio 2.2, TSH 2.78 09/21/22 07:25: Hemoglobin A1c 6.0 09/21/22 09:04: APTT 56.7 H* 09/21/22 13:43: Activated Clotting Time 318 H* I & O for Labs for Last 24 Hours: Intake & Output 09/18/22 09/19/22 09/20/22 09/21/22 23:59 23:59 23:59 23:59 Intake Total 273.4 / 273.4 Output Total 0 / 0 0 / 0 Balance 273.4 / 273.4 0 / 0 Weight 70.023 kg 69.4 kg Constitutional: Present no acute distress, obese and chronically ill appearing Head: Present atraumatic and normocephalic ENT: Present normal exam Comment:: Hirsutism Neck: Present normal inspection Respiratory: Present normal respiratory effort; Absent accessory muscle use, rhonchi, wheezes or crackles Cardiac: Present Reg Rate and Rhythm Comment:: No chest wall tenderness GI: Present normal bowel sounds; Absent tenderness Extremities: Present normal inspection and full ROM Skin: Present intact; Absent erythema Neuro: Present Grossly Intact, alert, awake, oriented x 3 and move
--- NOTE | 2022-09-21 18:20 | PC.NURSE ---
pt has done well since cath. vss, lungs cta, pt reports no pain at this time. radial band still in place on rt wrist. pt has been instructed multiple times not to use the rt hand, air has been put back in due to bleeding at cath site. around 8ml of air currently left in band. cb and personal items within reach no concerns at this time.
[2022-09-22] VITALS: BP 133/67; PULSE 70; RESP 15; TEMP 36.6
[2022-09-22 02:00] VITALS: BP 123/66; PULSE 72; RESP 14; O2SAT 99
[2022-09-22 04:00] VITALS: BP 106/67; PULSE 70; PULSE 73; RESP 14; TEMP 36.7; O2SAT 96; BMI 30.7
[2022-09-22 06:00] VITALS: BP 118/74; PULSE 78; RESP 19; O2SAT 99
[2022-09-22 06:53] LABS: Basophils # 0.1 K/mm3 (0-0.2); Basophils % 0.7 % (0.1-2.0); Eosinophils # 0.5 K/mm3 (0.0-0.4); Eosinophils % 5.1 % (0.1-12.0); Hematocrit 46.5 % (37.0-47.0); Lymphocytes % 19.5 % (10-50); Mean Corpuscular HGB Conc 32.2 g/dL (31.8-35.4); Mean Corpuscular Hemoglobin 29.2 pg (27.0-31.2); Mean Corpuscular Volume 90.6 fl (81-99); Mean Platelet Volume 8.8 fl (7.4-10.4); Monocytes # 0.6 K/mm3 (0.1-1.0); Monocytes % 5.7 % (1.7-9.3); Platelet Count 256 K/mm3 (142-424); Red Blood Count 5.14 M/mm3 (4.20-5.40); Red Cell Distribution Width 14.7 % (11.5-17.5); White Blood Count 10.1 K/mm3 (4.8-10.8)
[2022-09-22 07:06] LABS: Alanine Aminotransferase 38 U/L (12-78); Albumin Level 4.1 g/dl (3.5-5.0); Albumin/Globulin Ratio 1.4 (1.1-1.8); Alkaline Phosphatase 104 U/L (38-126); Anion Gap 16.4 mEq/L (5-15); Aspartate Amino Transferase 44 U/L (14-36); Blood Urea Nitrogen 22 mg/dl (7-17); Calcium 9.1 mg/dl (8.4-10.2); Carbon Dioxide 25 mmol/L (22.0-30.0); Chloride 98 mmol/L (98-107); Creatinine Clearance Estimated 48 mL/min (50-200); Estimated Glomerular Filt Rate 45 ml/min (>60); GFR (African American) 54 ML/MIN (>60); Globulin 2.9 g/dL (1.3-3.2); Glucose 114 mg/dl (74-100); Magnesium 1.9 mg/dl (1.6-2.3); Potassium 4.4 mmoL/L (3.5-5.1); Sodium 135 mmol/L (136-145)
[2022-09-22 07:50] VITALS: TEMP 37.2
[2022-09-22 08:00] VITALS: BP 106/54; PULSE 85; RESP 18; O2SAT 97
--- NOTE | 2022-09-22 09:07 | EXP.DC.SUM ---
General Admission date:: 09/20/22 Discharge date: 09/22/22 HPI HPI HPI: Ms. Lockett is a 67-year-old female who presented to the ER because of ongoing chest pain for the past few weeks. She reports that it would come on with exertion and get better with rest. She came to the ER today however because of worsening pain since this morning. Located in the middle of her chest, no radiation. Took 1 nitro pill before coming to the ER with some relief. She has a history significant for CAD status post stenting x1 to RCA last year, COPD, obesity, hypertension, hypothyroidism. Given the substernal nature of her pain with no radiation and worse with exertion, work-up was performed in the ER. Labs positive for ALEXA with elevation of creatinine 1.7. Initial troponin less than 0.01. EKG obtained with no ischemic changes or ST elevations. Patient bradycardic since arrival. Blood pressures remain soft. ER discussed case with cardiology, they recommended admission for observation and ACS rule out given risk factors and character of pain. Medicine consulted for admission On arrival to the floor, patient is feeling somewhat better. Currently on a heparin drip. Blood pressure improving, has not been started on nitro drip yet however. On room air. No nausea or vomiting. Hospital Course Hospital Course Hospital Course: The patient was admitted to the telemetry unit with cardiology consultation. She underwent a left heart cath on September 21 which identified RCA stenosis and drug-eluting stent was deployed. Her admitting P2Y12 inhibitor therapy was transitioned to Brilinta and she was maintained on a CT-guided directed therapy for NSTEMI. Her labs and inflammatory markers were trended and identified a normal CBC and a reduction in her creatinine. Discharge medication recommendations were made including reducing her outpatient JOHN inhibitor and aldosterone antagonist therapy. She was started on low-dose SGLT2 inhibitor therapy to assist with cardiac disease. She identified improvement and inquired about discharge home. She reports that her and her son are at home with her. She plans to follow-up with her PCP and hearing therapist as scheduled. She was counseled on complete tobacco cessation use and understands that if she will quit smoking it will improve her health. I spent 35 minutes in [id number] time with the patient and nursing staff concerning the discharge process. We discussed the admitting diagnoses and hospital course. We discussed identified improvement and the patient's desire to be discharged. We reviewed inpatient studies and imaging. The patient voiced understanding on the importance of follow-up with her primary care provider and hearing therapist. The patient plans to be compliant with the medication regimen prescribed and follow-up appointments. She understands the importance of tobacco cessation. She understands that she can return to the emergency department with any sudden changes or concerns. Exam Data for Last 24 hours Vital signs and Labs for Last 24 Hours: Temp Pulse Resp BP Pulse Ox 98.9 F 85 18 106/54 L 97 09/22/22 07:50 09/22/22 08:00 09/22/22 08:00 09/22/22 08:00 09/22/22 08:00 Laboratory Results - last 24 hr 09/21/22 07:25: WBC 8.4, RBC 4.92, Hgb 14.5, Hct 44.4, MCV 90.2, MCH 29.4, MCHC 32.6, RDW 14.8, Plt Count 276, MPV 10.2, Neut % (Auto) 66.2, Lymph % (Auto) 22.0, [place] % (Auto) 6.0, Eos % (Auto) 5.1, Baso % (Auto) 0.7, Neut # (Auto) 5.5, Lymph # (Auto) 1.8, [place] # (Auto) 0.5, Eos # (Auto) 0.4, Baso # (Auto) 0.1 09/21/22 07:25: Sodium 134 L, Potassium 4.4, Chloride 100, Carbon Dioxide 30, Anion Gap 8.4, BUN 25 H, Creatinine 1.50 H, Estimated Creat Clear 39, Estimated GFR 34 L, Est GFR ( Amer) 42 L, Glucose 123 H, Calcium 9.0, Magnesium 1.9, Total Bilirubin 1.1, AST 37 H, ALT 37, Alkaline Phosphatase 106, Total Protein 6.6, Albumin 3.9, Globulin 2.7, Albumin/Globulin Ratio 1.4, Triglycerides 122, Cholest
--- NOTE | 2022-09-22 09:22 | EXP.CARD.CON ---
History of Present Illness History of Present Illness Consult date: 09/22/22 Requesting physician: Patrick Mace Consult reason: chest pain Chief complaint: chest pain History of present illness: This is a 67-year-old white female who presented to the emergency department complaints of chest pain. The patient states that she was having substernal pressure that was occurring with exertion and getting better with rest. She states that it been going on for few weeks prior to admission but increased in severity the morning of her admission. The patient states that it did not radiate. She took a nitroglycerin before coming to the emergency department with minimal relief. She had a negative troponin but was having persistent symptoms and was placed on a heparin drip and nitroglycerin drip. The patient underwent left cardiac catheterization and had stenting to the right coronary artery for in-stent restenosis. This morning she denies any chest pain or pressure. She denies any shortness of breath or edema. She denies any fever, chills, nausea, vomiting, diarrhea, PND or orthopnea. [facility] Disclaimer: The information contained in this section may have been updated after the patient was seen, as this information can be updated by other users. 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 (Updated 09/22/22 @ 09:30 by Tala Pena APRN) Arthritis CAD (coronary artery disease) Carpal tunnel syndrome Cataracts, bilateral Cholecystectomy planned COPD (chronic obstructive pulmonary disease) History of gastroesophageal reflux (GERD) Hyperlipidemia Hyperlipidemia Hyperlipidemia Hypertension Hypertension Hypothyroid Kidney stone Mesenteric artery stenosis PAD (peripheral artery disease) Pre-op evaluation Sleep apnea Tobacco abuse Urinary tract infection 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 H/O right heart catheterization H/O thyroidectomy History of appendectomy History of esophagogastroduodenoscopy (EGD) History of hysterectomy Family History Family history of acute congestive heart failure Family history of cancer Family history of hypertension Family history of myocardial infarction Social History Smoking Status: Current every day smoker tobacco type: cigarettes packs per day: 1 second hand exposure: Yes alcohol intake: never substance use type: denies use current occupational status: retired Travel in the last 8 weeks: None household members: spouse and children housing: house current occupational exposures/hazards: No caffeine: Yes Review of Systems Review of Systems Review of systems:: pertinent systems reviewed and negative unless documented below Constitutional Constitutional: Reports system reviewed and no additional complaints, except as documented Eyes Eyes: Reports system reviewed and no additional complaints, except as documented ENT Ears, Nose, Mouth, and Throat: Reports system reviewed and no additional complaints, except as documented *Cardiovascular Cardiovascular: Reports system reviewed and no additional complaints, except as documented, Reports as per HPI, Reports chest pain, Reports chest pain at rest, Reports chest pain with activity, Reports dyspnea and Reports dyspnea on exertion *Respiratory Respiratory: Reports system reviewed and no additional complaints, except as documented, Reports dyspnea and Reports dyspnea on exertion *Gastrointestinal Gastrointestinal: Reports system reviewed and no additional complaints, except as documented *Musculoskeletal Musculoskeletal: Reports system reviewed and no additional complaints, except as documented Integumentary/Breasts Skin/Breast: Reports system reviewed and no additional complaints, except as documented *Neurologic Neurologic: Reports system reviewed and no additional complaints, except as documented Psychiatric Psychiatric: Reports system re
--- NOTE | 2022-09-22 10:36 | P.CONPHA_ITS ---
[facility] [employer] Discharge Med Machine Stoppage Frequency Checker: Yolanda Lockett has received discharge medication counseling on the following medications: ASPIRIN BRILINTA (NEW) LISINOPRIL ATORVASTATIN METOPROLOL Patient verbalized understanding and had no questions at this time. -Jerry Orozco, FabricioD
--- NOTE | 2022-09-24 13:56 | CARE MANAGER ---
Contacted patient related to hospital discharge. She states she feels better, but she has been vomiting since discharge. She states it has improved today and will go to PCP sooner than scheduled. Patient verbalized understanding. She picked up her new medications and is aware of cardiology appointment as well. DASHA Grimm
== END 2022-09-22 11:15 | disposition home or self-care (01) ==
LOC: ER 11:46 → 2ND 13:56
PROVIDERS: Internal Medicine Interventional Cardiology; Admitting Provider Internal Medicine Adolescent Medicine; Emergency Provider Emergency Medicine; PCP Nurse Practitioner Family; Visit Provider Internal Medicine Adolescent Medicine
DX: R07.9 Chest pain, unspecified (principal); F17.210 Nicotine dependence, cigarettes, uncomplicated; E03.9 Hypothyroidism, unspecified; Z79.899 Other long term (current) drug therapy; I25.110 Atherosclerotic heart disease of native coronary artery with unstable angina pectoris; T82.855A Stenosis of coronary artery stent, initial encounter; Z95.5 Presence of coronary angioplasty implant and graft; I10 Essential (primary) hypertension; E78.5 Hyperlipidemia, unspecified; Z82.49 Family history of ischemic heart disease and other diseases of the circulatory system; J44.9 Chronic obstructive pulmonary disease, unspecified; Z20.822 Contact with and (suspected) exposure to COVID-19
CPT/HCPCS: G0378; 36415; 71045; 80048; 80053; 80061; 83036; 83735; 84443; 84484; 85025; 85347; 85610; 85730; 92928; 93005; 93458; 99152; 99153; 99291; C1725; C1769; C1874; C9600; C9803; J1644; Q9967; U0003; U0005

== ENCOUNTER → 2022-12-18 11:14 | Outpatient (CLI) | payer MEDICARE, MEDICAID, SELFPAY ==
[2022-12-18 11:47] LABS: Chloride 98 mmol/L (98-107); Sodium 139 mmol/L (136-145)
[2022-12-18 11:49] LABS: Alanine Aminotransferase 27 U/L (12-78); Alkaline Phosphatase 141 U/L (38-126); Aspartate Amino Transferase 30 U/L (14-36); Bilirubin,Total 0.9 mg/dl (0.2-1.3); Blood Urea Nitrogen 18 mg/dl (7-17); Estimated Glomerular Filt Rate 32 ml/min (>60); GFR (African American) 39 ML/MIN (>60)
[2022-12-18 11:50] LABS: Albumin Level 4.4 g/dl (3.5-5.0); Albumin/Globulin Ratio 1.5 (1.1-1.8); Calcium 9.9 mg/dl (8.4-10.2); Carbon Dioxide 33 mmol/L (22.0-30.0); Glucose 99 mg/dl (74-100); Total Protein,Serum 7.4 g/dl (6.3-8.2)
== END ==
PROVIDERS: PCP Nurse Practitioner Family; Visit Provider Nurse Practitioner Family
DX: M54.50 Low back pain, unspecified (principal); K76.9 Liver disease, unspecified
CPT/HCPCS: 36415; 80053

== ENCOUNTER → 2023-01-05 08:43 | Outpatient (CLI) | payer MEDICARE, MEDICAID, SELFPAY ==
--- NOTE | 2023-01-05 08:54 | MR_ITS ---
FINAL REPORT CLINICAL HISTORY: LIVER LESION. ABNORMAL CT SCAN. VOMITING AND DIARRHEA COMPARISON: Prior CT with contrast dated 06/20/2022 FINDINGS: Multiplanar MR imaging of the abdomen was performed without and with contrast. The small abnormal density seen in the anterior liver dome on the prior CT of May 2022 is not visualized on this exam. This may represent a MICHAEL, or transient hepatic attenuation difference. No focal liver abnormality is identified. A small hiatal hernia is present. There is no evidence of biliary ductal dilatation. The gallbladder has been surgically resected. No other mass or adenopathy is identified. No abnormal fluid collection is seen. No abnormal contrast enhancement is seen on the postcontrast images. IMPRESSION: The contrast-enhancing mass in the anterior dome of the liver seen on the prior CT of May 2022 is not visualized to this exam. This may represent a MICHAEL, or transient hepatic attenuation difference. A small hiatal hernia is present. Reviewed, Interpreted and Dictated by Cesar Dorsey III, MD Transcribed by Ericka Cooper Authenticated and [facility]
== END ==
PROVIDERS: PCP Nurse Practitioner Family; Visit Provider Nurse Practitioner Family
DX: K76.9 Liver disease, unspecified (principal)
CPT/HCPCS: 74183; A9576

== ENCOUNTER → 2023-01-06 15:10 | Outpatient (CLI) | payer MEDICARE, MEDICAID, SELFPAY ==
--- NOTE | 2023-01-06 15:16 | US_ITS ---
PROCEDURE INFORMATION: Exam: US Right Breast, Complete Exam date and time: 01/06/2023 3:27 PM Age: 67 years old Clinical indication: PT hit breast. bruising over the palp area; upper outer quad of RT breast TECHNIQUE: Imaging protocol: Complete ultrasound of all four quadrants of the right breast and the retroareolar regions, including ultrasound of the axilla when performed. COMPARISON: MG MM DIG SCREENING MAMM BI W/CAD 05/12/2022 9:05 AM FINDINGS: Breast: Sonographic images of the right 12 o'clock axis 2 cm from the nipple where the patient reports a palpable area and subtending visible bruising on the skin (as per the technologist) demonstrates increased echogenicity of the subcutaneous fat measuring 2.4 x 1.4 cm. A more hypoechoic central region within the area of increased echogenicity measures 0.3 cm in greatest dimension. The findings are most compatible with a post traumatic hematoma/benign fat necrosis. Incidental 0.6 cm lipoma in the 5 o'clock periareolar region. No other solid or cystic masses are noted in the right breast. No axillary adenopathy. IMPRESSION: Palpable abnormality subtending visible bruising on the skin corresponds to an underlying posttraumatic hematoma /benign fat necrosis. A six-month follow-up targeted right breast ultrasound may be obtained to ensure resolution of the findings ASSESSMENT: BI-RADS Category 3: Probably benign
== END ==
LOC: RAD 15:11
PROVIDERS: PCP Nurse Practitioner Family; Visit Provider Nurse Practitioner Family
DX: N63.11 Unspecified lump in the right breast, upper outer quadrant (principal)
CPT/HCPCS: 76641

== ENCOUNTER 2023-01-31 16:38 | Emergency (ER) | payer MEDICARE, MEDICAID, SELFPAY ==
[2023-01-31] VITALS (11 sets, daily range): BP systolic 108–153; BP diastolic 45–87; PULSE 61–83; RESP 14–20; TEMP 36.6–36.8; O2SAT 95–99; BMI 29.0
--- NOTE | 2023-01-31 17:09 | ECG_ITS ---
APPROVED REPORT Exam: Resting ECG HR:82 bpm ECG Measurements Heart Rate 82 AXES NJ 161 P 68 QRSd 84 QRS 46 QT 358 T 31 QTc 396 Conclusion SINUS RHYTHM NONSPECIFIC ST & T-WAVE ABNORMALITY BORDERLINE ECG UNCONFIRMED REPORT Electronically signed by : Sylvester Newell MD 02/01/2023 20:25:09
--- NOTE | 2023-01-31 17:09 | XR_ITS ---
PROCEDURE INFORMATION: Exam: XR Chest Exam date and time: 01/31/2023 5:10 PM Age: 67 years old Clinical indication: Dyspnea TECHNIQUE: Imaging protocol: Radiologic exam of the chest. Views: 1 view. COMPARISON: CR XR CHEST PORTABLE 09/20/2022 12:18 PM FINDINGS: Lungs: Unremarkable. No consolidation. Pleural spaces: Unremarkable. No pleural effusion. No pneumothorax. Heart/Mediastinum: Unremarkable. No cardiomegaly. Bones/joints: Unremarkable. IMPRESSION: No acute findings.
--- NOTE | 2023-01-31 17:11 | HMH.EDGENADL ---
Discharge Plan Disposition Patient Disposition: Home, Self-Care Prescriptions Prescriptions: No Action cyclobenzaprine 10 mg tablet 10 mg PO HSP PRN (Reason: Muscle Spasm) fluoxetine 40 mg capsule 40 mg PO DAILY duloxetine 30 mg capsule,delayed release(DR/EC) 30 mg PO DAILY Brilinta 90 mg tablet 90 mg PO BID Qty: 60 11RF spironolactone 25 mg tablet 25 mg PO DAILY Qty: 90 3RF furosemide 40 mg tablet 40 mg PO DAILY Qty: 90 3RF Jardiance 10 mg tablet 10 mg PO DAILY Qty: 90 3RF atorvastatin 40 mg tablet 40 mg PO HS Qty: 90 3RF aspirin [Jordin Chewable Aspirin] 81 mg tablet,chewable 81 mg PO DAILY Qty: 90 3RF lisinopril 20 mg tablet 20 mg PO DAILY Qty: 90 3RF metoprolol tartrate 25 mg tablet 12.5 mg PO BID Qty: 90 3RF nitroglycerin 0.4 mg tablet, sublingual 0.4 mg SL Q5MINP PRN (Reason: Chest Pain) Rx Instructions: do not exceed 3 doses per episode potassium chloride 10 mEq tablet,ER particles/crystals 10 meq PO DAILY levothyroxine 100 MCG tablet 100 mcg PO DAILYDM calcium carbonate-vitamin D3 500 MG tablet 500 mg PO BID oxybutynin chloride 10 MG tablet extended release 24 hr 10 mg PO DAILY omeprazole 40 MG capsule,delayed release(DR/EC) 40 mg PO DAILY ropinirole 0.25 MG tablet 0.25 mg PO HS gabapentin 300 MG capsule 300 mg PO BIDP PRN (Reason: NERVE PAIN) Spiriva Respimat 2.5 mcg/actuation mist 2 puff INHALATION DAILY Referrals Follow up/Referrals: Sol Peralta APRN [Primary Care Provider] - See instructions Activity Restrictions/Add. Instructions Additional Instructions/Restrictions: Keep your appoint with Dr. Mccord in 2 days and return with any worsening symptoms. Clinical Impressions Clinical Impression: Atypical chest pain Discharge ED Provider: Linnea Carey General Adult HPI General Chief complaint: Chest Pain Stated complaint: chest pain Time Seen by Provider: 01/31/23 17:02 Mode of Arrival: Ambulatory Source of Information: Patient Limitations: No Limitations Description of Symptoms (Recalled from ER Triage Doc. by RN): Patient reports chest pain that started approx 30 minutes ago. Denies any radiation or nausea. States she did take one nitro before arrival and it eased the pain. History of Present Illness HPI narrative: Patient is a 67-year-old female with a history of coronary disease and COPD presents today with chest pain that is since resolved. States this started about 1 hour prior to arrival lasted for about 20 minutes she took a sublingual nitroglycerin did not immediately take away her pain and over the span of 20 minutes it began to slowly resolved. She is currently asymptomatic. There is no exertional component to this no diaphoresis no radiation no dyspnea. She has had a cough that is been going on for the last 3 months that she states is different than normal but no fevers or chills or increasing wheezing. She believes her last left heart cath was 6 months ago and she has not had a stress test since that time and she has a follow-up appoint with Dr. Mccord in 2 days. Related Data Home Medications Medication Instructions Recorded Confirmed cyclobenzaprine 10 mg tablet 10 mg PO HSP PRN Muscle Spasm 09/10/17 10/30/22 fluoxetine 40 mg capsule 40 mg PO DAILY MOOD 09/10/17 10/30/22 nitroglycerin 0.4 mg sublingual 0.4 mg sublingual Q5MINP PRN Chest 12/01/19 10/30/22 tablet Pain duloxetine 30 mg capsule,delayed 30 mg PO DAILY mood 01/17/20 10/30/22 release calcium carbonate 500 mg-vitamin 500 mg PO BID Supplement 04/10/20 10/30/22 D3 5 mcg (200 unit) tablet levothyroxine 100 mcg tablet 100 mcg PO DAILYDM HYPOTHYROIDISM 04/10/20 10/30/22 potassium chloride 10 mEq 10 meq PO DAILY Supplement 11/12/21 10/30/22 tablet,extended release(part/cryst) gabapentin 300 mg capsule 300 mg PO BIDP PRN NERVE PAIN 01/03/22 10/30/22 omeprazole 40 mg capsule,delay
[2023-01-31 17:17] LABS: Basophils # 0.1 K/mm3 (0-0.2); Basophils % 0.7 % (0.1-2.0); Eosinophils # 0.4 K/mm3 (0.0-0.4); Eosinophils % 3.7 % (0.1-12.0); Hematocrit 49.2 % (37.0-47.0); Hemoglobin 15.5 g/dL (12.2-16.2); Lymphocytes % 27.8 % (10-50); Mean Corpuscular HGB Conc 31.5 g/dL (31.8-35.4); Mean Corpuscular Hemoglobin 28.6 pg (27.0-31.2); Mean Corpuscular Volume 90.8 fl (81-99); Mean Platelet Volume 9.2 fl (7.4-10.4); Monocytes # 0.6 K/mm3 (0.1-1.0); Monocytes % 5.8 % (1.7-9.3); Neutrophils # 6.7 K/mm3 (1.8-7.8); Neutrophils % 61.9 % (37.0-80.0); Platelet Count 334 K/mm3 (142-424); Red Blood Count 5.42 M/mm3 (4.20-5.40); Red Cell Distribution Width 13.8 % (11.5-17.5); White Blood Count 10.8 K/mm3 (4.8-10.8)
[2023-01-31 17:23] LABS: Alanine Aminotransferase 28 U/L (12-78); Albumin Level 4.3 g/dl (3.5-5.0); Albumin/Globulin Ratio 1.3 (1.1-1.8); Alkaline Phosphatase 131 U/L (38-126); Anion Gap 14.8 mEq/L (5-15); Aspartate Amino Transferase 32 U/L (14-36); Bilirubin,Total 0.4 mg/dl (0.2-1.3); Blood Urea Nitrogen 22 mg/dl (7-17); Calcium 9.2 mg/dl (8.4-10.2); Carbon Dioxide 27 mmol/L (22.0-30.0); Chloride 102 mmol/L (98-107); Creatinine Clearance Estimated 36 mL/min (50-200); Estimated Glomerular Filt Rate 34 ml/min (>60); GFR (African American) 42 ML/MIN (>60); Globulin 3.3 g/dL (1.3-3.2); Glucose 99 mg/dl (74-100); Potassium 3.8 mmoL/L (3.5-5.1); Sodium 140 mmol/L (136-145); Total Protein,Serum 7.6 g/dl (6.3-8.2)
[2023-01-31 17:35] LABS: Troponin I < 0.01 ng/ml (0.00-0.034)
--- NOTE | 2023-01-31 18:13 | PC.NURSE ---
Rounded on pt. No needs voiced. Call light within reach.
[2023-01-31 20:22] LABS: Troponin I < 0.01 ng/ml (0.00-0.034)
== END 2023-01-31 21:09 | disposition home or self-care (01) ==
PROVIDERS: Emergency Provider Student in an Organized Health Care Education/Training Program; PCP Nurse Practitioner Family
DX: R07.89 Other chest pain (principal); I25.10 Atherosclerotic heart disease of native coronary artery without angina pectoris; J44.9 Chronic obstructive pulmonary disease, unspecified; E78.5 Hyperlipidemia, unspecified; I10 Essential (primary) hypertension; E03.9 Hypothyroidism, unspecified; I73.9 Peripheral vascular disease, unspecified; G47.30 Sleep apnea, unspecified; F17.210 Nicotine dependence, cigarettes, uncomplicated
CPT/HCPCS: 71045; 80053; 84484; 85025; 93005; 99285

== ENCOUNTER → 2023-02-02 10:23 | Outpatient (CLI) | payer MEDICARE, MEDICAID, SELFPAY | LOC: RT 10:25 | PROVIDERS: PCP Nurse Practitioner Family; Visit Provider Nurse Practitioner Family | DX: R42 Dizziness and giddiness (principal); I25.10 Atherosclerotic heart disease of native coronary artery without angina pectoris; I10 Essential (primary) hypertension | CPT/HCPCS: 93225 ==

== ENCOUNTER → 2023-02-11 13:31 | Outpatient (CLI) | payer MEDICARE, MEDICAID, SELFPAY ==
[2023-02-10 18:13] LABS: Basophils # 0.1 K/mm3 (0-0.2); Basophils % 0.6 % (0.1-2.0); Eosinophils # 0.3 K/mm3 (0.0-0.4); Hematocrit 52.4 % (37.0-47.0); Hemoglobin 16.1 g/dL (12.2-16.2); Lymphocytes # 2.3 K/mm3 (0.7-4.5); Mean Corpuscular HGB Conc 30.7 g/dL (31.8-35.4); Mean Corpuscular Volume 91.1 fl (81-99); Monocytes # 0.7 K/mm3 (0.1-1.0); Monocytes % 6.1 % (1.7-9.3); Neutrophils # 7.6 K/mm3 (1.8-7.8); Neutrophils % 69.3 % (37.0-80.0); Platelet Count 373 K/mm3 (142-424); Red Blood Count 5.75 M/mm3 (4.20-5.40); White Blood Count 10.9 K/mm3 (4.8-10.8)
[2023-02-10 19:05] LABS: Alanine Aminotransferase 30 U/L (12-78); Albumin Level 4.5 g/dl (3.5-5.0); Albumin/Globulin Ratio 1.6 (1.1-1.8); Alkaline Phosphatase 146 U/L (38-126); Anion Gap 18.2 mEq/L (5-15); Aspartate Amino Transferase 32 U/L (14-36); Bilirubin,Total 0.9 mg/dl (0.2-1.3); Blood Urea Nitrogen 19 mg/dl (7-17); Carbon Dioxide 31 mmol/L (22.0-30.0); Chloride 99 mmol/L (98-107); Estimated Glomerular Filt Rate 32 ml/min (>60); GFR (African American) 39 ML/MIN (>60); Globulin 2.9 g/dL (1.3-3.2); Glucose 88 mg/dl (74-100); Lipase 31 U/L (23-300); Potassium 5.2 mmoL/L (3.5-5.1); Sodium 143 mmol/L (136-145); Total Protein,Serum 7.4 g/dl (6.3-8.2)
[2023-02-10 19:23] LABS: Amylase < 30 U/L (30-110)
== END ==
PROVIDERS: PCP Nurse Practitioner Family; Visit Provider Nurse Practitioner Family
DX: R63.4 Abnormal weight loss (principal); R11.2 Nausea with vomiting, unspecified; R19.7 Diarrhea, unspecified
CPT/HCPCS: 80053; 82150; 83690; 85025

== ENCOUNTER → 2023-02-24 16:01 | Outpatient (CLI) | payer MEDICARE, MEDICAID, SELFPAY ==
[2023-02-24 18:00] LABS: Basophils # 0.1 K/mm3 (0-0.2); Basophils % 0.3 % (0.1-2.0); Eosinophils # 0.1 K/mm3 (0.0-0.4); Eosinophils % 0.5 % (0.1-12.0); Hemoglobin 17.1 g/dL (12.2-16.2); Lymphocytes # 1.6 K/mm3 (0.7-4.5); Lymphocytes % 9.6 % (10-50); Mean Corpuscular HGB Conc 31.1 g/dL (31.8-35.4); Mean Corpuscular Hemoglobin 28.7 pg (27.0-31.2); Mean Corpuscular Volume 92.3 fl (81-99); Mean Platelet Volume 9.6 fl (7.4-10.4); Monocytes # 0.9 K/mm3 (0.1-1.0); Monocytes % 5.2 % (1.7-9.3); Neutrophils # 14.3 K/mm3 (1.8-7.8); Neutrophils % 84.3 % (37.0-80.0); Platelet Count 367 K/mm3 (142-424); Red Blood Count 5.96 M/mm3 (4.20-5.40); Red Cell Distribution Width 14.1 % (11.5-17.5)
[2023-02-24 18:05] LABS: MANUAL DIFFERENTIAL MANUAL DIFFERENTIAL (MANUAL DIFF)
[2023-02-24 18:14] LABS: Alanine Aminotransferase 41 U/L (12-78); Albumin Level 4.8 g/dl (3.5-5.0); Albumin/Globulin Ratio 1.7 (1.1-1.8); Alkaline Phosphatase 125 U/L (38-126); Anion Gap 17.5 mEq/L (5-15); Aspartate Amino Transferase 42 U/L (14-36); Bilirubin,Total 1.1 mg/dl (0.2-1.3); Blood Urea Nitrogen 32 mg/dl (7-17); Carbon Dioxide 30 mmol/L (22.0-30.0); Chloride 94 mmol/L (98-107); Estimated Glomerular Filt Rate 23 ml/min (>60); GFR (African American) 28 ML/MIN (>60); Globulin 2.9 g/dL (1.3-3.2); Glucose 132 mg/dl (74-100); Potassium 5.5 mmoL/L (3.5-5.1); Sodium 136 mmol/L (136-145); Total Protein,Serum 7.7 g/dl (6.3-8.2)
[2023-02-24 18:44] LABS: Lymphocytes % 9 % (10-50); Monocytes % 4 % (2-9); Neutrophils % 87 % (42-76); Platelet Estimate Normal; RBC Morphology Normal; Total Cells Counted 100
[2023-02-24 18:47] LABS: Thyroid Stimulating Hormone 3.33 uIU/mL (0.465-4.68)
[2023-02-26 16:30] LABS: H. pylori Breath Test Negative (Negative)
== END ==
PROVIDERS: PCP Nurse Practitioner Family; Visit Provider Nurse Practitioner Family
DX: R11.2 Nausea with vomiting, unspecified (principal); R42 Dizziness and giddiness; R63.4 Abnormal weight loss; E78.5 Hyperlipidemia, unspecified; R81 Glycosuria; Z79.899 Other long term (current) drug therapy
CPT/HCPCS: 36415; 80053; 83013; 84443; 85007; 85025; 87086

== ENCOUNTER 2023-02-25 08:45 | Observation (INO) | payer MEDICARE, MEDICAID, SELFPAY ==
[2023-02-25] VITALS (8 sets, daily range): BP systolic 94–119; BP diastolic 58–81; PULSE 64–72; RESP 16–20; TEMP 36.5–36.9; O2SAT 64–99; BMI 27.8; BMI 28.5
--- NOTE | 2023-02-25 08:59 | XR_ITS ---
FINAL REPORT CLINICAL HISTORY: weakness, shortness of breath COMPARISON: 01/31/2023 FINDINGS: A single portable view of the chest was obtained. The heart size and pulmonary vascularity are within normal limits. The mediastinum is within normal limits. No acute pulmonary abnormality is identified. The bony thorax is intact. IMPRESSION: No active cardiopulmonary disease. Reviewed, Interpreted and Dictated by Cesar Dorsey III, MD Transcribed by Leti Smith Authenticated and [facility]
--- NOTE | 2023-02-25 09:02 | HMH.EDGENADL ---
Discharge Plan Disposition Patient Disposition: Admitted Condition: Good Clinical Impressions Clinical Impression: ALEXA (acute kidney injury), Chronic vomiting, Dehydration Discharge ED Provider: Kerry Molina General Adult HPI General Chief complaint: Shortness of Breath/Dyspnea Stated complaint: vomiting,dizzy,wants to sleep all the time Time Seen by Provider: 02/25/23 08:59 History of Present Illness HPI narrative: This patient is a 67-year-old female with a history of hypertension, hyperlipidemia, CAD, PAD, mesenteric artery stenosis, CKD 3, hypothyroidism, and osteoporosis presenting to the emergency department for evaluation with concern for several months of nausea, vomiting, poor appetite, lightheadedness, and fatigue. She states that this has been progressively worsening over this time. She states that she had labs drawn by her primary care provider yesterday for assessment, and they told her to come in today because her labs were abnormal. On medical record review, she was evaluated yesterday for the symptoms. She had previously been evaluated in January and was given Flagyl to treat diarrhea. Yesterday, labs were drawn that demonstrated leukocytosis, ALEXA with a creatinine of 2.1, and mild hyperkalemia. Patient also had a mildly elevated anion gap. She denies any chest pain, abdominal pain, back pain, or other concerns. She denies any changes in bowel movements or urine output. She denies any fevers, chills, cough, congestion, rashes, or swelling. She states that she feels very lightheaded and has near syncope almost daily. No headaches, vision changes, true dizziness/vertigo, numbness, tingling, or unilateral weakness. Related Data Home Medications Medication Instructions Recorded Confirmed cyclobenzaprine 10 mg tablet 10 mg PO HSP PRN Muscle Spasm 09/10/17 02/25/23 fluoxetine 40 mg capsule 40 mg PO DAILY Mood 09/10/17 02/25/23 nitroglycerin 0.4 mg sublingual 0.4 mg sublingual Q5MINP PRN Chest 12/01/19 02/25/23 tablet Pain duloxetine 30 mg capsule,delayed 30 mg PO DAILY mood 01/17/20 02/25/23 release calcium carbonate 500 mg-vitamin 500 mg PO BID Supplement 04/10/20 02/25/23 D3 5 mcg (200 unit) tablet levothyroxine 100 mcg tablet 100 mcg PO DAILYDM HYPOTHYROIDISM 04/10/20 02/25/23 potassium chloride 10 mEq 10 meq PO DAILY Supplement 11/12/21 02/25/23 tablet,extended release(part/cryst) omeprazole 40 mg capsule,delayed 40 mg PO DAILY Acid Reflux 01/03/22 02/25/23 release oxybutynin chloride 10 mg 10 mg PO DAILY Overactive Bladder 01/03/22 02/25/23 tablet,extended release 24 hr tiotropium bromide 2.5 2 puff inhalation DAILY COPD 09/21/22 02/25/23 mcg/actuation mist for inhalation (Spiriva Respimat) amlodipine 5 mg tablet 5 mg PO DAILY High Blood Pressure 02/10/23 02/25/23 empagliflozin 10 mg tablet 10 mg PO DAILY Heart Failure 02/25/23 02/25/23 (Jardiance) metoprolol tartrate 25 mg tablet 25 mg PO BID High blood pressure 02/25/23 02/25/23 ondansetron 4 mg disintegrating 4 mg PO Q8HP PRN nausea and 02/25/23 02/25/23 tablet vomiting promethazine 25 mg tablet 25 mg PO Q6HP PRN nausea and 02/25/23 02/25/23 vomiting ranolazine 500 mg tablet,extended 500 mg PO BID Angina 02/25/23 02/25/23 release,12 hr ropinirole 0.25 mg tablet 0.25 mg PO HS Restless Leg(S) 02/25/23 02/25/23 ticagrelor 90 mg tablet (Brilinta) 90 mg PO BID Platelet Inhibitor 02/25/23 02/25/23 Previous Rx's Medication Instructions Recorded aspirin 81 mg chewable tablet 81 mg PO DAILY Heart disease #90 09/29/22 (Jordin Chewable Low Dose Aspirin) tabs atorvastatin 40 mg tablet 40 mg PO HS Cholesterol #90 tabs 09/29/22 furosemide 40 mg tablet 40 mg PO DAILY Fluid #90 tabs 09/29/22 lisinopril 20 mg tablet 20 mg PO DAILY High blood pressure 09/29/22 #90 tabs spironolactone 25 mg tablet 25 mg PO DAILY Fluid #90 tabs 09/29/22 Allergies Allergy/AdvReac Type Severity Reaction Status Date / Time Penicillins [PENICILLI
--- NOTE | 2023-02-25 09:10 | ECG_ITS ---
APPROVED REPORT Exam: Resting ECG HR:67 bpm ECG Measurements Heart Rate 67 AXES DE 174 P 64 QRSd 80 QRS 30 QT 393 T 52 QTc 408 Conclusion SINUS RHYTHM LOW QRS VOLTAGE IN PRECORDIAL LEADS [QRS DEFLECTION < 1.0 mV IN CHEST LEADS] BORDERLINE ECG UNCONFIRMED REPORT Electronically signed by : Sylvester Newell MD 02/26/2023 07:32:12
[2023-02-25 09:13] LABS: Basophils # 0.1 K/mm3 (0-0.2); Basophils % 0.7 % (0.1-2.0); Eosinophils # 0.2 K/mm3 (0.0-0.4); Eosinophils % 1.5 % (0.1-12.0); Hematocrit 53.1 % (37.0-47.0); Hemoglobin 17.1 g/dL (12.2-16.2); Lymphocytes # 2.8 K/mm3 (0.7-4.5); Lymphocytes % 17.8 % (10-50); Mean Corpuscular HGB Conc 32.1 g/dL (31.8-35.4); Mean Corpuscular Hemoglobin 28.9 pg (27.0-31.2); Mean Corpuscular Volume 90.1 fl (81-99); Mean Platelet Volume 9.7 fl (7.4-10.4); Monocytes % 6.4 % (1.7-9.3); Neutrophils # 11.7 K/mm3 (1.8-7.8); Neutrophils % 73.7 % (37.0-80.0); Platelet Count 401 K/mm3 (142-424); Red Cell Distribution Width 14.1 % (11.5-17.5); White Blood Count 15.8 K/mm3 (4.8-10.8)
[2023-02-25 09:20] LABS: MANUAL DIFFERENTIAL MANUAL DIFFERENTIAL (MANUAL DIFF); Magnesium 2.2 mg/dl (1.6-2.3)
[2023-02-25 09:21] LABS: Alanine Aminotransferase 42 U/L (12-78); Albumin Level 4.5 g/dl (3.5-5.0); Albumin/Globulin Ratio 1.4 (1.1-1.8); Alkaline Phosphatase 119 U/L (38-126); Anion Gap 15.5 mEq/L (5-15); Aspartate Amino Transferase 44 U/L (14-36); Bilirubin,Total 1.3 mg/dl (0.2-1.3); Blood Urea Nitrogen 36 mg/dl (7-17); Calcium 9.4 mg/dl (8.4-10.2); Carbon Dioxide 31 mmol/L (22.0-30.0); Chloride 94 mmol/L (98-107); Creatinine Clearance Estimated 24 mL/min (50-200); Estimated Glomerular Filt Rate 22 ml/min (>60); GFR (African American) 27 ML/MIN (>60); Globulin 3.2 g/dL (1.3-3.2); Glucose 173 mg/dl (74-100); Lipase 38 U/L (23-300); Potassium 4.5 mmoL/L (3.5-5.1); Sodium 136 mmol/L (136-145); Total Protein,Serum 7.7 g/dl (6.3-8.2)
[2023-02-25 09:34] LABS: Eosinophils % 2 % (0-3); Lymphocytes % 17 % (10-50); Monocytes % 3 % (2-9); Neutrophils % 78 % (42-76); Platelet Estimate Normal; RBC Morphology Normal; Total Cells Counted 100
[2023-02-25 09:39] LABS: T4 (Thyroxine) 9.7 ug/dl (5.53-11.0)
[2023-02-25 09:40] LABS: NT Pro Brain Natriuretic Pep. 358 pg/mL (0-125)
--- NOTE | 2023-02-25 09:50 | PC.NURSE ---
pt ambulated to restroom and back to room with standby assist no other needs at this time,call light at bs
[2023-02-25 09:52] LABS: Thyroid Stimulating Hormone 2.67 uIU/mL (0.465-4.68)
[2023-02-25 09:59] LABS: Lactic Acid 2.3 mmol/L (0.7-2.1)
[2023-02-25 10:02] LABS: Microscopic, Urine URINE MICROSCOPIC (MICROSCOPIC)
[2023-02-25 10:06] LABS: Appearance,Urine CLEAR (Clear); Bilirubin,Urine Negative (Negative); Blood, Urine Negative (Negative); Color,Urine YELLOW (Yellow); Glucose,Urine (UA) 3+ (Negative); Ketones,Urine Negative (Negative); Leukocyte Esterase,Urine Negative (Negative); Nitrate,Urine Negative (Negative); PH,Urine 5.5 (5.0-8.5); Protein,Urine Negative (Negative); Urobilinogen,Urine 0.2 EU/dl (0.2)
--- NOTE | 2023-02-25 10:22 | PC.NURSE ---
notified care management of admission
--- NOTE | 2023-02-25 10:35 | HMH.PHAINT1 ---
Pharmacy Intervention Comments: MEDICATION RECONCILIATION COMPLETED ON PATIENT USING EXTERNAL FILL HISTORY FROM PHARMACY AND LIST FROM CARDIOLOGY OFFICE. -NATALIE HAYWOOD, ANNID
--- NOTE | 2023-02-25 10:53 | EXP.HP ---
History of Present Illness *Admission Date: 02/25/23 *Reason for visit:: abnormal labs, Nausea and vomiting *History of present illness: Ms. Lockett is a 67-year-old female with history of hypertension, hyperlipidemia, CAD, PAD, CKD 3, tobacco use disorder. She presents with persistent nausea and vomiting over the past several weeks to months and development of ALEXA. Was found to have abnormal labs at her PCPs office yesterday, sent to the ER for further evaluation today due to worsening kidney function. Reports having progressive worsening of fatigue and poor appetite over the past several weeks to month. Denies any fever, chest pain, diarrhea. Shortness of breath is at baseline with her COPD. Was previously seen by her PCP in January and given Flagyl for diarrhea with improvement. On interview today states that she has a bowel movement every 2 to 3 days. Labs were obtained yesterday showing leukocytosis, ALEXA, and mild hyperkalemia. On evaluation in the ER today, creatinine worse with stable leukocytosis. ER consulted medicine for admission and further management of ALEXA and nausea and vomiting. On arrival to the floor, patient denies headaches, vision changes, dizziness, unilateral neurologic symptoms. Denies any blood in her vomit or stool. Complains of hard bowel movements. Stomach feels somewhat better when she has a bowel movement. Pain occurs after eating and improves after vomiting. Vomits after most meals. Review of chart shows weight loss of atleast 5kg in 5 months [facility] Disclaimer: The information contained in this section may have been updated after the patient was seen, as this information can be updated by other users. 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 Arthritis CAD (coronary artery disease) Carpal tunnel syndrome Cataracts, bilateral Cholecystectomy planned COPD (chronic obstructive pulmonary disease) Dizziness Goiter History of gastroesophageal reflux (GERD) Hyperlipidemia Hypertension Hypokalemia Hypothyroid Kidney stone Mesenteric artery stenosis Mesenteric artery stenosis Muscle spasm Nodule of left lobe of thyroid gland Osteopenia PAD (peripheral artery disease) Pre-op evaluation Sleep apnea Tobacco abuse Urinary tract infection 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 H/O right heart catheterization H/O thyroidectomy History of appendectomy History of esophagogastroduodenoscopy (EGD) History of hysterectomy Family History Family history of acute congestive heart failure Family history of cancer Family history of hypertension Family history of myocardial infarction Social History Smoking Status: Current every day smoker tobacco type: cigarettes packs per day: 1 second hand exposure: Yes alcohol intake: never substance use type: denies use current occupational status: retired Travel in the last 8 weeks: None household members: spouse and children housing: house current occupational exposures/hazards: No caffeine: Yes Review of Systems Review of Systems Review of systems (narrative): 14 point review of systems performed, pertinent positives and negatives as per [facility] Meds Home Medications and Allergies Home Medications Medication Instructions Recorded Confirmed Type cyclobenzaprine 10 mg tablet 10 mg PO HSP PRN Muscle Spasm 09/10/17 02/25/23 History fluoxetine 40 mg capsule 40 mg PO DAILY Mood 09/10/17 02/25/23 History nitroglycerin 0.4 mg sublingual 0.4 mg sublingual Q5MINP PRN Chest 12/01/19 02/25/23 History tablet Pain duloxetine 30 mg capsule,delayed 30 mg PO DAILY mood 01/17/20 02/25/23 History release calcium carbonate 500 mg-vitamin 500 mg PO BID Supplement 04/10/20 02/25/23 History D3 5 mcg (200 unit) tablet levothyroxine 100 mcg tablet 100 mcg PO DAILYDM HYPOTHYROIDISM 04/10/20 02/25/23
--- NOTE | 2023-02-25 11:15 | PC.NURSE ---
Checked on pt sleeping in bed,call light at bs
--- NOTE | 2023-02-25 11:17 | PC.NURSE ---
report called to jamie on second floor
--- NOTE | 2023-02-25 11:32 | PC.NURSE ---
arrived by w/c from ED
[2023-02-25 12:39] LABS: Hemoglobin A1C 6.2 % (4.0-6.0)
[2023-02-25 13:47] LABS: Reflex Lactic Add Lactic Reflex
[2023-02-25 14:27] LABS: Lactic Acid Follow Up (RFLX 1) 1.6 mmol/L (0.7-2.1)
[2023-02-25 17:27] LABS: Chloride 98 mmol/L (98-107); Potassium 4.1 mmoL/L (3.5-5.1); Sodium 135 mmol/L (136-145)
[2023-02-25 17:30] LABS: Anion Gap 9.1 mEq/L (5-15); Blood Urea Nitrogen 35 mg/dl (7-17); Calcium 8.5 mg/dl (8.4-10.2); Carbon Dioxide 32 mmol/L (22.0-30.0); Creatinine Clearance Estimated 28 mL/min (50-200); Estimated Glomerular Filt Rate 26 ml/min (>60); GFR (African American) 32 ML/MIN (>60); Glucose 80 mg/dl (74-100)
[2023-02-25 17:45] LABS: Basophils # 0.1 K/mm3 (0-0.2); Basophils % 0.6 % (0.1-2.0); Eosinophils # 0.3 K/mm3 (0.0-0.4); Eosinophils % 2.6 % (0.1-12.0); Hematocrit 45.7 % (37.0-47.0); Lymphocytes % 26.6 % (10-50); Mean Corpuscular HGB Conc 31.5 g/dL (31.8-35.4); Mean Corpuscular Hemoglobin 28.5 pg (27.0-31.2); Mean Corpuscular Volume 90.4 fl (81-99); Mean Platelet Volume 9.6 fl (7.4-10.4); Monocytes % 8.8 % (1.7-9.3); Neutrophils % 61.5 % (37.0-80.0); Platelet Count 313 K/mm3 (142-424); Red Blood Count 5.06 M/mm3 (4.20-5.40); Red Cell Distribution Width 14.2 % (11.5-17.5); White Blood Count 11.3 K/mm3 (4.8-10.8)
[2023-02-25 17:54] LABS: Hemoglobin 14.4 g/dL (12.2-16.2)
--- NOTE | 2023-02-25 18:40 | PC.NURSE ---
pt a&o x4, lungs cta, no skin issues noted. pt has had no c/o n/v since arriving to floor. pt ref miralax. advised pt to take esther and wants pt to have bm prior to dc. pts at bs, no needs or concerns at this time
[2023-02-26 04:00] VITALS: BP 104/53; PULSE 59; RESP 16; TEMP 36.6; O2SAT 98; BMI 28.7
--- NOTE | 2023-02-26 05:11 | PC.NURSE ---
Patient has rested through the night. Did get up and have a BM last night. Has not complained of N/V though the night. No issues noted by patient
[2023-02-26 06:07] LABS: Basophils # 0.1 K/mm3 (0-0.2); Basophils % 0.7 % (0.1-2.0); Eosinophils # 0.3 K/mm3 (0.0-0.4); Eosinophils % 3.4 % (0.1-12.0); Hematocrit 47.5 % (37.0-47.0); Lymphocytes % 20.5 % (10-50); Mean Corpuscular HGB Conc 31.5 g/dL (31.8-35.4); Mean Corpuscular Hemoglobin 28.6 pg (27.0-31.2); Mean Corpuscular Volume 90.9 fl (81-99); Mean Platelet Volume 9.5 fl (7.4-10.4); Monocytes # 0.8 K/mm3 (0.1-1.0); Monocytes % 7.8 % (1.7-9.3); Neutrophils # 6.6 K/mm3 (1.8-7.8); Neutrophils % 67.7 % (37.0-80.0); Platelet Count 301 K/mm3 (142-424); Red Blood Count 5.23 M/mm3 (4.20-5.40); Red Cell Distribution Width 14.2 % (11.5-17.5); White Blood Count 9.8 K/mm3 (4.8-10.8)
[2023-02-26 06:13] VITALS: O2SAT 98
[2023-02-26 06:29] LABS: Chloride 99 mmol/L (98-107)
[2023-02-26 06:30] LABS: Potassium 4.8 mmoL/L (3.5-5.1); Sodium 134 mmol/L (136-145)
[2023-02-26 06:32] LABS: Alanine Aminotransferase 28 U/L (12-78); Aspartate Amino Transferase 29 U/L (14-36); Blood Urea Nitrogen 26 mg/dl (7-17); Creatinine Clearance Estimated 32 mL/min (50-200); Estimated Glomerular Filt Rate 30 ml/min (>60); GFR (African American) 36 ML/MIN (>60)
[2023-02-26 06:33] LABS: Albumin Level 3.4 g/dl (3.5-5.0); Albumin/Globulin Ratio 1.4 (1.1-1.8); Alkaline Phosphatase 97 U/L (38-126); Anion Gap 9.8 mEq/L (5-15); Bilirubin,Total 1.2 mg/dl (0.2-1.3); Calcium 8.6 mg/dl (8.4-10.2); Carbon Dioxide 30 mmol/L (22.0-30.0); Globulin 2.5 g/dL (1.3-3.2); Glucose 105 mg/dl (74-100); Magnesium 2.1 mg/dl (1.6-2.3); Total Protein,Serum 5.9 g/dl (6.3-8.2)
--- NOTE | 2023-02-26 07:12 | EXP.DC.SUM ---
General Admission date:: 02/25/23 Discharge date: 02/26/23 HPI HPI HPI: Ms. Lockett is a 67-year-old female with history of hypertension, hyperlipidemia, CAD, PAD, CKD 3, tobacco use disorder. She presents with persistent nausea and vomiting over the past several weeks to months and development of ALEXA. Was found to have abnormal labs at her PCPs office yesterday, sent to the ER for further evaluation today due to worsening kidney function. Reports having progressive worsening of fatigue and poor appetite over the past several weeks to month. Denies any fever, chest pain, diarrhea. Shortness of breath is at baseline with her COPD. Was previously seen by her PCP in January and given Flagyl for diarrhea with improvement. On interview today states that she has a bowel movement every 2 to 3 days. Labs were obtained yesterday showing leukocytosis, ALEXA, and mild hyperkalemia. On evaluation in the ER today, creatinine worse with stable leukocytosis. ER consulted medicine for admission and further management of ALEXA and nausea and vomiting. On arrival to the floor, patient denies headaches, vision changes, dizziness, unilateral neurologic symptoms. Denies any blood in her vomit or stool. Complains of hard bowel movements. Stomach feels somewhat better when she has a bowel movement. Pain occurs after eating and improves after vomiting. Vomits after most meals. Review of chart shows weight loss of atleast 5kg in 5 months Hospital Course Hospital Course Hospital Course: 67-year-old female who presented with persistent nausea and vomiting to the ER. Concern for abnormal labs at her PCPs yesterday. On arrival, noted to have worsening ALEXA. ER consulted medicine for admission for serial labs, further eval of nausea and vomiting, and treatment of ALEXA. Medicine agreed to admit for further management. Reviewed patient's previous imaging of her abdomen including MRI and CT over the past 10 months that show previously stented mesenteric artery. Appears to have appropriate blood flow on CTA of the abdomen from May. MRI showing hiatal hernia. No overt abnormality in the abdomen. Patient is afebrile and hemodynamically stable. Improvement in kidney function over duration of admission. Tolerating p.o. intake. Stable to discharge home. Problems addressed as follows: ALEXA -Creatinine noted to be 2.2 with BUN of 36 on admission. Improved by following morning. Creatinine 1.7 and BUN 26. Baseline 1.5. Continue oral hydration. Patient has been tolerating good p.o. intake. Resume diuretics tomorrow, decrease lisinopril by half and stop amlodipine given soft blood pressure. Follow-up with PCP within a week for repeat labs. Chronic nausea and vomiting Constipation -Patient has bowel movements every 2 to 3 days. Significant stool burden on previous abdominal imaging. Started on bowel regimen, had 2 bowel movements during admission. Patient has done well eating with tolerating 75% of her trays with no nausea or vomiting. Initiated on pantoprazole 40 mg twice daily. We will continue pantoprazole 40 mg daily at discharge. Given concern for hiatal hernia and recurrent nausea and vomiting, will refer to GI as an outpatient for further evaluation including consideration for EGD. Recommend continuing bowel regimen for goal 1-2 soft stools daily. Hypertension CAD -Currently hypotensive during admission. Given ALEXA, and decreasing lisinopril to 10 mg daily. Continue metoprolol 25 mg twice daily. Will hold amlodipine at this time. Resume diuretics tomorrow. Continue aspirin and Brilinta per home regimen. Tobacco use disorder: Nicotine patch as needed COPD: Continue home med with Spiriva Continue home levothyroxine 100 mcg daily for hypothyroid Stable for discharge home. Follow-up with GI as an outpatient for further evaluation of hiatal hernia and persistent nausea and vomiting. Exam Data for Last 24 hours Vital signs and Labs for Last 24 Hours:
[2023-02-26 07:20] VITALS: BP 122/67; PULSE 74; RESP 16; TEMP 36.5; O2SAT 99
--- NOTE | 2023-02-27 13:19 | SW/DCPLANNER ---
I spoke w/ this patient today regarding hospital discharge. Patient stated that she is feeling much better and was able to brain picker all discharge medications. Patient did not have any further needs/questions at this time.
== END 2023-02-26 10:01 | disposition home or self-care (01) ==
LOC: ER 10:21 → 2ND 10:35
PROVIDERS: Admitting Provider Internal Medicine Adolescent Medicine; Emergency Provider Emergency Medicine; PCP Nurse Practitioner Family; Visit Provider Internal Medicine Adolescent Medicine
DX: N17.9 Acute kidney failure, unspecified (principal); R11.10 Vomiting, unspecified; N18.30 Chronic kidney disease, stage 3 unspecified; R63.4 Abnormal weight loss; E78.2 Mixed hyperlipidemia; E03.9 Hypothyroidism, unspecified; F17.210 Nicotine dependence, cigarettes, uncomplicated; I25.10 Atherosclerotic heart disease of native coronary artery without angina pectoris; I73.9 Peripheral vascular disease, unspecified; K55.1 Chronic vascular disorders of intestine; I12.9 Hypertensive chronic kidney disease with stage 1 through stage 4 chronic kidney disease, or unspecified chronic kidney disease; Z79.899 Other long term (current) drug therapy; R06.9 Unspecified abnormalities of breathing
CPT/HCPCS: 36415; 71045; 80048; 80053; 81001; 83036; 83605; 83690; 83735; 83880; 84436; 84443; 85007; 85025; 93005; 94640; 99285; G0378; J2405

== ENCOUNTER → 2023-03-03 13:22 | Outpatient (CLI) | payer MEDICARE, MEDICAID, SELFPAY ==
[2023-03-03 12:34] LABS: Basophils # 0.1 K/mm3 (0-0.2); Basophils % 0.7 % (0.1-2.0); Eosinophils # 0.5 K/mm3 (0.0-0.4); Eosinophils % 4.5 % (0.1-12.0); Hematocrit 49.1 % (37.0-47.0); Hemoglobin 16.6 g/dL (12.2-16.2); Lymphocytes # 1.3 K/mm3 (0.7-4.5); Lymphocytes % 12.8 % (10-50); Mean Corpuscular HGB Conc 33.7 g/dL (31.8-35.4); Mean Corpuscular Hemoglobin 30.7 pg (27.0-31.2); Mean Corpuscular Volume 91.1 fl (81-99); Mean Platelet Volume 9.2 fl (7.4-10.4); Monocytes # 0.7 K/mm3 (0.1-1.0); Monocytes % 6.3 % (1.7-9.3); Neutrophils # 7.8 K/mm3 (1.8-7.8); Neutrophils % 75.7 % (37.0-80.0); Platelet Count 317 K/mm3 (142-424); Red Blood Count 5.39 M/mm3 (4.20-5.40); White Blood Count 10.3 K/mm3 (4.8-10.8)
[2023-03-03 13:40] LABS: Alanine Aminotransferase 25 U/L (12-78); Albumin Level 4.4 g/dl (3.5-5.0); Albumin/Globulin Ratio 1.6 (1.1-1.8); Alkaline Phosphatase 108 U/L (38-126); Anion Gap 13.4 mEq/L (5-15); Aspartate Amino Transferase 25 U/L (14-36); Bilirubin,Total 1.2 mg/dl (0.2-1.3); Blood Urea Nitrogen 26 mg/dl (7-17); Calcium 9.6 mg/dl (8.4-10.2); Carbon Dioxide 32 mmol/L (22.0-30.0); Chloride 94 mmol/L (98-107); Estimated Glomerular Filt Rate 26 ml/min (>60); GFR (African American) 32 ML/MIN (>60); Globulin 2.7 g/dL (1.3-3.2); Glucose 108 mg/dl (74-100); Potassium 5.4 mmoL/L (3.5-5.1); Sodium 134 mmol/L (136-145); Total Protein,Serum 7.1 g/dl (6.3-8.2)
[2023-03-03 14:10] LABS: Thyroid Stimulating Hormone 2.07 uIU/mL (0.465-4.68)
== END ==
PROVIDERS: PCP Nurse Practitioner Family; Visit Provider Nurse Practitioner Family
DX: E03.9 Hypothyroidism, unspecified (principal); R42 Dizziness and giddiness; N18.30 Chronic kidney disease, stage 3 unspecified
CPT/HCPCS: 80053; 84443; 85025

== ENCOUNTER → 2023-03-19 10:07 | Outpatient (CLI) | payer MEDICARE, MEDICAID, SELFPAY ==
--- NOTE | 2023-03-19 10:07 | MR_ITS ---
FINAL REPORT CLINICAL HISTORY: Dizziness with syncope episodes. COMPARISON: None FINDINGS: Multiplanar MR imaging of the brain was performed without contrast. There is no evidence of intracranial hemorrhage or mass. The ventricular size is normal. There are multiple small foci of increased T2 weighted signal in the white matter, that may represent mild chronic ischemic/gliotic microvascular disease, demyelination, or vasculitis. There is no evidence of shift of the midline structures. No abnormal extra-axial fluid collection is identified. The posterior fossa and brainstem have an unremarkable appearance. No area of abnormal restricted diffusion is identified. Normal major vessel vascular flow voids are seen. IMPRESSION: Multiple foci of increased white matter signal as described, mild chronic ischemic microvascular change versus demyelination or vasculitis. Reviewed, Interpreted and Dictated by Cesar Dorsey III, MD Transcribed by Ericka Cooper Authenticated and [facility]
== END ==
LOC: RAD 10:07
PROVIDERS: PCP Nurse Practitioner Family; Visit Provider Nurse Practitioner Family
DX: R11.0 Nausea (principal); R42 Dizziness and giddiness
CPT/HCPCS: 70551

== ENCOUNTER → 2023-03-23 16:59 | Outpatient (CLI) | payer MEDICARE, MEDICAID, SELFPAY ==
[2023-03-23 18:11] LABS: Alanine Aminotransferase 27 U/L (12-78); Albumin Level 4.7 g/dl (3.5-5.0); Albumin/Globulin Ratio 1.6 (1.1-1.8); Alkaline Phosphatase 120 U/L (38-126); Anion Gap 20.7 mEq/L (5-15); Aspartate Amino Transferase 30 U/L (14-36); Bilirubin,Total 0.7 mg/dl (0.2-1.3); Blood Urea Nitrogen 38 mg/dl (7-17); Calcium 9.8 mg/dl (8.4-10.2); Carbon Dioxide 28 mmol/L (22.0-30.0); Chloride 93 mmol/L (98-107); Estimated Glomerular Filt Rate 23 ml/min (>60); GFR (African American) 28 ML/MIN (>60); Glucose 105 mg/dl (74-100); Potassium 5.7 mmoL/L (3.5-5.1); Sodium 136 mmol/L (136-145); Total Protein,Serum 7.7 g/dl (6.3-8.2)
[2023-03-23 18:59] LABS: Vitamin B12 453 pg/mL (239-931)
== END ==
PROVIDERS: PCP Nurse Practitioner Family; Visit Provider Nurse Practitioner Family
DX: R42 Dizziness and giddiness (principal); N18.30 Chronic kidney disease, stage 3 unspecified
CPT/HCPCS: 80053; 82607

== ENCOUNTER → 2023-04-06 13:49 | Outpatient (CLI) | payer MEDICARE, MEDICAID, SELFPAY ==
--- NOTE | 2023-04-06 13:52 | XR_ITS ---
FINAL REPORT CLINICAL HISTORY: Right hip pain post fall FINDINGS: RIGHT FEMUR 2 views of the right femur were obtained. There is no acute fracture or dislocation. Visualized joint spaces are normally aligned. Soft tissues are unremarkable. IMPRESSION: No acute bony abnormality. Reviewed, Interpreted and Dictated by Oswald Cat MD Transcribed by Suri Monreal Authenticated and [facility]
--- NOTE | 2023-04-06 13:52 | XR_ITS ---
FINAL REPORT CLINICAL HISTORY: injury from fall FINDINGS: RIGHT HIP Two views of the right hip demonstrate no acute fracture or dislocation. The joint spaces appear normal. The visualized bony structures are well aligned. No soft tissue abnormality is seen. IMPRESSION: No acute bony abnormality. Reviewed, Interpreted and Dictated by Oswald Cat MD Transcribed by Suri Monreal Authenticated and [facility]
[2023-04-06 17:19] LABS: Chloride 106 mmol/L (98-107); Sodium 139 mmol/L (136-145)
[2023-04-06 17:20] LABS: Potassium 4.9 mmoL/L (3.5-5.1)
[2023-04-06 17:22] LABS: Alanine Aminotransferase 22 U/L (12-78); Albumin Level 4.1 g/dl (3.5-5.0); Albumin/Globulin Ratio 1.7 (1.1-1.8); Alkaline Phosphatase 97 U/L (38-126); Anion Gap 11.9 mEq/L (5-15); Aspartate Amino Transferase 25 U/L (14-36); Bilirubin,Total 0.6 mg/dl (0.2-1.3); Blood Urea Nitrogen 15 mg/dl (7-17); Calcium 8.9 mg/dl (8.4-10.2); Carbon Dioxide 26 mmol/L (22.0-30.0); Estimated Glomerular Filt Rate 41 ml/min (>60); GFR (African American) 49 ML/MIN (>60); Globulin 2.4 g/dL (1.3-3.2); Glucose 104 mg/dl (74-100); Total Protein,Serum 6.5 g/dl (6.3-8.2)
== END ==
PROVIDERS: PCP Nurse Practitioner Family; Visit Provider Nurse Practitioner Family
DX: M25.551 Pain in right hip (principal); M89.8X5 Other specified disorders of bone, thigh; N18.30 Chronic kidney disease, stage 3 unspecified
CPT/HCPCS: 73502; 73552; 80053

== ENCOUNTER 2023-04-15 11:37 | Emergency (ER) | payer MEDICARE, MEDICAID, SELFPAY ==
[2023-04-15 11:36] VITALS: BP 137/55; PULSE 68; RESP 21; TEMP 36.8; O2SAT 98; BMI 27.8
--- NOTE | 2023-04-15 11:37 | ECG_ITS ---
APPROVED REPORT Exam: Resting ECG HR:68 bpm ECG Measurements Heart Rate 68 AXES PA 166 P 74 QRSd 79 QRS 71 QT 391 T 71 QTc 408 Conclusion SINUS RHYTHM LOW QRS VOLTAGE IN PRECORDIAL LEADS [QRS DEFLECTION < 1.0 mV IN CHEST LEADS] SEPTAL MYOCARDIAL INFARCTION , PROBABLY OLD [40+ ms Q WAVE IN V1/V2] ABNORMAL ECG UNCONFIRMED REPORT Electronically signed by : Sylvester Newell MD 04/15/2023 17:10:08
--- NOTE | 2023-04-15 11:44 | XR_ITS ---
FINAL REPORT CLINICAL HISTORY: chest pain/cough/soa COMPARISON: 02/25/2023 FINDINGS: Two views of the chest were obtained. The heart size and pulmonary vascularity are within normal limits. The mediastinum is normal. No acute pulmonary abnormality is identified. There is no pneumothorax. The bony thorax is intact. IMPRESSION: No active cardiopulmonary disease. Reviewed, Interpreted and Dictated by Cesar Dorsey III, MD Transcribed by Virginia Conde Authenticated and [facility]
--- NOTE | 2023-04-15 11:47 | HMH.EDGENADL ---
Discharge Plan Disposition Patient Disposition: Still a Patient Condition: Good Prescriptions Prescriptions: New prednisone 50 mg tablet 50 mg PO DAILY 5 Days Qty: 5 0RF Rx Instructions: Please begin 1 day after ED visit albuterol sulfate 90 mcg/actuation HFA aerosol inhaler 4 inh inhalation Q4H PRN (Reason: shortness of breath or wheezing) Qty: 8.5 0RF Rx Instructions: 4 puffs every 4 hours for 48 hours then as needed for shortness of breath or wheezing following No Action cyclobenzaprine 10 mg tablet 10 mg PO HSP PRN (Reason: Muscle Spasm) fluoxetine 40 mg capsule 40 mg PO DAILY duloxetine 30 mg capsule,delayed release(DR/EC) 30 mg PO DAILY aspirin [Jordin Chewable Aspirin] 81 mg tablet,chewable 81 mg PO DAILY Qty: 90 3RF potassium chloride 10 mEq tablet,ER particles/crystals 10 meq PO DAILY nitroglycerin 0.4 mg tablet, sublingual 0.4 mg SL Q5MINP PRN (Reason: Chest Pain) Rx Instructions: do not exceed 3 doses per episode atorvastatin 40 mg tablet 40 mg PO HS Qty: 90 3RF Brilinta 90 mg tablet 90 mg PO BID Qty: 180 3RF lisinopril 20 mg tablet 10 mg PO DAILY 90 Days Qty: 45 3RF Hold Instructions: Home Medication placed on hold at Doctor's office metoprolol tartrate 25 mg tablet 25 mg PO BID Qty: 180 3RF spironolactone 25 mg tablet 25 mg PO DAILY Qty: 90 3RF Farxiga 5 mg tablet 5 mg PO DAILY Qty: 30 2RF levothyroxine 100 MCG tablet 100 mcg PO DAILYDM calcium carbonate-vitamin D3 500 MG tablet 500 mg PO BID ranolazine 500 mg tablet extended release 12 hr 500 mg PO BID ropinirole 0.25 mg Tablet 0.25 mg PO HS Rx Instructions: administer 1-3 hours before bedtime pantoprazole 40 mg Tablet,Delayed Release (Dr/Ec) 40 mg PO HS 30 Days Qty: 30 0RF polyethylene glycol 3350 [Miralax] 17 gram Powder In Packet 17 g PO DAILYP PRN30 Days Qty: 0 0RF oxybutynin chloride 10 MG tablet extended release 24 hr 10 mg PO DAILY Spiriva Respimat 2.5 mcg/actuation mist 2 puff INHALATION DAILY Referrals Follow up/Referrals: Sol Peralta APRN [Primary Care Provider] - See instructions Activity Restrictions/Add. Instructions Additional Instructions/Restrictions: You were evaluated in the emergency department today. Please follow-up closely with your primary care provider. Take Tylenol and ibuprofen at home as needed for pain and fever. Hydrate is much as possible. Return to the emergency department for new or worsening symptoms. Clinical Impressions Clinical Impression: Chest pain, COVID-19, Acute exacerbation of chronic obstructive pulmonary disease Instructions Patient Instructions: DI for Atypical Chest Pain, DI for COVID-19 (Suspected or Confirmed ) Discharge ED Provider: Kerry Molina General Adult HPI <Kerry Molnia DO - Last Filed: 04/15/23 15:05> General Chief complaint: Chest Pain Stated complaint: chest pain Time Seen by Provider: 04/15/23 11:40 History of Present Illness HPI narrative: This patient is a 67-year-old female with a history of CAD, PAD, mesenteric artery stenosis, hypertension, hyperlipidemia, hypothyroidism, and CKD with history of recurrent angina presented to the emergency department for evaluation with concern for chest pain. She states that she was sitting on the couch playing on her phone when she developed a substernal burning/pins and needle sensation. She states that this started approximate 20 minutes ago. She also notes that she has had a dry cough over the last day or so. She denies any fevers, chills, shortness of breath, abdominal pain, nausea, vomiting, changes in bowel movements, rashes, swelling, or other concerns. She notes that she has been taking her medications at home as prescribed. On medical record review, she has seen cardiology clinic for evaluation of chest pain in January and prescribed Ranexa for angina. Martha
[2023-04-15 11:49] VITALS: PULSE 68
[2023-04-15 11:49] LABS: Influenza A, PCR Not Detected (NotDetected); Influenza B, PCR Not Detected (NotDetected)
[2023-04-15 11:56] LABS: Basophils # 0.1 K/mm3 (0-0.2); Basophils % 0.8 % (0.1-2.0); Eosinophils # 0.3 K/mm3 (0.0-0.4); Eosinophils % 3.3 % (0.1-12.0); Hemoglobin 15.3 g/dL (12.2-16.2); Lymphocytes # 2.1 K/mm3 (0.7-4.5); Lymphocytes % 24.9 % (10-50); Mean Corpuscular HGB Conc 31.8 g/dL (31.8-35.4); Mean Corpuscular Hemoglobin 30.6 pg (27.0-31.2); Mean Corpuscular Volume 96.3 fl (81-99); Mean Platelet Volume 8.5 fl (7.4-10.4); Monocytes # 0.7 K/mm3 (0.1-1.0); Monocytes % 8.9 % (1.7-9.3); Neutrophils # 5.2 K/mm3 (1.8-7.8); Platelet Count 334 K/mm3 (142-424); Red Blood Count 4.98 M/mm3 (4.20-5.40); White Blood Count 8.3 K/mm3 (4.8-10.8)
[2023-04-15 12:01] LABS: Chloride 105 mmol/L (98-107); Potassium 4.6 mmoL/L (3.5-5.1); Sodium 138 mmol/L (136-145)
[2023-04-15 12:03] LABS: Alanine Aminotransferase 26 U/L (12-78); Aspartate Amino Transferase 32 U/L (14-36); Blood Urea Nitrogen 15 mg/dl (7-17); Creatinine Clearance Estimated 40 mL/min (50-200); Estimated Glomerular Filt Rate 41 ml/min (>60); GFR (African American) 49 ML/MIN (>60)
[2023-04-15 12:04] LABS: Albumin Level 4.5 g/dl (3.5-5.0); Albumin/Globulin Ratio 1.5 (1.1-1.8); Alkaline Phosphatase 112 U/L (38-126); Anion Gap 10.6 mEq/L (5-15); Bilirubin,Total 0.7 mg/dl (0.2-1.3); Calcium 9.1 mg/dl (8.4-10.2); Carbon Dioxide 27 mmol/L (22.0-30.0); Glucose 116 mg/dl (74-100); Total Protein,Serum 7.5 g/dl (6.3-8.2)
[2023-04-15 12:20] LABS: Troponin I < 0.01 ng/ml (0.00-0.034)
[2023-04-15 12:31] VITALS: BP 117/66; PULSE 62; RESP 18; O2SAT 98
[2023-04-15 13:00] VITALS: BP 116/66; PULSE 67; RESP 14; O2SAT 98
[2023-04-15 13:21] LABS: Coronavirus 19, PCR Detected (NotDetected)
[2023-04-15 14:36] VITALS: BP 144/71; PULSE 60; RESP 17; TEMP 36.6; O2SAT 98
[2023-04-15 15:03] LABS: Troponin I < 0.01 ng/ml (0.00-0.034)
== END 2023-04-15 15:22 | disposition still patient (30) ==
PROVIDERS: Emergency Provider Emergency Medicine; PCP Nurse Practitioner Family
DX: U07.1 COVID-19 (principal); R07.9 Chest pain, unspecified; I25.10 Atherosclerotic heart disease of native coronary artery without angina pectoris; I10 Essential (primary) hypertension; F17.210 Nicotine dependence, cigarettes, uncomplicated
CPT/HCPCS: 71046; 80053; 84484; 85025; 87636; 93005; 99285

== ENCOUNTER → 2023-05-06 10:23 | Outpatient (CLI) | payer MEDICARE, MEDICAID, SELFPAY | PROVIDERS: PCP Nurse Practitioner Family; Visit Provider Nurse Practitioner Family | DX: R23.3 Spontaneous ecchymoses (principal) ==

== ENCOUNTER → 2023-05-06 13:53 | Outpatient (CLI) | payer MEDICARE, MEDICAID, SELFPAY ==
--- NOTE | 2023-05-06 14:06 | XR_ITS ---
FINAL REPORT CLINICAL HISTORY: Right foot pain COMPARISON: None FINDINGS: RIGHT FOOT 3 views of the right foot were obtained. There is no acute fracture or dislocation. Visualized joint spaces are normally aligned. There is a small plantar spur. Soft tissues are unremarkable. IMPRESSION: No acute bony abnormality. Reviewed, Interpreted and Dictated by Oswald Cat MD Transcribed by Leti Smith Authenticated and [facility]
--- NOTE | 2023-05-06 14:06 | XR_ITS ---
FINAL REPORT CLINICAL HISTORY: Left foot pain COMPARISON: None FINDINGS: LEFT FOOT Three views of the left foot demonstrate no acute fracture or dislocation. The visualized joint spaces are normally aligned. There is a small plantar spur. The soft tissues are unremarkable. IMPRESSION: No acute bony abnormality. Reviewed, Interpreted and Dictated by Oswald Cat MD Transcribed by Leti Smith Authenticated and [facility]
[2023-05-06 17:19] LABS: Basophils # 0.1 K/mm3 (0-0.2); Basophils % 0.7 % (0.1-2.0); Eosinophils # 0.3 K/mm3 (0.0-0.4); Eosinophils % 3.2 % (0.1-12.0); Hematocrit 49.8 % (37.0-47.0); Hemoglobin 16.3 g/dL (12.2-16.2); Lymphocytes # 2.5 K/mm3 (0.7-4.5); Lymphocytes % 27.8 % (10-50); Mean Corpuscular HGB Conc 32.7 g/dL (31.8-35.4); Mean Corpuscular Hemoglobin 31.1 pg (27.0-31.2); Mean Corpuscular Volume 94.9 fl (81-99); Mean Platelet Volume 10.4 fl (7.4-10.4); Monocytes # 0.6 K/mm3 (0.1-1.0); Monocytes % 6.3 % (1.7-9.3); Neutrophils # 5.7 K/mm3 (1.8-7.8); Platelet Count 338 K/mm3 (142-424); Red Blood Count 5.24 M/mm3 (4.20-5.40); Red Cell Distribution Width 14.7 % (11.5-17.5); White Blood Count 9.1 K/mm3 (4.8-10.8)
[2023-05-06 18:11] LABS: Alanine Aminotransferase 20 U/L (12-78); Albumin Level 4.5 g/dl (3.5-5.0); Albumin/Globulin Ratio 1.7 (1.1-1.8); Alkaline Phosphatase 104 U/L (38-126); Anion Gap 14.6 mEq/L (5-15); Aspartate Amino Transferase 23 U/L (14-36); Bilirubin,Total 0.6 mg/dl (0.2-1.3); Blood Urea Nitrogen 33 mg/dl (7-17); Calcium 9.1 mg/dl (8.4-10.2); Carbon Dioxide 25 mmol/L (22.0-30.0); Chloride 101 mmol/L (98-107); Estimated Glomerular Filt Rate 40 ml/min (>60); GFR (African American) 49 ML/MIN (>60); Globulin 2.6 g/dL (1.3-3.2); Glucose 127 mg/dl (74-100); Potassium 4.6 mmoL/L (3.5-5.1); Sodium 136 mmol/L (136-145); Total Protein,Serum 7.1 g/dl (6.3-8.2)
== END ==
LOC: RAD 13:54
PROVIDERS: PCP Nurse Practitioner Family; Visit Provider Nurse Practitioner Family
DX: M79.671 Pain in right foot (principal); M79.672 Pain in left foot; R23.3 Spontaneous ecchymoses; N18.30 Chronic kidney disease, stage 3 unspecified
CPT/HCPCS: 73630; 80053; 85025

== ENCOUNTER → 2023-05-12 14:14 | Outpatient (CLI) | payer MEDICARE, MEDICAID, SELFPAY | LOC: RT 14:14 | PROVIDERS: PCP Nurse Practitioner Family; Visit Provider Nurse Practitioner Family | DX: I73.9 Peripheral vascular disease, unspecified (principal); M79.604 Pain in right leg; M79.605 Pain in left leg; M79.671 Pain in right foot; M79.672 Pain in left foot | CPT/HCPCS: 93923 ==

== ENCOUNTER 2023-05-29 16:56 | Outpatient (CLI) | payer MEDICARE, MEDICAID, SELFPAY ==
[2023-05-29 15:23] LABS: Basophils # 0.1 K/mm3 (0-0.2); Basophils % 0.7 % (0.1-2.0); Eosinophils # 0.3 K/mm3 (0.0-0.4); Eosinophils % 3.2 % (0.1-12.0); Hemoglobin 15.8 g/dL (12.2-16.2); Lymphocytes # 2.4 K/mm3 (0.7-4.5); Mean Corpuscular HGB Conc 32.3 g/dL (31.8-35.4); Mean Corpuscular Hemoglobin 30.7 pg (27.0-31.2); Mean Corpuscular Volume 95.1 fl (81-99); Mean Platelet Volume 10.2 fl (7.4-10.4); Monocytes # 0.7 K/mm3 (0.1-1.0); Monocytes % 6.3 % (1.7-9.3); Neutrophils % 66.7 % (37.0-80.0); Platelet Count 280 K/mm3 (142-424); Red Blood Count 5.15 M/mm3 (4.20-5.40); Red Cell Distribution Width 14.4 % (11.5-17.5); White Blood Count 10.4 K/mm3 (4.8-10.8)
[2023-05-29 15:40] LABS: Chloride 106 mmol/L (98-107)
[2023-05-29 15:41] LABS: Sodium 140 mmol/L (136-145)
[2023-05-29 15:43] LABS: Alanine Aminotransferase 26 U/L (12-78); Alkaline Phosphatase 111 U/L (38-126); Aspartate Amino Transferase 26 U/L (14-36); Bilirubin,Total 0.9 mg/dl (0.2-1.3); Blood Urea Nitrogen 16 mg/dl (7-17); Estimated Glomerular Filt Rate 44 ml/min (>60); GFR (African American) 54 ML/MIN (>60)
[2023-05-29 15:44] LABS: Albumin Level 4.1 g/dl (3.5-5.0); Albumin/Globulin Ratio 1.8 (1.1-1.8); Calcium 8.9 mg/dl (8.4-10.2); Globulin 2.3 g/dL (1.3-3.2); Glucose 85 mg/dl (74-100); Total Protein,Serum 6.4 g/dl (6.3-8.2)
[2023-05-29 18:36] LABS: Carbon Dioxide 26 mmol/L (22.0-30.0)
== END 2023-05-29 23:59 ==
LOC: LAB.DROPOF 16:57
PROVIDERS: PCP Nurse Practitioner Family; Visit Provider Nurse Practitioner Family
DX: R11.0 Nausea (principal); R11.2 Nausea with vomiting, unspecified; R19.7 Diarrhea, unspecified
CPT/HCPCS: 80053; 85025

== ENCOUNTER 2023-06-22 12:42 | Outpatient (CLI) | payer MEDICARE, MEDICAID, SELFPAY ==
[2023-06-22 13:16] LABS: Alanine Aminotransferase 23 U/L (12-78); Albumin Level 4.6 g/dl (3.5-5.0); Albumin/Globulin Ratio 1.9 (1.1-1.8); Alkaline Phosphatase 111 U/L (38-126); Anion Gap 16.9 mEq/L (5-15); Aspartate Amino Transferase 28 U/L (14-36); Bilirubin,Total 0.8 mg/dl (0.2-1.3); Blood Urea Nitrogen 20 mg/dl (7-17); Carbon Dioxide 30 mmol/L (22.0-30.0); Chloride 97 mmol/L (98-107); Estimated Glomerular Filt Rate 34 ml/min (>60); GFR (African American) 42 ML/MIN (>60); Globulin 2.4 g/dL (1.3-3.2); Glucose 88 mg/dl (74-100); Potassium 4.9 mmoL/L (3.5-5.1); Sodium 139 mmol/L (136-145)
[2023-06-22 14:02] LABS: Vitamin B12 302 pg/mL (239-931)
== END 2023-06-22 23:59 ==
LOC: LAB.DROPOF 12:44
PROVIDERS: PCP Nurse Practitioner Family; Visit Provider Nurse Practitioner Family
DX: I10 Essential (primary) hypertension; N18.30 Chronic kidney disease, stage 3 unspecified; D50.8 Other iron deficiency anemias; D64.89 Other specified anemias
CPT/HCPCS: 80053; 82607; 82728

== ENCOUNTER 2023-07-20 14:01 | Outpatient (CLI) | payer MEDICARE, MEDICAID, SELFPAY ==
[2023-07-20 14:30] LABS: Basophils % 0.4 % (0.1-2.0); Eosinophils # 0.3 K/mm3 (0.0-0.4); Eosinophils % 3.5 % (0.1-12.0); Hematocrit 53.9 % (37.0-47.0); Lymphocytes # 2.2 K/mm3 (0.7-4.5); Lymphocytes % 23.3 % (10-50); Mean Corpuscular HGB Conc 31.5 g/dL (31.8-35.4); Mean Corpuscular Hemoglobin 29.7 pg (27.0-31.2); Mean Corpuscular Volume 94.2 fl (81-99); Monocytes # 0.7 K/mm3 (0.1-1.0); Neutrophils # 6.1 K/mm3 (1.8-7.8); Neutrophils % 65.7 % (37.0-80.0); Platelet Count 328 K/mm3 (142-424); Red Blood Count 5.72 M/mm3 (4.20-5.40); Red Cell Distribution Width 14.5 % (11.5-17.5); White Blood Count 9.3 K/mm3 (4.8-10.8)
[2023-07-20 14:57] LABS: Alanine Aminotransferase 31 U/L (12-78); Albumin Level 4.3 g/dl (3.5-5.0); Albumin/Globulin Ratio 1.7 (1.1-1.8); Alkaline Phosphatase 124 U/L (38-126); Anion Gap 12.7 mEq/L (5-15); Aspartate Amino Transferase 31 U/L (14-36); Bilirubin,Total 1.3 mg/dl (0.2-1.3); Blood Urea Nitrogen 17 mg/dl (7-17); Calcium 9.7 mg/dl (8.4-10.2); Carbon Dioxide 31 mmol/L (22.0-30.0); Chloride 100 mmol/L (98-107); Estimated Glomerular Filt Rate 37 ml/min (>60); GFR (African American) 45 ML/MIN (>60); Globulin 2.5 g/dL (1.3-3.2); Glucose 102 mg/dl (74-100); Potassium 4.7 mmoL/L (3.5-5.1); Sodium 139 mmol/L (136-145); Total Protein,Serum 6.8 g/dl (6.3-8.2)
[2023-07-20 15:18] LABS: 25-OH Vitamin D, Total 55.6 ng/mL (30-100)
[2023-07-20 15:27] LABS: Thyroid Stimulating Hormone 3.07 uIU/mL (0.465-4.68)
[2023-07-20 15:41] LABS: Free T4 (Free Thyroxine) 0.99 ng/dl (0.78-2.19)
[2023-07-20 15:46] LABS: Vitamin B12 871 pg/mL (239-931)
[2023-07-20 16:43] LABS: Ferritin 13.8 ng/ml (11.1-264)
== END 2023-07-20 23:59 ==
LOC: LAB.DROPOF 14:01
PROVIDERS: PCP Nurse Practitioner Family; Visit Provider Nurse Practitioner Family
DX: E03.8 Other specified hypothyroidism (principal); D64.9 Anemia, unspecified; D50.9 Iron deficiency anemia, unspecified; E78.5 Hyperlipidemia, unspecified; N18.30 Chronic kidney disease, stage 3 unspecified; M85.89 Other specified disorders of bone density and structure, multiple sites
CPT/HCPCS: 80053; 82306; 82607; 82728; 84439; 84443; 85025

== ENCOUNTER 2023-08-04 08:02 | Day surgery (SDC) | payer MEDICARE, MEDICAID, SELFPAY ==
[2023-08-03 10:29] VITALS: BMI 27.0
[2023-08-04 08:56] VITALS: BP 133/80; PULSE 54; RESP 20; TEMP 36.8; O2SAT 97
[2023-08-04 10:29] VITALS: BP 133/80; PULSE 54; RESP 20; TEMP 36.6; O2SAT 97
[2023-08-04] MEDS: TROPICAMIDE 1% OPTH SOLN 2ML OP (14:18)
[2023-08-04] MEDS: TETRACAINE 0.5% OPTH SOL 15ML OP (14:18)
[2023-08-04] MEDS: APRACLONIDINE 0.5% OPHTH SOLN 5ML OP (14:18)
[2023-08-04] MEDS: PHENYLEPHRINE 2.5% OPHTH SOLN 2ML 0.0500000000000000028 ML OP (14:19)
--- NOTE | 2023-09-07 08:56 | PC.NURSE ---
On 09/03/23 patient refused HST.
== END 2023-08-04 10:30 | disposition home or self-care (01) ==
PROVIDERS: PCP Nurse Practitioner Family; Visit Provider Ophthalmology
PROC: (CPT 66821; principal; 2023-08-04 10:00)
DX: H26.491 Other secondary cataract, right eye (principal)
CPT/HCPCS: 66821

== ENCOUNTER 2023-10-29 10:39 | Outpatient (CLI) | payer MEDICARE, MEDICAID, SELFPAY ==
--- NOTE | 2023-10-29 10:39 | NM_ITS ---
APPROVED REPORT Exam: Nuclear Stress Test Indication: cp..soa..dizziness..fatigue Patient Location: Outpatient Stress Tech: Doris HENAO Tech:SHEILA Heredia RT(R)(N) Ht: 4 ft 11 in Wt: 136 lbs Bra Size: c HR: 49 bpm BP: 143/62 mmHg BSA: 1.57 m2 TID: 1.35 BMI: 27.4 History: cp..soa..dizziness..fatigue Procedure: Patient received 0.4 mg of intravenous Lexiscan, resting heart rate 49 bpm, resting blood pressure 143/62 mmHg, with Lexiscan maximum heart rate achieved was 74 bpm which is 85 % of the maximum predicted heart rate and blood pressure was 163/77 mmHg. With Lexiscan, patient denied any complaint of chest pain. Cardiac Stress and Resting SPECT Images: Cardiac Stress and Resting SPECT images were obtained using technetium 99m Myoview 32.9 mCi stress and 10.57 mCi at rest. Resting and stress imaging in supine and prone positions demonstrate no evidence of fixed or reversible perfusion defects. There is increase in transient ischemic dilatation ratio (TID 1.35), suggestive of possible multivessel disease or balanced ischemia. Gated imaging demonstrates normal global and regional LV systolic function. LVEF is calculated at 66%. Conclusion: No evidence of fixed or reversible perfusion defects. Increase in transient ischemic dilatation ratio (TID 1.35), suggestive of possible multivessel disease or balanced ischemia. Gated imaging demonstrates normal global and regional LV systolic function. LVEF is calculated at 66%. In the setting of In the setting of transient ischemic dilatation with normal LV systolic function, further evaluation with noninvasive testing (i.e. CCTA) is suggested prior to proceeding with invasive coronary angiography, if clinically appropriate. Electronically signed by : Nicole Morin MD 11/01/2023 01:17:19
--- NOTE | 2023-10-29 11:25 | CA_ITS ---
APPROVED REPORT EXAM: Comprehensive 2D, Doppler, and color-flow Echocardiogram Dry Cell Tester: OMARI Bright, RVS Ht: 4 ft 11 in Wt: 141lbs BSA: 1.59 BP: 140/59 mmHg Indications: Dyspnea, COPD, CAD, PAD, Dizziness, GERD, SB, PHTN, CP, Edema 2D Dimensions Left Atrium 3.51 cm LA Volume 63.80 mL LA Volume Index 39.10 mL/m2 (M/F) 16-34 GL Strain -21.4 % M-Mode Dimensions RVDd 1.81 cm (0.9-2.6) LA Diam 4.05 cm (1.9-4.0) LVDd 4.28 cm (3.5-5.7) LVDs 2.71 cm (3.5-5.7) IVSd 0.94 cm (0.6-1.1) PWd 0.74 cm (0.6-1.1) EF (Teich) 71.20% EPSs 0.37 cm FS 40.40% EDV (Teich) 94.90 mL TAPSE 1.97 (<1.7) ESV (Teich) 27.30 mL LV Diastology E Decel Time 197 (160-240 msec) E/A Ratio 2.77 MED A' 9.20 cm/s LAT A' 5.10 cm/s Aortic Valve TEJA Index 1.07 cm2/m2 AoV Peak Edgard. 99.0 (50-130 cm/s) AO Peak GR. 3.90 mmHg AO Mean GR. 2.00 (<5 mmHg) AO VTI 26.7 (18-25 cm) TEJA (VTI) 1.75 (2.5-4.5 cm2) Mitral Valve MV A Velocity 33.0 (40-130 cm/s) E/A Ratio 2.77 Pulmonary Valve PV Peak Velocity 81.0 (50-150 cm/s) Tricuspid Valve TR P. Velocity 206.00 cm/s Left Ventricle The left ventricle is normal size. The left ventricular systolic function is normal. The left ventricular ejection fraction is within the normal range. There is increased LV wall thickness. There is normal LV segmental wall motion. Grade 3 diastolic dysfunction is present. LVEF is 55%. Right Ventricle The right ventricle is normal size. The right ventricular systolic function is normal. Atria Left atrium is moderately dilated. Right atrium is mildly dilated. There is no Doppler evidence of interatrial shunt. Aortic Valve The aortic valve is mildly thickened. There is no aortic valvular stenosis. Trace aortic regurgitation. Mitral Valve The mitral valve leaflets are mildly thickened. Mild mitral regurgitation. Tricuspid Valve The tricuspid valve leaflets are thin and pliable. Trace tricuspid regurgitation. There is insufficient TR jet to estimate RVSP. Pulmonic Valve The pulmonary valve is normal in structure. Trace pulmonic regurgitation. Great Vessels The aortic root is normal in size. The ascending aorta is normal in size. IVC is normal in size and collapses >50% with inspiration. Pericardium There is no pericardial effusion. Other Information Study Quality: Fair Conclusion Normal biventricular systolic function. Grade 3 diastolic dysfunction. Biatrial dilation. Mild MR. Electronically signed by : Nicole Morin MD 11/01/2023 23:13:47
--- NOTE | 2023-10-29 13:04 | CA_ITS ---
APPROVED REPORT Exam: Pharmacologic Technologist: Doris Garcia, Ht: 4 ft 11 in Wt: 141 lbs BSA: 1.59 m2 HR: 47 bpm BP: 143/62 mmHg Rhythm: NSR 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 Medications: Lisinopril,,,,, Levothyroxine,,,,, Aspirin,,,,, Metoprolol,,,,, Pantoprazole,,,,, Atorvastatin,,,,, Ropinirole,,,,, Farxiga,,,,, Albuterol,,,,, DulOXETINE,,,,, BRILINTA,,,,, Fluoxetine,,,,, Stress Test Details Test: LEXISCAN Reason for pharmacologic stress test: physical limitation. Reversal agent Aminophyline 100.0 mg, given intravenously for nausea. HR Resting HR: 49 bpm Max Heart Rate (APMHR): 150 bpm Max HR Achieved: 74 bpm Target HR (85% APMHR): 128 bpm % of APMHR: 49 Recovery HR: 53 bpm BP Resting BP: 143.0/62.0 mmHg Max BP: 163.0/77.0 mmHg Recovery BP: 137.0/57.0 mmHg ECG Resting ECG: Ssinus bradycardia, low voltage QRS Stress ECG: No significant ST changes Arrhythmia: None Clinical Exercise duration: 04:00 min Highest Stage Achieved: Exercise capacity: 1.0 METs Stress ECG Conclusion Stress 1min: SOA 2-4min: N/V Recovery 1min: Aminophylline 100mg slow IV given. 2min: Feels better 3min: nausea gone 5min: sxs resolved Symptoms: SOA, nausea/vomiting. No CP. Arrhythmias/Ectopy: None ST-T Changes: No significant ST changes. Conclusion: Unremarkable Lexiscan stress. Myoview images are reported separately. Test Summary REST . . . . . . . Resting REST 02:48 . . 49 . 143/ 62 . . Stage 1 01:00 . . 57 . . . . Stage 2 01:00 . . 61 . . . . Stage 3 01:00 . . 61 . . . . Stage 4 01:00 . . 43 . . . Stop exercise at 04:00 RECOVERY 01:00 . . 60 . 163/ 77 . . RECOVERY 02:00 . . 70 . 163/ 77 . . RECOVERY 03:00 . . 62 . 163/ 77 . . RECOVERY 04:00 . . 60 . 163/ 77 . . RECOVERY 05:00 . . 55 . 137/ 57 . . RECOVERY 05:35 . . 53 . 137/ 57 . . Electronically signed by : Nicole Morin MD 11/01/2023 01:13:56
[2023-10-29] MEDS: ISOTOPE MYOVIEW (PER STUDY) 1 DOSE IV (13:06)
[2023-10-29] MEDS: REGADENOSON 0.4MG/5ML SYRINGE 0.400000000000000022 MG IV (13:06)
[2023-10-29] MEDS: SODIUM CHLORIDE 0.9% 10ML SYR (RAD ONLY) 10 ML IV ×2 (13:06)
== END 2023-10-29 23:59 | disposition home or self-care (01) ==
LOC: RAD 10:39
PROVIDERS: PCP Nurse Practitioner Family; Visit Provider Internal Medicine
DX: R07.9 Chest pain, unspecified (principal); R42 Dizziness and giddiness; E78.2 Mixed hyperlipidemia; I27.20 Pulmonary hypertension, unspecified; I73.9 Peripheral vascular disease, unspecified; I25.10 Atherosclerotic heart disease of native coronary artery without angina pectoris; I10 Essential (primary) hypertension; Z72.0 Tobacco use; R53.83 Other fatigue; R06.02 Shortness of breath; R06.00 Dyspnea, unspecified; R06.01 Orthopnea
CPT/HCPCS: 78452; 93017; 93018; 93306; A9502; J2785

== ENCOUNTER 2023-11-24 08:26 | Day surgery (SDC) | payer MEDICARE, MEDICAID, SELFPAY ==
[2023-11-24] VITALS (14 sets, daily range): BP systolic 101–150; BP diastolic 50–110; PULSE 50–63; RESP 16–18; TEMP 36.9; O2SAT 91–98; BMI 28.0
--- NOTE | 2023-11-24 07:09 | IR_ITS ---
APPROVED REPORT Patient Location: Outpatient Childcare Worker: SHEILA Castillo RT (R) PROCEDURES Selective coronary angiogram INDICATION Known coronary artery disease, Angina pectoris, Abnormal Myoview Informed consent was obtained prior to the procedure. COMPLICATIONS NONE Estimated Blood Loss: LESS THAN 10 ML TECHNIQUE One percent lidocaine used to anesthetize the right anterior aspect of the wrist. The right radial artery was accessed via the Seldinger technique. A 6 Niuean sheath was placed in the right radial artery. 2.5 mg of Verapamil, 800 mcg of nitroglycerin, 1mg Lidocaine and 5000 U Heparin were given through the arterial sheath. The papa catheter was also used to perform left heart catheterization, left ventriculogram and selective coronary angiogram. At the end of the procedure the sheath was removed good hemostasis was achieved using Traclet band, patient was transferred to the postop holding area in stable condition. ANGIOGRAPHIC RESULTS The left main artery Normal The left anterior descending artery Has proximal 20% stenosis with a mid vessel 30 to 40% stenosis. The LAD is small and does not reach the apex The circumflex artery Is nondominant with mild mid vessel 20% luminal irregularities The right coronary artery Large dominant with a stent in the ostial segment which extends throughout into the mid segment. There is 40 to 50% concentric ostial stenosis with mid vessel 30% concentric stenoses The HYMAN ventriculogram reveals Not performed The left ventricular end-diastolic pressure Not measured IMPRESSION Coronary artery disease as described above none of which can explain her resting symptoms PLAN 1. Continue medical management 2. Evaluation of noncardiac angina while continuing with current antianginal medications 3. Risk factor modification Electronically signed by : Eulalio Mccord MD 11/24/2023 11:21:53
[2023-11-24 09:07] LABS: Basophils # 0.1 K/mm3 (0-0.2); Basophils % 1.1 % (0.1-2.0); Eosinophils # 0.4 K/mm3 (0.0-0.4); Eosinophils % 4.1 % (0.1-12.0); Hematocrit 46.8 % (37.0-47.0); Lymphocytes # 1.6 K/mm3 (0.7-4.5); Lymphocytes % 17.6 % (10-50); Mean Corpuscular HGB Conc 36.4 g/dL (31.8-35.4); Mean Corpuscular Hemoglobin 34.6 pg (27.0-31.2); Monocytes # 0.5 K/mm3 (0.1-1.0); Monocytes % 5.9 % (1.7-9.3); Neutrophils # 6.5 K/mm3 (1.8-7.8); Neutrophils % 71.4 % (37.0-80.0); Platelet Count 197 K/mm3 (142-424); Red Blood Count 4.92 M/mm3 (4.20-5.40); Red Cell Distribution Width 14.6 % (11.5-17.5); White Blood Count 9.1 K/mm3 (4.8-10.8)
[2023-11-24 09:13] LABS: Chloride 108 mmol/L (98-107)
[2023-11-24 09:14] LABS: Potassium 4.1 mmoL/L (3.5-5.1); Sodium 140 mmol/L (136-145)
[2023-11-24 09:17] LABS: Anion Gap 9.1 mEq/L (5-15); Blood Urea Nitrogen 17 mg/dl (7-17); Calcium 9.8 mg/dl (8.4-10.2); Carbon Dioxide 27 mmol/L (22.0-30.0); Creatinine Clearance Estimated 37 mL/min (50-200); Estimated Glomerular Filt Rate 37 ml/min (>60); GFR (African American) 45 ML/MIN (>60); Glucose 105 mg/dl (74-100)
[2023-11-24] MEDS: HEPARIN 1,000 UNITS/500ML NS (CATH LAB) 3000 UNIT IV (10:52)
[2023-11-24] MEDS: 0.9 % SODIUM CHLORIDE 500 ML 25 ML IV (10:53)
[2023-11-24] MEDS: VERAPAMIL 2.5MG/ML 2ML VIAL 2.5 MG IV (10:53)
[2023-11-24] MEDS: diphenhydrAMINE 50MG/ML VIAL 50 MG IV (10:53)
[2023-11-24] MEDS: HEPARIN 1,000 UNITS/ML 10ML VIAL (CATH LAB) 10000 UNIT IV (10:53)
[2023-11-24] MEDS: LIDOCAINE 1% 10ML MDV 20 ML IJ (10:53)
[2023-11-24] MEDS: NITROGLYCERIN 800MCG/8ML SYR (CATH LAB) 800 MCG IA (10:53)
[2023-11-24] MEDS: MIDAZOLAM HCL 1MG/1ML 5ML VIAL 1 MG IV (11:18)
[2023-11-24] MEDS: FENTANYL 100MCG/2ML VIAL 50 MCG IV (11:18)
[2023-11-24] MEDS: IOPAMIDOL-370 (76%);100ML BOTTLE 50 ML IV (13:13)
== END 2023-11-24 14:48 | disposition home or self-care (01) ==
PROVIDERS: PCP Nurse Practitioner Family; Visit Provider Internal Medicine
DX: R93.1 Abnormal findings on diagnostic imaging of heart and coronary circulation (principal); I25.118 Atherosclerotic heart disease of native coronary artery with other forms of angina pectoris; J44.9 Chronic obstructive pulmonary disease, unspecified; Z79.899 Other long term (current) drug therapy; I10 Essential (primary) hypertension; E78.5 Hyperlipidemia, unspecified; F17.210 Nicotine dependence, cigarettes, uncomplicated; I27.20 Pulmonary hypertension, unspecified
CPT/HCPCS: 80048; 85025; 93454; 99152; C1725; C1769; J1644; J2250; J3010; Q9967

== ENCOUNTER 2023-12-16 15:22 | Outpatient (CLI) | payer MEDICARE, SELFPAY ==
[2023-12-16 11:46] LABS: Basophils # 0.1 K/mm3 (0-0.2); Basophils % 0.9 % (0.1-2.0); Eosinophils # 0.4 K/mm3 (0.0-0.4); Eosinophils % 4.3 % (0.1-12.0); Hematocrit 50.8 % (37.0-47.0); Hemoglobin 16.5 g/dL (12.2-16.2); Lymphocytes # 2.2 K/mm3 (0.7-4.5); Lymphocytes % 24.7 % (10-50); Mean Corpuscular HGB Conc 32.5 g/dL (31.8-35.4); Mean Corpuscular Hemoglobin 30.9 pg (27.0-31.2); Mean Corpuscular Volume 95.1 fl (81-99); Mean Platelet Volume 9.4 fl (7.4-10.4); Monocytes # 0.6 K/mm3 (0.1-1.0); Monocytes % 6.9 % (1.7-9.3); Neutrophils # 5.6 K/mm3 (1.8-7.8); Neutrophils % 63.3 % (37.0-80.0); Platelet Count 245 K/mm3 (142-424); Red Blood Count 5.34 M/mm3 (4.20-5.40); Red Cell Distribution Width 14.1 % (11.5-17.5); White Blood Count 8.8 K/mm3 (4.8-10.8)
[2023-12-16 12:37] LABS: Alanine Aminotransferase 32 U/L (12-78); Albumin Level 3.9 g/dl (3.5-5.0); Albumin/Globulin Ratio 1.6 (1.1-1.8); Alkaline Phosphatase 93 U/L (38-126); Anion Gap 12.5 mEq/L (5-15); Aspartate Amino Transferase 27 U/L (14-36); Bilirubin,Total 0.7 mg/dl (0.2-1.3); Blood Urea Nitrogen 20 mg/dl (7-17); Calcium 9.9 mg/dl (8.4-10.2); Carbon Dioxide 27 mmol/L (22.0-30.0); Chloride 106 mmol/L (98-107); Chol/HDL Ratio 1.8 (1-3.5); Cholesterol 102 mg/dl (140-200); Estimated Glomerular Filt Rate 44 ml/min (>60); GFR (African American) 54 ML/MIN (>60); Globulin 2.4 g/dL (1.3-3.2); Glucose 85 mg/dl (74-100); HDL Cholesterol 57 mg/dl (40-60); Magnesium 2.1 mg/dl (1.6-2.3); Potassium 4.5 mmoL/L (3.5-5.1); Sodium 141 mmol/L (136-145); Total Protein,Serum 6.3 g/dl (6.3-8.2); Triglycerides 128 mg/dl (30-150); VLDL Cholesterol 26 mg/dL (0-40)
[2023-12-16 12:50] LABS: C-Reactive Protein 2.4 mg/L (0-4)
[2023-12-16 12:59] LABS: Direct LDL Cholesterol < 30.00 mg/dL (100-129); Troponin I < 0.01 ng/ml (0.00-0.034)
== END 2023-12-16 23:59 | disposition home or self-care (01) ==
LOC: LAB.DROPOF 15:23
PROVIDERS: PCP Nurse Practitioner Family; Visit Provider Nurse Practitioner Family
DX: R55 Syncope and collapse (principal); E03.9 Hypothyroidism, unspecified; E78.5 Hyperlipidemia, unspecified; E78.2 Mixed hyperlipidemia
CPT/HCPCS: 80050; 80053; 80061; 83735; 84443; 84484; 85025; 86140

== ENCOUNTER 2023-12-25 07:16 | Outpatient (CLI) | payer MEDICARE, SELFPAY ==
--- NOTE | 2023-12-25 07:20 | CT_ITS ---
FINAL REPORT TECHNIQUE: Axial CT images were performed through the head. Coronal reformatted images were submitted. This study was performed with techniques to keep radiation doses as low as reasonably achievable (ALARA). Individualized dose reduction techniques using automated exposure control or adjustment of mA and/or kV according to the patient's size were employed. CLINICAL HISTORY: Syncope episode COMPARISON: 01/31/2019 FINDINGS: The ventricles are normal in size. There is no evidence of hemorrhage. There is no mass or edema identified. There is no abnormal extra-axial fluid seen. The sinuses are well aerated. IMPRESSION: No acute intracranial process. Reviewed, Interpreted and Dictated by Oswald Cat MD Transcribed by Virginia Conde Authenticated and . [facility]
== END 2023-12-25 23:59 | disposition home or self-care (01) ==
LOC: RAD 07:17
PROVIDERS: PCP Nurse Practitioner Family; Visit Provider Nurse Practitioner Family
DX: R55 Syncope and collapse (principal); R42 Dizziness and giddiness
CPT/HCPCS: 70450

== ENCOUNTER 2024-01-13 15:06 | Outpatient (CLI) | payer MEDICARE, SELFPAY ==
--- NOTE | 2024-01-13 15:11 | XR_ITS ---
FINAL REPORT CLINICAL HISTORY: fall FINDINGS: Right hip Two views were obtained. There is no acute fracture or dislocation. The joint spaces appear normal. No soft tissue abnormality is identified. IMPRESSION: No acute process. Reviewed, Interpreted and Dictated by Oswald Cat MD Transcribed by Virginia Conde Authenticated and [facility]
--- NOTE | 2024-01-13 15:11 | XR_ITS ---
FINAL REPORT CLINICAL HISTORY: fall FINDINGS: Left hip Three views were obtained. There is no acute fracture or dislocation. The joint spaces appear normal. No soft tissue abnormality is identified. IMPRESSION: No acute process. Reviewed, Interpreted and Dictated by Oswald Cat MD Transcribed by Virginia Conde Authenticated and [facility]
--- NOTE | 2024-01-13 15:11 | XR_ITS ---
FINAL REPORT CLINICAL HISTORY: fall, mid back pain FINDINGS: THORACIC SPINE Two views demonstrate no acute fracture. The disc spaces are well preserved. There is mild anterior osteophyte formation in the mid and lower thoracic spine. There is no malalignment. IMPRESSION: Degenerative changes as above. Reviewed, Interpreted and Dictated by Oswald Cat MD Transcribed by Virginia Conde Authenticated and [facility]
--- NOTE | 2024-01-13 15:11 | XR_ITS ---
FINAL REPORT TECHNIQUE: Chest PA & Lateral CLINICAL HISTORY: fall, right rib pain COMPARISON: 04/15/2023 FINDINGS: 2 views of the chest were performed. The heart size is normal. The mediastinum is within normal limits. There is no acute cardiopulmonary process. There are no pleural effusions. There is no pneumothorax. The bony thorax appears intact. IMPRESSION: No acute cardiopulmonary process. Reviewed, Interpreted and Dictated by Oswald Cat MD Transcribed by Ericka Cooper Authenticated and [facility]
--- NOTE | 2024-01-13 15:11 | XR_ITS ---
FINAL REPORT CLINICAL HISTORY: fall, right rib pain with contusion FINDINGS: Right ribs Three views were obtained. There is no acute fracture or dislocation. No soft tissue abnormality is identified. IMPRESSION: No acute process. Reviewed, Interpreted and Dictated by Oswald Cat MD Transcribed by Virginia Conde Authenticated and [facility]
--- NOTE | 2024-01-13 15:11 | XR_ITS ---
FINAL REPORT CLINICAL HISTORY: fall, contusion FINDINGS: TWO-VIEW ABDOMEN There is a nonspecific, nonobstructive bowel gas pattern. No bowel dilation is identified. No abnormal calcification is seen. There is no free air. Surgical clips are seen in the right upper quadrant. IMPRESSION: No acute process. Reviewed, Interpreted and Dictated by Oswald Cat MD Transcribed by Virginia Conde Authenticated and [facility]
--- NOTE | 2024-01-13 15:11 | XR_ITS ---
FINAL REPORT CLINICAL HISTORY: fall COMPARISON: None FINDINGS: SACRUM COCCYX 3 views demonstrate no acute fracture or dislocation. The sacral arches are intact. The sacroiliac joints are unremarkable. There is extensive disc space narrowing at L4-5. Facet sclerosis is noted in the lower lumbar spine. No soft tissue abnormality is seen. IMPRESSION: No acute process. Reviewed, Interpreted and Dictated by Oswald Cat MD Transcribed by Leti Smith Authenticated and [facility]
--- NOTE | 2024-01-13 15:11 | XR_ITS ---
FINAL REPORT CLINICAL HISTORY: fall, low back pain FINDINGS: LUMBAR SPINE Three views demonstrate no acute fracture. There are advanced hypertrophic changes of degenerative disc disease at T11-12, T12-L1, L1-2 and L4-5. There is minimal spondylolisthesis of L5 on S1, probably degenerative. Moderate facet sclerosis is seen in the lower lumbar spine. IMPRESSION: Multilevel degenerative changes as above. Reviewed, Interpreted and Dictated by Oswald Cat MD Transcribed by Virginia Conde Authenticated and [facility]
== END 2024-01-13 23:59 | disposition home or self-care (01) ==
LOC: RAD 15:08
PROVIDERS: PCP Nurse Practitioner Family; Visit Provider Nurse Practitioner Family
DX: R10.9 Unspecified abdominal pain (principal); R07.81 Pleurodynia; W19.XXXA Unspecified fall, initial encounter; T14.8XXA Other injury of unspecified body region, initial encounter; M25.551 Pain in right hip; M54.50 Low back pain, unspecified; M54.9 Dorsalgia, unspecified; M25.552 Pain in left hip; M53.3 Sacrococcygeal disorders, not elsewhere classified
CPT/HCPCS: 71046; 71100; 72070; 72100; 72220; 73502; 74019

== ENCOUNTER 2024-01-26 14:17 | Outpatient (CLI) | payer MEDICARE, SELFPAY ==
[2024-01-26 14:46] LABS: Alanine Aminotransferase 45 U/L (12-78); Albumin/Globulin Ratio 1.5 (1.1-1.8); Alkaline Phosphatase 97 U/L (38-126); Anion Gap 10.6 mEq/L (5-15); Aspartate Amino Transferase 41 U/L (14-36); Bilirubin,Total 0.8 mg/dl (0.2-1.3); Blood Urea Nitrogen 18 mg/dl (7-17); Calcium 9.5 mg/dl (8.4-10.2); Carbon Dioxide 27 mmol/L (22.0-30.0); Chloride 107 mmol/L (98-107); Chol/HDL Ratio 1.8 (1-3.5); Cholesterol 106 mg/dl (140-200); Estimated Glomerular Filt Rate 62 ml/min (>60); GFR (African American) 75 ML/MIN (>60); Globulin 2.7 g/dL (1.3-3.2); Glucose 102 mg/dl (74-100); HDL Cholesterol 58 mg/dl (40-60); Potassium 4.6 mmoL/L (3.5-5.1); Sodium 140 mmol/L (136-145); Total Protein,Serum 6.7 g/dl (6.3-8.2); Triglycerides 204 mg/dl (30-150); VLDL Cholesterol 41 mg/dL (0-40)
[2024-01-26 14:59] LABS: Direct LDL Cholesterol < 30.00 mg/dL (100-129)
== END 2024-01-26 23:59 | disposition home or self-care (01) ==
LOC: LAB.DROPOF 01-27 14:19
PROVIDERS: PCP Nurse Practitioner Family; Visit Provider Nurse Practitioner Family
DX: E78.2 Mixed hyperlipidemia (principal); E78.5 Hyperlipidemia, unspecified
CPT/HCPCS: 80053; 80061

== ENCOUNTER 2024-02-16 14:04 | Outpatient (CLI) | payer MEDICARE, SELFPAY ==
[2024-02-16 13:33] LABS: Albumin Level 4.3 g/dl (3.5-5.0); Chloride 107 mmol/L (98-107); Potassium 5.1 mmoL/L (3.5-5.1); Sodium 140 mmol/L (136-145)
[2024-02-16 13:35] LABS: Blood Urea Nitrogen 14 mg/dl (7-17); Estimated Glomerular Filt Rate 44 ml/min (>60); GFR (African American) 54 ML/MIN (>60)
[2024-02-16 13:36] LABS: Alanine Aminotransferase 36 U/L (12-78); Albumin/Globulin Ratio 1.8 (1.1-1.8); Alkaline Phosphatase 98 U/L (38-126); Anion Gap 12.1 mEq/L (5-15); Aspartate Amino Transferase 36 U/L (14-36); Bilirubin,Total 1.2 mg/dl (0.2-1.3); Calcium 9.9 mg/dl (8.4-10.2); Carbon Dioxide 26 mmol/L (22.0-30.0); Chol/HDL Ratio 1.7 (1-3.5); Cholesterol 122 mg/dl (140-200); Globulin 2.4 g/dL (1.3-3.2); Glucose 101 mg/dl (74-100); HDL Cholesterol 70 mg/dl (40-60); Total Protein,Serum 6.7 g/dl (6.3-8.2); Triglycerides 111 mg/dl (30-150); VLDL Cholesterol 22 mg/dL (0-40)
[2024-02-16 13:47] LABS: Direct LDL Cholesterol < 30.00 mg/dL (100-129)
[2024-02-16 14:09] LABS: Thyroid Stimulating Hormone 2.75 uIU/mL (0.465-4.68)
[2024-02-16 15:23] LABS: Hemoglobin A1C 5.8 % (4.0-6.0)
== END 2024-02-16 23:59 | disposition home or self-care (01) ==
LOC: LAB.DROPOF 14:05
PROVIDERS: PCP Nurse Practitioner Family; Visit Provider Nurse Practitioner Family
DX: E78.2 Mixed hyperlipidemia (principal); Z13.1 Encounter for screening for diabetes mellitus; N18.32 Chronic kidney disease, stage 3b; E03.9 Hypothyroidism, unspecified
CPT/HCPCS: 80053; 80061; 83036; 84443

== ENCOUNTER 2024-03-24 13:54 | Outpatient (CLI) | payer MEDICARE, SELFPAY ==
--- NOTE | 2024-03-24 13:55 | CT_ITS ---
FINAL REPORT CLINICAL HISTORY: smoker .5 ppd x 38 years COMPARISON: 06/20/2022 FINDINGS: CTDI vol (mGy): 2.90 DLP: 87.[address] images of the chest were obtained using the low-dose protocol for screening. There is no evidence of mediastinal or hilar mass or adenopathy. No axillary mass or adenopathy is identified. On the lung window images, again seen is a branching, nodular opacity in the medial right lower lobe measuring 18 mm. This is best seen series 3, image 46 and was present on prior exam from 06/20/[address] This has a similar appearance and likely represents a mucus filled, focal dilated bronchus. There are several small nodules in the right middle lobe and right lower lobe. Right middle lobe nodule is seen measuring 5 mm on series 3, image 42 and is unchanged. Other smaller nodules are also stable. Limited imaging of the upper abdomen demonstrates postoperative change of cholecystectomy. IMPRESSION: Right lung nodules, stable from prior exam Lung RADS category 2. Recommend 12 month followup low-dose CT for further evaluation. Reviewed, Interpreted and Dictated by Cesar Dorsey III, MD Transcribed by Suri Monreal Authenticated and [facility]
[2024-03-24] MEDS: ALBUTEROL 0.083% 2.5 MG/3 ML NEB IH (15:56)
== END 2024-03-24 23:59 | disposition home or self-care (01) ==
LOC: RAD 13:55
PROVIDERS: PCP Nurse Practitioner Family; Visit Provider Internal Medicine Pulmonary Disease
DX: R06.09 Other forms of dyspnea (principal); F17.210 Nicotine dependence, cigarettes, uncomplicated
CPT/HCPCS: 71271; 94060; 94618; 94726; 94729; J7613

== ENCOUNTER 2024-06-01 09:40 | Outpatient (CLI) | payer MEDICARE, SELFPAY ==
[2024-06-01 11:26] LABS: Basophils # 0.1 K/mm3 (0-0.2); Basophils % 0.7 % (0.1-2.0); Eosinophils # 0.1 K/mm3 (0.0-0.4); Hematocrit 52.2 % (37.0-47.0); Hemoglobin 17.3 g/dL (12.2-16.2); Lymphocytes # 2.1 K/mm3 (0.7-4.5); Lymphocytes % 21.1 % (10-50); Mean Corpuscular HGB Conc 33.1 g/dL (31.8-35.4); Mean Corpuscular Hemoglobin 30.6 pg (27.0-31.2); Mean Corpuscular Volume 92.2 fl (81-99); Mean Platelet Volume 12.1 fl (7.4-10.4); Monocytes # 0.7 K/mm3 (0.1-1.0); Monocytes % 7.3 % (1.7-9.3); Neutrophils # 6.9 K/mm3 (1.8-7.8); Neutrophils % 69.5 % (37.0-80.0); Platelet Count 230 K/mm3 (142-424); Red Blood Count 5.66 M/mm3 (4.20-5.40); Red Cell Distribution Width 13.4 % (11.5-17.5); White Blood Count 9.9 K/mm3 (4.8-10.8)
[2024-06-01 12:08] LABS: Alanine Aminotransferase 45 U/L (12-78); Albumin Level 4.2 g/dl (3.5-5.0); Albumin/Globulin Ratio 2.1 (1.1-1.8); Alkaline Phosphatase 86 U/L (38-126); Anion Gap 14.5 mEq/L (5-15); Aspartate Amino Transferase 51 U/L (14-36); Bilirubin,Total 1.5 mg/dl (0.2-1.3); Blood Urea Nitrogen 21 mg/dl (7-17); Calcium 9.7 mg/dl (8.4-10.2); Carbon Dioxide 25 mmol/L (22.0-30.0); Chloride 104 mmol/L (98-107); Estimated Glomerular Filt Rate 55 ml/min (>60); GFR (African American) 66 ML/MIN (>60); Glucose 112 mg/dl (74-100); Potassium 4.5 mmoL/L (3.5-5.1); Sodium 139 mmol/L (136-145); Total Protein,Serum 6.2 g/dl (6.3-8.2)
== END 2024-06-01 23:59 | disposition home or self-care (01) ==
LOC: LAB.DROPOF 06-02 09:20
PROVIDERS: PCP Nurse Practitioner Family; Visit Provider Nurse Practitioner Family
DX: R11.2 Nausea with vomiting, unspecified (principal); R19.7 Diarrhea, unspecified
CPT/HCPCS: 80053; 85025

== ENCOUNTER 2024-06-08 12:39 | Outpatient (CLI) | payer MEDICARE, SELFPAY ==
[2024-06-08 12:45] LABS: Microscopic, Urine URINE MICROSCOPIC (MICROSCOPIC)
[2024-06-08 14:27] LABS: Appearance,Urine CLEAR (Clear); Bilirubin,Urine Negative (Negative); Blood, Urine TRACE-I (Negative); Color,Urine YELLOW (Yellow); Glucose,Urine (UA) 3+ (Negative); Ketones,Urine Negative (Negative); Leukocyte Esterase,Urine Negative (Negative); Nitrate,Urine POSITIVE (Negative); Protein,Urine Negative (Negative); Specific Gravity, Urine 1.025 (1.005-1.030); Urobilinogen,Urine 0.2 EU/dl (0.2)
[2024-06-08 14:40] LABS: Bacteria,Urine 3+ /lpf; RBC,Urine Occasional #/hpf (0-3)
== END 2024-06-08 23:59 | disposition home or self-care (01) ==
LOC: LAB 12:40
PROVIDERS: PCP Nurse Practitioner Family; Visit Provider Nurse Practitioner Family
DX: R11.2 Nausea with vomiting, unspecified (principal); R19.7 Diarrhea, unspecified
CPT/HCPCS: 81001; 87086; 87088

== ENCOUNTER 2024-06-14 10:49 | Outpatient (CLI) | payer MEDICARE, MEDICAID, SELFPAY ==
--- NOTE | 2024-06-14 10:56 | XR_ITS ---
FINAL REPORT CLINICAL HISTORY: constipation, vomiting, lower abd pain COMPARISON: 01/13/2024 FINDINGS: Two views of the abdomen demonstrate a moderate amount of stool throughout the colon. There are no abnormal calcifications. There are moderate hypertrophic changes in the lower lumbar spine. IMPRESSION: Moderate stool burden. Reviewed, Interpreted and Dictated by Oswald Cat MD Transcribed by Leti Smith Authenticated and [facility]
[2024-06-14 12:27] LABS: Creatinine,Urine Random 180 mg/dL (Not Estab.)
[2024-06-14 12:32] LABS: Microalbumin/Creatinine Ratio 6.5
== END 2024-06-14 23:59 | disposition home or self-care (01) ==
LOC: LAB 10:51
PROVIDERS: PCP Nurse Practitioner Family; Visit Provider Nurse Practitioner Family
DX: R10.30 Lower abdominal pain, unspecified (principal); I10 Essential (primary) hypertension; K59.00 Constipation, unspecified; R11.10 Vomiting, unspecified
CPT/HCPCS: 74019; 82043; 82570

== ENCOUNTER 2024-06-15 12:45 | Outpatient (CLI) | payer MEDICARE, MEDICAID, SELFPAY ==
--- NOTE | 2024-06-15 12:46 | MR_ITS ---
FINAL REPORT CLINICAL HISTORY: Dizziness, syncopal episodes passes out COMPARISON: None FINDINGS: Multi planar MR imaging was obtained through the brain without contrast. The midline structures appear intact. There is no evidence of Chiari malformation. On T2 and flair axial images the brain parenchyma demonstrates minimal signal foci in the deep white matter, age-appropriate and likely mild chronic ischemic microvascular change. On diffusion-weighted images there is no evidence of restricted diffusion. The visualized paranasal sinuses demonstrate normal signal voids. The seventh and eighth nerve root complexes are intact. IMPRESSION: Essentially unremarkable nonenhanced brain MRI. Reviewed, Interpreted and Dictated by Oswald Cat MD Transcribed by Ericka Cooper Authenticated and . [facility]
--- NOTE | 2024-06-15 12:46 | MR_ITS ---
FINAL REPORT TECHNIQUE: MRA and MRV images of the head were performed with and without intravenous contrast. 3D reconstructions were performed. CLINICAL HISTORY: Dizziness, syncopal episodes passes out COMPARISON: None FINDINGS: MRA/MRV HEAD WITH AND WITHOUT CONTRAST: MRA images of the head reveal antegrade flow through the carotid and vertebral arteries bilaterally. No evidence of an intracranial aneurysm or significant stenosis is identified. The distal right middle cerebral artery is not included in reconstruction volume images, but appears otherwise unremarkable. MRV images reveal normal-appearing venous drainage, without evidence of vascular occlusion. The sagittal, transverse, and sigmoid sinuses appear unremarkable. IMPRESSION: Unremarkable MRA/MRV of the head as described. Reviewed, Interpreted and Dictated by Oswald Cat MD Transcribed by Ericka Cooper Authenticated and [facility]
[2024-06-15] MEDS: 0.9% SODIUM CHLORIDE 20ML VIAL 10 ML IV (14:47)
[2024-06-15] MEDS: SODIUM CHLORIDE 0.9% 10ML SYR (RAD ONLY) 10 ML IV (14:47)
[2024-06-15] MEDS: GADOTERIDOL INJ 20ML SYRINGE 13 ML IV (14:47)
== END 2024-06-15 23:59 | disposition home or self-care (01) ==
LOC: RAD 12:46
PROVIDERS: PCP Nurse Practitioner Family; Visit Provider Nurse Practitioner Family
DX: R55 Syncope and collapse (principal); R42 Dizziness and giddiness
CPT/HCPCS: 70546; 70551; A9576

== ENCOUNTER → 2024-08-09 09:38 | Day surgery (SDC) | payer MEDICARE, MEDICAID, SELFPAY ==
[2024-08-09 09:50] VITALS: BMI 27.4
[2024-08-09 09:54] VITALS: BP 141/73; PULSE 77; RESP 20; TEMP 36.6; O2SAT 98
--- NOTE | 2024-09-05 14:11 | HMH.PROCNOTE ---
[facility] Procedure Note Date: 08/10/24 Time: 09:30 Procedure Note:: Tilt Table Procedure Note Procedure:? Upright Tilt Table Test Requesting Physician: Dr. January Rojas Indication: Lightheadedness, syncope Medications:??See attached list. Pre-test Vital Signs: (Supine):?104/62, HR 80, O2 100%. (Supine 5 min): 110/63, HR 76, O2 100% Procedure Summary: Patient placed supine on tilt table and secured with straps.? EKG, blood pressure cuff, and pulse oximeter were all in place and monitored every 5 to 10 minutes.? Table was tilted to 70 to 80 degrees within 10 to 15 seconds.? Vitals continuously monitored every 1 to 2 minutes.? Patient maintained upright position for 30 minutes.? Patient was then returned to supine position with additional monitoring of vital signs for 10 minutes.? Patient tolerated the procedure well without symptoms. Complications: None Conclusion: Negative for orthostasis, lightheadedness, syncope, and clinically significant changes in vital signs.
== END ==
LOC: RT 09:38
PROVIDERS: PCP Nurse Practitioner Family; Visit Provider Specialist
DX: I95.1 Orthostatic hypotension (principal); I10 Essential (primary) hypertension; E78.5 Hyperlipidemia, unspecified; E03.9 Hypothyroidism, unspecified; M19.90 Unspecified osteoarthritis, unspecified site; J44.89 Other specified chronic obstructive pulmonary disease; I25.10 Atherosclerotic heart disease of native coronary artery without angina pectoris; I73.9 Peripheral vascular disease, unspecified; M85.80 Other specified disorders of bone density and structure, unspecified site; F17.210 Nicotine dependence, cigarettes, uncomplicated; E10.9 Type 1 diabetes mellitus without complications; Z79.84 Long term (current) use of oral hypoglycemic drugs; Z79.82 Long term (current) use of aspirin; Z90.710 Acquired absence of both cervix and uterus; Z90.49 Acquired absence of other specified parts of digestive tract; Z95.5 Presence of coronary angioplasty implant and graft
CPT/HCPCS: 93660

== ENCOUNTER 2024-08-16 15:24 | Outpatient (CLI) | payer MEDICARE, MEDICAID, SELFPAY ==
--- NOTE | 2024-08-16 16:00 | MM_ITS ---
PROCEDURE INFORMATION: Exam: MG Bilateral Screening 3D Mammography Exam date and time: 08/16/2024 3:36 PM Age: 69 years old Clinical indication: Screening examination TECHNIQUE: Imaging protocol: Bilateral Screening tomosynthesis and 2D mammography including computer-aided detection (CAD) when performed. COMPARISON: 1. MG MM DIG SCREENING MAMM BI W/CAD 05/12/2022 9:05 AM 2. MG MM DIG SCREENING MAMM BI W/CAD 09/26/2020 12:58 PM FINDINGS: MAMMOGRAPHY: Breast composition: The breasts are heterogeneously dense, which may obscure small masses. Mass: None. Architectural distortion: None. Calcifications: No suspicious calcifications. Asymmetric density: None. Skin thickening: None. Axillary adenopathy: None. IMPRESSION: No mammographic evidence of malignancy. Annual screening is recommended unless otherwise clinically indicated. ASSESSMENT: BI-RADS Category 1: Negative.
== END 2024-08-16 23:59 | disposition home or self-care (01) ==
LOC: RAD 15:24
PROVIDERS: PCP Nurse Practitioner Family; Visit Provider Nurse Practitioner Family
DX: Z12.31 Encounter for screening mammogram for malignant neoplasm of breast (principal)
CPT/HCPCS: 77063; 77067

== ENCOUNTER 2024-08-30 12:25 | Outpatient (CLI) | payer MEDICARE, MEDICAID, SELFPAY ==
[2024-08-30 13:28] LABS: Alanine Aminotransferase 22 U/L (12-78); Albumin/Globulin Ratio 1.7 (1.1-1.8); Alkaline Phosphatase 92 U/L (38-126); Anion Gap 12.9 mEq/L (5-15); Aspartate Amino Transferase 24 U/L (14-36); Bilirubin,Total 1.1 mg/dl (0.2-1.3); Blood Urea Nitrogen 15 mg/dl (7-17); Calcium 9.6 mg/dl (8.4-10.2); Carbon Dioxide 30 mmol/L (22.0-30.0); Chloride 104 mmol/L (98-107); Chol/HDL Ratio 1.7 (1-3.5); Cholesterol 125 mg/dl (140-200); Estimated Glomerular Filt Rate 49 ml/min (>60); GFR (African American) 59 ML/MIN (>60); Globulin 2.4 g/dL (1.3-3.2); Glucose 109 mg/dl (74-100); HDL Cholesterol 73 mg/dl (40-60); Potassium 4.9 mmoL/L (3.5-5.1); Sodium 142 mmol/L (136-145); Total Protein,Serum 6.4 g/dl (6.3-8.2); Triglycerides 161 mg/dl (30-150); VLDL Cholesterol 32 mg/dL (0-40)
[2024-08-30 13:38] LABS: Direct LDL Cholesterol 33.05 mg/dL (100-129)
[2024-08-30 13:59] LABS: Thyroid Stimulating Hormone 2.61 uIU/mL (0.465-4.68)
[2024-08-31 08:16] LABS: Triiodothyronine (T3) Free 3.1 pg/mL (2.0-4.4)
== END 2024-08-30 23:59 | disposition home or self-care (01) ==
LOC: LAB 12:26
PROVIDERS: PCP Nurse Practitioner Family; Visit Provider Nurse Practitioner Family
DX: E78.2 Mixed hyperlipidemia (principal); E03.9 Hypothyroidism, unspecified
CPT/HCPCS: 36415; 80053; 80061; 84439; 84443; 84481

== ENCOUNTER 2024-09-14 06:56 | Day surgery (SDC) | payer MEDICARE, MEDICAID, SELFPAY ==
[2024-09-12 16:32] VITALS: BMI 27.4
[2024-09-14 07:52] VITALS: BP 144/71; PULSE 57; RESP 18; O2SAT 94
--- NOTE | 2024-09-14 08:20 | EXP.ANES.CKL ---
[facility] Disclaimer: The information contained in this section may have been updated after the patient was seen, as this information can be updated by other users. 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 History of thyroid disease Asthma exacerbation Lung nodule Tobacco abuse counseling Dyspnea on exertion Encounter for screening for malignant neoplasm of lung Smoking greater than 30 pack years Asthma Abnormal findings on diagnostic imaging of heart and coronary circulation Goiter Hypokalemia Mesenteric artery stenosis Muscle spasm Nodule of left lobe of thyroid gland Osteopenia Dizziness Hyperlipidemia Hypertension Kidney stone Urinary tract infection History of gastroesophageal reflux (GERD) Hypothyroid Carpal tunnel syndrome Arthritis Sleep apnea COPD (chronic obstructive pulmonary disease) Cholecystectomy planned Cataracts, bilateral CAD (coronary artery disease) PAD (peripheral artery disease) Tobacco abuse Mesenteric artery stenosis Pre-op evaluation 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 History of heart artery stent History of cholecystectomy History of esophagogastroduodenoscopy (EGD) H/O thyroidectomy History of hysterectomy History of appendectomy H/O right heart catheterization Family History Other Cancer Coronary artery disease Family history of acute congestive heart failure Family history of hypertension Family history of myocardial infarction Kidney disease Social History (Updated 09/14/24 @ 07:59 by Ashwini Mendez RN) Smoking Status: Current every day smoker tobacco type: cigarettes packs per day: 1 second hand exposure: Yes alcohol intake: never substance use type: denies use current occupational status: retired Travel in the last 8 weeks: None household members: spouse and children housing: house marital status: number of children: 3 current occupational exposures/hazards: No caffeine: Yes Have you lived/traveled outside [place] in past 30 days?: No Contact w/someone who lives/traveled outside [place] past 30 days?: No Exposure to someone with infectious disease in past 14 days?: No Do you have a fever (greater than 100.4 F or 38 C)?: No Have you tested positive for COVID-19: No Exposed to someone with COVID-19 in past 14 days?: No Do you have a sore throat?: No Do you have a cough?: No Do you have any weakness?: No Are you experiencing any nausea/vomitting?: No Do you have any diarrhea?: No Are you experiencing any unusual bleeding?: No Do you have any muscle aches/pain?: No Do you have any abdominal pain?: No Are you experiencing loss of taste or smell?: No [facility] Anesthesia Checklist Patient Identification Patient Identification: Arm Band Structural Data Admitted From: Home Planned Operative Procedure/s: Colonoscopy Consent for Planned Operative Procedure(s) Verified: Yes Verified Documents: Surgical Consent, History and Physical and Cardiac Clearance NPO Status Verified Time NPO: 04:30 (finished prep) Additional verifications Anesthesia Reactions: No Hx Blood Transfusions: No Blood Transfusion Reaction: No Airway Assessment Mallampati Score:: Class II C-Spine Mobility Assessed: Yes TMJ Mobility Assessed: Yes Dentition: Edentulous Neurological Assessment Level of Consciousness: Awake, Alert and Appropriate Anesthesia Plan Anesthesia Risk discussed: Yes Anesthesia Plan: Verified ASA Class: III Anesthesia Type: MAC
--- NOTE | 2024-09-14 08:20 | EXP.HP ---
History of Present Illness *Admission Date: 09/14/24 *History of present illness: Mrs. Lockett is a 69-year-old female who is here for diagnostic colonoscopy. The patient has had a change in bowel habits and some lower abdominal pain and discomfort with weight loss. The examination is deemed medically necessary for diagnostic colonoscopy. The patient has been seen, interviewed and examined prior to the procedure by both myself and the anesthesia provider. [facility] Disclaimer: The information contained in this section may have been updated after the patient was seen, as this information can be updated by other users. 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 (Updated 09/14/24 @ 08:31 by Stephen Cortez II, MD) History of thyroid disease Asthma exacerbation Lung nodule Tobacco abuse counseling Dyspnea on exertion Encounter for screening for malignant neoplasm of lung Smoking greater than 30 pack years Asthma Abnormal findings on diagnostic imaging of heart and coronary circulation Goiter Hypokalemia Mesenteric artery stenosis Muscle spasm Nodule of left lobe of thyroid gland Osteopenia Dizziness Hyperlipidemia Hypertension Kidney stone Urinary tract infection History of gastroesophageal reflux (GERD) Hypothyroid Carpal tunnel syndrome Arthritis Sleep apnea COPD (chronic obstructive pulmonary disease) Cholecystectomy planned Cataracts, bilateral CAD (coronary artery disease) PAD (peripheral artery disease) Tobacco abuse Mesenteric artery stenosis Pre-op evaluation 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 History of heart artery stent History of cholecystectomy History of esophagogastroduodenoscopy (EGD) H/O thyroidectomy History of hysterectomy History of appendectomy H/O right heart catheterization Family History Other Cancer Coronary artery disease Family history of acute congestive heart failure Family history of hypertension Family history of myocardial infarction Kidney disease Social History (Updated 09/14/24 @ 07:59 by Ashwini Mendez RN) Smoking Status: Current every day smoker tobacco type: cigarettes packs per day: 1 second hand exposure: Yes alcohol intake: never substance use type: denies use current occupational status: retired Travel in the last 8 weeks: None household members: spouse and children housing: house marital status: number of children: 3 current occupational exposures/hazards: No caffeine: Yes Have you lived/traveled outside [place] in past 30 days?: No Contact w/someone who lives/traveled outside [place] past 30 days?: No Exposure to someone with infectious disease in past 14 days?: No Do you have a fever (greater than 100.4 F or 38 C)?: No Have you tested positive for COVID-19: No Exposed to someone with COVID-19 in past 14 days?: No Do you have a sore throat?: No Do you have a cough?: No Do you have any weakness?: No Are you experiencing any nausea/vomitting?: No Do you have any diarrhea?: No Are you experiencing any unusual bleeding?: No Do you have any muscle aches/pain?: No Do you have any abdominal pain?: No Are you experiencing loss of taste or smell?: No Other 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 Have you received the Flu Vaccine for this season: No Have you received the Pneumonia Vaccine: Yes Review of Systems Review of Systems Review of systems (narrative): Negative *Cardiovascular Comments: Negative *Gastrointestinal Comments: Negative *Genitourinary Comments: Negative *Musculoskeletal Comments: Negative *Neurologic Comments: Negative Meds Home Medications and Allergies Home Medications ?Medication ?Instructions ?Recorded ?Confirmed ?Type cyclobenzaprine 10 mg tablet 10 mg PO HSP PRN Muscle Spasm 09/10/17 09/14/24 History nitroglycerin 0.4 mg sublingual 0.4 mg sublingual Q5MINP PRN Chest 12/01/19 09/14/24 History tablet Pain calcium 500 mg (as 500 mg PO BID Supplement 04/10/20 09/14/24 History carbonate)-vitamin D3 5 mcg (200 unit) tablet levothyroxine 100 mcg tablet 100 mcg PO DAILYDM HYPOTHYROIDISM 04/10/20 09/14/24 History aspirin 81 mg chewable tablet 81 mg PO DAILY Heart disease #90 09/29/22 09/14/24 Rx (Jordin Chewable Low Dose Aspirin) tabs potassium chloride 10 mEq 10 meq PO DAILY 03/23/23 09/14/24 History tablet,extended release(part/cryst) fluoxetine 40 mg capsule 40 mg PO DAILY Mood 90 days #90 05/04/23 09/14/24 Rx caps dapagliflozin propanediol 5 mg 5 mg PO DAILY 90 days #90 tabs 12/08/23 09/14/24 Rx tablet (Farxiga) ropinirole 0.25 mg tablet 0.25 mg PO HS Restless Leg(S) 01/13/24 09/14/24 History acyclovir 5 % topical ointment 1 applic topical 6XD 7 days #30 02/02/24 09/14/24 Rx grams albuterol sulfate 90 mcg/actuation 2 inh inhalation Q6H PRN shortness 02/10/24 09/14/24 Rx aerosol inhaler (Ventolin HFA) of breath or wheezing 90 days #18 grams coenzyme Q10 200 mg capsule 200 mg PO DAILY #90 caps 03/16/24 09/14/24 Rx metoprolol tartrate 25 mg tablet 12.5 mg (1/2 x 25 mg) PO BID High 03/16/24 09/14/24 Rx blood pressure #180 tabs fluticasone furoate 200 1 inh inhalation DAILY 90 days #90 03/29/24 09/14/24 Rx mcg-vilanterol 25 mcg/dose ea inhalation powder (Breo Ellipta) lisinopril 2.5 mg tablet 2.5 mg PO DAILY 90 days #90 tabs 04/06/24 09/14/24 Rx spironolactone 25 mg tablet 25 mg PO DAILY Fluid #90 tabs 04/06/24 09/14/24 Rx trazodone 50 mg tablet See Rx Instructions .Route 05/13/24 09/14/24 Rx .COMPLEX #30 tabs ondansetron 4 mg disintegrating 4 mg PO Q8H PRN nausea and 06/01/24 09/14/24 Rx tablet vomiting #30 tabs pantoprazole 40 mg tablet,delayed 40 mg PO HS 90 days #90 tabs 06/01/24 09/14/24 Rx release linaclotide 72 mcg capsule 72 mcg PO DAILY #30 caps 06/15/24 09/14/24 Rx (Linzess) polyethylene glycol 3350 17 17 g PO BID PRN constipation 06/15/24 09/14/24 Rx gram/dose oral powder (Miralax) #1,020 grams olopatadine 0.2 % eye drops 1 drp ophthalmic (eye) DAILY #2.5 06/20/24 09/14/24 Rx (Pataday Once Daily Relief) mL ipratropium 0.5 mg-albuterol 3 mg 3 ml inhalation Q6H PRN shortness 07/01/24 09/14/24 Rx (2.5 mg base)/3 mL nebulization of breath or wheezing #90 mL soln furosemide 40 mg tablet 40 mg PO DAILY 02/10/25 04/23/25 History ranolazine 500 mg tablet,extended 500 mg PO BID angina #180 tabs 07/04/24 09/14/24 Rx release,12 hr duloxetine 30 mg capsule,delayed See Rx Instructions .Route 07/08/24 09/14/24 Rx release .COMPLEX #90 ea atorvastatin 40 mg tablet 40 mg PO QHS 07/14/24 09/14/24 History ticagrelor 60 mg tablet (Brilinta) 60 mg PO BID #60 tabs 08/15/24 09/14/24 Rx sodium,potassium,mag sulfates 17.5 See Rx Instructions PO .COMPLEX 08/31/24 09/14/24 Rx gram-3.13 gram-1.6 gram oral soln #354 mL (Suprep Bowel Prep Kit) New Prescriptions to Start Prescriptions: Allergies Allergy/AdvReac Type Severity Reaction Status Date / Time Penicillins (PENICILLINS) Allergy Unknown I-HIVES Verified 09/14/24 07:46 Exam Data for Last 24 hours Vital signs and Labs for Last 24 Hours: Pulse Resp BP Pulse Ox O2 Del Method 57 L 18 144/71 H 94 L Room Air 09/14/24 07:52 09/14/24 07:52 09/14/24 07:52 09/14/24 07:52 09/14/24 07:52 I & O for Last 24 hours: Intake & Output 09/11/24 09/12/24 09/13/24 09/14/24 23:59 23:59 23:59 23:59 Weight 136 lb *Routine HEENT Exam Head: Present normocephalic Eye: Present EOMI and PERRL ENT: Present mucous membranes moist *Routine Neck Exam Neck: Present supple *Routine Respiratory Exam Respiratory: Present CTA bilaterally *Routine Cardiovascular Exam Cardiovascular: Present RRR *Routine Abdominal Exam Abdominal: Present soft and normoactive bowel sounds; Absent tenderness *Routine Rectal Exam Rectal:: deferred *Routine Genitalia Exam Genitalia:: deferred *Routine Extremities Exam Extremities: Absent cyanosis, clubbing or edema *Routine Skin Exam Skin: Present warm; Absent rash *Routine Neurological Exam Neurological: Present alert and oriented X3 Assessment and Plan *Assessment and plan (1) Change in bowel habits: Status: Acute Category: Medical Code(s): R19.4 - Change in bowel habit (2) Irritable bowel syndrome with alternating bowel habits: Status: Acute Category: Medical Code(s): K58.2 - Mixed irritable bowel syndrome (3) Lower abdominal pain: Status: Acute Category: Medical Code(s): R10.30 - Lower abdominal pain, unspecified Plan A/P: 1. Change in bowel habits with alternating constipation and diarrhea is the preprocedural diagnosis. The patient will be anesthetized/sedated using MAC sedation. The patient has been seen and examined. Cardiac and lung assessment prior to the examination is stable. Proceed with planned colonoscopy.
[2024-09-14 08:25] VITALS: O2SAT 99
--- NOTE | 2024-09-14 08:31 | [facility].PROCNOTE ---
[facility] Procedure Note Date: 09/14/24 Time: 08:55 Procedure Note:: Colonoscopy Procedure Report: Colonoscopy with cold snare polypectomy and Endo Clip placement Endoscopist: Stephen Cortez II, MD Referring physician: DEONNA Liu Date of Procedure: September 14, 2024 Equipment: Olympus 190 variable stiffness pediatric colonoscope Sedation: MAC sedation Indication: Mrs. Lockett is a 69-year-old female who who has had long-term intermittent constipation and more recently had a change in bowel habits. In May, she did have norovirus which was accompanied by nausea, vomiting and diarrhea. The patient has subsequently had a change in bowel habits with diarrhea alternating with constipation. She developed some lower abdominal pain and discomfort. She had some infrequent gassiness and bloating. She reports no rectal bleeding but did have some minor weight loss but this has fluctuated. Her maternal grandmother had colon cancer in her late 70s. Her maternal uncle had gastric cancer diagnosed in his 50s. The patient cannot remember when her last colonoscopy was. Procedure: Prior to the procedure, a history and physical exam was performed, and patient's medications and allergies were reviewed. The risks, benefits and alternatives of the sedation and procedure were discussed with the patient. All questions were answered and informed consent was obtained. The patient was brought to the procedure room. Patient identification and proposed procedure were verified by the physician and the nurse. The patient was placed in a left lateral decubitus position and the scope was passed under direct vision. Throughout the procedure, the patient's blood pressure, pulse, and oxygen saturations were monitored continuously. The colonoscopy was accomplished without difficulty. The patient tolerated the procedure well. Findings: On digital rectal examination there was normal rectal tone. There were no external hemorrhoids. The colonoscope was introduced through the anal canal to the rectum and advanced to the cecum. The ileocecal valve and appendiceal orifice were identified. The scope was advanced a short distance into the ileum which appeared grossly normal. The scope was then withdrawn into the colon. There were 6 colon polyps (cecum x 4 (3, 3, 4 and 4 mm), transverse x 1 (3 mm) and sigmoid x 1 (10 mm)). These were all removed via cold snare polypectomy. The remaining cecum, ascending and transverse colon and mucosa were grossly normal. There were scattered diverticuli throughout the descending and sigmoid colon (LEFT colon). There was some angulation in the sigmoid colon possibly related to prior hysterectomy. The rectum itself was normal. Upon retroflexion within the rectum there were grade 2 internal hemorrhoids. The preparation was excellent throughout with [place] Preparation Score of 9. The cecal time was 14 minutes. Impression: 1. Colonic polyps x 6 (ranging in size from 3 to 10 mm) 2. Mild left-sided diverticulosis 3. Grade 2 internal hemorrhoids Plan: I will follow-up the polyp histology and recommend repeat surveillance colonoscopy again in 3 years if the polyps are adenomatous. I would encourage the patient to resume a fiber bowel regimen (MiraLAX plus Konsyl). She had been on Linzess which was causing some more diarrhea.
[2024-09-14 08:56] VITALS: BP 117/68; PULSE 63; RESP 17; TEMP 36.1; O2SAT 92
[2024-09-14 09:06] VITALS: BP 110/71; PULSE 62; RESP 17; O2SAT 94
[2024-09-14 09:16] VITALS: BP 123/67; PULSE 84; RESP 17; O2SAT 95
[2024-09-14 09:26] VITALS: BP 120/73; PULSE 68; RESP 17; O2SAT 96
== END 2024-09-14 09:35 | disposition home or self-care (01) ==
PROVIDERS: PCP Nurse Practitioner Family; Visit Provider Internal Medicine Gastroenterology
PROC: 0DJD8ZZ Inspection of Lower Intestinal Tract, Via Natural or Artificial Opening Endoscopic (ICD-10-PCS; CPT 45378; principal; 2024-09-14 08:30)
DX: D12.5 Benign neoplasm of sigmoid colon (principal); K63.5 Polyp of colon; K57.30 Diverticulosis of large intestine without perforation or abscess without bleeding; K64.1 Second degree hemorrhoids; R19.4 Change in bowel habit; K58.2 Mixed irritable bowel syndrome; R10.30 Lower abdominal pain, unspecified; Z80.0 Family history of malignant neoplasm of digestive organs
CPT/HCPCS: 45385

== ENCOUNTER 2024-09-28 12:35 | Outpatient (CLI) | payer MEDICARE, MEDICAID, SELFPAY ==
--- OUTSIDE RECORDS SUMMARY | 2024-09-28 12:37 | XMS_ITS | Data Portability ---
Author Organization [place] [facility] Address [address] [place] [address] Care Team Providers Care Executive Steward Name Role Phone JAMES SHEPARD Referring Provider [phone] Assessment No assessment recorded. Plan of Treatment Reminders Order Date Submit Date Provider Last Modified By Organization Details Last Modified Time Details Appointments None record ed. Lab None record ed. Referral None record ed. Procedures None record ed. Surgeries None record ed. Imaging None record ed. Medication Orders None record ed. Patient TargetsNo targets recorded. Patient Instructions Encounter Date Encounter Id Patient Instructions Last Modified By Organization Details Last Modified Time 09/05/2021 [id number] CARPAL TUNNEL SYNDROME-LC jsammons Not available 09/05/2021 14:46:27 Reason for Referral None Reported. Results Created Date Observation Date Name Description Value Unit Range Abnormal Flag Note LastModifiedBy Organization Detail LastModifiedTime 09/04/19 22 05/28/2021 nerve condu ction study /EMG (PROC ) No observ ation record ed. [facility] [address], [place], [address], 09/04/2021 08:15:12 09/04/19 22 05/28/2021 nerve condu ction study /EMG (PROC ) No observ ation record ed. [facility] [address], [place], [address], 09/05/2021 13:55:52 09/04/19 22 05/28/2021 nerve condu ction study /EMG (PROC ) No observ ation record ed. [facility] [address], [address], 09/05/2021 14:13:42 Result Notes None recorded. Problems Name Problem SNOMED Code Status Onset Date Resolution Date Notes Provider Name and Address Organization Details Recorded Time Bilateral carpal tunnel syndrome 60028945179110 101 Active 2021 BENJAMIN DIAZ PA-C [address] [place] [address], [id number], [facility] 14:44:27 Problem Notes None recorded. Procedures 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 Date Name Laterality Status Provider Name and Address Organization Details Recorded Time Thyroid Surgery completed [facility] 09/05/2021 14:22:20 Appendectomy completed [facility] 09/05/2021 14:22:28 cholecystectomy completed [facility] 09/05/2021 14:22:35 Total Hysterectomy completed [facility] 09/05/2021 14:23:02 Imaging Results Imaging Date Name Status LastModified by Organiz ation Details LastModified Time 05/28/2021 nerve conduction study/EMG (PROC) completed [facility] [address], [place], [address], 09/04/2021 08:15:12 05/28/2021 nerve conduction study/EMG (PROC) completed [facility] [address], [place], [address], 09/05/2021 13:55:52 05/28/2021 nerve conduction study/EMG (PROC) completed [facility] [address], [place], [address], 09/05/2021 14:13:42 Procedure Notes None recorded. Medical Equipment None Reported. Allergies No known drug allergies Medications Name Sig Start Date Stop Date Status Note LastModified by Organization Details LastModified Time fluoxetine 40 mg capsule TAKE 1 CAPSULE BY MOUTH ONCE DAILY active Not Available Not Available No t Available cyclobenzapr ine 10 mg tablet TAKE 1 TABLET BY MOUTH AT BEDTIME NEEDED active Not Available Not Available No t Available oxybutynin chloride ER 10 mg tablet,exten ded release 24 hr TAKE 1 TABLET BY MOUTH ONCE DAILY active Not Available Not Available No t Available clopidogrel 75 mg tablet TAKE 1 TABLET BY MOUTH ONCE DAILY active Not Available Not Available No t Available ciprofloxaci n 500 mg tablet TAKE 1 TABLET BY MOUTH EVERY 12 HOURS FOR 10 DAYS active Not Available Not Available Not Available omeprazole 40 mg capsule,jose yed release TAKE 1 CAPSULE BY MOUTH ONCE DAILY active Not Available Not Available No t Available Euthyrox 100 mcg tablet Take 1 tablet every day by oral route. active Not Available Not Available No t Available prednisone 10 mg tablets in a dose pack TAKE 6 TABLETS ON DAY 1 THEN TAKE 5 TABLETS ON DAY 2 THEN TAKE 4 TABLETS ON DAY 3 THEN TAKE 3 TABLETS ON DAY 4 THEN TAKE 2 TABLETS ON DAY 5 THEN TAKE 1 TABLET ON DAY 6. TAKE ALL DOSES WITH FOOD. active Not Available Not Available N ot Available ropinirole 0.25 mg tablet TAKE 1 TABLET BY MOUTH 1-3 HOURS BEFORE BEDTIME active Not Available Not Available No t Available simvastatin 20 mg tablet Take 1 tablet every day by oral route. active Not Available Not Available No t Available gabapentin 300 mg capsule Take 1 capsule every day by oral route. active Not Available Not Available No t Available lisinopril 20 mg-hydrochlo rothiazide 25 mg tablet Take 1 tablet every day by oral route. active Not Available Not Available No t Available raloxifene 60 mg tablet TAKE 1 TABLET BY MOUTH ONCE DAILY FOR OSTEOPOROSI S; NEEDS APPOINTMENT active Not Available Not Available Not Available prednisone 5 mg tablets in a dose pack TAKE BY MOUTH DIRECTED ON INSIDE OF PACKAGE active Not Available Not Available No t Available tobramycin 0.3 %-dexamethas one 0.1 % eye drops,suspen bar INSTILL 1 DROP INTO AFFECTED EYE EVERY 6 HOURS FOR 5 DAYS active Not Available Not Available No t Available potassium chloride ER 10 mEq tablet,exten ded release(part /cryst) TAKE 1 TABLET BY MOUTH ONCE DAILY WITH FOOD active Not Available Not Available No t Available duloxetine 30 mg capsule,jose yed release Take 1 capsule every day by oral route. active Not Available Not Available No t Available ibandronate 150 mg tablet TAKE 1 TABLET BY MOUTH ONCE EVERY MONTH active Not Available Not Available Not Available cyclobenzapr ine active Not Available Not Available Not Available oxybutynin active Not Available Not Av ailable Not Available Myrbetriq 50 mg tablet,exten ded release Take 1 tablet every day by oral route. active Not Available Not Available No t Available Spiriva Respimat 2.5 mcg/actuatio n solution for inhalation INHALE 2 SPRAY(S) BY MOUTH ONCE DAILY active Not Available Not Available No t Available Spiriva Respimat active Not Available Not Available Not Available Vitals Date Recorded Body height Body mass index (BMI) Body weight Heart rate Systolic blood pressure Diastolic blood pressure Provider Name and Address Organization Details Last Updated DateTime 2 149.86 cm 32.1 kg/m2 28818.1 9 g 80 /min 153 mm[Hg] 96 mm[Hg] Leti Anand [facility] 14:17:48 Social History Question Answer Notes LastModified by Organizat ion Details LastModified Time Tobacco Smoking Status Current Every Day Smoker Leti Anand [facility] 09/05/2021 14:22:05 What Is Your Level Of Alcohol Consumption? None Information not available 09/05/2021 What Was The Date Of Your Most Recent Tobacco Screening? 09/05/2021 Information not available 09/05/2021 How Much Tobacco Do You Smoke? 0.5 PPD Information not available 09/05/2021 Has Tobacco Cessation Counseling Been Provided? No Information not available 09/05/2021 Have You Recently Traveled Abroad? No Information not available 09/05/2021 Do You Or Have You Ever Used Any Other Forms Of Tobacco Or Nicotine? No Information not available 09/05/2021 Sex: Unknown Functional Status None recorded. Mental Status None recorded. Family History Relationship Description Onset Age of this Age Resolved Age Notes LastModified by Organization Details LastModified Time Unspecified Relation Malignant neoplastic disease apurdie Not available 2021 14:21:22 Unspecified Relation Myocardial infarction apurdie Not available 09/05 14:21:27 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 Condition Response Bleeding Disorder Y Osteoporosis/Osteopenia Y Arthritis Y Sleep Apnea Y Thyroid Disorder Y High Cholesterol Y Hypertension Y COPD Y Gynecological HistoryNo gynecological history recorded. Obstetrics History GPAL:G 0 P 0 0 0 0 Past Encounters Encounter ID Performer Location Encounter Start Date Encounter Closed Date Diagnosis/Indication Diagnosis SNOMED-CT Code Diagnosis ICD10 Code Diagnosis Note [id number] BENJAMIN DIAZ PA-C [facility] [address] [place] [address] 09/05/2021 14:09:06 09/09/2021 09:55:04 Bilateral carpal tunnel syndrome [id number] G56.03 66-year-ol d female with history of cardiac issues, aortic stent, anticoagul ated on Plavix, bilateral carpal tunnel release Deborahat boy 6 years ago performed in [place] with worsening right greater than left hand pain numbness and weakness. Symptoms do coincide with the carpal tunnel syndrome. EMG shows moderate bilateral chronic carpal tunnel syndrome. This was performed on May 28, [address] Rojas. [facility] boy LOPEZ had to go to the hospital for a emergency Case. I suspect she is a candidate for a carpal tunnel release however this would be a revision. I need to confirm her candidacy with Dr. Woods. Once her case and EMG is reviewed with Dr. Woods and he makes a surgical decision we will contact the patient with our recommenda tion. Health Concerns Section Related Observation LastModified by Organization Detai ls LastModified Time None Recorded Concern Status LastModified by Organization Details LastModified Time None Recorded Advance Directives Directive None Recorded Payers Insurance Date Sequence Insurance Name Policy Number Policy Rush Covered Member ID Rush Member ID Guarantor Name 09/28/2021 1 MEDICARE-OR (MEDICARE) Yolanda C [place] [id number] Yolanda Ctahryn 10/16/2021 2 [facility]TRADITIO NAL Yolanda Cathryn [id number] Yolanda Cathryn Notes Date Note Type Note Provider Name and Address Organization Details Recorded Time 09/05/2021 text/html 66-year-old fema ramos with history of cardiac issues, aortic stent, anticoagulated on Plavix, bilateral carpal tunnel release approximately 6 years ago done in [facility] presents to our clinic for evaluation of worsening right greater than left hand pain. The patient is right-hand dominant. Patient states that she started having worsening symptoms around April. She describes pain in both of her hands that involves all of her fingers. Rates pain a 10 out of 10. It is constant. It is worse at night. Nothing seems to make it better. She's tried splinting. She has numbness tingling and weakness in the hands. She drops objects. Worse when she uses the hands. She denies any neck pain or pain radiating from the neck. All of her pain is located in the wrist and hands.She had an EMG dated 05/28/[address] Rojas at [facility] that showed bilateral Moderate chronic carpal tunnel syndrome. She is here today discuss a carpal tunnel release.Density Control Puncher is Dr. Suri DIAZ PA-C [facility] [place], [address], [facility] 09/05/2021 14:46:38 OBGyn Episode No OBEpisode recorded.
--- OUTSIDE RECORDS SUMMARY | 2024-09-28 12:37 | XMS_ITS ---
Laboratory report Created on: September 02, 2024 EVY FABIAN : 1955 Sex: Female Author Organization Unknown PROBLEMS Problems List Code Description RESULTS Laboratory Orders Date Order Code Test 2024-08-30 252140 TRIIODOTHYRONINE (T3), FREE Laboratory Results Date LOINC Test Value Unit Reference Range Interpre tation 2024-08-30 3051-0 TRIIODOTHYRONINE (T3), FREE 3.1 PG/ML 2.0-4.4
--- NOTE | 2024-09-28 12:38 | CT_ITS ---
FINAL REPORT TECHNIQUE: Thin section axial images were obtained from the thoracic inlet through the upper abdomen after intravenous contrast injection. Reconstruction images were obtained from the axial data. Exam was performed using dose reduction technique. This study was performed with techniques to keep radiation doses as low as reasonably achievable (ALARA). Individualized dose reduction techniques using automated exposure control or adjustment of mA and/or kV according to the patient's size were employed. CLINICAL HISTORY: Lung nodule 6-month follow-up 63 cc of isovue 370 saline flush COMPARISON: 03/24/2024 LDCT FINDINGS: There is no mediastinal, hilar, or axillary lymphadenopathy. There is no pleural or pericardial effusion. There is a 4 mm nodule in the left major fissure, best seen on image 31 of series 2, stable, most consistent with an intrafissural node. There is a somewhat tubular opacity in the medial right lower lobe, which is also stable, and likely represents a mucoid filled dilated bronchial. The 5 mm right middle lobe nodule noted previously is also stable. No new nodules are identified. There is a mildly prominent portal lymph node, which is stable. A small hiatal hernia is noted. No acute osseous abnormality. IMPRESSION: Stable nodules are present as described above, unchanged since the most recent CT of 03/24/2024. Recommend continued follow-up to 2 years total as surveillance. Reviewed, Interpreted and Dictated by Meme Mccall MD Transcribed by Ericka Cooper Authenticated and [facility]
[2024-09-28] MEDS: SODIUM CHLORIDE 0.9% 10ML SYR (RAD ONLY) 10 ML IV (13:01)
[2024-09-28] MEDS: IOPAMIDOL-370 (76%);100ML BOTTLE 63 ML IV (13:01)
[2024-09-28] MEDS: ALBUTEROL 0.083% 2.5 MG/3 ML NEB IH (14:38)
== END 2024-09-28 23:59 | disposition home or self-care (01) ==
LOC: RAD 12:36
PROVIDERS: PCP Nurse Practitioner Family; Visit Provider Internal Medicine Pulmonary Disease
DX: R59.0 Localized enlarged lymph nodes (principal); R06.09 Other forms of dyspnea; J45.909 Unspecified asthma, uncomplicated
CPT/HCPCS: 71260; 94010; 94618; J7613; Q9967

== ENCOUNTER 2025-01-29 13:14 | Emergency (ER) | payer MEDICARE, MEDICAID, SELFPAY ==
[2025-01-29] VITALS (7 sets, daily range): BP systolic 157–203; BP diastolic 58–113; PULSE 41–62; RESP 18; TEMP 36.7–36.9; O2SAT 95–98; BMI 30.4
--- NOTE | 2025-01-29 13:30 | XR_ITS ---
PROCEDURE INFORMATION: Exam: XR Right Hip Exam date and time: 01/29/2025 1:32 PM Age: 69 years old Clinical indication: Injury or trauma; Fall; Blunt trauma (contusions or hematomas); Right; Hip TECHNIQUE: Imaging protocol: Radiologic exam of the right hip. Views: 2 or 3 views hip with pelvis when performed. COMPARISON: CR XR HIP RT 2-3V W/PELVIS 01/13/2024 3:18 PM FINDINGS: Bones/joints: osseous structures of the pelvis without an acute process. rami are intact. Sacroiliac joints without separation/diastases/fracture. Iliac bones unremarkable/noncontributory. Severe degenerative changes within the visualized portions of the caudal aspect of the lumbar spine. Mild degenerative changes within the hip including mild joint space narrowing and early osteophyte formation. No fracture. The trabecular stress markings normal. Soft tissues: See Bones/joints finding. IMPRESSION: 1. Severe degenerative changes within the visualized portions of the caudal aspect of the lumbar spine. 2. Mild degenerative changes within the right hip.
--- NOTE | 2025-01-29 13:31 | XR_ITS ---
PROCEDURE INFORMATION: Exam: XR Lumbosacral Spine Exam date and time: 01/29/2025 1:34 PM Age: 69 years old Clinical indication: Injury or trauma; Fall; Blunt trauma (contusions or hematomas) TECHNIQUE: Imaging protocol: Radiologic exam of the lumbosacral spine. Views: 2 or 3 views. COMPARISON: CR XR LUMBAR SPINE 2-3V 01/13/2024 3:18 PM FINDINGS: Bones/joints: 8 degree dextrocurvature of the lumbar spine centered at L3. Moderate and severe degenerative disc disease diffusely reflected as decrease in disc space height and anterior endplate osteophytosis. Severe disc space narrowing L4-L5 and in the lower thoracic/upper lumbar region. No spondylolisthesis. No pars defect. No fracture. Severe facet hypertrophic changes L4-L5. Annular calcifications posteriorly L3-L4 and L1-L2. Soft tissues: Unremarkable. Vasculature: Calcification of the abdominal aorta. IMPRESSION: No fracture. 1. 8 degree dextrocurvature of the lumbar spine centered at L3. 2. Moderate and severe degenerative disc disease diffusely reflected as decrease in disc space height and anterior endplate osteophytosis. Severe disc space narrowing L4-L5 and in the lower thoracic/upper lumbar region.
--- NOTE | 2025-01-29 13:31 | XR_ITS ---
PROCEDURE INFORMATION: Exam: XR Left Elbow Exam date and time: 01/29/2025 1:29 PM Age: 69 years old Clinical indication: Injury or trauma; Fall; Blunt trauma (contusions or hematomas); Elbow; Left TECHNIQUE: Imaging protocol: Radiologic exam of the left elbow. Views: 3 or more views. COMPARISON: CR XR WRIST LT MIN 3V 11/12/2021 9:16 AM FINDINGS: Bones/joints: Medial and lateral columns are without fracture. Radial head and proximal ulna are without fracture. No joint effusion. traction apophysis at the insertion of the triceps. As well as the lateral epicondyle. Degenerative changes within the olecranon. Soft tissues: Normal. IMPRESSION: Degenerative changes within the olecranon. No acute process.
--- NOTE | 2025-01-29 13:32 | ED_ITS ---
<Statement entered by Calvin Galvan MD - 01/29/25 16:05> I was consulted by the JAMAAL, and we discussed the complexity of problems being addressed. I approved the treatment and management plan for this patient's care in the emergency department, thus performing a substantial portion of the medical decision making. Calvin Galvan MD Discharge Plan Disposition Patient Disposition: Home, Self-Care Condition: Good Prescriptions Prescriptions: No Action cyclobenzaprine 10 mg tablet 10 mg PO HSP PRN (Reason: Muscle Spasm) aspirin [Jordin Chewable Aspirin] 81 mg tablet,chewable 81 mg PO DAILY Qty: 90 3RF potassium chloride 10 mEq tablet,ER particles/crystals 10 meq PO DAILY fluticasone furoate-vilanterol [Breo Ellipta] 200-25 mcg/dose blister with device 1 inh inhalation DAILY 90 Days Qty: 90 2RF spironolactone 25 mg tablet 25 mg PO DAILY Qty: 90 1RF atorvastatin 10 mg tablet 10 mg PO HS Patient Comments: TAKE 1 TABLET BY MOUTH AT BEDTIME NIGHTLY FOR CHOLESTEROL nitroglycerin 0.4 mg tablet, sublingual 0.4 mg SL Q5MINP PRN (Reason: Chest Pain) Rx Instructions: do not exceed 3 doses per episode albuterol sulfate [Ventolin HFA] 90 mcg/actuation HFA aerosol inhaler 2 inh inhalation Q6H PRN (Reason: shortness of breath or wheezing) 90 Days Qty: 18 3RF coenzyme Q10 200 mg capsule 200 mg PO DAILY Qty: 90 1RF metoprolol tartrate 25 mg tablet 12.5 mg PO BID Qty: 180 3RF pantoprazole 40 mg tablet,delayed release (DR/EC) 40 mg PO HS 90 Days Qty: 90 2RF ondansetron 4 mg tablet,disintegrating 4 mg PO Q8H PRN (Reason: nausea and vomiting) Qty: 30 0RF ipratropium-albuterol 0.5 mg-3 mg(2.5 mg base)/3 mL solution for nebulization 3 ml inhalation Q6H PRN (Reason: shortness of breath or wheezing) Qty: 90 3RF olopatadine [Pataday Once Daily Relief] 0.2 % drops 1 drp ophthalmic (eye) DAILY Qty: 2.5 2RF furosemide 40 mg tablet 40 mg PO DAILY ranolazine 500 mg tablet extended release 12 hr 500 mg PO BID Qty: 180 1RF Brilinta 60 mg tablet 60 mg PO BID Qty: 60 5RF fluoxetine 40 mg capsule 40 mg PO DAILY 90 Days Qty: 90 0RF trazodone 50 mg tablet See Rx Instructions .ROUTE .COMPLEX Qty: 30 0RF Dose Instruction: TAKE 1/2 (ONE-HALF) TABLET BY MOUTH AT BEDTIME NIGHTLY NEEDED FOR IN SOMNIA Rx Instructions: TAKE 1/2 (ONE-HALF) TABLET BY MOUTH AT BEDTIME NIGHTLY NEEDED FOR INSOMNIA Linzess 72 mcg capsule 72 mcg PO DAILY Qty: 30 2RF polyethylene glycol 3350 [Miralax] 17 gram/dose powder 17 g PO BID PRN (Reason: constipation) Qty: 1020 0RF dapagliflozin propanediol [Farxiga] 5 mg tablet 5 mg PO DAILY 90 Days Qty: 90 2RF duloxetine 30 mg capsule,delayed release(DR/EC) See Rx Instructions .ROUTE .COMPLEX Qty: 90 0RF Dose Instruction: Take 1 capsule by mouth once daily Rx Instructions: Take 1 capsule by mouth once daily lisinopril 2.5 mg tablet 2.5 mg PO DAILY 90 Days Qty: 90 2RF levothyroxine 100 MCG tablet 100 mcg PO DAILYDM calcium carbonate-vitamin D3 500 MG tablet 500 mg PO BID ropinirole 0.25 mg tablet 0.25 mg PO HS Rx Instructions: administer 1-3 hours before bedtime Referrals Follow up/Referrals: Sol Peralta APRN [Primary Care Provider, Medical] - See instructions Activity Restrictions/Add. Instructions Additional Instructions/Restrictions: Clean area with soap and water Keep areas dry Monitor for signs of infection If symptoms worsen or do not improve return Clinical Impressions Clinical Impression: Laceration, Skin wound closed with sterile strip Fall Qualifiers: Encounter type: initial encounter Qualified Code(s): W19.XXXA - Unspecified fall, initial encounter Instructions Patient Instructions: How to Prevent Falls, DI for Laceration Repair-Skin Closure Strips, DI for Laceration Repair-Skin Glue Print Language Print Language: Khmer Discharge ED Provider: Calvin Galvan Adult HPI General Chief complaint: Fall Stated complaint: AO 01/29/2025 fall, pain in head, finger Time Seen by Provider: 01/29/25 13:19 Mode of Arrival: Ambulatory Source of Information: Patient Description of Symptoms (Recalled from ER Triage Doc. by RN): pt tripped in her kitchen and has skin tears to eloy arms and lac to her finger. on a blood thinner. denies hitting her head or LOC. History of Present Illness HPI narrative: 69-year-old female presenting s/p fall this a.m. in the kitchen. Patient states she tripped over her feet and landed on her buttocks/right hip. Patient states she did not hit her head or lose consciousness. Patient states she has skin tears to bilateral arms and a laceration on her finger. Related Data Home Medications ?Medication ?Instructions ?Recorded ?Confirmed cyclobenzaprine 10 mg tablet 10 mg PO HSP PRN Muscle S pasm 09/10/17 12/07/24 nitroglycerin 0.4 mg sublingual 0.4 mg sublingual Q5MI PER DIEM REGISTERED NURSE PRN Chest 12/01/19 12/07/24 tablet Pain calcium 500 mg (as 500 mg PO BID Supplement 12/07/24 carbonate)-vitamin D3 5 mcg (200 unit) tablet levothyroxine 100 mcg tablet 100 mcg PO DAILYDM HYPOTH YROIDISM 04/10/20 12/07/24 potassium chloride 10 mEq 10 meq PO DAILY 03/23/23 tablet,extended release(part/cryst) ropinirole 0.25 mg tablet 0.25 mg PO HS Restless Leg(S ) 01/13/24 12/07/24 furosemide 40 mg tablet 40 mg PO DAILY 07/04/2411/22 atorvastatin 10 mg tablet 10 mg PO HS 10/05/24 5 Previous Rx's ?Medication ?Instructions ?Recorded aspirin 81 mg chewable tablet 81 mg PO DAILY Heart dis ease #90 09/29/22 (Jordin Chewable Low Dose Aspirin) tabs fluoxetine 40 mg capsule 40 mg PO DAILY Mood 90 days #90 05/04/23 caps albuterol sulfate 90 mcg/actuation 2 inh inhalation Q6 H PRN shortness 02/10/24 aerosol inhaler (Ventolin HFA) of breath or wheezing 9 0 days #18 grams coenzyme Q10 200 mg capsule 200 mg PO DAILY #90 caps 1 metoprolol tartrate 25 mg tablet 12.5 mg (1/2 x 25 mg) PO BID High 03/16/24 blood pressure #180 tabs fluticasone furoate 200 1 inh inhalation DAILY 90 da ys #90 03/29/24 mcg-vilanterol 25 mcg/dose ea inhalation powder (Breo Ellipta) spironolactone 25 mg tablet 25 mg PO DAILY Fluid #90 t abs 04/06/24 trazodone 50 mg tablet See Rx Instructions .Route 1 07/14/23 .COMPLEX #30 tabs ondansetron 4 mg disintegrating 4 mg PO Q8H PRN nausea and 06/01/24 tablet vomiting #30 tabs pantoprazole 40 mg tablet,delayed 40 mg PO HS 90 days #90 tabs 06/01/24 release linaclotide 72 mcg capsule 72 mcg PO DAILY #30 caps (Linzess) polyethylene glycol 3350 17 17 g PO BID PRN constipati on 06/15/24 gram/dose oral powder (Miralax) #1,020 grams olopatadine 0.2 % eye drops 1 drp ophthalmic (eye) CLAIR LY #2.5 06/20/24 (Pataday Once Daily Relief) mL ipratropium 0.5 mg-albuterol 3 mg 3 ml inhalation Q6H PRN shortness 07/01/24 (2.5 mg base)/3 mL nebulization of breath or wheezing #90 mL soln ranolazine 500 mg tablet,extended 500 mg PO BID angina #180 tabs 07/04/24 release,12 hr ticagrelor 60 mg tablet (Brilinta) 60 mg PO BID #60 ta bs 08/15/24 dapagliflozin propanediol 5 mg 5 mg PO DAILY 90 days # 90 tabs 12/26/24 tablet (Farxiga) duloxetine 30 mg capsule,delayed See Rx Instructions . Route 01/10/25 release .COMPLEX #90 ea lisinopril 2.5 mg tablet 2.5 mg PO DAILY 90 days #90 tabs 01/10/25 Allergies Allergy/AdvReac Type Severity Reaction Status Date / Time Penicillins (PENICILLINS) Allergy Unknown I-HIVES Verified 12/07/24 14:26 [facility] Disclaimer: The information contained in this section may have been updated after the patient was seen, as this information can be updated by other users. 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) History of thyroid disease Asthma exacerbation Lung nodule Tobacco abuse counseling Dyspnea on exertion Encounter for screening for malignant neoplasm of lung Smoking greater than 30 pack years Asthma Abnormal findings on diagnostic imaging of heart and coronary circulation Goiter Hypokalemia Mesenteric artery stenosis Muscle spasm Nodule of left lobe of thyroid gland Osteopenia Dizziness Hyperlipidemia Hypertension Kidney stone Urinary tract infection History of gastroesophageal reflux (GERD) Hypothyroid Carpal tunnel syndrome Arthritis Sleep apnea COPD (chronic obstructive pulmonary disease) Cholecystectomy planned Cataracts, bilateral CAD (coronary artery disease) PAD (peripheral artery disease) Tobacco abuse Mesenteric artery stenosis Pre-op evaluation 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 , 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) History of heart artery stent History of cholecystectomy History of esophagogastroduodenoscopy (EGD) H/O thyroidectomy History of hysterectomy History of appendectomy H/O right heart catheterization Family History , 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) Family history of acute congestive heart failure Coronary artery disease Kidney disease Family history of hypertension Family history of myocardial infarction Cancer Social History , 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) Smoking Status: Current every day smoker second hand exposure: Yes alcohol intake: never substance use type: denies use current occupational status: retired Travel in the last 8 weeks?: None household members: spouse and children housing: house marital status: number of children: 3 current occupational exposures/hazards: No caffeine: Yes Have you lived/traveled outside [place] in past 30 days?: No Contact w/someone who lives/traveled outside [place] past 30 days?: No Exposure to someone with infectious disease in past 14 days?: No Do you have a fever (greater than 100.4 F or 38 C)?: No Have you tested positive for COVID-19?: No Exposed to someone with COVID-19 in past 14 days?: No Do you have a sore throat?: No Do you have a cough?: No Do you have any weakness?: No Do you have any diarrhea?: No Are you experiencing any unusual bleeding?: No Do you have any muscle aches/pain?: No Do you have any abdominal pain?: No Are you experiencing loss of taste or smell?: No Other 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 Have you received the Flu Vaccine for this season: No Have you received the Pneumonia Vaccine: Yes ROS Obtained: Yes All systems reviewed & no additional complaints except as documented Constitutional Constitutional: Reports system reviewed and no additional complaints, except as documented and Reports as per HPI ENT Ears, Nose, Mouth, and Throat: Denies neck pain Musculoskeletal Musculoskeletal: Reports system reviewed and no additional complaints, except as documented, Reports as per HPI, Denies abnormal gait, Denies arthralgias, Denies back pain, Denies myalgias and Denies neck pain Integumentary/Breasts Skin/Breast: Reports system reviewed and no additional complaints, except as documented, Reports as per HPI and Reports other Neurologic Neurologic: Reports system reviewed and no additional complaints, except as documented, Reports as per HPI and Denies abnormal gait Physical Exam General General appearance: alert and in no apparent distress Head Head exam: atraumatic Eye Eye exam: Present normal appearance ENT ENT exam: Present normal exam Neck Neck exam: Present normal inspection and full ROM Respiratory Respiratory exam: Present normal lung sounds bilaterally Cardiovascular Cardiovascular exam: Present regular rate and normal rhythm Abdominal Exam Abdominal exam: Present soft; Absent tenderness Back Exam Back exam: Present normal inspection and full ROM; Absent tenderness Neurological Exam Neurological exam: Present alert, oriented X3 and CN II-XII intact Skin Skin exam: Present warm and other (Skin tear to left elbow, skin tear to right wrist, laceration to left ring finger) Medical Decision Making Medical Records Medical records reviewed: Yes I reviewed the patient's medical records. Screening: Per USPSTF and CDC recommendations, given the prevalence of disease in our region, it is our hospital?s policy to screen for HIV and viral Hepatitis for all patients aged 18 and over and those with ongoing risk factors. Omer Inquiry Pt receiving controlled substance: No Omer was queried for this patient: No Vital Signs: 01/29/25 13:20 01/29/25 13:31 01/29/25 14:02 Temperature 98.1 F Temperature Source Oral Pulse Rate 41 L 44 L Pulse Rate [Left] 60 Respiratory Rate 18 Blood Pressure 175/58 H 169/88 H Blood Pressure [Right Arm] 203/113 H Blood Pressure Mean [Right Arm] 143 02 Sat by Pulse Oximetry 98 97 96 Oxygen Delivery Method Room Air 01/29/25 14:31 Temperature Temperature Source Pulse Rate 58 L Pulse Rate [Left] Respiratory Rate Blood Pressure 157/84 H Blood Pressure [Right Arm] Blood Pressure Mean [Right Arm] 02 Sat by Pulse Oximetry 96 Oxygen Delivery Method Orders (Tests/Meds): ED MEDICATIONS Discontinued Medications Generic Name Dose Route Start Last Admin Trade Name Joselyn PRN Reason Stop Dose Admin Neomycin/Polymyxin/Bacitracin 1 each 01/29/25 14:45 01/29/25 14:46 Neosporin Ointment 0.9gm Udp TP 01/29/25 14:46 1 each ONCE ONE Administration Tetanus/Reduced Diphtheria/Acell Pertussis 0.5 ml 01/29/25 14:53 01/29/25 15:15 Tet/Diphth/Pert-Adult 0.5ml Syringe IM 01/29/25 14:54 0.5 ml .ONCE ONE Administration ORDERS Category Date Time Status Elbow XR left mininum 3 views [XR elbow LT min 3V] Stat Exams 01/29/25 13:31 Completed Lumbar spine XR 2-3 views [XR lumbar spine 2-3V] Stat Exams 01/29/25 13:31 Completed XR hip RT 2-3V w/pelvis Stat Exams 01/29/25 13:30 Completed Medical Decision Narrative: In summary patient is a 69-year-old female who presents to the emergency department for evaluation of status post fall, skin tear and laceration. Patient is hemodynamically stable upon arrival, afebrile. Laceration to left ring finger, skin tear to left elbow and right wrist. Differential diagnosis includes skin tear, laceration, hip pain. Initial workup will be conducted with x-rays are negative for any acute findings. Initial inventions include lacerations and skin tears were cleaned Dermabond and Steri-Stripped. Upon repeat evaluation patient states she is not having any new symptoms or pain.. Given this discharge home patient to monitor for signs of infection, tetanus shot given Instructed patient to follow-up with PCP regarding x-rays Critical Care Critical Care Time Critical Care Time: No
[2025-01-29] MEDS: NEOSPORIN OINTMENT 0.9GM UDP 1 EACH TP (14:46)
[2025-01-29] MEDS: TET/DIPHTH/PERT-ADULT 0.5ML SYRINGE 0.5 ML IM (15:15)
== END 2025-01-29 15:45 | disposition home or self-care (01) ==
PROVIDERS: Emergency Provider Emergency Medicine; PCP Nurse Practitioner Family
DX: S61.215A Laceration without foreign body of left ring finger without damage to nail, initial encounter (principal); S50.312A Abrasion of left elbow, initial encounter; S60.811A Abrasion of right wrist, initial encounter; F17.200 Nicotine dependence, unspecified, uncomplicated; W01.0XXA Fall on same level from slipping, tripping and stumbling without subsequent striking against object, initial encounter
CPT/HCPCS: 72100; 73080; 73502; 90471; 90715; 99284